=== PATIENT | female | born 1965 | race Caucasian/White ===

== ENCOUNTER 2017-04-26 11:08 | Inpatient (IN) | payer MEDICARE, OTHER ==
[~2017-04-26 11:08] MED LIST: ASPIRIN 325 MG TAB PO STA; SODIUM CHLORIDE 0.9% 1,000 ML in EMPTY BAG 1 BAG IV ONE
[2017-04-26] MEDS: ALPRAZolam 0.25 MG TAB PO PRN (11:32)
[2017-04-26 12:04] LABS: Anion Gap 8 mmol/L; Blood Urea Nitrogen 13 mg/dL (7-17); Calcium 9.5 mg/dL (8.4-10.2); Carbon Dioxide 24 mmol/L (22-30); Chloride 111 mmol/L (98-107); Glucose 173 mg/dL (74-99); Non-African American GFR(MDRD) >60 (>60 ml/min/1.73 sqM); Potassium 4.5 mmol/L (3.5-5.1); Sodium 143 mmol/L (137-145)
[2017-04-26 12:05] LABS: Basophils # (A) 0.1 k/uL (0-0.2); Basophils % (A) 1 %; CHCM 34.1; Eosinophils # (A) 0.2 k/uL (0-0.7); Eosinophils % (A) 2 %; HCT 45.4 % (34.0-46.0); HDW 2.88; Luc # (Auto) 0.09; Luc % (Auto) 1; Lymphocytes # (A) 2.7 k/uL (1.0-4.8); Lymphocytes % (A) 39 %; MCH 30.3 pg (25.0-35.0); MCHC 33.1 g/dL (31.0-37.0); MCV 91.5 fL (80.0-100.0); Mean Platelet Volume 8.1; Monocytes # (A) 0.4 k/uL (0-1.0); Monocytes % (A) 5 %; Neutrophils # (A) 3.6 k/uL (1.3-7.7); Neutrophils % (A) 51 %; RBC 4.96 m/uL (3.80-5.40); RDW 15.5 % (11.5-15.5); WBC (Perox) 6.77
[2017-04-26] MEDS: MIDAZOLAM 2 MG/2 ML VIAL IV ONE ×2 (13:35→13:39)
[2017-04-26] MEDS ORDERED: LIDOCAINE 2% INJ 20 MG/ML SQ ONE (13:38)
[2017-04-26] MEDS: VERAPAMIL SYRINGE (5 MG/10 ML) INTRAARTER ONE ×2 (13:39→13:53)
[2017-04-26] MEDS ORDERED: IODIXANOL 320 MG/ML 100 ML INTRAARTER ONE (13:52)
[2017-04-26] MEDS ORDERED: SODIUM CHLORIDE 0.9% 1,000 ML IV SCH (14:15)
--- NOTE | 2017-04-26 14:21 | IR ---
EXAMINATION TYPE: IR angio abdominal w runoff DATE OF EXAM: 04/26/2017 COMPARISON: NONE HISTORY: Peripheral vascular occlusive disease. Fluoroscopy was provided to the referring clinician. See dictated report from cardiology.
[2017-04-26] MEDS ORDERED: ALBUTEROL NEBULIZED 2.5 MG/3 ML INHALATION PRN (15:07)
--- NOTE | 2017-04-26 15:07 | HP ---
CHIEF COMPLAINT: Left foot pain. HISTORY OF CHIEF COMPLAINT: This 51 -year-old woman has had left foot pain mainly in the let great toe for about two weeks. She denies known history of claudication. She is a longstanding cigarette smoker. She denies ulcerations or other skin changes. Medical history is positive for hypertension. She is status post myocardial infarction with coronary stents. She states she has a stroke but has no residuals and has chronic depression. Surgical history is positive for coronary stents times two and eye surgery. Social history is positive for long standing cigarette smoking. Current medications: Not listed. She is alert. She has No known drug allergies. Review of systems: Cardiac history: Currently the patient is asymptomatic post coronary stenting. Pulmonary history: the patient has mild dyspnea on exertion and mild cough but no other symptoms. GI: Negative. : Negative. Musculoskeletal: The patient has chronic back discomfort. Dermatological: Negative. Neurological: The patient states she has had a previous stroke but she has no specific symptoms. Psychiatric: Positive for longstanding depression. Endocrine: Negative. Hematological: Negative. Immuno/Allergy: Negative. Constitutional: Positive for generalized fatigue. ENT: Negative. PHYSICAL EXAMINATION: Reveals a mildly obese 51 -year-old woman in no current distress. She has no cervical masses or adenopathy. Her lungs are clear. Her heart is regular rhythm. I hear no murmurs. Her abdomen is soft, but obese and benign. She has normal pulses on the right side, femorals and dorsalis pedis. She has no pulses at the left femoral or below. She has dusky discoloration of the toes on her left foot. IMPRESSION: Critical limb ischemia, suspect ileofemoral occlusion. RECOMMENDATIONS: I have discussed with the patient the options in detail. We recommend she proceed with aortogram with runoff and from there further treatment will depend on these findings. We discussed the case with Dr. Hernandez. She understands the impending amount of limb loss and limitations to treatment. We also had a detailed discussion about the need for smoking cessation. RENA
[2017-04-26] MEDS ORDERED: HEPARIN SODIUM,PORCINE 10,000 UNIT/ML 1 ML VIAL IV ONE (15:13)
[2017-04-26] MEDS ORDERED: HEPARIN SODIUM,PORCINE 5,000 UNIT/ML 1 ML VIAL IV PRN (15:13)
[2017-04-26 15:55] LABS: Basophils # (A) 0.1 k/uL (0-0.2); Basophils % (A) 1 %; CH 29.5; CHCM 32.9; Eosinophils # (A) 0.2 k/uL (0-0.7); Eosinophils % (A) 3 %; HCT 43.2 % (34.0-46.0); HDW 2.92; HGB 14.7 gm/dL (11.4-16.0); Luc # (Auto) 0.12; Luc % (Auto) 2; Lymphocytes # (A) 3.2 k/uL (1.0-4.8); Lymphocytes % (A) 43 %; MCH 30.7 pg (25.0-35.0); MCV 90.2 fL (80.0-100.0); Mean Platelet Volume 7.4; Monocytes # (A) 0.3 k/uL (0-1.0); Monocytes % (A) 3 %; Neutrophils # (A) 3.6 k/uL (1.3-7.7); Neutrophils % (A) 49 %; RBC 4.79 m/uL (3.80-5.40); RDW 14.7 % (11.5-15.5); WBC 7.5 k/uL (3.8-10.6); WBC (Perox) 7.82
[2017-04-26] MEDS ORDERED: CHOLECALCIFEROL 1,000 UNIT TAB PO SCH (16:00)
[2017-04-26] MEDS: SYMBICORT 80-4.5 MCG INHALER INHALATION SCH (19:57)
[2017-04-26] MEDS: ASPIRIN 81 MG CHEW PO SCH (20:52)
[2017-04-26] MEDS: MIRTAZAPINE 45 MG TABLET PO SCH (20:52)
[2017-04-26] MEDS: NICOTINE 21MG/24HR PATCH TRANSDERM SCH (20:52)
[2017-04-26] MEDS: clonazePAM 1 MG TAB PO SCH (20:52)
[2017-04-26] MEDS: ATORVASTATIN 80 MG TAB PO SCH (20:52)
[2017-04-26] MEDS: ARIPiprazole 2 MG TAB PO SCH (20:53)
[2017-04-26] MEDS: IMIPRAMINE 25 MG TAB PO SCH (20:53)
[2017-04-26] MEDS: DIVALPROEX ER 500 MG TAB.ER.24H PO SCH (20:53)
[2017-04-26] MEDS: IBUPROFEN 800 MG TAB PO PRN (20:58)
[2017-04-26] MEDS: HEPARIN SODIUM,PORCINE/D5W PMX 25,000 UNIT in DEXTROSE/WATER 1 500ML.BAG IV SCH (22:24)
[2017-04-27 04:55] LABS: Basophils # (A) 0.1 k/uL (0-0.2); Basophils % (A) 1 %; CH 30.4; CHCM 32.8; Eosinophils # (A) 0.2 k/uL (0-0.7); Eosinophils % (A) 2 %; HCT 43.4 % (34.0-46.0); HDW 2.86; HGB 13.8 gm/dL (11.4-16.0); Luc % (Auto) 1; Lymphocytes # (A) 3.6 k/uL (1.0-4.8); Lymphocytes % (A) 50 %; MCH 29.6 pg (25.0-35.0); MCHC 31.7 g/dL (31.0-37.0); MCV 93.3 fL (80.0-100.0); Monocytes # (A) 0.4 k/uL (0-1.0); Monocytes % (A) 5 %; Neutrophils # (A) 2.9 k/uL (1.3-7.7); Neutrophils % (A) 40 %; RBC 4.66 m/uL (3.80-5.40); RDW 15.4 % (11.5-15.5); WBC 7.2 k/uL (3.8-10.6); WBC (Perox) 7.07
[2017-04-27 05:36] LABS: ALT 52 U/L (9-52); AST 64 U/L (14-36); Alkaline Phosphatase 108 U/L (38-126); Anion Gap 7 mmol/L; Blood Urea Nitrogen 13 mg/dL (7-17); Calcium 9.3 mg/dL (8.4-10.2); Carbon Dioxide 25 mmol/L (22-30); Chloride 109 mmol/L (98-107); Glucose 208 mg/dL (74-99); Non-African American GFR(MDRD) >60 (>60 ml/min/1.73 sqM); Potassium 4.4 mmol/L (3.5-5.1); Sodium 141 mmol/L (137-145); Total Bilirubin 0.3 mg/dL (0.2-1.3); Total Protein 5.5 g/dL (6.3-8.2)
[2017-04-27] MEDS: ALPRAZolam 0.25 MG TAB PO PRN ×2 (06:22→21:31)
[2017-04-27] MEDS: SYMBICORT 80-4.5 MCG INHALER INHALATION SCH ×3 (08:51→21:07)
--- NOTE | 2017-04-27 09:02 | P.GSCN ---
History of Present Illness History of present illness: 51 old white female, history of pain and discomfort left foot for the last 2 weeks. Patient has history of discoloration of the toes mostly the big toe she has been admitted and a aortogram with runoff showed left external occlusive disease with some thrombus noted in the left common femoral artery SFA and popliteal and three-vessel runoff. 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 On examination neck supple no bruit appreciated Chest clear first and second sound normal Abdomen soft nontender Vascular examination femorals are palpable on the right side left side is not palpable posterior tibial dorsal pedis not palpable on the left foot there is some discoloration of the toesischemic ulcer noted motor functions are normal Plan is thrombectomy of the left femoral artery and possible stent of the left external iliac artery risk and complication discuss bleeding infection thrombosis patient understands and we will proceed Past Medical History Past Medical History: Coronary Artery Disease (CAD), COPD, Hypertension, Myocardial Infarction ([place]), Sleep Apnea/CPAP/BIPAP, Vascular Disorder Additional Past Medical History / Comment(s): stent 2009 2010 Last Myocardial Infarction Date:: 2010 History of Any Multi-Drug Resistant Organisms: None Reported Past Surgical History: Heart Catheterization With Stent Past Anesthesia/Blood Transfusion Reactions: No Reported Reaction Date of Last Stent Placement:: 2010 Past Psychological History: Depression Smoking Status: Current every day smoker Past Alcohol Use History: None Reported Past Drug Use History: None Reported - Past Family History Mother Family Medical History: COPD, Coronary Artery Disease (CAD) Father History Unknown: Yes Medications and Allergies Home Medications Medication Instructions Recorded Confirmed Type ARIPiprazole [Abilify] 2 mg PO HS 04/26/17 04/26/17 History Albuterol Inhaler [Ventolin Hfa 1 - 2 puff INHALATION Q6HR PRN 04/26/17 History Inhaler] Aspirin 81 mg PO HS 04/26/17 04/26/17 History Atorvastatin [Lipitor] 80 mg PO HS 04/26/17 04/26/17 History Budesonide/Formoterol Fumarate 1 puff INHALATION Q8HR 04/26/17 04/26/17 History [Symbicort 80-4.5 Mcg Inhaler] Cholecalciferol [Vitamin D3] 1,000 unit PO QMONTH 04/26/17 04/26/17 History Divalproex ER [Depakote ER] 1,000 mg PO HS 04/26/17 04/26/17 History Divalproex ER [Depakote ER] 500 mg PO DAILY 04/26/17 04/26/17 History Ibuprofen [Motrin] 800 mg PO Q6HR PRN 04/26/17 04/26/17 History Imipramine HCl [Tofranil] 50 mg PO HS 04/26/17 04/26/17 History Mirtazapine [Remeron] 45 mg PO HS 04/26/17 04/26/17 History clonazePAM [KlonoPIN] 1 mg PO BID 04/26/17 04/26/17 History Allergies Allergy/AdvReac Type Severity Reaction Status Date / Time No Known Allergies Allergy Verified 04/26/17 10:50 Surgical - Exam Vital Signs Temp Pulse Resp BP Pulse Ox 98.6 F 82 16 179/92 96 04/26/17 12:16 04/26/17 12:16 04/26/17 12:16 04/26/17 12:16 04/26/17 12:16 Results - Labs 04/27/17 03:50 04/27/17 03:50 Abnormal Lab Results - Last 24 Hours (Table) 04/26/17 04/26/17 04/27/17 Range/Units 11:30 15:39 03:50 APTT 68.1 H (22.0-30.0) sec Chloride 111 H 109 H (98-107) mmol/L Glucose 173 H 208 H (74-99) mg/dL AST 64 H (14-36) U/L Total Protein 5.5 L (6.3-8.2) g/dL Albumin 3.2 L (3.5-5.0) g/dL 04/27/17 Range/Units 03:50 APTT 48.9 H (22.0-30.0) sec Chloride (98-107) mmol/L Glucose (74-99) mg/dL AST (14-36) U/L Total Protein (6.3-8.2) g/dL Albumin (3.5-5.0) g/dL Diabetes panel 04/26/17 04/27/17 Range/Units 11:30 03:50 Sodium 143 141 (137-145) mmol/L Potassium 4.5 4.4 (3.5-5.1) mmol/L Chloride 111 H 109 H (98-107) mmol/L Carbon Dioxide 24 25 (22-30) mmol/L BUN 13 13 (7-17) mg/dL Creatinine 0.71 0.80 (0.52-1.04) mg/dL Glucose 173 H 208 H (74-99) mg/dL Calcium 9.5 9.3 (8.4-10.2) mg/dL AST 64 H (14-36) U/L ALT 52 (9-52) U/L Alkaline Phosphatase 108 (38-126) U/L Total Protein 5.5 L (6.3-8.2) g/dL Albumin 3.2 L (3.5-5.0) g/dL Calcium panel 04/26/17 04/27/17 Range/Units 11:30 03:50 Calcium 9.5 9.3 (8.4-10.2) mg/dL Albumin 3.2 L (3.5-5.0) g/dL Pituitary panel 04/26/17 04/27/17 Range/Units 11:30 03:50 Sodium 143 141 (137-145) mmol/L Potassium 4.5 4.4 (3.5-5.1) mmol/L Chloride 111 H 109 H (98-107) mmol/L Carbon Dioxide 24 25 (22-30) mmol/L BUN 13 13 (7-17) mg/dL Creatinine 0.71 0.80 (0.52-1.04) mg/dL Glucose 173 H 208 H (74-99) mg/dL Calcium 9.5 9.3 (8.4-10.2) mg/dL Adrenal panel 04/26/17 04/27/17 Range/Units 11:30 03:50 Sodium 143 141 (137-145) mmol/L Potassium 4.5 4.4 (3.5-5.1) mmol/L Chloride 111 H 109 H (98-107) mmol/L Carbon Dioxide 24 25 (22-30) mmol/L BUN 13 13 (7-17) mg/dL Creatinine 0.71 0.80 (0.52-1.04) mg/dL Glucose 173 H 208 H (74-99) mg/dL Calcium 9.5 9.3 (8.4-10.2) mg/dL Total Bilirubin 0.3 (0.2-1.3) mg/dL AST 64 H (14-36) U/L ALT 52 (9-52) U/L Alkaline Phosphatase 108 (38-126) U/L Total Protein 5.5 L (6.3-8.2) g/dL Albumin 3.2 L (3.5-5.0) g/dL
[2017-04-27] MEDS: clonazePAM 1 MG TAB PO SCH ×2 (09:29→21:37)
[2017-04-27] MEDS: NICOTINE 21MG/24HR PATCH TRANSDERM SCH (09:29)
[2017-04-27] MEDS: DIVALPROEX ER 500 MG TAB.ER.24H PO SCH ×2 (09:29→21:31)
[2017-04-27] MEDS: IBUPROFEN 800 MG TAB PO PRN ×3 (10:00→21:37)
--- NOTE | 2017-04-27 11:17 | AN ---
PERIPHERAL ANGIOGRAM DATE OF SERVICE: 04/26/2017 PERFORMING PHYSICIAN: PALLAVI MINAYA MD, MOWER SHARPENER PROCEDURE PERFORMED: 1. Abdominal aortogram. 2. Bilateral lower extremity runoff. INDICATION: This is a pleasant 51-year-old female patient who is a smoker, who sees Dr. Saucedo as an outpatient, was experiencing critical limb ischemia of the left leg. I was called by Dr. Saucedo to perform an angiogram for the patient. APPROACH: Right radial artery. COMPLICATION: None. LEVEL OF SEDATION: Moderate with sedation length of 20 minutes. PROCEDURE DESCRIPTION: After obtaining an informed consent, the patient was brought to the Cardiac Tobacco Sweeper. The right radial artery was cannulated using micropuncture technique. The micropuncture wire passed easily, then I placed a 5 Malaysian sheath in the right radial artery. Subsequently, I did an abdominal aortogram and bilateral lower extremity runoff using 5 Malaysian Pigtail catheter which was initially placed at the level of the renal artery, then it was advanced into above the bifurcation of the aorta at the right and left common iliac arteries. The procedure was completed without any complication. SELECTIVE PERIPHERAL ANGIOGRAM: 1. The aorta appeared to have mild disease only. 2. The common iliac arteries: The right common iliac artery appeared to have a lesion in the range of 60% to 70% and the left common iliac artery appeared to be angiographically normal. 3. The external iliac arteries: The right external iliac artery is angiographically normal and the left external iliac artery appeared to have a thrombus. 4. The common femoral arteries: The right common femoral artery appeared to be angiographically normal and the left common femoral artery appeared to have a thrombus. 5. The profunda: The right and left profunda are normal. 6. The SFA: The right and left SFA are angiographically normal. 7. Popliteal: The right and left popliteal are angiographically normal. 8. There are three-vessel runoff below the knee bilaterally. CONCLUSION: 1. Possible thrombus involving the left external iliac artery and left common femoral artery. 2. Moderate to severe disease involving the right common iliac artery. 3. Normal bilateral SFA. 4. Normal bilateral popliteal. 5. Normal runoff below the knee bilaterally. POSTPROCEDURE MANAGEMENT: The patient will benefit from thrombectomy of the left external iliac and left common femoral artery. RENA
--- NOTE | 2017-04-27 12:23 | CONS ---
CHIEF COMPLAINT: 51-year-old white female who developed left foot pain, left great toe with darkening of the skin of the left great toe. She was admitted with claudication, peripheral artery disease with multiple blockages status post aortic run off with dye test in the legs today. She had multiple blockages. She has history of myocardial infarction, coronary artery stents. She has hypertension. Three packs a day of smoke. Obstructive sleep apnea untreated. Late night eating untreated. Surgical history: Coronary stents times two. Eye surgeries. Three pack a day cigarette smoking as mentioned above. Under severe stress. Medications: See list. ALLERGIES: Negative. Cardiovascular: S1, S2. Lungs scattered wheeze. Psych: Fair mood and affect. Ophthalmological: Wears glasses. GI: Soft. Extremities shows left foot has purple red discoloration. ASSESSMENT: 1. Peripheral artery disease. 2. Nicotine addiction. 3. Hypertension. 4. Chronic obstructive pulmonary disease. 5. Obstructive sleep apnea. Check her nocturnal oxygen levels. Please see further orders in chart. Continue home medications. Prognosis very guarded unless the patient can quit smking. Give her a nicotine patch 21 mg a day. Obstructive sleep apnea will be treated with CPAP as tolerated. MTDD
[2017-04-27 12:59] LABS: Hemoglobin A1C 7.7 % (4.2-6.1)
--- NOTE | 2017-04-27 14:01 | P.CRDCN ---
History of Present Illness History of present illness: 51-year-old female admitted with severe peripheral vascular disease and awaiting surgery. In the past she has seen Dr. Alvarez. She follows regularly with Dr. Brock Hernandez performed an abdominal aortogram and bilateral lower extremity runoff yesterday. Mild disease in the aorta. Thrombus in the left external iliac artery and left common femoral artery has a thrombus. Awaiting thrombectomy of the left external I'll ache and left common femoral artery Currently consulted on account of hypertension Patient states that she has had elevated blood pressures for a long time. Past history of peripheral artery disease, smoking, hypertension, COPD and obstructive sleep apnea. 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 Alvarez after 2009 Current every day smoker, smokes 2 packs of cigars a day, no alcohol use Home medications include Abilify ventricle and aspirin atorvastatin inhalers Depakote imipramine Remeron and Klonopin ALLERGIES NO KNOWN DRUG ALLERGIES On examination he is afebrile 97.8F, pulse rate in the 80s, respirations 16, blood pressure 165/82 mmHg and 158/86. His mercury by manual readings Breath sounds are reduced bilaterally No rhonchi no crackles Heart sounds S1 and S2 are normal no murmurs no gallops Abdomen is soft Impression Peripheral vascular disease Current smoker Coronary artery disease in the past Hypertension History of sleep apnea Suggest Continue antiplatelet therapy as well as statins Lipid panel 2-D echo and Doppler study Twelve-lead ECG Start hydralazine 50 mg 3 times a day and metoprolol 25 mg twice daily Past Medical History Past Medical History: Coronary Artery Disease (CAD), COPD, Hypertension, Myocardial Infarction ([place]), Sleep Apnea/CPAP/BIPAP, Vascular Disorder Additional Past Medical History / Comment(s): stent 2009 2010 Last Myocardial Infarction Date:: 2010 History of Any Multi-Drug Resistant Organisms: None Reported Past Surgical History: Heart Catheterization With Stent Past Anesthesia/Blood Transfusion Reactions: No Reported Reaction Date of Last Stent Placement:: 2010 Past Psychological History: Depression Smoking Status: Current every day smoker Past Alcohol Use History: None Reported Past Drug Use History: None Reported - Past Family History Mother Family Medical History: COPD, Coronary Artery Disease (CAD) Father History Unknown: Yes Medications and Allergies Home Medications Medication Instructions Recorded Confirmed Type ARIPiprazole [Abilify] 2 mg PO HS 04/26/17 04/26/17 History Albuterol Inhaler [Ventolin Hfa 1 - 2 puff INHALATION Q6HR PRN 04/26/17 History Inhaler] Aspirin 81 mg PO HS 04/26/17 04/26/17 History Atorvastatin [Lipitor] 80 mg PO HS 04/26/17 04/26/17 History Budesonide/Formoterol Fumarate 1 puff INHALATION Q8HR 04/26/17 04/26/17 History [Symbicort 80-4.5 Mcg Inhaler] Cholecalciferol [Vitamin D3] 1,000 unit PO QMONTH 04/26/17 04/26/17 History Divalproex ER [Depakote ER] 1,000 mg PO HS 04/26/17 04/26/17 History Divalproex ER [Depakote ER] 500 mg PO DAILY 04/26/17 04/26/17 History Ibuprofen [Motrin] 800 mg PO Q6HR PRN 04/26/17 04/26/17 History Imipramine HCl [Tofranil] 50 mg PO HS 04/26/17 04/26/17 History Mirtazapine [Remeron] 45 mg PO HS 04/26/17 04/26/17 History clonazePAM [KlonoPIN] 1 mg PO BID 04/26/17 04/26/17 History Allergies Allergy/AdvReac Type Severity Reaction Status Date / Time No Known Allergies Allergy Verified 04/26/17 10:50 Physical Exam Vitals: Vital Signs Temp Pulse Resp BP BP BP Pulse Ox 04/27/17 10:51 97.8 F 88 16 158/86 165/82 96 04/27/17 08:00 97.5 F L 85 16 168/70 95 04/27/17 04:00 97.1 F L 80 18 135/86 97 04/27/17 00:00 82 16 163/71 98 04/26/17 20:00 97.3 F L 78 18 155/87 96 04/26/17 18:20 86 16 165/87 97 04/26/17 17:20 78 16 157/88 97 04/26/17 17:13 79 18 167/71 98 04/26/17 16:20 80 16 142/86 97 04/26/17 16:05 80 16 164/80 97 04/26/17 15:50 67 16 93/63 98 04/26/17 15:35 77 16 154/71 98 04/26/17 15:20 79 18 121/76 99 04/26/17 15:07 66 16 156/78 96 04/26/17 14:55 97.6 F 78 16 121/76 99 04/26/17 14:52 129/63 04/26/17 14:51 75 16 95 04/26/17 14:32 72 16 171/68 97 04/26/17 14:17 76 16 161/79 96 Intake and Output 04/26/17 04/27/17 04/27/17 22:59 06:59 14:59 Intake Total 240 520 Output Total 400 300 Balance -160 -300 520 Intake: Oral 240 520 Output: Urine 400 300 Other: # Voids 1 1 Weight 99 kg Results 04/27/17 03:50 04/27/17 03:50 Cardiac Enzymes 04/27/17 Range/Units 03:50 AST 64 H (14-36) U/L Coagulation 04/26/17 04/26/17 04/27/17 Range/Units 15:39 20:43 03:50 APTT 68.1 H 22.7 48.9 H (22.0-30.0) sec Lipids 04/27/17 Range/Units 03:50 Triglycerides 367 H (<150) mg/dL Cholesterol 175 (<200) mg/dL HDL Cholesterol 45 (40-60) mg/dL CBC 04/26/17 04/27/17 Range/Units 15:39 03:50 WBC 7.5 7.2 (3.8-10.6) k/uL RBC 4.79 4.66 (3.80-5.40) m/uL Hgb 14.7 13.8 (11.4-16.0) gm/dL Hct 43.2 43.4 (34.0-46.0) % Plt Count 190 174 (150-450) k/uL Comprehensive Metabolic Panel 04/27/17 Range/Units 03:50 Sodium 141 (137-145) mmol/L Potassium 4.4 (3.5-5.1) mmol/L Chloride 109 H (98-107) mmol/L Carbon Dioxide 25 (22-30) mmol/L BUN 13 (7-17) mg/dL Creatinine 0.80 (0.52-1.04) mg/dL Glucose 208 H (74-99) mg/dL Calcium 9.3 (8.4-10.2) mg/dL AST 64 H (14-36) U/L ALT 52 (9-52) U/L Alkaline Phosphatase 108 (38-126) U/L Total Protein 5.5 L (6.3-8.2) g/dL Albumin 3.2 L (3.5-5.0) g/dL Current Medications Generic Name Dose Route Start Last Admin Trade Name Freq PRN Reason Stop Dose Admin Albuterol Sulfate 2.5 mg 04/26/17 15:07 Ventolin Nebulized INHALATION Q6HR PRN Shortness Of Breath Or Wheezing Alprazolam 0.25 mg 04/26/17 10:54 04/27/17 06:22 Xanax PO 0.25 mg Q4HR PRN Administration Mild Anxiety Aripiprazole 2 mg 04/26/17 21:00 04/26/17 20:53 Abilify PO 2 mg HS EZIO Administration Aspirin 81 mg 04/26/17 21:00 04/26/17 20:52 Aspirin PO 81 mg HS EZIO Administration Atorvastatin Calcium 80 mg 04/26/17 21:00 04/26/17 20:52 Lipitor PO 80 mg HS EZIO Administration Budesonide/Formoterol Fumarate 1 puff 04/26/17 20:00 04/27/17 08:51 Symbicort 80-4.5 Mcg Inhaler INHALATION 1 puff RT-BID EZIO Administration Cholecalciferol 1,000 unit 04/26/17 16:00 Vitamin D3 PO QMONTH EZIO Clonazepam 1 mg 04/26/17 21:00 04/27/17 09:29 Klonopin PO 1 mg BID EZIO Administration Divalproex Sodium 500 mg 04/27/17 09:00 04/27/17 09:29 Depakote Er PO 500 mg DAILY EZIO Administration Divalproex Sodium 1,000 mg 04/26/17 21:00 04/26/17 20:53 Depakote Er PO 1,000 mg HS EZIO Administration Heparin Sodium (Porcine) 0 unit 04/26/17 15:13 Heparin IV PER PROTOCOL PRN Low PTT Protocol Hydralazine HCl 50 mg 04/27/17 13:00 Apresoline PO TID [facility] Heparin Sodium/Dextrose 25,000 500 mls @ 34.61 mls/hr 04/26/17 16:00 22:24 unit/ IV Solution IV 18 units/kg/hr .[id number] EZIO 34.61 mls/hr Protocol Administration 18 UNITS/KG/HR Ibuprofen 800 mg 04/26/17 18:21 04/27/17 10:00 Motrin PO 800 mg QID PRN Administration Pain Imipramine HCl 50 mg 04/26/17 21:00 04/26/17 20:53 Tofranil PO 50 mg HS EZIO Administration Metoprolol Tartrate 25 mg 04/27/17 13:00 Lopressor PO BID EZIO Mirtazapine 45 mg 04/26/17 21:00 04/26/17 20:52 Remeron PO 45 mg HS EZIO Administration Nicotine 1 patch 04/26/17 19:45 04/27/17 09:29 Habitrol 21mg/24hr Patch TRANSDERM 1 patch DAILY EZIO Administration Intake and Output 04/26/17 04/27/17 04/27/17 22:59 06:59 14:59 Intake Total 240 520 Output Total 400 300 Balance -160 -300 520 Intake: Oral 240 520 Output: Urine 400 300 Other: # Voids 1 1 Weight 99 kg 04/27/17 03:50 04/27/17 03:50
[2017-04-27] MEDS: hydrALAZINE HCL 50 MG TAB PO SCH ×3 (14:20→21:32)
[2017-04-27] MEDS: METOPROLOL TARTRATE 25 MG TAB PO SCH ×2 (14:21→21:32)
--- NOTE | 2017-04-27 18:08 | ECHOF ---
Referral Reason:htn, pvd MEASUREMENTS -------- HEIGHT: 165.1 cm WEIGHT: 98.9 kg BP: RVIDd: 2.0 cm (< 3.3) IVSd: 1.6 cm (0.6 - 1.1) LVIDd: 3.3 cm (3.9 - 5.3) LVPWd: 2.0 cm (0.6 - 1.1) EDV(Teich): 46 ml IVSs: 2.0 cm LVIDs: 2.5 cm LVPWs: 1.9 cm %IVS Thck: 25 % ESV(Teich): 23 ml EF(Teich): 50 % %FS: 24 % SV(Teich): 23 ml Ao Diam: 2.7 cm (2.0 - 3.7) AV Cusp: 1.8 cm (1.5 - 2.6) LA Diam: 3.2 cm (2.7 - 3.8) MV EXCURSION: 11.106 mm (> 18.000) MV EF SLOPE: 96 mm/s (70 - 150) EPSS: 0.6 cm MV E Ranulfo: 0.68 m/s MV DecT: 198 ms MV Dec Gilmer: 3.4 m/s MV A Ranulfo: 0.91 m/s MV E/A Ratio: 0.75 MV PHT: 57 ms E/E': 11.93 E': 0.06 m/s MR Vmax: 1.55 m/s MR maxP.63 mmHg AV Vmax: 1.03 m/s AV maxP.20 mmHg TR Vmax: 1.49 m/s TR maxP.89 mmHg RAP: 5.00 mmHg RVSP: 13.89 mmHg FINDINGS -------- Sinus rhythm. This was a technically good study. There is severe concentric left ventricular hypertrophy. Overall left ventricular systolic function is normal with, an EF between 55 - 60 %. The right ventricle is normal in size and function. The left atrium is normal in size. The right atrium is normal in size. The aortic valve is trileaflet, and appears structurally normal. No aortic stenosis or regurgitation. There is trace mitral regurgitation. Trace tricuspid regurgitation present. The right ventricular systolic pressure, as measured by Doppler, is 13.89mmHg. Pulmonic valve appears structurally normal. The aortic root size is normal. The pericardium is normal. CONCLUSIONS -------- 1. Sinus rhythm. 2. Trace tricuspid regurgitation present. 3. The right ventricular systolic pressure, as measured by Doppler, is 13.89mmHg. 4. Pulmonic valve appears structurally normal. 5. The aortic root size is normal. 6. The pericardium is normal. 7. This was a technically good study. 8. There is severe concentric left ventricular hypertrophy. 9. Overall left ventricular systolic function is normal with, an EF between 55 - 60 %. 10. The right ventricle is normal in size and function. 11. The left atrium is normal in size. 12. The right atrium is normal in size. 13. The aortic valve is trileaflet, and appears structurally normal. No aortic stenosis or regurgitation. 14. There is trace mitral regurgitation. DRIVING TEACHER: Belem De La Rosa RDCS
[2017-04-27] MEDS: ATORVASTATIN 80 MG TAB PO SCH (21:31)
[2017-04-27] MEDS: MIRTAZAPINE 45 MG TABLET PO SCH (21:31)
[2017-04-27] MEDS: IMIPRAMINE 25 MG TAB PO SCH (21:31)
[2017-04-27] MEDS: ASPIRIN 81 MG CHEW PO SCH (21:31)
[2017-04-27] MEDS: ARIPiprazole 2 MG TAB PO SCH (21:31)
[2017-04-28] MEDS: HEPARIN SODIUM,PORCINE/D5W PMX 25,000 UNIT in DEXTROSE/WATER 1 500ML.BAG IV SCH ×2 (01:35→12:15)
[2017-04-28] MEDS: hydrALAZINE HCL 50 MG TAB PO SCH ×3 (05:45→22:07)
[2017-04-28] MEDS: clonazePAM 1 MG TAB PO SCH ×2 (05:45→22:11)
[2017-04-28] MEDS: DIVALPROEX ER 500 MG TAB.ER.24H PO SCH ×3 (05:45→22:12)
[2017-04-28] MEDS: METOPROLOL TARTRATE 25 MG TAB PO SCH ×2 (05:45→22:13)
[2017-04-28] MEDS: NICOTINE 21MG/24HR PATCH TRANSDERM SCH (05:46)
[2017-04-28 06:17] LABS: Basophils % (A) 1 %; CH 30.8; Eosinophils # (A) 0.1 k/uL (0-0.7); Eosinophils % (A) 2 %; HCT 41.3 % (34.0-46.0); HDW 2.96; HGB 13.8 gm/dL (11.4-16.0); Luc # (Auto) 0.08; Luc % (Auto) 1; Lymphocytes # (A) 2.8 k/uL (1.0-4.8); Lymphocytes % (A) 48 %; MCH 29.7 pg (25.0-35.0); MCHC 33.5 g/dL (31.0-37.0); MCV 88.6 fL (80.0-100.0); Mean Platelet Volume 7.9; Monocytes # (A) 0.3 k/uL (0-1.0); Monocytes % (A) 6 %; Neutrophils # (A) 2.5 k/uL (1.3-7.7); Neutrophils % (A) 43 %; RBC 4.66 m/uL (3.80-5.40); RDW 15.2 % (11.5-15.5); WBC 5.8 k/uL (3.8-10.6); WBC (Perox) 5.81
[2017-04-28 06:27] LABS: ALT 72 U/L (9-52); AST 40 U/L (14-36); Alkaline Phosphatase 89 U/L (38-126); Anion Gap 7 mmol/L; Blood Urea Nitrogen 12 mg/dL (7-17); Calcium 9.7 mg/dL (8.4-10.2); Carbon Dioxide 25 mmol/L (22-30); Chloride 109 mmol/L (98-107); Glucose 141 mg/dL (74-99); Non-African American GFR(MDRD) >60 (>60 ml/min/1.73 sqM); Potassium 4.6 mmol/L (3.5-5.1); Sodium 141 mmol/L (137-145); Total Bilirubin 0.3 mg/dL (0.2-1.3); Total Protein 5.8 g/dL (6.3-8.2)
[2017-04-28] MEDS ORDERED: IV FLUID CONTINUATION 1,000 ML IV ONE (07:03)
[2017-04-28] MEDS ORDERED: MIDAZOLAM 2 MG/2 ML VIAL IVP ONE (07:10)
[2017-04-28] MEDS ORDERED: THROMBIN (BOVINE) 5,000 UNIT VIAL TOPICAL ONE (07:18)
[2017-04-28] MEDS ORDERED: IOHEXOL 300 MG/ML 50 ML BOTTLE INJ ONE ×3 (07:21)
[2017-04-28] MEDS ORDERED: SUCCINYLCHOLINE CHLORIDE 100 MG/5 ML SYR IV ONE (07:30)
[2017-04-28] MEDS ORDERED: fentaNYL (PF) 50 MCG/ML 2 ML AMP ONE (07:30)
[2017-04-28] MEDS ORDERED: ePHEDrine SULFATE/0.9% NACL/PF 50 MG/5 ML SYRINGE IV ONE (07:30)
[2017-04-28] MEDS ORDERED: GLYCOPYRROLATE 0.2 MG/ML 2 ML VIAL ONE (07:30)
[2017-04-28] MEDS ORDERED: LIDOCAINE 1% INJ 10MG/ML (20 ML MDV) ONE (07:30)
[2017-04-28] MEDS ORDERED: NEOSTIGMINE 1 MG/ML 10 ML VIAL ONE (07:30)
[2017-04-28] MEDS ORDERED: ONDANSETRON 4 MG/2 ML VIAL ONE (07:30)
[2017-04-28] MEDS ORDERED: HEPARIN SODIUM,PORCINE 10,000 UNIT/ML 1 ML VIAL ONE (07:30)
[2017-04-28] MEDS ORDERED: MIDAZOLAM 2 MG/2 ML VIAL ONE (07:30)
[2017-04-28] MEDS ORDERED: PHENYLEPHRINE-0.9% NACL SYG 1 MG/10 ML SYRINGE ONE (07:30)
[2017-04-28] MEDS ORDERED: ROCURONIUM BROMIDE 10 MG/ML 10 ML VIAL IV ONE (07:30)
[2017-04-28] MEDS ORDERED: PROPOFOL 10 MG/ML 20 ML VIAL IV ONE (07:30)
[2017-04-28] MEDS ORDERED: SODIUM CHLORIDE 0.9% 50 ML with ceFAZolin 2,000 MG IV ONE ×2 (07:48)
[2017-04-28] MEDS ORDERED: SODIUM CHLORIDE 0.9% 500 ML with HEPARIN SODIUM,PORCINE 5,000 UNIT IV ONE ×2 (08:56)
[2017-04-28] MEDS ORDERED: GELATIN SPONGE,ABSORB (LARGE) 1 EACH SPONGE TOPICAL ONE (09:13)
[2017-04-28] MEDS: SYMBICORT 80-4.5 MCG INHALER INHALATION SCH ×2 (09:28→20:27)
[2017-04-28] MEDS ORDERED: HYDROmorphone 1 MG/ML 1 ML SYRINGE IVP PRN (09:34)
[2017-04-28] MEDS ORDERED: HEPARIN SODIUM,PORCINE 5,000 UNIT/ML 1 ML VIAL IV PRN (09:38)
[2017-04-28] MEDS ORDERED: KETOROLAC 30 MG/ML 1 ML VIAL IVP ONE (10:00)
[2017-04-28] MEDS: HYDROmorphone 1 MG/ML 1 ML SYRINGE IVP ONE ×2 (10:00→10:15)
[2017-04-28 10:03] LABS: Prothrombin Time 9.9 sec (9.0-12.0)
[2017-04-28] MEDS ORDERED: LACTATED RINGERS 1,000 ML IV ONE (10:36)
[2017-04-28] MEDS ORDERED: ceFAZolin 1 GM in SODIUM CHLORIDE 0.9% 100 ML IVPB SCH (12:00)
[2017-04-28] MEDS: ceFAZolin 1,000 MG in DEXTROSE/WATER 1 50ML.BAG IVPB SCH ×2 (12:13→18:23)
[2017-04-28] MEDS ORDERED: diphenhydrAMINE 25 MG CAP PO STA (12:13)
[2017-04-28] MEDS ORDERED: Acetaminophen-Codeine 300-30mg TAB PO PRN (12:23)
[2017-04-28] MEDS: IBUPROFEN 800 MG TAB PO PRN (14:54)
[2017-04-28] MEDS: Acetaminophen-Codeine 300-30mg TAB PO PRN (16:04)
[2017-04-28] MEDS: ALPRAZolam 0.25 MG TAB PO PRN (16:08)
--- NOTE | 2017-04-28 17:39 | PN ---
PROGRESS NOTE Date of Service: Trauma I did send Tierney 8 NOLASCO: #[id number]. SUBJECTIVE: 51-year-old, white female, admitted with critical limb ischemia. Awaiting surgery on for a fem-fem bypass. CARDIOVASCULAR: S1, S2. LUNGS: Transmitted upper airway sounds. HEMATOLOGY: Negative Homans. PSYCH: Fair mood and affect. Nicotine cessation counseling given. Hypertension cessation counseling. High cholesterol cessation counseling given. Patient is cleared for surgery tomorrow. Thank you, Dr. Saucedo, for the consult. MMODL / IJN: [id number] /
[2017-04-28] MEDS: ARIPiprazole 2 MG TAB PO SCH (22:06)
[2017-04-28] MEDS: ASPIRIN 81 MG CHEW PO SCH (22:06)
[2017-04-28] MEDS: ATORVASTATIN 80 MG TAB PO SCH (22:07)
[2017-04-28] MEDS: diphenhydrAMINE 25 MG CAP PO SCH (22:08)
[2017-04-28] MEDS: IMIPRAMINE 25 MG TAB PO SCH (22:12)
[2017-04-28] MEDS: MIRTAZAPINE 45 MG TABLET PO SCH (22:13)
[2017-04-29] MEDS: ceFAZolin 1,000 MG in DEXTROSE/WATER 1 50ML.BAG IVPB SCH ×4 (00:10→17:57)
[2017-04-29 03:25] LABS: Basophils % (A) 1 %; CH 30.9; CHCM 34.6; Eosinophils # (A) 0.1 k/uL (0-0.7); Eosinophils % (A) 2 %; HDW 2.91; HGB 13.3 gm/dL (11.4-16.0); Luc # (Auto) 0.06; Luc % (Auto) 1; Lymphocytes # (A) 1.9 k/uL (1.0-4.8); Lymphocytes % (A) 31 %; MCHC 33.4 g/dL (31.0-37.0); MCV 89.9 fL (80.0-100.0); Mean Platelet Volume 7.8; Monocytes # (A) 0.3 k/uL (0-1.0); Monocytes % (A) 5 %; Neutrophils # (A) 3.6 k/uL (1.3-7.7); Neutrophils % (A) 60 %; RBC 4.45 m/uL (3.80-5.40); RDW 15.6 % (11.5-15.5)
[2017-04-29 03:39] LABS: ALT 58 U/L (9-52); AST 29 U/L (14-36); Alkaline Phosphatase 83 U/L (38-126); Anion Gap 5 mmol/L; Blood Urea Nitrogen 11 mg/dL (7-17); Calcium 10.1 mg/dL (8.4-10.2); Carbon Dioxide 31 mmol/L (22-30); Chloride 104 mmol/L (98-107); Glucose 196 mg/dL (74-99); Non-African American GFR(MDRD) >60 (>60 ml/min/1.73 sqM); Potassium 4.6 mmol/L (3.5-5.1); Sodium 140 mmol/L (137-145); Total Bilirubin 0.4 mg/dL (0.2-1.3); Total Protein 5.4 g/dL (6.3-8.2)
[2017-04-29] MEDS: FAMOTIDINE 20 MG TAB PO SCH ×3 (05:54→20:25)
--- NOTE | 2017-04-29 07:52 | P.PN ---
Progress Note - Text 51-year-old white female, patient came with ischemic left foot, patient had a left external iliac artery stent and balloon angioplasty incision groin is healing good patient has a decent pulse in the left foot is warm and pulses are palpable DC the heparin and patient will be on Plavix patient can be ambulated
[2017-04-29] MEDS: LISINOPRIL 20 MG TAB PO SCH (09:01)
[2017-04-29] MEDS: clonazePAM 1 MG TAB PO SCH ×3 (09:01→20:36)
[2017-04-29] MEDS: CLOPIDOGREL 75 MG TAB PO SCH (09:01)
[2017-04-29] MEDS: NICOTINE 21MG/24HR PATCH TRANSDERM SCH (09:01)
[2017-04-29] MEDS: diphenhydrAMINE 25 MG CAP PO SCH ×3 (09:01→20:36)
[2017-04-29] MEDS: Acetaminophen-Codeine 300-30mg TAB PO PRN ×2 (09:02→15:27)
[2017-04-29] MEDS: hydrALAZINE HCL 50 MG TAB PO SCH ×3 (09:02→20:27)
[2017-04-29] MEDS: METOPROLOL TARTRATE 25 MG TAB PO SCH ×2 (09:02→20:25)
[2017-04-29] MEDS: SYMBICORT 80-4.5 MCG INHALER INHALATION SCH ×2 (09:12→19:39)
--- NOTE | 2017-04-29 09:56 | P.PN ---
Subjective Principal diagnosis: Critical limb ischemia. Current tobacco dependence. History of hypertension, myocardial infarction with coronary stents, stroke, chronic depression. POD #1 left ileofemoral thrombectomy with iliac stent Patient's currently sitting up in bed in no acute distress. De La Cruz was discontinued this morning, patient is asking tibial to get up to the bathroom. States pain is well-controlled. Objective - Vital Signs Vital signs: Vital Signs Temp 97.6 F 04/29/17 04:00 Pulse 84 04/29/17 04:00 Resp 18 04/29/17 04:00 BP 139/59 04/29/17 04:00 Pulse Ox 95 04/29/17 04:00 Intake & Output 04/28/17 04/29/17 04/29/17 18:59 06:59 18:59 Intake Total 1461 731.223 180 Output Total 1100 3375 Balance 361 -2643.777 180 Weight 105 kg Intake: IV 1101 Intake, IV Titration 731.223 Amount Heparin Sodium,Porcine/ 371.223 D5w Pmx 25,000 unit In Dextrose/Water 1 500ml. bag @ 10.1 UNITS/KG/HR 20 .03 mls/hr IV .Q24H [facility] Rx#:[id number] Sodium Chloride 0.9% 50 260 ml As IV .STK-MED ONE with ceFAZolin 2,000 mg Rx#:[id number] ceFAZolin 1,000 mg In 100 Dextrose/Water 1 50ml.bag @ 100 mls/hr IVPB Q6HR [facility] Rx#:[id number] Oral 360 180 Output: Urine 1000 3375 Uretheral (De La Cruz) 675 Estimated Blood Loss 100 Other: Voiding Method Indwelling Catheter # Voids 2 - Constitutional General appearance: Present: cooperative, no acute distress - Respiratory Details: Lungs sounds diminished bilaterally. Respirations even, nonlabored. Currently on room air with oxygen saturations 95%. - Cardiovascular Details: S1, S2 present. Regular rate and rhythm, normal sinus rhythm on telemetry. Bilateral DP, PT pulses palpable. Left foot is warm with good cap refill. - Gastrointestinal Gastrointestinal Comment(s): Abdomen soft, nontender, nondistended. Active bowel sounds 4 quadrants. Tolerating diet. - Genitourinary Genitourinary Comment(s): De La Cruz discontinued this morning. Due to void. - Integumentary Integumentary Comment(s): Left groin well approximated with intact jacob. Re-covered with 4 x 4, Tegaderm. - Neurologic Neurologic: Present: CNII-XII intact - Musculoskeletal Musculoskeletal: Present: strength equal bilaterally - Psychiatric Psychiatric: Present: A&O x's 3, appropriate affect, intact judgment & insight - Allied health notes Allied health notes reviewed: nursing - Labs CBC & Chem 7: 04/29/17 03:04 04/29/17 03:04 Labs: Abnormal Lab Results - Last 24 Hours (Table) 04/29/17 04/29/17 Range/Units 03:04 03:04 RDW 15.6 H (11.5-15.5) % Carbon Dioxide 31 H (22-30) mmol/L Glucose 196 H (74-99) mg/dL ALT 58 H (9-52) U/L Total Protein 5.4 L (6.3-8.2) g/dL Albumin 3.2 L (3.5-5.0) g/dL Assessment and Plan (1) Tobacco dependence Status: Acute (2) Hypertension Status: Acute (3) Previous myocardial infarction older than 8 weeks Status: Acute (4) Depression Status: Acute (5) Critical lower limb ischemia Status: Acute Plan: 1. Continue aspirin, Lipitor. Start Plavix. Discontinue heparin drip after Plavix started. 2. Patient may ambulate. 3. Keep incision covered with 4 x 4 and Tegaderm. Dressing to be changed every 48 hours. 4. Encourage smoking cessation. Encourage incentive spirometery use. 5. Medical comorbidities to be managed by primary care services. 6. More recommendations as patient progresses. Likely will be discharged to home tomorrow. Time with Patient: Greater than 30
[2017-04-29] MEDS: HEPARIN SODIUM,PORCINE/D5W PMX 25,000 UNIT in DEXTROSE/WATER 1 500ML.BAG IV SCH (10:43)
--- NOTE | 2017-04-29 11:27 | P.PN ---
Progress Note - Text Please see full dictation by Dr. he. Patient's blood pressure is still elevated but a lot better and she is doing well after her peripheral vascular surgery. I have added lisinopril 20 mg by mouth daily. This lady needs to stop smoking and be compliant with her medications. She is on antiplatelet therapy, atorvastatin and antihypertensive therapy. She will follow-up with her primary care physician
--- NOTE | 2017-04-29 14:13 | P.PN ---
Subjective Principal diagnosis: Critical limb ischemia This is a 51-year-old female with history of severe peripheral vascular disease, hypertension, nicotine dependence, COPD, sleep apnea, patient underwent left iliofemoral femur thrombectomy with stent placement. She was seen and examined this morning, denies any pain in either of her legs. No chest discomfort or difficulty in breathing. Blood pressure 138/60 heart rate in the 80s. Objective - Vital Signs Vital signs: Vital Signs Temp 97.5 F L 04/29/17 08:00 Pulse 89 04/29/17 08:00 Resp 18 04/29/17 08:00 BP 160/89 04/29/17 08:00 Pulse Ox 95 04/29/17 08:00 Intake & Output 04/28/17 04/29/17 04/29/17 18:59 06:59 18:59 Intake Total 1461 731.223 416 Output Total 1100 3375 Balance 361 -2643.777 416 Weight 105 kg Intake: IV 1101 Intake, IV Titration 731.223 Amount Heparin Sodium,Porcine/ 371.223 D5w Pmx 25,000 unit In Dextrose/Water 1 500ml. bag @ 10.1 UNITS/KG/HR 20 .03 mls/hr IV .Q24H [facility] Rx#:[id number] Sodium Chloride 0.9% 50 260 ml As IV .STK-MED ONE with ceFAZolin 2,000 mg Rx#:[id number] ceFAZolin 1,000 mg In 100 Dextrose/Water 1 50ml.bag @ 100 mls/hr IVPB Q6HR [facility] Rx#:[id number] Oral 360 416 Output: Urine 1000 3375 Uretheral (De La Cruz) 675 Estimated Blood Loss 100 Other: Voiding Method Indwelling Catheter Toilet # Voids 2 - Exam PHYSICAL EXAMINATION: HEENT: Head is atraumatic, normocephalic. Pupils equal, round. Neck is supple. There is no elevated jugular venous pressure. HEART EXAMINATION: Heart S1, S2 normal. No murmur or gallop heard. CHEST EXAMINATION: Lungs reveal diminished air entry to bilateral bases. ABDOMEN: Soft, nontender. Bowel sounds are heard. No organomegaly noted. EXTREMITIES: Doppler posterior tibial peripheral pulses with no evidence of peripheral edema and no calf tenderness noted. Left foot is warm good capillary refill NEUROLOGIC [patient is awake, alert and oriented -3.] . - Labs CBC & Chem 7: 04/29/17 03:04 04/29/17 03:04 Labs: Abnormal Lab Results - Last 24 Hours (Table) 04/29/17 04/29/17 Range/Units 03:04 03:04 RDW 15.6 H (11.5-15.5) % Carbon Dioxide 31 H (22-30) mmol/L Glucose 196 H (74-99) mg/dL ALT 58 H (9-52) U/L Total Protein 5.4 L (6.3-8.2) g/dL Albumin 3.2 L (3.5-5.0) g/dL Assessment and Plan (1) Ileofemoral deep vein thrombosis Status: Acute (2) Status post insertion of iliac artery stent Status: Acute (3) Critical lower limb ischemia Status: Acute (4) Depression Status: Acute (5) Hypertension Status: Acute (6) Previous myocardial infarction older than 8 weeks Status: Acute (7) Tobacco dependence Status: Acute Plan: From cardiology's perspective, we'll increase the patient's lisinopril to 20 mg daily. Patient has been instructed regarding the importance of taking her medications on a regular basis. Follow-up appointment will be made in the office post discharge. DNP note has been reviewed, I agree with a documented findings and plan of care. Patient was seen and examined.
--- NOTE | 2017-04-29 16:10 | PN ---
PROGRESS NOTE SUBJECTIVE: 51-year-old white female, status post femoral-popliteal bypass. Smoking cessation counseling has been given. Cardiovascular S1, S2. Lungs are clear. GI is soft, nontender. Negative Homans. Psych: Fair mood and affect. ASSESSMENT: 1. Status post fem-fem bypass. 2. Jaundice. 3. Discharge in the next 24 to 48 hours. 4. Smoking cessation counseling. 5. Alcohol counselling. 6. Obesity and sleep apnea treatments will be discussed with the patient as outpatient and will need to be worked up. MMODL / IJN: [id number] /
[2017-04-29 18:07] VITALS: RESP 18
[2017-04-29] MEDS: ARIPiprazole 2 MG TAB PO SCH (20:25)
[2017-04-29] MEDS: ASPIRIN 81 MG CHEW PO SCH (20:25)
[2017-04-29] MEDS: ATORVASTATIN 80 MG TAB PO SCH (20:25)
[2017-04-29] MEDS: MIRTAZAPINE 45 MG TABLET PO SCH (20:25)
[2017-04-29] MEDS: DIVALPROEX ER 500 MG TAB.ER.24H PO SCH (20:26)
[2017-04-29] MEDS: IMIPRAMINE 25 MG TAB PO SCH (20:26)
--- NOTE | 2017-04-29 21:37 | OP ---
OPERATIVE REPORT DATE OF PROCEDURE: 04/27/2017. PREOP DIAGNOSIS: 1. Ischemic left foot. 2. Left external iliac occlusion with possible thrombus impression. OPERATION: 1. Left leg angiogram evaluating the femoral iliac and artery on the left side. 2. Using 5 x 40 Evercross balloon, placement of an 8 x 60 Everflex stent, balloon angioplasty of the left external iliac artery using 7 x 40 Evercross with completion angiogram. HISTORY: This patient is a 51-year-old female, she came to the hospital with ischemic left foot. The patient had an angiogram which showed left external artery occlusion with possible thrombus at the left common femoral artery. DESCRIPTION OF THE PROCEDURE: This patient was brought to the operating room. The left leg and right groin were prepped and draped applied in the usual sterile manner. Incision was made transversely across left groin and deepened through skin, fat and fascia. Dissection was carried out. The common femoral artery which was dissected. Vessel loop was placed around it. Then the dissection was carried out the profunda and superficial femoral artery. The vessel loop was placed around it. The femoral artery was small in caliber but has a posterior plaque. After that, 6000 units of systemic heparin was given. The common femoral profunda was clamped. A transverse arteriotomy incision was made. Since there was a concern about a clot in the common femoral artery, we used a Mayuri catheter #3 and which was passed to the profunda and superficial femoral artery but no clot was retrieved and there was a free flow noted and then flushed with heparin saline. Then using a balloon we went to the iliac artery and which was passed and no clot was retrieved. At this point, I placed a 6-Japanese sheath and an angiogram was performed on the table. Found to have a there was high-grade stenosis of the left external iliac artery. Common iliac artery was found to be patent. I used glide wire was passed under fluoroscopy control and 5 x 40 mm balloon was advanced and pre-dilated the external iliac artery and then the Ever Flex 8 x 60 stent was used which was deployed and the angiogram showed decent deployment and we used 7 x 40 Evercross balloon which was inflated for one minute and deflated and completion angiogram showed 0 resolute stenosis. Sheath was removed and the common femoral was clamped and arteriotomy incision was closed with interrupted sutures using 6-0 Prolene with it and artery was flushed in the usual manner and there was a clamp released and there was excellent flow in the femoral artery. Hemostasis was well controlled and we checked the pulses. Patient has triphasic signal of the posterior tibial and dorsalis pedis. The foot was warm. Hemostasis is well controlled. Incision closed with Vicryl and skin closed with skin stapler. SURGEON: Dr. Collins Galo. PORCELAIN MIXER: Dr. Jose Eduardo Saucedo The patient transferred to recovery room in satisfactory condition. MMODL / DANIELN: [id number] /
[2017-04-30] MEDS: ceFAZolin 1,000 MG in DEXTROSE/WATER 1 50ML.BAG IVPB SCH ×2 (00:11→06:31)
[2017-04-30 06:06] LABS: Basophils % (A) 0 %; CH 29.4; CHCM 33.6; Eosinophils # (A) 0.1 k/uL (0-0.7); Eosinophils % (A) 1 %; HCT 38.6 % (34.0-46.0); HDW 2.85; HGB 13.4 gm/dL (11.4-16.0); Luc # (Auto) 0.13; Luc % (Auto) 2; Lymphocytes # (A) 2.2 k/uL (1.0-4.8); Lymphocytes % (A) 30 %; MCH 30.5 pg (25.0-35.0); MCHC 34.7 g/dL (31.0-37.0); MCV 87.8 fL (80.0-100.0); Mean Platelet Volume 7.4; Monocytes # (A) 0.4 k/uL (0-1.0); Monocytes % (A) 6 %; Neutrophils # (A) 4.5 k/uL (1.3-7.7); Neutrophils % (A) 62 %; RDW 14.6 % (11.5-15.5); WBC 7.3 k/uL (3.8-10.6); WBC (Perox) 7.76
[2017-04-30 06:19] LABS: ALT 46 U/L (9-52); AST 26 U/L (14-36); Alkaline Phosphatase 87 U/L (38-126); Anion Gap 8 mmol/L; Blood Urea Nitrogen 13 mg/dL (7-17); Calcium 10.1 mg/dL (8.4-10.2); Carbon Dioxide 30 mmol/L (22-30); Chloride 101 mmol/L (98-107); Glucose 170 mg/dL (74-99); Non-African American GFR(MDRD) >60 (>60 ml/min/1.73 sqM); Potassium 4.3 mmol/L (3.5-5.1); Sodium 139 mmol/L (137-145); Total Bilirubin 0.6 mg/dL (0.2-1.3); Total Protein 5.5 g/dL (6.3-8.2)
[2017-04-30] MEDS: Acetaminophen-Codeine 300-30mg TAB PO PRN (06:31)
--- NOTE | 2017-04-30 08:15 | P.PN ---
Subjective Principal diagnosis: Critical limb ischemia. Current tobacco dependence. History of hypertension, myocardial infarction with coronary stents, stroke, chronic depression. POD #2 left ileofemoral thrombectomy with iliac stent Patient's currently sitting up in bed in no acute distress. States pain is controlled. She has been ambulating in the hallway without any difficulty. Objective - Vital Signs Vital signs: Vital Signs Temp 98.2 F 04/30/17 04:00 Pulse 82 04/30/17 04:00 Resp 18 04/30/17 04:00 BP 99/65 04/30/17 04:00 Pulse Ox 93 L 04/30/17 04:00 Intake & Output 04/29/17 04/30/17 04/30/17 18:59 06:59 18:59 Intake Total 596 100 Output Total 200 Balance 396 100 Weight 98.7 kg Intake: IV 100 ceFAZolin 1,000 mg In 100 Dextrose/Water 1 50ml.bag @ 100 mls/hr IVPB Q6HR [facility] Rx#:[id number] Oral 596 Output: Urine 200 Other: Voiding Method Toilet Toilet # Voids 1 - Constitutional General appearance: Present: cooperative, no acute distress - Respiratory Details: Lungs sounds very diminished bilaterally. Respirations even, nonlabored. Currently on room air saturation 93%. - Cardiovascular Details: S1, S2 present. Regular rate and rhythm, normal sinus rhythm on telemetry. No edema present. Palpable pulses bilaterally. Left foot warm with good cap refill. - Gastrointestinal Gastrointestinal Comment(s): Abdomen soft, nontender, nondistended. Active bowel sounds 4 quadrants. Tolerating diet. - Genitourinary Genitourinary Comment(s): Voiding clear, yellow urine. - Musculoskeletal Musculoskeletal: Present: gait normal, strength equal bilaterally - Psychiatric Psychiatric: Present: A&O x's 3, appropriate affect, intact judgment & insight - Allied health notes Allied health notes reviewed: nursing - Labs CBC & Chem 7: 04/30/17 05:26 04/30/17 05:26 Labs: Abnormal Lab Results - Last 24 Hours (Table) 04/30/17 Range/Units 05:26 Glucose 170 H (74-99) mg/dL Total Protein 5.5 L (6.3-8.2) g/dL Albumin 3.3 L (3.5-5.0) g/dL Assessment and Plan (1) Tobacco dependence Status: Acute (2) Hypertension Status: Acute (3) Previous myocardial infarction older than 8 weeks Status: Acute (4) Depression Status: Acute (5) Critical lower limb ischemia Status: Acute Plan: 1. Continue aspirin, Lipitor, Plavix. 2. Patient may ambulate. 3. Keep incision covered with 4 x 4 and Tegaderm. Dressing to be changed every 48 hours. 4. Encourage smoking cessation. Encourage incentive spirometery use. 5. Medical comorbidities to be managed by primary care services. 6. Likely will be discharged to home later today Time with Patient: Greater than 30
[2017-04-30] MEDS: SYMBICORT 80-4.5 MCG INHALER INHALATION SCH (08:26)
[2017-04-30] MEDS: CLOPIDOGREL 75 MG TAB PO SCH (09:12)
[2017-04-30] MEDS: LISINOPRIL 20 MG TAB PO SCH (09:12)
[2017-04-30] MEDS: NICOTINE 21MG/24HR PATCH TRANSDERM SCH (09:12)
[2017-04-30] MEDS: METOPROLOL TARTRATE 25 MG TAB PO SCH (09:12)
[2017-04-30] MEDS: diphenhydrAMINE 25 MG CAP PO SCH (09:12)
[2017-04-30] MEDS: clonazePAM 1 MG TAB PO SCH (09:12)
[2017-04-30] MEDS: hydrALAZINE HCL 50 MG TAB PO SCH (09:13)
[2017-04-30] MEDS: DIVALPROEX ER 500 MG TAB.ER.24H PO SCH (09:13)
[2017-04-30] MEDS: FAMOTIDINE 20 MG TAB PO SCH (09:15)
--- NOTE | 2017-04-30 09:29 | PN ---
PROGRESS NOTE SUBJECTIVE: This is a 51-year-old, white female, status post ileo femoral femur thrombectomy with stent placement. No chest pain or shortness of breath. PHYSICAL EXAMINATION: Blood pressure 138/68, heart rate 80s, temp 97, pulse 89, respiratory rate 18, blood pressure 160/89, 95% on room air. CARDIOVASCULAR: S1, S2. Lungs shows transmitted upper airway sounds. Hematological: Negative Homans. Psych: Fair mood and affect. Ophthalmological: Pupils equal, round, reactive to light and accommodation. ASSESSMENT: 1. Previous myocardial infarction. 2. Nicotine addiction. 3. Diabetes mellitus. 4. Status post ileofemoral deep vein thrombosis. 5. Ileo artery stent. 6. Critical limb ischemia. 7. Depression. 8. Hypertension. 9. Nicotine addiction. 10.Nicotine patches. Smoking cessation discussed with the patient. Medication compliance. Please see further orders. MMODL / IJN: [id number] /
--- NOTE | 2017-04-30 10:03 | P.PN ---
Subjective Patient is doing well. Blood pressures 119/51 mmHg respirations normal pulse rate in the 80s afebrile 98.2F. Breath sounds are clear normal no rhonchi no crackles Heart sounds are normal normal S1 normal S2 no murmurs no gallops Lower extremities a healing well after the surgery She is ambulate in the hallways comfortably Blood pressure is very well controlled. She states she will stop smoking and given to see this try Impression CAD status post stenting many years back noncompliant with follow-up Hypertension, I'm not sure why she was not on antihypertensive therapy and not sure if it was not prescribed or she was noncompliant Peripheral vascular disease with iliofemoral thrombosis Status post thrombectomy and iliac stenting for critical lower extremity ischemia Plan Antiplatelet therapy Statins Antihypertensive therapy Stop smoking She needs major lifestyle modification otherwise prognosis is very poor. She understands this Objective - Vital Signs Vital signs: Vital Signs Temp 98.2 F 04/30/17 04:00 Pulse 82 04/30/17 04:00 Resp 18 04/30/17 04:00 BP 99/65 04/30/17 04:00 Pulse Ox 93 L 04/30/17 04:00 Intake & Output 04/29/17 04/30/17 04/30/17 18:59 06:59 18:59 Intake Total 596 100 Output Total 200 Balance 396 100 Weight 98.7 kg Intake: IV 100 ceFAZolin 1,000 mg In 100 Dextrose/Water 1 50ml.bag @ 100 mls/hr IVPB Q6HR [facility] Rx#:[id number] Oral 596 Output: Urine 200 Other: Voiding Method Toilet Toilet # Voids 1 - Labs CBC & Chem 7: 04/30/17 05:26 04/30/17 05:26 Labs: Abnormal Lab Results - Last 24 Hours (Table) 04/30/17 Range/Units 05:26 Glucose 170 H (74-99) mg/dL Total Protein 5.5 L (6.3-8.2) g/dL Albumin 3.3 L (3.5-5.0) g/dL
[2017-04-30 10:12] VITALS: PULSE 100
[2017-04-30 10:14] VITALS: BP 143/74; TEMP 98.1
--- NOTE | 2017-04-30 11:18 | P.DS ---
Providers Date of admission: 04/28/17 14:29 Attending physician: Dilshad Saucedo Consults: 04/26/17 15:26 Consult Physician Routine Consulting Provider: Francis Wilkes Consult Reason/Comments: med management ([facility] patient) Do you want consulting provider notified?: Yes 04/27/17 07:58 Consult Physician ONCE Consulting Provider: Collins Galo Consult Reason/Comments: Thrombectomy Do you want consulting provider notified?: Yes Primary care physician: Stated None - Discharge Diagnosis(es) (1) Tobacco dependence Current Visit: Yes Status: Acute (2) Hypertension Current Visit: Yes Status: Acute (3) Previous myocardial infarction older than 8 weeks Current Visit: Yes Status: Acute (4) Depression Current Visit: Yes Status: Acute (5) Critical lower limb ischemia Current Visit: Yes Status: Acute Hospital Course: FINAL DIAGNOSIS: 1. Critical limb ischemia OTHER COMORBID CONDITIONS: 1. Current tobacco dependence 2. History of hypertension 3. History of myocardial infarction with coronary stents 4. History of stroke 5. Chronic depression PRINCIPAL PROCEDURE: 1. Left leg angiogram evaluating the femoral iliac and artery and the left side 2. Placement of an 8 x 60 Everflex stent, balloon angioplasty of the left external iliac artery using a 7 x 40 Evercross with completion angiogram HISTORY OF PRESENT ILLNESS: This 51-year-old female presented with a history of pain and discomfort in her left foot for the previous 2 weeks. She had a history of discoloration of the toes, mostly the big toe. She denied any symptoms or history of claudication. She has been a long standing heavy cigarette smoker. In the electrical laboratory technician, an aortogram with runoff was completed demonstrating left external occlusive disease with some thrombus noted in the left common femoral artery, SFA and popliteal with three-vessel runoff. She was admitted, started on heparin, and was recommended to have a left femoral artery thrombectomy with stenting and balloon angioplasty of the left external iliac artery. An extensive discussion was had with the patient, all risks and benefits were explained in detail, and the patient agreed to proceed with surgery. HOSPITAL COURSE: The patient was admitted and placed on a heparin drip. On she was taken to the operating room where Dr. Galo and Dr. Saucedo placed an 8 x 60 Everflex stent, with balloon angioplasty of the left external iliac artery using a 7 x 40 Evercross with completion angiogram. There was no clot to retrieve. Upon completion of surgery, hemostasis was achieved, the patient's left foot was warm, and she had Doppler posterior tibial and dorsalis pedis pulses. She was taken to the recovery room in stable condition. She was then taken to [facility] for further monitoring and rehabilitation. On postoperative day #1, her heparin drip was stopped, she was started on Plavix , her left foot remained warm with palpable posterior tibial and dorsalis pedis pulses, her incision was well approximated without drainage, and she was able to ambulate in the hallway. Her pain was well-controlled and she was counseled regarding the need to quit smoking. Cardiology was consulted regarding hypertension as this patient has a previous history and has been noncompliant. She was initiated on lisinopril, and counseled regarding the need to stay compliant with medication and physician follow-up. She was ready to be discharged home with [facility] care on postoperative day #2. She was given verbal as well as written instructions regarding activity restrictions, signs and symptoms requiring physician notification, medications, and follow-up appointments. COMPLICATIONS: There were no post operative complications. DISCHARGE INSTRUCTIONS: 1. No driving until Dr. Saucedo gives their ok. 2. Stairs are not an issue, but go slowly, using handrail and take 1 step at a time. 3. No lifting, pushing, or pulling more than [address] Saucedo give the OK. 4. Continue pain control per as needed orders. 5. Continue with incentive spirometry until otherwise directed by the physician. 6. Shower daily using liquid antibacterial soap. No tub baths, hot tubs. 7. Routine incision care. No powders, lotions, ointments on incisions. May remove dressing on Tuesday. 8. Please call surgeon/OPTO MECHANICAL TECHNICIAN for temp greater than 101 F or purulent drainage from incisions. 9. STOP SMOKING! Plan - Discharge Summary New Discharge Prescriptions: No Action Divalproex ER [Depakote ER] 1,000 mg PO HS ARIPiprazole [Abilify] 2 mg PO HS clonazePAM [KlonoPIN] 1 mg PO BID Atorvastatin [Lipitor] 80 mg PO HS Mirtazapine [Remeron] 45 mg PO HS Aspirin 81 mg PO HS Budesonide/Formoterol Fumarate [Symbicort 80-4.5 Mcg Inhaler] 1 puff INHALATION RT-BID Cholecalciferol [Vitamin D3] 1,000 unit PO QMONTH Albuterol Inhaler [Ventolin Hfa Inhaler] 1 - 2 puff INHALATION RT-Q6H PRN PRN Reason: Shortness Of Breath Or Wheezing Divalproex ER [Depakote ER] 500 mg PO DAILY Ibuprofen [Motrin] 800 mg PO Q6HR PRN PRN Reason: Mild To Moderate Pain Imipramine HCl [Tofranil] 50 mg PO HS Discharge Medication List ARIPiprazole [Abilify] 2 mg PO HS 04/26/17 [History] Albuterol Inhaler [Ventolin Hfa Inhaler] 1 - 2 puff INHALATION RT-Q6H PRN [History] Aspirin 81 mg PO HS 04/26/17 [History] Atorvastatin [Lipitor] 80 mg PO HS 04/26/17 [History] Budesonide/Formoterol Fumarate [Symbicort 80-4.5 Mcg Inhaler] 1 puff INHALATION RT-BID 04/26/17 [History] Cholecalciferol [Vitamin D3] 1,000 unit PO QMONTH 04/26/17 [History] Divalproex ER [Depakote ER] 1,000 mg PO HS 04/26/17 [History] Divalproex ER [Depakote ER] 500 mg PO DAILY 04/26/17 [History] Ibuprofen [Motrin] 800 mg PO Q6HR PRN 04/26/17 [History] Imipramine HCl [Tofranil] 50 mg PO HS 04/26/17 [History] Mirtazapine [Remeron] 45 mg PO HS 04/26/17 [History] clonazePAM [KlonoPIN] 1 mg PO BID 04/26/17 [History] Follow up Appointment(s)/Referral(s): Jh Barger MD [STAFF PHYSICIAN] - 1 Week Dusty Gutiérrez MD [STAFF PHYSICIAN] - 1 Week [facility], [NON-STAFF] - Dilshad Saucedo DO [Doctor of Osteopathic Medicine] - 05/05/17 9:15 am
--- NOTE | 2017-04-30 15:32 | PN ---
PROGRESS NOTE The patient was seen in her room today. The patient came with ischemic left foot and wound up with left iliac artery stent placement. Postop period was uneventful. Today incision is healing good. Patient has a posterior tibial and dorsalis pedis present. PLAN: The patient is going home today on Plavix. Patient will follow up with Dr. Saucedo in his office next week. MMODL / IJN: [id number] /
== END 2017-04-30 12:38 | disposition home health service (06) | DRG 253 ==
LOC: CATHCVL 11:08 → 6SEL 14:00 → CATHCVL 04-28 14:26 → 6SEL 04-28 14:29
PROVIDERS: ADMIT Family Medicine; ATTEND Thoracic Surgery (Cardiothoracic Vascular Surgery)
PROC: 047J3ZZ Dilation of Left External Iliac Artery, Percutaneous Approach (ICD-10-PCS; principal; 2017-04-29)
PROC: B41G1ZZ Fluoroscopy of Left Lower Extremity Arteries using Low Osmolar Contrast (ICD-10-PCS; 2017-04-29)
DX: I82.422 Acute embolism and thrombosis of left iliac vein (principal); R17 Unspecified jaundice; I10 Essential (primary) hypertension; F32.9 Major depressive disorder, single episode, unspecified; E11.9 Type 2 diabetes mellitus without complications; E66.9 Obesity, unspecified; F17.210 Nicotine dependence, cigarettes, uncomplicated; G47.33 Obstructive sleep apnea (adult) (pediatric); I25.10 Atherosclerotic heart disease of native coronary artery without angina pectoris; I25.2 Old myocardial infarction; I73.9 Peripheral vascular disease, unspecified; J44.9 Chronic obstructive pulmonary disease, unspecified; Z79.82 Long term (current) use of aspirin; Z79.899 Other long term (current) drug therapy; Z95.5 Presence of coronary angioplasty implant and graft; Z82.49 Family history of ischemic heart disease and other diseases of the circulatory system
CPT/HCPCS: 36200; 75625; 75716; 80048; 80053; 80061; 81025; 83036; 84443; 85025; 85610; 85730; 93005; 93306; 94640

== ENCOUNTER → 2017-06-21 | Outpatient (CLI) | payer MEDICARE, OTHER ==
--- NOTE | 2017-06-21 10:41 | CT ---
EXAMINATION TYPE: CT sinus wo con DATE OF EXAM: 06/21/2017 COMPARISON: NONE HISTORY: Rt eye swelling CT DLP: 551.[address] of the paranasal sinuses was performed in the axial and coronal planes. Bone and soft tissue settings are submitted. The paranasal sinuses demonstrate normal aeration and development. There is mild mucosal thickening involving several less superior ethmoid air cells. The osteal meatal units are patent bilaterally. The nasal septum is midline. No bony destructive changes are seen within the field of view. Incidental changes of hyperostosis fro ntalis interna. IMPRESSION: Mild chronic ethmoidal sinusitis.
== END | disposition home or self-care (01) ==
LOC: RADCTMAIN 10:05
PROVIDERS: ATTEND Family Medicine
DX: J32.2 Chronic ethmoidal sinusitis (principal)
CPT/HCPCS: 70486

== ENCOUNTER 2018-02-19 20:26 | Inpatient (IN) | payer MEDICARE, OTHER ==
[2018-02-19] MEDS ORDERED: methylPREDNISolone SOD SUCCI 125 MG/2 ML VIAL IV STA (20:41)
[2018-02-19] MEDS ORDERED: SODIUM CHLORIDE 0.9% 1,000 ML IV STA (20:41)
[2018-02-19] MEDS ORDERED: IPRATROPIUM-ALBUTEROL 3 ML NEB INHALATION STA (20:41)
[2018-02-19 21:14] LABS: Anisocytosis Slight; Basophils # (A) 0.1 k/uL (0-0.2); Basophils % (A) 1 %; Eosinophils # (A) 0.2 k/uL (0-0.7); Eosinophils % (A) 1 %; HCT 43.5 % (34.0-46.0); HGB 14.5 gm/dL (11.4-16.0); Lymphocytes # (A) 3.5 k/uL (1.0-4.8); Lymphocytes % (A) 31 %; MCH 29.2 pg (25.0-35.0); MCHC 33.4 g/dL (31.0-37.0); MCV 87.4 fL (80.0-100.0); Mean Platelet Volume 6.7; Monocytes # (A) 0.5 k/uL (0-1.0); Monocytes % (A) 4 %; Neutrophils # (A) 7.1 k/uL (1.3-7.7); Neutrophils % (A) 62 %; Platelet Count 303 k/uL (150-450); RBC 4.98 m/uL (3.80-5.40); RDW 17.4 % (11.5-15.5); WBC 11.4 k/uL (3.8-10.6)
[2018-02-19 21:23] LABS: Albumin 3.8 g/dL (3.5-5.0); Calcium 10.4 mg/dL (8.4-10.2); Total Bilirubin 0.5 mg/dL (0.2-1.3); Total Protein 6.4 g/dL (6.3-8.2)
[2018-02-19 21:26] LABS: Creatine Kinase 33 U/L (30-135)
[2018-02-19 21:38] LABS: Creatine Kinase MB 0.5 ng/mL (0.0-2.4); Troponin I <0.012 ng/mL (0.000-0.034)
[2018-02-19 21:40] LABS: D-Dimer 0.51 mg/L FEU (<0.60); Prothrombin Time 10.3 sec (9.0-12.0)
--- NOTE | 2018-02-19 21:41 | ED ---
General Adult HPI - General Chief complaint: Shortness of Breath Stated complaint: SOB Time Seen by Provider: 02/19/18 20:39 Source: patient, RN notes reviewed, old records reviewed Mode of arrival: ambulatory Limitations: no limitations - History of Present Illness Initial comments: This is a 52-year-old female the ER for evaluation of recent hospital admission. Patient has persistent shortness of breath weakness fatigue and chest pain despite recent hospital admission for pneumonia. Patient did finish antibiotics, but states she is isn't getting any better she's been home for a week and is progressively declined. Patient states she is very fatigued and tired and weak. Patient states her shortness of breath has been persistent. Also with chest pain weakness - Related Data Home Medications Medication Instructions Recorded Confirmed ARIPiprazole [Abilify] 2 mg PO HS 04/26/17 04/28/17 Albuterol Inhaler [Ventolin Hfa 1 - 2 puff INHALATION RT-Q6H PRN 04/26/17 Inhaler] Aspirin 81 mg PO HS 04/26/17 04/28/17 Atorvastatin [Lipitor] 80 mg PO HS 04/26/17 04/28/17 Budesonide/Formoterol Fumarate 1 puff INHALATION RT-BID 04/26/17 04/28/17 [Symbicort 80-4.5 Mcg Inhaler] Cholecalciferol [Vitamin D3] 1,000 unit PO QMONTH 04/26/17 04/28/17 Divalproex ER [Depakote ER] 1,000 mg PO HS 04/26/17 04/28/17 Divalproex ER [Depakote ER] 500 mg PO DAILY 04/26/17 04/28/17 Ibuprofen [Motrin] 800 mg PO Q6HR PRN 04/26/17 04/28/17 Imipramine HCl [Tofranil] 50 mg PO HS 04/26/17 04/28/17 Mirtazapine [Remeron] 45 mg PO HS 04/26/17 04/28/17 clonazePAM [KlonoPIN] 1 mg PO BID 04/26/17 04/28/17 Previous Rx's Medication Instructions Recorded Acetaminophen-Codeine 300-30mg 1 each PO Q6HR PRN #20 tab 04/30/17 [Tylenol w/codeine #3] Clopidogrel [Plavix] 75 mg PO DAILY #30 tab 04/30/17 Lisinopril [Zestril] 20 mg PO DAILY #30 tab 04/30/17 Metoprolol Tartrate [Lopressor] 25 mg PO BID #60 tab 04/30/17 Nicotine 21Mg/24Hr Patch [Habitrol] 1 patch TRANSDERM DAILY patch 04/30/17 hydrALAZINE HCL [Apresoline] 50 mg PO TID #90 tab 04/30/17 Allergies Allergy/AdvReac Type Severity Reaction Status Date / Time No Known Allergies Allergy Verified 02/19/18 20:33 Review of Systems ROS Statement: Those systems with pertinent positive or pertinent negative responses have been documented in the HPI. ROS Other: All systems not noted in ROS Statement are negative. Past Medical History Past Medical History: Coronary Artery Disease (CAD), COPD, Hypertension, Myocardial Infarction ([place]), Sleep Apnea/CPAP/BIPAP, Vascular Disorder Additional Past Medical History / Comment(s): stent 2009 2010 Last Myocardial Infarction Date:: 2010 History of Any Multi-Drug Resistant Organisms: None Reported Past Surgical History: Heart Catheterization With Stent Past Anesthesia/Blood Transfusion Reactions: No Reported Reaction Date of Last Stent Placement:: 2010 Past Psychological History: Depression Smoking Status: Current every day smoker Past Alcohol Use History: None Reported Past Drug Use History: None Reported - Past Family History Mother Family Medical History: COPD, Coronary Artery Disease (CAD) Father History Unknown: Yes General Exam Limitations: no limitations General appearance: alert, in no apparent distress Head exam: Present: atraumatic, normocephalic, normal inspection Eye exam: Present: normal appearance, PERRL, EOMI. Absent: scleral icterus, conjunctival injection, periorbital swelling ENT exam: Present: normal exam, mucous membranes moist Neck exam: Present: normal inspection. Absent: tenderness, meningismus, lymphadenopathy Respiratory exam: Present: normal lung sounds bilaterally. Absent: respiratory distress, wheezes, rales, rhonchi, stridor Cardiovascular Exam: Present: regular rate, normal rhythm, normal heart sounds. Absent: systolic murmur, diastolic murmur, rubs, gallop, clicks GI/Abdominal exam: Present: soft, normal bowel sounds. Absent: distended, tenderness, guarding, rebound, rigid Extremities exam: Present: normal inspection, full ROM, normal capillary refill. Absent: tenderness, pedal edema, joint swelling, calf tenderness Back exam: Present: normal inspection Neurological exam: Present: alert, oriented X3, CN II-XII intact Psychiatric exam: Present: normal affect, normal mood Skin exam: Present: warm, dry, intact, normal color. Absent: rash Course Vital Signs 02/19/18 02/19/18 02/19/18 20:28 21:01 21:18 Temperature 98.1 F Pulse Rate 91 75 72 Respiratory 20 Rate Blood Pressure 111/61 O2 Sat by Pulse 95 Oximetry - Reevaluation(s) Reevaluation #1: 02/19/18 23:33 Transfer paperwork paperwork from [facility] is obtained regarding patient's recent inpatient hospitalization EKG Findings - EKG Comments: EKG Findings:: EKG shows sinus rhythm rate of 74, LA 148, QRS 86, QTc 428 Medical Decision Making - Medical Decision Making 52 female the ER for evaluation. Patient resents today for evaluation regarding shortness of breath continue weakness and fatigue. Patient will be admitted for evaluation by cardiology, continue breathing treatments and steroids. - Lab Data Result diagrams: 02/19/18 20:58 02/19/18 20:58 Lab Results 02/19/18 02/19/18 02/19/18 Range/Units 20:58 20:58 20:58 WBC 11.4 H (3.8-10.6) k/uL RBC 4.98 (3.80-5.40) m/uL Hgb 14.5 (11.4-16.0) gm/dL Hct 43.5 (34.0-46.0) % MCV 87.4 (80.0-100.0) fL MCH 29.2 (25.0-35.0) pg MCHC 33.4 (31.0-37.0) g/dL RDW 17.4 H (11.5-15.5) % Plt Count 303 (150-450) k/uL Neutrophils % 62 % Lymphocytes % 31 % Monocytes % 4 % Eosinophils % 1 % Basophils % 1 % Neutrophils # 7.1 (1.3-7.7) k/uL Lymphocytes # 3.5 (1.0-4.8) k/uL Monocytes # 0.5 (0-1.0) k/uL Eosinophils # 0.2 (0-0.7) k/uL Basophils # 0.1 (0-0.2) k/uL Anisocytosis Slight PT (9.0-12.0) sec INR (<1.2) APTT (22.0-30.0) sec D-Dimer (<0.60) mg/L FEU Sodium 139 (137-145) mmol/L Potassium 4.0 (3.5-5.1) mmol/L Chloride 96 L (98-107) mmol/L Carbon Dioxide 29 (22-30) mmol/L Anion Gap 14 mmol/L BUN 18 H (7-17) mg/dL Creatinine 1.00 (0.52-1.04) mg/dL Est GFR (CKD-EPI)AfAm 76 (>60 ml/min/1.73 sqM) Est GFR (CKD-EPI)NonAf 66 (>60 ml/min/1.73 sqM) Glucose 88 (74-99) mg/dL Calcium 10.4 H (8.4-10.2) mg/dL Magnesium 2.0 (1.6-2.3) mg/dL Total Bilirubin 0.5 (0.2-1.3) mg/dL AST 36 (14-36) U/L ALT 47 (9-52) U/L Alkaline Phosphatase 76 (38-126) U/L Total Creatine Kinase 33 (30-135) U/L CK-MB (CK-2) 0.5 (0.0-2.4) ng/mL CK-MB (CK-2) Rel Index 1.5 Troponin I <0.012 (0.000-0.034) ng/mL NT-Pro-B Natriuret Pep pg/mL Total Protein 6.4 (6.3-8.2) g/dL Albumin 3.8 (3.5-5.0) g/dL 02/19/18 02/19/18 Range/Units 20:58 20:58 WBC (3.8-10.6) k/uL RBC (3.80-5.40) m/uL Hgb (11.4-16.0) gm/dL Hct (34.0-46.0) % MCV (80.0-100.0) fL MCH (25.0-35.0) pg MCHC (31.0-37.0) g/dL RDW (11.5-15.5) % Plt Count (150-450) k/uL Neutrophils % % Lymphocytes % % Monocytes % % Eosinophils % % Basophils % % Neutrophils # (1.3-7.7) k/uL Lymphocytes # (1.0-4.8) k/uL Monocytes # (0-1.0) k/uL Eosinophils # (0-0.7) k/uL Basophils # (0-0.2) k/uL Anisocytosis PT 10.3 (9.0-12.0) sec INR 1.0 (<1.2) APTT 22.0 (22.0-30.0) sec D-Dimer 0.51 (<0.60) mg/L FEU Sodium (137-145) mmol/L Potassium (3.5-5.1) mmol/L Chloride (98-107) mmol/L Carbon Dioxide (22-30) mmol/L Anion Gap mmol/L BUN (7-17) mg/dL Creatinine (0.52-1.04) mg/dL Est GFR (CKD-EPI)AfAm (>60 ml/min/1.73 sqM) Est GFR (CKD-EPI)NonAf (>60 ml/min/1.73 sqM) Glucose (74-99) mg/dL Calcium (8.4-10.2) mg/dL Magnesium (1.6-2.3) mg/dL Total Bilirubin (0.2-1.3) mg/dL AST (14-36) U/L ALT (9-52) U/L Alkaline Phosphatase (38-126) U/L Total Creatine Kinase (30-135) U/L CK-MB (CK-2) (0.0-2.4) ng/mL CK-MB (CK-2) Rel Index Troponin I (0.000-0.034) ng/mL NT-Pro-B Natriuret Pep 31 pg/mL Total Protein (6.3-8.2) g/dL Albumin (3.5-5.0) g/dL - Radiology Data Radiology results: report reviewed (Chest x-rays negative), image reviewed Disposition Clinical Impression: Acute exacerbation of chronic obstructive airways disease, Chest pain Disposition: ADMITTED IP TO THIS HOSP Condition: Fair Is patient prescribed a controlled substance at d/c from ED?: No Referrals: [facility] [Primary Care Provider] - 1-2 days
--- NOTE | 2018-02-19 22:23 | XR ---
EXAMINATION TYPE: XR chest 2V DATE OF EXAM: 02/19/2018 COMPARISON: 09/13/2011 HISTORY: Difficulty breathing TECHNIQUE: Frontal and lateral views of the chest are obtained. FINDINGS: Heart and mediastinum are normal. Lungs are clear. Diaphragm is normal. Bony thorax is int act and there are chest leads. IMPRESSION: Normal chest. No change.
[2018-02-19] MEDS ORDERED: NITROGLYCERIN SL TABS 0.4 MG TAB SUBLINGUAL PRN (23:29)
[2018-02-20 00:57] VITALS: BMI 36.6
[2018-02-20] MEDS: methylPREDNISolone SOD SUCCI 125 MG/2 ML VIAL IV SCH ×4 (01:21→18:19)
[2018-02-20 04:06] LABS: Creatine Kinase 26 U/L (30-135)
[2018-02-20 04:20] LABS: Creatine Kinase MB 0.4 ng/mL (0.0-2.4); Troponin I <0.012 ng/mL (0.000-0.034)
[2018-02-20] MEDS: IPRATROPIUM-ALBUTEROL 3 ML NEB INHALATION SCH ×4 (07:24→20:55)
[2018-02-20 07:30] LABS: Glucose,Whole Blood 293 mg/dL (75-99)
[2018-02-20] MEDS: SODIUM CHLORIDE 0.9% 1,000 ML IV SCH ×2 (08:00→10:19)
[2018-02-20] MEDS: ATORVASTATIN 80 MG TAB PO SCH (08:51)
[2018-02-20] MEDS: ASPIRIN 325 MG TAB PO SCH (08:51)
--- NOTE | 2018-02-20 09:02 | CONS ---
CONSULTATION Tierney Jovel is a 52-year-old lady who used to see Dr. Angelina Weller, has a remote history of CAD and stenting, details unavailable. She also had a left lower extremity vascular issue for which she underwent stenting performed by Dr. Galo. She comes in with complaints off having persistent cough following a recent bout of pneumonia for which she took antibiotics. However, while she was here, she also complained of sharp pains in the chest and I was asked to see her in this regard. Patient insists that she does not have chest pain other than when she coughs. Her pain is also getting better. She admits to smoking, unable to quit. She has a lot of stress at home. As recently as June 2017, she had a Lexiscan stress test in the office which was normal with preserved systolic function. She is asymptomatic at the time of my evaluation. PAST MEDICAL HISTORY: 1. CAD with remote history of stenting, details unclear. 2. Peripheral artery disease with stenting of her lower extremity, details unavailable. 3. History of smoking, COPD, has obstructive sleep apnea syndrome, hypertension. MEDICATIONS: At home include Abilify, Ventolin, Lipitor, vitamin supplements, the Depakote, Motrin, and Klonopin. ALLERGIES: No known drug allergies. PHYSICAL EXAMINATION: Blood pressure is 130/70 pulse, 31 18/70, pulse rate 70 per minute regular HEENT: Unremarkable. Fundus was not examined by me. NECK: Supple. There is no JVD. I do not hear a carotid bruit. Heart exam reveals S1, S2 heard normally. LUNGS: Bilateral scattered rhonchi. Abdomen is soft, nontender. Lower extremities reveal normal pulses. No edema. Central nervous system is normal. EKG revealed sinus mechanism, no acute changes. LAB DATA: Revealed unremarkable troponins. IMPRESSION: 1. Exacerbation of chronic obstructive pulmonary disease. 2. History of smoking. 3. No evidence to suggest acute ongoing myocardial ischemia in a recent negative stress test in June. 4. Patient has a remote history of peripheral arterial intervention and coronary intervention, details unclear. RECOMMENDATIONS: I am recommending that this lady can be discharged home when okay with her admitting doctor. I am recommending breathing treatments. No other intervention is necessary at this time. I discussed my thoughts in detail with the patient. We will see her as needed. She is advised to follow up with Dr. Barger upon discharge in the next 1 month or so. On reviewing the chart, I noted that there was a left external iliac occlusion with thrombus and patient had a left angiogram and went on to have a stent placement in the left external iliac by Dr. Galo performed on 04/27/2017. She underwent an angiogram performed by Dr. Hernandez at that time. Her coronary history is somewhat unclear and patient is also unable to give me as to when she had any intervention. However, her stress test in June was negative. Thank you very much for the consult. MMODL / IJN: [id number] /
[2018-02-20] MEDS ORDERED: ALBUTEROL INHALER 60 PUFF/8 GM INHALER INHALATION PRN (09:10)
[2018-02-20] MEDS ORDERED: IPRATROPIUM-ALBUTEROL 3 ML NEB INHALATION PRN (09:12)
[2018-02-20] MEDS ORDERED: ERGOCALCIFEROL 50,000 UNIT CAP PO SCH (09:30)
[2018-02-20] MEDS: INSULIN ASPART 100 UNIT/ML 1 ML 10 ML VIAL SQ SCH ×4 (09:41→21:21)
[2018-02-20 09:51] LABS: Cholesterol 138 mg/dL (<200); HDL Cholesterol 20 mg/dL (40-60); LDL Cholesterol,Calculated 83 mg/dL (0-99); Triglycerides 176 mg/dL (<150)
[2018-02-20 09:52] LABS: Creatine Kinase 23 U/L (30-135)
[2018-02-20 10:06] LABS: Creatine Kinase MB 0.4 ng/mL (0.0-2.4); Troponin I <0.012 ng/mL (0.000-0.034)
[2018-02-20] MEDS: METOPROLOL TARTRATE 25 MG TAB PO SCH ×2 (10:19→21:24)
[2018-02-20] MEDS: metFORMIN 500 MG TAB PO SCH ×2 (10:19→21:26)
[2018-02-20] MEDS: DIVALPROEX ER 500 MG TAB.ER.24H PO SCH ×2 (10:19→22:53)
[2018-02-20] MEDS: LISINOPRIL 20 MG TAB PO SCH (10:19)
[2018-02-20] MEDS: hydrALAZINE HCL 50 MG TAB PO SCH ×3 (10:19→21:24)
[2018-02-20 12:14] LABS: Glucose,Whole Blood 269 mg/dL (75-99)
[2018-02-20] MEDS ORDERED: INSULIN ASPART 100 UNIT/ML 1 ML 10 ML VIAL SQ SCH (12:30)
--- NOTE | 2018-02-20 12:56 | ECHOF ---
Referral Reason:sob MEASUREMENTS -------- HEIGHT: 165.1 cm WEIGHT: 99.8 kg BP: 108/55 RVIDd: 2.3 cm (< 3.3) IVSd: 1.1 cm (0.6 - 1.1) LVIDd: 4.6 cm (3.9 - 5.3) LVPWd: 1.2 cm (0.6 - 1.1) IVSs: 1.6 cm LVIDs: 2.9 cm LVPWs: 1.6 cm LAESV Index (A-L): 12.63 ml/m Ao Diam: 2.7 cm (2.0 - 3.7) AV Cusp: 1.5 cm (1.5 - 2.6) LA Diam: 2.8 cm (2.7 - 3.8) EPSS: 0.5 cm MV E Ranulfo: 1.04 m/s MV DecT: 206 ms MV A Ranulfo: 0.90 m/s MV E/A Ratio: 1.16 AV maxP.50 mmHg AV meanP.41 mmHg RAP: 5.00 mmHg RVSP: 25.89 mmHg MV EF SLOPE: 85.98 mm/s (70 - 150) MV EXCURSION: 1.07 cm (> 18.000) FINDINGS -------- Sinus rhythm. This was a technically adequate study. The left ventricular size is normal. There is mild concentric left ventricular hypertrophy. Overa ll left ventricular systolic function is normal with, an EF between 55 - 60 %. The right ventricle is normal in size and function. Normal LA size by volume 22+/-6 ml/m2. The right atrium is normal in size. There is mild aortic valve sclerosis. There is no evidence of aortic regurgitation. There is no e vidence of aortic stenosis. The mitral valve leaflets are mildly thickened. Mild mitral regurgitation is present. Trace tricuspid regurgitation present. Right ventricular systolic pressure is normal at < 35 mmHg. There is no evidence of pulmonary hypertension. The pulmonic valve was not well visualized. The aortic root size is normal. IVC Not well visulized. There is no pericardial effusion. CONCLUSIONS -------- 1. Sinus rhythm. 2. This was a technically adequate study. 3. The left ventricular size is normal. 4. There is mild concentric left ventricular hypertrophy. 5. Normal LA size by volume 22+/-6 ml/m2. 6. There is mild aortic valve sclerosis. 7. The mitral valve leaflets are mildly thickened. 8. Mild mitral regurgitation is present. 9. Trace tricuspid regurgitation present. 10. Right ventricular systolic pressure is normal at < 35 mmHg. 11. There is no evidence of pulmonary hypertension. 12. The pulmonic valve was not well visualized. 13. The aortic root size is normal. 14. IVC Not well visulized. 15. There is no pericardial effusion. REED REPAIRER: Kirill Pereira RDCS
[2018-02-20 17:22] LABS: Glucose,Whole Blood 233 mg/dL (75-99)
[2018-02-20 18:40] LABS: Hemoglobin A1C 7.3 % (4.0-6.0)
[2018-02-20] MEDS: SYMBICORT 80-4.5 MCG INHALER INHALATION SCH (20:54)
[2018-02-20] MEDS ORDERED: ATORVASTATIN 80 MG TAB PO SCH (21:00)
[2018-02-20] MEDS ORDERED: ASPIRIN 81 MG PO SCH (21:00)
[2018-02-20 21:08] LABS: Glucose,Whole Blood 323 mg/dL (75-99)
[2018-02-20] MEDS: MIRTAZAPINE 45 MG TABLET PO SCH (21:25)
--- NOTE | 2018-02-21 00:22 | P.HPIM ---
History of Present Illness this is a 52 yo F with pmh of COPD , Hypertension , sleep anpea, peripheral artery disease , ANANT , status post stenting . who presents with dyspena and worsening of cough and phlegm ,associated with some chest tightness. in the ED pt had normal Chest x-ray , associated with some chest pain . pt was found to have mild leukocytosis on admission , unremarkale BMP and LFT Review of Systems CONSTITUTIONAL: No fever, no malaise, no fatigue. HEENT: No recent visual problems or hearing problems. Denied any sore throat. CARDIOVASCULAR: No orthopnea, PND, no palpitations, no syncope. PULMONARY: No shortness of breath, no cough, no hemoptysis. GASTROINTESTINAL: No diarrhea, no nausea, no vomiting, no abdominal pain. Normoactive bowel sounds. NEUROLOGICAL: No headaches, no weakness, no numbness. HEMATOLOGICAL: Denies any bleeding or petechiae. GENITOURINARY: Denies any burning micturition, frequency, or urgency. MUSCULOSKELETAL/RHEUMATOLOGICAL: Denies any joint pain, swelling, or any muscle pain. ENDOCRINE: Denies any polyuria or polydipsia. Past Medical History Past Medical History: Coronary Artery Disease (CAD), COPD, Hypertension, Myocardial Infarction ([place]), Sleep Apnea/CPAP/BIPAP, Vascular Disorder Additional Past Medical History / Comment(s): stent 2009 2010 Last Myocardial Infarction Date:: 2010 History of Any Multi-Drug Resistant Organisms: None Reported Past Surgical History: Heart Catheterization With Stent Past Anesthesia/Blood Transfusion Reactions: No Reported Reaction Date of Last Stent Placement:: 2010 Past Psychological History: Depression Smoking Status: Current every day smoker Past Alcohol Use History: None Reported Past Drug Use History: None Reported - Past Family History Mother Family Medical History: COPD, Coronary Artery Disease (CAD) Father History Unknown: Yes Medications and Allergies Home Medications Medication Instructions Recorded Confirmed Type RX: Albuterol Inhaler [Ventolin 1 - 2 puff INHALATION RT-Q6H PRN 04/26/17 History Hfa Inhaler] RX: Aspirin 81 mg PO HS 04/26/17 02/20/18 History RX: Divalproex ER [Depakote ER] 500 mg PO DAILY 04/26/17 02/20/18 History RX: Mirtazapine [Remeron] 45 mg PO HS 04/26/17 02/20/18 History RX: Clopidogrel [Plavix] 75 mg PO DAILY #30 tab 04/30/17 02/20/18 Rx RX: Metoprolol Tartrate [Lopressor] 25 mg PO BID #60 tab 04/30/17 02/20/18 Rx RX: hydrALAZINE HCL [Apresoline] 50 mg PO TID #90 tab 04/30/17 02/20/18 Rx Cefuroxime Axetil [Ceftin] 500 mg PO BID 02/20/18 02/20/18 History Divalproex ER [Depakote ER] 1,000 mg PO HS 02/20/18 02/20/18 History Ergocalciferol [Vitamin D2] 50,000 unit PO Q7D 02/20/18 02/20/18 History Ezetimibe [Zetia] 10 mg PO DAILY 02/20/18 02/20/18 History Glimepiride [Amaryl] 2 mg PO AC-BID 02/20/18 02/20/18 History Nitroglycerin Sl Tabs [Nitrostat] 0.4 mg SUBLINGUAL Q5M PRN 02/20/18 02/20/18 History OLANZapine [ZyPREXA] 5 mg PO HS 02/20/18 02/20/18 History Pantoprazole [Protonix] 40 mg PO AC-BRKFST 02/20/18 02/20/18 History RX: Lisinopril [Zestril] 40 mg PO DAILY 02/20/18 02/20/18 History RX: metFORMIN HCL 1,000 mg PO BID 02/20/18 02/20/18 History RX: predniSONE See Taper PO DAILY 02/20/18 02/20/18 History amLODIPine [Norvasc] 5 mg PO DAILY 02/20/18 02/20/18 History clonazePAM [KlonoPIN] 1 mg PO BID 02/20/18 02/20/18 History guaiFENesin [guaiFENesin Oral 200 mg PO Q4H PRN 02/20/18 02/20/18 History Solution] Allergies Allergy/AdvReac Type Severity Reaction Status Date / Time No Known Allergies Allergy Verified 02/19/18 20:33 Physical Exam Vitals: Vital Signs Temp Pulse Pulse Resp BP BP Pulse Ox 02/20/18 23:31 97.5 F L 69 16 119/58 94 L 02/20/18 19:38 98.2 F 73 16 117/49 92 L 02/20/18 16:00 71 18 105/50 92 L 02/20/18 12:00 76 18 106/56 91 L 02/20/18 11:35 70 02/20/18 11:23 72 02/20/18 08:00 97.7 F 70 16 118/58 91 L 02/20/18 04:00 97.7 F 78 18 95 02/20/18 02:57 18 Intake and Output 02/20/18 02/20/18 02/21/18 14:59 22:59 06:59 Intake Total 222 400 Balance 222 400 Intake: Oral 222 400 HEENT: Head is atraumatic, normocephalic. Pupils equal, round. Neck is supple. There is no elevated jugular venous pressure. HEART EXAMINATION: Heart S1-S2, no murmur is heard -CHEST EXAMINATION: Lungs reveal Bilateral expiratory wheezes throughout otherwise essentially clear. ABDOMEN: Soft, nontender. Bowel sounds are heard. No organomegaly noted. EXTREMITIES: 2+ peripheral pulses with no evidence of peripheral edema and no calf tenderness noted. NEUROLOGIC patient is awake, alert and oriented -3 Results CBC & Chem 7: 02/19/18 20:58 02/19/18 20:58 Labs: Abnormal Lab Results - Last 24 Hours (Table) 02/20/18 02/20/18 02/20/18 Range/Units 03:21 07:19 08:35 POC Glucose (mg/dL) 293 H (75-99) mg/dL Total Creatine Kinase 26 L 23 L (30-135) U/L Triglycerides (<150) mg/dL HDL Cholesterol (40-60) mg/dL 02/20/18 02/20/18 02/20/18 Range/Units 08:35 12:06 17:12 POC Glucose (mg/dL) 269 H 233 H (75-99) mg/dL Total Creatine Kinase (30-135) U/L Triglycerides 176 H (<150) mg/dL HDL Cholesterol 20 L (40-60) mg/dL 02/20/18 Range/Units 21:02 POC Glucose (mg/dL) 323 H (75-99) mg/dL Total Creatine Kinase (30-135) U/L Triglycerides (<150) mg/dL HDL Cholesterol (40-60) mg/dL Thrombosis Risk Factor Assmnt - Choose All That Apply Each Factor Represents 1 point: Abnormal pulmonary function (COPD), Age 41-60 years Thrombosis Risk Factor Assessment Total Risk Factor Score: 2 Thrombosis Risk Factor Assessment Level: Low Risk Assessment and Plan Assessment: -copd in acute exacerbation -acute chest pain syndrome -h/o CAD, s/p stentin , reomte histroy -h/o sleep apnea -h/o peripheral artery disease Plan: continue with same treatment of steroids, breathing treatment, and oxygen. continue with symptomatic treatment. call pulmonary and cardilogy consult , GI and DVT prophylaxis, further recommendation depends on the clinical course of the patient.
[2018-02-21] MEDS: methylPREDNISolone SOD SUCCI 125 MG/2 ML VIAL IV SCH ×5 (00:51→23:26)
[2018-02-21] MEDS: HEPARIN SODIUM,PORCINE 5,000 UNIT/ML 1 ML VIAL SQ SCH ×3 (00:53→21:17)
[2018-02-21 07:04] LABS: Glucose,Whole Blood 215 mg/dL (75-99)
[2018-02-21 07:17] LABS: Anisocytosis Slight; Basophils % (A) 0 %; Eosinophils % (A) 0 %; HCT 42.4 % (34.0-46.0); HGB 13.5 gm/dL (11.4-16.0); Hypochromasia Slight; Lymphocytes # (A) 1.9 k/uL (1.0-4.8); Lymphocytes % (A) 14 %; MCHC 31.9 g/dL (31.0-37.0); MCV 90.9 fL (80.0-100.0); Monocytes # (A) 0.3 k/uL (0-1.0); Monocytes % (A) 2 %; Neutrophils # (A) 11.5 k/uL (1.3-7.7); Neutrophils % (A) 83 %; Platelet Count 287 k/uL (150-450); RBC 4.66 m/uL (3.80-5.40); RDW 17.1 % (11.5-15.5); WBC 13.8 k/uL (3.8-10.6)
[2018-02-21 07:51] LABS: Calcium 10.2 mg/dL (8.4-10.2); Potassium 5.6 mmol/L (3.5-5.1)
[2018-02-21] MEDS: IPRATROPIUM-ALBUTEROL 3 ML NEB INHALATION SCH ×4 (07:51→21:00)
[2018-02-21] MEDS: SYMBICORT 80-4.5 MCG INHALER INHALATION SCH ×2 (07:51→21:00)
[2018-02-21] MEDS: SODIUM CHLORIDE 0.9% 1,000 ML IV SCH ×2 (08:00→14:57)
[2018-02-21] MEDS: METOPROLOL TARTRATE 25 MG TAB PO SCH ×2 (08:43→21:24)
[2018-02-21] MEDS: LISINOPRIL 20 MG TAB PO SCH (08:44)
[2018-02-21] MEDS: hydrALAZINE HCL 50 MG TAB PO SCH ×3 (08:44→21:23)
[2018-02-21] MEDS: ASPIRIN 325 MG TAB PO SCH (08:44)
[2018-02-21] MEDS: metFORMIN 500 MG TAB PO SCH ×2 (08:44→21:20)
[2018-02-21] MEDS: CLOPIDOGREL 75 MG TAB PO SCH (08:44)
[2018-02-21] MEDS: DIVALPROEX ER 500 MG TAB.ER.24H PO SCH ×2 (08:44→21:23)
[2018-02-21] MEDS: ATORVASTATIN 80 MG TAB PO SCH (08:44)
[2018-02-21] MEDS: EZETIMIBE 10 MG TAB PO SCH (08:44)
[2018-02-21] MEDS: INSULIN ASPART 100 UNIT/ML 1 ML 10 ML VIAL SQ SCH ×4 (08:46→21:16)
[2018-02-21 08:56] LABS: Valproic Acid (Depakene) 42.6 ug/mL
[2018-02-21] MEDS ORDERED: FAMOTIDINE 20 MG/2 ML VIAL IV SCH (09:00)
[2018-02-21 12:09] LABS: Glucose,Whole Blood 264 mg/dL (75-99)
--- NOTE | 2018-02-21 14:11 | P.CNPUL ---
History of Present Illness Consult date: 02/21/18 Requesting physician: Ramya Fontaine Reason for consult: COPD, other Chief complaint: Weakness, fatigue, shortness of breath, chest pain, recent pneumonia History of present illness: Tierney is a 52-year-old white female patient who [facility] in [place] for her primary care services, was recently hospitalized with community-acquired pneumonia at the [facility] from 02/04/2018 through 02/09/2018. She was treated with antibiotics, nebulized bronchodilators. Patient was suspected to have an underlying obstructive sleep apnea and she is awaiting her sleep study. She presented to the emergency department on 02/19/2018 at 2026 with complaints of persistent fatigue, weakness , chest pain, and shortness of breath. She reports finishing her outpatient course of oral antibiotics, she did not remember if she was given any prednisone. She thinks she may have been released too early. She denied any fever or chills, or cough is dry, and she is not bringing up any sputum. But she feels her chest is tight, wheezy. Patient is a current smoker, currently down to half a pack a day, but in the past she had smoked up to 3 packs a day for over 33 years. She is to see Dr. Keller in our office in the past for her COPD, however she hadn't seen him in some time. She is on albuterol nebulized treatments 3-4 times a day, she has a rescue inhaler, and Symbicort inhaler. She is not prednisone or oxygen dependent, she is not sure of her pulmonary function capacity. Other past medical history includes coronary artery disease with previous stenting, hypertension, hyperlipidemia, myocardial infarction 2009 , diabetes type 2 on oral agents, peripheral vascular disorder, with left iliac artery stent, bipolar disorder and the patient follows with [facility]. Chest x-ray was completed on 02/19/2018 and showed no acute pulmonary process. EKG showed normal sinus rhythm with no ischemic changes. Lab work showed WBC of 11.4, hemoglobin of 14.5, coagulation profile and d-dimer were all within normal limits, sodium was 139, potassium is 4.0, chloride was 96, CO2 is 29, BUN was 18 , creatinine is 1.0, liver profile was normal, cardiac enzymes and troponins negative 3, proBNP was within normal limits at 31. The echocardiogram showed mild concentric left ventricular hypertrophy, overall left ventricle systolic function was within normal limits with an EF between 55-60%, no evidence of pulmonary hypertension, right ventricular systolic pressure was normal at less than 35 mmHg. There was mitral and trace tricuspid regurgitation. We were asked to see the patient in consultation in regards to her COPD exacerbation. Review of Systems All systems: negative Constitutional: Denies chills, Denies fever Eyes: denies blurred vision, denies pain Ears, nose, mouth and throat: Denies headache, Denies sore throat Cardiovascular: Denies chest pain, Denies shortness of breath Respiratory: Reports congestion, Reports dyspnea, Reports respiratory infections , Reports wheezing, Denies cough Gastrointestinal: Denies abdominal pain, Denies diarrhea, Denies nausea, Denies vomiting Genitourinary: Denies dysuria, Denies hematuria Musculoskeletal: Denies myalgias Integumentary: Denies pruritus, Denies rash Neurological: Denies numbness, Denies weakness Psychiatric: Denies anxiety, Denies depression Endocrine: Denies fatigue, Denies weight change Past Medical History Past Medical History: Coronary Artery Disease (CAD), COPD, Hypertension, Myocardial Infarction ([place]), Sleep Apnea/CPAP/BIPAP, Vascular Disorder Additional Past Medical History / Comment(s): stent 2009 2010 Last Myocardial Infarction Date:: 2010 History of Any Multi-Drug Resistant Organisms: None Reported Past Surgical History: Heart Catheterization With Stent Past Anesthesia/Blood Transfusion Reactions: No Reported Reaction Date of Last Stent Placement:: 2010 Past Psychological History: Depression Smoking Status: Current every day smoker Past Alcohol Use History: None Reported Past Drug Use History: None Reported - Past Family History Mother Family Medical History: COPD, Coronary Artery Disease (CAD) Father History Unknown: Yes Medications and Allergies Home Medications Medication Instructions Recorded Confirmed Type Albuterol Inhaler [Ventolin Hfa 1 - 2 puff INHALATION RT-Q6H PRN 04/26/17 History Inhaler] Aspirin 81 mg PO HS 04/26/17 02/20/18 History Divalproex ER [Depakote ER] 500 mg PO DAILY 04/26/17 02/20/18 History Mirtazapine [Remeron] 45 mg PO HS 04/26/17 02/20/18 History Clopidogrel [Plavix] 75 mg PO DAILY #30 tab 04/30/17 02/20/18 Rx Metoprolol Tartrate [Lopressor] 25 mg PO BID #60 tab 04/30/17 02/20/18 Rx hydrALAZINE HCL [Apresoline] 50 mg PO TID #90 tab 04/30/17 02/20/18 Rx Cefuroxime Axetil [Ceftin] 500 mg PO BID 02/20/18 02/20/18 History Divalproex ER [Depakote ER] 1,000 mg PO HS 02/20/18 02/20/18 History Ergocalciferol [Vitamin D2] 50,000 unit PO Q7D 02/20/18 02/20/18 History Ezetimibe [Zetia] 10 mg PO DAILY 02/20/18 02/20/18 History Glimepiride [Amaryl] 2 mg PO AC-BID 02/20/18 02/20/18 History Lisinopril [Zestril] 40 mg PO DAILY 02/20/18 02/20/18 History Nitroglycerin Sl Tabs [Nitrostat] 0.4 mg SUBLINGUAL Q5M PRN 02/20/18 02/20/18 History OLANZapine [ZyPREXA] 5 mg PO HS 02/20/18 02/20/18 History Pantoprazole [Protonix] 40 mg PO AC-BRKFST 02/20/18 02/20/18 History amLODIPine [Norvasc] 5 mg PO DAILY 02/20/18 02/20/18 History clonazePAM [KlonoPIN] 1 mg PO BID 02/20/18 02/20/18 History guaiFENesin [guaiFENesin Oral 200 mg PO Q4H PRN 02/20/18 02/20/18 History Solution] metFORMIN HCL 1,000 mg PO BID 02/20/18 02/20/18 History predniSONE See Taper PO DAILY 02/20/18 02/20/18 History Allergies Allergy/AdvReac Type Severity Reaction Status Date / Time No Known Allergies Allergy Verified 02/19/18 20:33 Physical Exam Vitals: Vital Signs Temp Pulse Pulse Resp BP BP Pulse Ox 02/21/18 11:38 97.1 F L 66 16 142/79 94 L 02/21/18 08:03 68 02/21/18 08:00 97.7 F 69 16 111/64 95 02/21/18 07:52 68 02/20/18 23:31 97.5 F L 69 16 119/58 94 L 02/20/18 19:38 98.2 F 73 16 117/49 92 L 02/20/18 16:00 71 18 105/50 92 L Intake and Output 02/20/18 02/21/18 02/21/18 22:59 06:59 14:59 Intake Total 400 Balance 400 Intake: Oral 400 Other: Voiding Method Toilet GENERAL EXAM: Alert, pleasant obese 52-year-old white female, comfortable in no apparent distress. HEAD: Normocephalic/atraumatic. EYES: Normal reaction of pupils, equal size. Conjunctiva pink, sclera white. NOSE: Clear with pink turbinates. THROAT: No erythema or exudates. NECK: No masses, no JVD, no thyroid enlargement, no adenopathy. CHEST: No chest wall deformity. Symmetrical expansion. LUNGS: Diminished breath sounds bilaterally, with expiratory wheezes, and prolongation of the expiratory phase CVS: Regular rate and rhythm, normal S1 and S2, no gallops, no murmurs, no rubs ABDOMEN: Soft, nontender. No hepatosplenomegaly, normal bowel sounds, no guarding or rigidity. EXTREMITIES: No clubbing, no edema, no cyanosis, 2+ pulses and upper and lower extremities. MUSCULOSKELETAL: Muscle strength and tone normal. SPINE: No scoliosis or deformity SKIN: No rashes CENTRAL NERVOUS SYSTEM: Alert and oriented -3. No focal deficits, tone is normal in all 4 extremities. PSYCHIATRIC: Alert and oriented -3. Appropriate affect. Intact judgment and insight. Results - Laboratory Findings CBC and BMP: 02/21/18 06:50 02/21/18 06:50 PT/INR, D-dimer PT 10.3 sec (9.0-12.0) 02/19/18 20:58 INR 1.0 (<1.2) 02/19/18 20:58 D-Dimer 0.51 mg/L FEU (<0.60) 02/19/18 20:58 Abnormal lab findings: Abnormal Labs 02/19/18 02/19/18 02/20/18 20:58 20:58 03:21 WBC 11.4 H RDW 17.4 H Neutrophils # Potassium Chloride 96 L BUN 18 H Glucose POC Glucose (mg/dL) Hemoglobin A1c Calcium 10.4 H Total Creatine Kinase 26 L Triglycerides HDL Cholesterol 02/20/18 02/20/18 02/20/18 07:19 08:35 08:35 WBC RDW Neutrophils # Potassium Chloride BUN Glucose POC Glucose (mg/dL) 293 H Hemoglobin A1c Calcium Total Creatine Kinase 23 L Triglycerides 176 H HDL Cholesterol 20 L 02/20/18 02/20/18 02/20/18 08:35 12:06 17:12 WBC RDW Neutrophils # Potassium Chloride BUN Glucose POC Glucose (mg/dL) 269 H 233 H Hemoglobin A1c 7.3 H Calcium Total Creatine Kinase Triglycerides HDL Cholesterol 02/20/18 02/21/18 02/21/18 21:02 06:39 06:50 WBC RDW Neutrophils # Potassium 5.6 H Chloride BUN 28 H Glucose 234 H POC Glucose (mg/dL) 323 H 215 H Hemoglobin A1c Calcium Total Creatine Kinase Triglycerides HDL Cholesterol 02/21/18 02/21/18 06:50 12:07 WBC 13.8 H RDW 17.1 H Neutrophils # 11.5 H Potassium Chloride BUN Glucose POC Glucose (mg/dL) 264 H Hemoglobin A1c Calcium Total Creatine Kinase Triglycerides HDL Cholesterol - Diagnostic Findings Chest x-ray: report reviewed, image reviewed Additional studies: EKG reviewed Assessment and Plan Plan: Assessment: #1. Acute exacerbation of chronic obstructive pulmonary disease #2. Recent hospitalization for community-acquired pneumonia, and the chest x- ray on 02/19/2018 did not show any evidence of infiltrates #3. Fatigue, weakness, shortness of breath, and chest discomfort probably related to the above. #4. History of coronary artery disease with history of stenting #5. Nicotine dependence, laid down to half a pack a day, carries 33 year smoking history, up to 3 packs a day or graft #6. Peripheral vascular disease, with history of recent left iliac artery stenting #7. Suspected obstructive sleep apnea, and the patient reports snoring, daytime somnolence, she is awaiting her outpatient sleep study #8. Bipolar disorder, follows with [facility], currently on Depakote #9. Hypertension, hyperlipidemia #10. Diabetes mellitus type 2 #11. History of [place] in 2009 Plan: Continue nebulized bronchodilators, and continuie Symbicort, will add Doxycycline 100 mg twice daily. Smoking cessation was strongly advised. Patient will need another 24 hours of inpatient treatment. She will need outpatient follow-up for baseline PFT. GI and DVT prophylaxis. We'll continue to follow I performed a history & physical examination of the patient and discussed their management with my nurse practitioner, Deepa Ferrara. I reviewed the nurse practitioner's note and agree with the documented findings and plan of care. Lung sounds diminished breath sounds with expiratory wheezing, and prolongation of the expiratory phase. The findings and the impression was discussed with the patient. I attest to the documentation by the nurse practitioner. Time with Patient: Greater than 30
[2018-02-21] MEDS: DOXYCYCLINE MONOHYDRATE 100 MG CAPSULE PO SCH ×2 (14:20→21:24)
--- NOTE | 2018-02-21 14:29 | P.PN ---
Subjective this is a 52 yo F with pmh of COPD , Hypertension , sleep anpea, peripheral artery disease , ANANT , status post stenting . who presents with dyspena and worsening of cough and phlegm ,associated with some chest tightness. in the ED pt had normal Chest x-ray , associated with some chest pain . pt was found to have mild leukocytosis on admission , unremarkale BMP and LFT 01/21/2018 pt is s till dysgenic , however she is improving , we think with pulmonary team that pt may benefits from one more day of inhouse treatment , patient to continue on steroids and breathing treatment. The potassium was 5.6 could be due to hemolysis therefore we'll check BMP again this has been going to give her Kayexalate Objective - Vital Signs Vital signs: Vital Signs Temp 97.1 F L 02/21/18 11:38 Pulse 66 02/21/18 11:38 Resp 16 02/21/18 11:38 BP 142/79 02/21/18 11:38 Pulse Ox 94 L 02/21/18 11:38 Intake & Output 02/20/18 02/21/18 02/21/18 18:59 06:59 18:59 Intake Total 222 400 350 Balance 222 400 350 Intake: Oral 222 400 350 Other: Voiding Method Toilet - Exam HEENT: Head is atraumatic, normocephalic. Pupils equal, round. Neck is supple. There is no elevated jugular venous pressure. HEART EXAMINATION: Heart S1-S2, no murmur is heard -CHEST EXAMINATION: Lungs reveal Bilateral expiratory wheezes throughout otherwise essentially clear. ABDOMEN: Soft, nontender. Bowel sounds are heard. No organomegaly noted. EXTREMITIES: 2+ peripheral pulses with no evidence of peripheral edema and no calf tenderness noted. NEUROLOGIC patient is awake, alert and oriented -3 - Labs CBC & Chem 7: 02/21/18 06:50 02/21/18 06:50 Labs: Abnormal Lab Results - Last 24 Hours (Table) 02/20/18 02/20/18 02/20/18 Range/Units 08:35 17:12 21:02 WBC (3.8-10.6) k/uL RDW (11.5-15.5) % Neutrophils # (1.3-7.7) k/uL Potassium (3.5-5.1) mmol/L BUN (7-17) mg/dL Glucose (74-99) mg/dL POC Glucose (mg/dL) 233 H 323 H (75-99) mg/dL Hemoglobin A1c 7.3 H (4.0-6.0) % 02/21/18 02/21/18 02/21/18 Range/Units 06:39 06:50 06:50 WBC 13.8 H (3.8-10.6) k/uL RDW 17.1 H (11.5-15.5) % Neutrophils # 11.5 H (1.3-7.7) k/uL Potassium 5.6 H (3.5-5.1) mmol/L BUN 28 H (7-17) mg/dL Glucose 234 H (74-99) mg/dL POC Glucose (mg/dL) 215 H (75-99) mg/dL Hemoglobin A1c (4.0-6.0) % 02/21/18 Range/Units 12:07 WBC (3.8-10.6) k/uL RDW (11.5-15.5) % Neutrophils # (1.3-7.7) k/uL Potassium (3.5-5.1) mmol/L BUN (7-17) mg/dL Glucose (74-99) mg/dL POC Glucose (mg/dL) 264 H (75-99) mg/dL Hemoglobin A1c (4.0-6.0) % Assessment and Plan Assessment: -copd in acute exacerbation -acute chest pain syndrome -h/o CAD, s/p stentin , reomte histroy -h/o sleep apnea -h/o peripheral artery disease Plan: continue with same treatment of steroids, breathing treatment, and oxygen. continue with symptomatic treatment. call pulmonary and cardilogy consult , GI and DVT prophylaxis, further recommendation depends on the clinical course of the patient.
[2018-02-21 15:27] LABS: Calcium 10.3 mg/dL (8.4-10.2); Potassium 5.8 mmol/L (3.5-5.1)
[2018-02-21] MEDS ORDERED: SODIUM POLYSTYRENE SULFONATE 15 GM/60 ML BOTTLE PO STA (15:29)
[2018-02-21 17:23] LABS: Glucose,Whole Blood 218 mg/dL (75-99)
[2018-02-21 21:01] LABS: Glucose,Whole Blood 303 mg/dL (75-99)
[2018-02-21] MEDS: MIRTAZAPINE 45 MG TABLET PO SCH (21:20)
[2018-02-21] MEDS: FAMOTIDINE 20 MG TAB PO SCH (21:20)
[2018-02-21] MEDS ORDERED: SODIUM POLYSTYRENE SULFONATE 15 GM/60 ML BOTTLE PO ONE (22:48)
[2018-02-21 23:48] VITALS: RESP 18
[2018-02-22] MEDS: SODIUM CHLORIDE 0.9% 1,000 ML IV SCH ×2 (02:17→12:09)
[2018-02-22 07:04] LABS: Glucose,Whole Blood 257 mg/dL (75-99)
[2018-02-22 09:07] LABS: Calcium 10.3 mg/dL (8.4-10.2); Potassium 4.9 mmol/L (3.5-5.1)
[2018-02-22] MEDS: IPRATROPIUM-ALBUTEROL 3 ML NEB INHALATION SCH ×2 (10:55→12:00)
[2018-02-22] MEDS: SYMBICORT 80-4.5 MCG INHALER INHALATION SCH (10:55)
[2018-02-22 11:14] LABS: Anisocytosis Slight; Basophils # (A) 0.1 k/uL (0-0.2); Basophils % (A) 0 %; Eosinophils # (A) 0.1 k/uL (0-0.7); Eosinophils % (A) 1 %; HCT 41.4 % (34.0-46.0); HGB 13.2 gm/dL (11.4-16.0); Hypochromasia Moderate; Lymphocytes # (A) 2.1 k/uL (1.0-4.8); Lymphocytes % (A) 16 %; MCH 29.3 pg (25.0-35.0); MCHC 31.9 g/dL (31.0-37.0); MCV 91.7 fL (80.0-100.0); Mean Platelet Volume 9.3; Monocytes # (A) 0.6 k/uL (0-1.0); Monocytes % (A) 5 %; Neutrophils # (A) 10.8 k/uL (1.3-7.7); Neutrophils % (A) 78 %; Platelet Count 297 k/uL (150-450); RBC 4.51 m/uL (3.80-5.40); RDW 16.9 % (11.5-15.5); WBC 13.7 k/uL (3.8-10.6)
[2018-02-22 11:39] VITALS: BP 143/67; PULSE 71; TEMP 97.8
[2018-02-22] MEDS: methylPREDNISolone SOD SUCCI 125 MG/2 ML VIAL IV SCH (12:07)
[2018-02-22] MEDS: INSULIN ASPART 100 UNIT/ML 1 ML 10 ML VIAL SQ SCH (12:07)
[2018-02-22] MEDS: FAMOTIDINE 20 MG TAB PO SCH (12:08)
[2018-02-22] MEDS: CLOPIDOGREL 75 MG TAB PO SCH (12:08)
[2018-02-22] MEDS: HEPARIN SODIUM,PORCINE 5,000 UNIT/ML 1 ML VIAL SQ SCH (12:08)
[2018-02-22] MEDS: EZETIMIBE 10 MG TAB PO SCH (12:08)
[2018-02-22] MEDS: DOXYCYCLINE MONOHYDRATE 100 MG CAPSULE PO SCH (12:08)
[2018-02-22] MEDS: DIVALPROEX ER 500 MG TAB.ER.24H PO SCH (12:08)
[2018-02-22] MEDS: hydrALAZINE HCL 50 MG TAB PO SCH (12:08)
[2018-02-22] MEDS: ATORVASTATIN 80 MG TAB PO SCH (12:08)
[2018-02-22] MEDS: ASPIRIN 325 MG TAB PO SCH (12:08)
[2018-02-22] MEDS: metFORMIN 500 MG TAB PO SCH (12:09)
[2018-02-22] MEDS: LISINOPRIL 20 MG TAB PO SCH (12:09)
[2018-02-22] MEDS: METOPROLOL TARTRATE 25 MG TAB PO SCH (12:09)
[2018-02-22 12:13] LABS: Poikilocytosis (M) Present
--- NOTE | 2018-02-22 12:24 | P.PN ---
Subjective Progress Note Date: 02/22/18 Principal diagnosis: Acute exacerbation of chronic obstructive pulmonary disease Tierney is a 52-year-old white female patient who goes to the [facility] in [place] for her primary care services, was recently hospitalized with community-acquired pneumonia at the [facility] from 02/04/2018 through 02/09/2018. She was treated with antibiotics, nebulized bronchodilators. Patient was suspected to have an underlying obstructive sleep apnea and she is awaiting her sleep study. She presented to the emergency department on 02/19/2018 at 2025 with complaints of persistent fatigue, weakness , chest pain, and shortness of breath. She reports finishing her outpatient course of oral antibiotics, she did not remember if she was given any prednisone. She thinks she may have been released too early. She denied any fever or chills, or cough is dry, and she is not bringing up any sputum. But she feels her chest is tight, wheezy. Patient is a current smoker, currently down to half a pack a day, but in the past she had smoked up to 3 packs a day for over 33 years. She is to see Dr. Keller in our office in the past for her COPD, however she hadn't seen him in some time. She is on albuterol nebulized treatments 3-4 times a day, she has a rescue inhaler, and Symbicort inhaler. She is not prednisone or oxygen dependent, she is not sure of her pulmonary function capacity. Other past medical history includes coronary artery disease with previous stenting, hypertension, hyperlipidemia, myocardial infarction 2009 , diabetes type 2 on oral agents, peripheral vascular disorder, with left iliac artery stent, bipolar disorder and the patient follows with [facility]. Chest x-ray was completed on 02/19/2018 and showed no acute pulmonary process. EKG showed normal sinus rhythm with no ischemic changes. Lab work showed WBC of 11.4, hemoglobin of 14.5, coagulation profile and d-dimer were all within normal limits, sodium was 139, potassium is 4.0, chloride was 96, CO2 is 29, BUN was 18 , creatinine is 1.0, liver profile was normal, cardiac enzymes and troponins negative 3, proBNP was within normal limits at 31. The echocardiogram showed mild concentric left ventricular hypertrophy, overall left ventricle systolic function was within normal limits with an EF between 55-60%, no evidence of pulmonary hypertension, right ventricular systolic pressure was normal at less than 35 mmHg. There was mitral and trace tricuspid regurgitation. We were asked to see the patient in consultation in regards to her COPD exacerbation. On 02/22/2018 patient seen in follow-up on observation unit. Doing better, denies any dyspnea, denies any worsening chest congestion, no hemoptysis, no sputum production. Afebrile, pulse ox on room air is 93%, it is lab work was reviewed, WBCs 13.7, hemoglobin is 13.2, no BMP. Lung sounds are diminished, but no rhonchi, no wheezes. Encourage the patient to get up and ambulate, patient has improved, and is requesting to go home today, from pulmonary standpoint patient is stable for discharge home today Objective - Vital Signs Vital signs: Vital Signs Temp 97.8 F 02/22/18 11:38 Pulse 71 02/22/18 11:38 Resp 18 02/22/18 11:38 BP 143/67 02/22/18 11:38 Pulse Ox 96 02/22/18 11:38 Intake & Output 02/21/18 02/22/18 02/22/18 18:59 06:59 18:59 Intake Total 350 240 Balance 350 240 Intake: Oral 350 240 Other: Voiding Method Toilet - Exam GENERAL EXAM: Alert, pleasant obese 52-year-old white female, comfortable in no apparent distress. HEAD: Normocephalic/atraumatic. EYES: Normal reaction of pupils, equal size. Conjunctiva pink, sclera white. NOSE: Clear with pink turbinates. THROAT: No erythema or exudates. NECK: No masses, no JVD, no thyroid enlargement, no adenopathy. CHEST: No chest wall deformity. Symmetrical expansion. LUNGS: Diminished breath sounds bilaterally,and prolongation of the expiratory phase CVS: Regular rate and rhythm, normal S1 and S2, no gallops, no murmurs, no rubs ABDOMEN: Soft, nontender. No hepatosplenomegaly, normal bowel sounds, no guarding or rigidity. EXTREMITIES: No clubbing, no edema, no cyanosis, 2+ pulses and upper and lower extremities. MUSCULOSKELETAL: Muscle strength and tone normal. SPINE: No scoliosis or deformity SKIN: No rashes CENTRAL NERVOUS SYSTEM: Alert and oriented -3. No focal deficits, tone is normal in all 4 extremities. PSYCHIATRIC: Alert and oriented -3. Appropriate affect. Intact judgment and insight. - Labs CBC & Chem 7: 02/22/18 07:00 02/21/18 14:58 Labs: Abnormal Lab Results - Last 24 Hours (Table) 02/21/18 02/21/18 02/21/18 Range/Units 14:58 17:21 20:44 WBC (3.8-10.6) k/uL RDW (11.5-15.5) % Neutrophils # (1.3-7.7) k/uL Potassium 5.8 H (3.5-5.1) mmol/L BUN 30 H (7-17) mg/dL Glucose 262 H (74-99) mg/dL POC Glucose (mg/dL) 218 H 303 H (75-99) mg/dL Calcium 10.3 H (8.4-10.2) mg/dL 02/22/18 02/22/18 Range/Units 07:00 07:01 WBC 13.7 H (3.8-10.6) k/uL RDW 16.9 H (11.5-15.5) % Neutrophils # 10.8 H (1.3-7.7) k/uL Potassium (3.5-5.1) mmol/L BUN (7-17) mg/dL Glucose (74-99) mg/dL POC Glucose (mg/dL) 257 H (75-99) mg/dL Calcium (8.4-10.2) mg/dL Assessment and Plan Plan: Assessment: #1. Acute exacerbation of chronic obstructive pulmonary disease #2. Recent hospitalization for community-acquired pneumonia, and the chest x- ray on 02/19/2018 did not show any evidence of infiltrates #3. Fatigue, weakness, shortness of breath, and chest discomfort probably related to the above. #4. History of coronary artery disease with history of stenting #5. Nicotine dependence, down to half a pack a day, carries 33 year smoking history, up to 3 packs a day #6. Peripheral vascular disease, with history of recent left iliac artery stenting #7. Suspected obstructive sleep apnea, and the patient reports snoring, daytime somnolence, she is awaiting her outpatient sleep study #8. Bipolar disorder, follows with [facility], currently on Depakote #9. Hypertension, hyperlipidemia #10. Diabetes mellitus type 2 #11. History of [place] in 2009 Plan: Patient is stable, has improved, no dyspnea, no chest congestion, vital signs are stable, she is on room air. Patient is stable for discharge home today on outpatient course of doxycycline, prednisone taper, and her maintenance inhalers and nebulized treatments. Up with Dr. Keller in the office in one week I performed a history & physical examination of the patient and discussed their management with my nurse practitioner, Deepa Ferrara. I reviewed the nurse practitioner's note and agree with the documented findings and plan of care. Lung sounds diminished breath. The findings and the impression was discussed with the patient. I attest to the documentation by the nurse practitioner. Time with Patient: Less than 30
--- NOTE | 2018-02-22 21:41 | P.EN ---
I was called by the nurse on the floor that patient signed leaving AMA before have chance to come and see her
--- NOTE | 2018-02-22 21:43 | P.DS ---
Providers Date of admission: 02/21/18 15:52 Attending physician: Ramya Fontaine Consults: 02/19/18 23:29 Consult Physician Routine Consulting Provider: Floridalma Watkins Consult Reason/Comments: cp Do you want consulting provider notified?: Yes 02/20/18 19:34 Consult Physician Routine Consulting Provider: Stephen Lang Consult Reason/Comments: COPD Do you want consulting provider notified?: Yes Primary care physician: [facility] Hospital Course: Please note that this is not discharge summary as patient actually signed leaving AMA this is a 52 yo F with pmh of COPD , Hypertension , sleep anpea, peripheral artery disease , ANANT , status post stenting . who presents with dyspena and worsening of cough and phlegm ,associated with some chest tightness. in the ED pt had normal Chest x-ray , associated with some chest pain . pt was found to have mild leukocytosis on admission , unremarkale BMP and LFT . Patient was admitted for acute exacerbation of COPD and she was treated with steroids breathing treatment and oxygen. However patient signed leaving AMA on 2017 before have a chance to meet her and examined her Patient Condition at Discharge: Fair Plan - Discharge Summary New Discharge Prescriptions: No Action Mirtazapine [Remeron] 45 mg PO HS Aspirin 81 mg PO HS Albuterol Inhaler [Ventolin Hfa Inhaler] 1 - 2 puff INHALATION RT-Q6H PRN PRN Reason: Shortness Of Breath Or Wheezing Divalproex ER [Depakote ER] 500 mg PO DAILY Clopidogrel [Plavix] 75 mg PO DAILY #30 tab hydrALAZINE HCL [Apresoline] 50 mg PO TID #90 tab Metoprolol Tartrate [Lopressor] 25 mg PO BID #60 tab Lisinopril [Zestril] 40 mg PO DAILY metFORMIN HCL 1,000 mg PO BID Glimepiride [Amaryl] 2 mg PO AC-BID Ezetimibe [Zetia] 10 mg PO DAILY Ergocalciferol [Vitamin D2] 50,000 unit PO Q7D predniSONE See Taper PO DAILY Pantoprazole [Protonix] 40 mg PO AC-BRKFST amLODIPine [Norvasc] 5 mg PO DAILY Cefuroxime Axetil [Ceftin] 500 mg PO BID OLANZapine [ZyPREXA] 5 mg PO HS clonazePAM [KlonoPIN] 1 mg PO BID Divalproex ER [Depakote ER] 1,000 mg PO HS Nitroglycerin Sl Tabs [Nitrostat] 0.4 mg SUBLINGUAL Q5M PRN PRN Reason: Angina guaiFENesin [guaiFENesin Oral Solution] 200 mg PO Q4H PRN PRN Reason: Congestion Discharge Medication List Albuterol Inhaler [Ventolin Hfa Inhaler] 1 - 2 puff INHALATION RT-Q6H PRN [History] Aspirin 81 mg PO HS 04/26/17 [History] Divalproex ER [Depakote ER] 500 mg PO DAILY 04/26/17 [History] Mirtazapine [Remeron] 45 mg PO HS 04/26/17 [History] Clopidogrel [Plavix] 75 mg PO DAILY #30 tab 04/30/17 [Rx] Metoprolol Tartrate [Lopressor] 25 mg PO BID #60 tab 04/30/17 [Rx] hydrALAZINE HCL [Apresoline] 50 mg PO TID #90 tab 04/30/17 [Rx] Cefuroxime Axetil [Ceftin] 500 mg PO BID 02/20/18 [History] Divalproex ER [Depakote ER] 1,000 mg PO HS 02/20/18 [History] Ergocalciferol [Vitamin D2] 50,000 unit PO Q7D 02/20/18 [History] Ezetimibe [Zetia] 10 mg PO DAILY 02/20/18 [History] Glimepiride [Amaryl] 2 mg PO AC-BID 02/20/18 [History] Lisinopril [Zestril] 40 mg PO DAILY 02/20/18 [History] Nitroglycerin Sl Tabs [Nitrostat] 0.4 mg SUBLINGUAL Q5M PRN 02/20/18 [History] OLANZapine [ZyPREXA] 5 mg PO HS 02/20/18 [History] Pantoprazole [Protonix] 40 mg PO AC-BRKFST 02/20/18 [History] amLODIPine [Norvasc] 5 mg PO DAILY 02/20/18 [History] clonazePAM [KlonoPIN] 1 mg PO BID 02/20/18 [History] guaiFENesin [guaiFENesin Oral Solution] 200 mg PO Q4H PRN 02/20/18 [History] metFORMIN HCL 1,000 mg PO BID 02/20/18 [History] predniSONE See Taper PO DAILY 02/20/18 [History] Follow up Appointment(s)/Referral(s): Stephen Lang MD [STAFF PHYSICIAN] - 1 Week [facility] Chris pandya [Primary Care Provider] - 1-2 days Patient Instructions/Handouts: COPD (Chronic Obstructive Pulmonary Disease) (DC ) Discharge Disposition: Left Against Medical Advice
== END 2018-02-22 12:18 | disposition left against medical advice (07) | DRG 192 ==
LOC: EC 20:26 → 3OBS 23:33 → OBSVTOIN 02-21 15:52
PROVIDERS: ADMIT Hospitalist; ATTEND Hospitalist
DX: J44.1 Chronic obstructive pulmonary disease with (acute) exacerbation (principal); E11.51 Type 2 diabetes mellitus with diabetic peripheral angiopathy without gangrene; E78.5 Hyperlipidemia, unspecified; I25.10 Atherosclerotic heart disease of native coronary artery without angina pectoris; I10 Essential (primary) hypertension; I25.2 Old myocardial infarction; G47.33 Obstructive sleep apnea (adult) (pediatric); F31.9 Bipolar disorder, unspecified; F17.210 Nicotine dependence, cigarettes, uncomplicated; Z71.6 Tobacco abuse counseling; Z79.82 Long term (current) use of aspirin; Z79.02 Long term (current) use of antithrombotics/antiplatelets; Z79.84 Long term (current) use of oral hypoglycemic drugs; Z79.899 Other long term (current) drug therapy; Z95.5 Presence of coronary angioplasty implant and graft; Z87.01 Personal history of pneumonia (recurrent); Z95.828 Presence of other vascular implants and grafts; Z82.49 Family history of ischemic heart disease and other diseases of the circulatory system; Z82.5 Family history of asthma and other chronic lower respiratory diseases
CPT/HCPCS: 36415; 71046; 80048; 80053; 80061; 80164; 82550; 82553; 83036; 83735; 83880; 84484; 85025; 85379; 85610; 85730; 93005; 93306; 94640; 96361; 96374; 99285

== ENCOUNTER → 2018-02-23 | Outpatient (CLI) | payer MEDICARE, OTHER ==
[2018-02-23 10:41] LABS: Albumin 3.3 g/dL (3.5-5.0); Calcium 10.7 mg/dL (8.4-10.2); Potassium 4.1 mmol/L (3.5-5.1); Total Bilirubin 0.3 mg/dL (0.2-1.3); Total Protein 5.5 g/dL (6.3-8.2)
[2018-02-23 17:39] LABS: Hemoglobin A1C 7.5 % (4.0-6.0)
== END | disposition home or self-care (01) ==
LOC: LABWHC1 10:00
PROVIDERS: ATTEND Internal Medicine Clinical Cardiac Electrophysiology
DX: E11.9 Type 2 diabetes mellitus without complications (principal); I25.10 Atherosclerotic heart disease of native coronary artery without angina pectoris; E78.5 Hyperlipidemia, unspecified
CPT/HCPCS: 36415; 80053; 80061; 83036; 84443

== ENCOUNTER → 2018-07-07 | Outpatient (CLI) | payer MEDICARE, OTHER ==
[2018-07-07 12:37] LABS: Blood Urea Nitrogen 12 mg/dL (7-17)
--- NOTE | 2018-07-07 14:24 | CT ---
EXAMINATION TYPE: CT abdomen pelvis w con DATE OF EXAM: 07/07/2018 COMPARISON: None HISTORY: Patient complains of abnormal weight loss, [address] DLP: 1448 mGycm CONTRAST: CT scan of the abdomen and pelvis is performed with Oral Contrast and with IV Contrast, patient injec michelle with 100 mL of Isovue 300. FINDINGS: LUNG BASES-: No visible nodule. No infiltrate. Mild left basilar pleural thickening. LIVER/GB: No calcified gallstones. No space occupying hepatic lesion. Biliary tree is of normal ca liber. PANCREAS: No inflammation. No distinct mass. SPLEEN: No splenic enlargement. No lesion seen. ADRENALS: No nodule. No thickening. KIDNEYS/BLADDER: No hydronephrosis. No nephrolithiasis. No distinct renal mass. Urinary bladder g rossly unremarkable. BOWEL: Normal appendix. Normal bowel caliber. No inflammation. GENITAL ORGANS: The endometrium appears thickened at 1.7 cm. Ultrasound correlation advised. Left ov zane cystic lesion measuring 1.8 cm. Right ovary is unremarkable. No free fluid identified. LYMPH NODES: No greater than 1cm abdominal or pelvic lymph nodes are appreciated. AORTA: Mild scattered atheromatous change of the abdominal aorta. High-grade stenosis left and right common iliac artery and to a lesser extent left external iliac artery. OSSEOUS STRUCTURES: No significant abnormality is seen. OTHER: No significant additional abnormality is seen. IMPRESSION: 1. No distinct abnormality to account for the patient's symptoms. 2. High-grade stenosis left and right common iliac artery and to a lesser extent left external iliac artery.
== END ==
LOC: RADCTMAIN 11:46
PROVIDERS: ATTEND Internal Medicine Gastroenterology
DX: I70.8 Atherosclerosis of other arteries (principal)
CPT/HCPCS: 82565; 84520; 74177; 36415; Q9967

== ENCOUNTER 2018-08-10 08:33 | Day surgery (SDC) | payer MEDICARE, OTHER ==
[2018-08-08 14:10] VITALS: BMI 30.1
[~2018-08-10 08:33] MED LIST changes: -ASPIRIN 325 MG TAB PO STA; +LACTATED RINGERS 1,000 ML IV SCH; +LIDOCAINE 1% 20 ML VIAL (10MG/ML) FOR IV START INTRADERMA PRN; -SODIUM CHLORIDE 0.9% 1,000 ML in EMPTY BAG 1 BAG IV ONE
[2018-08-10 08:54] VITALS: TEMP 98.1
[2018-08-10 09:04] LABS: Glucose,Whole Blood 109 mg/dL (75-99)
[2018-08-10] MEDS ORDERED: LIDOCAINE 1% INJ 10MG/ML (20 ML MDV) ONE (09:41)
[2018-08-10] MEDS ORDERED: MIDAZOLAM 2 MG/2 ML VIAL ONE (09:41)
[2018-08-10] MEDS ORDERED: fentaNYL (PF) 50 MCG/ML 2 ML AMP ONE (09:41)
[2018-08-10] MEDS ORDERED: PROPOFOL 10 MG/ML 20 ML VIAL IV ONE (09:41)
[2018-08-10 10:41] VITALS: RESP 18
--- NOTE | 2018-08-10 10:42 | P.PCN ---
Date of Procedure: 08/10/18 Procedure(s) Performed: ` Procedure: 1. Esophagogastroduodenoscopy and biopsy. 2. Colonoscopy and biopsy and polypectomy. Preoperative diagnosis: History of nausea, vomiting and diarrhea since March 2018. Postoperative diagnosis: 1. Small sliding hiatal hernia but no obvious esophagitis or complicated reflux disease. 2. Antral gastritis and antral ulcer with deformity but no evidence of gastric outlet obstruction. 3. Multiple biopsies obtained from the duodenum, antrum and esophagus. 4. Colon exam reveals 2 distal sigmoid polyps which were snared but no large polyps or cancer, otherwise, exam to the terminal ileum within normal limits. 5. Biopsies obtained from the terminal ileum and right colon because of her diarrhea. Preparation: HalfLytely prep. Sedation: Was provided by anesthesia. Brief clinical history: The patient is a 52-year-old female who was initially evaluated in March of this year because of diarrhea, nausea and vomiting since March 2018. She was subsequently followed and scheduled for this evaluation to rule out peptic ulcer disease, inflammatory bowel disease or other pathology. Procedure: With the patient on her left lateral decubitus position and after informed consent and adequate sedation, I passed the Olympus-GIF 190L video upper endoscope through the cricopharyngeus down the esophagus. There was a small sliding hiatal hernia but no obvious esophagitis or complicated reflux disease. The endoscope was then passed into the stomach which was insufflated with air and inspected in detail including the retroflex view in the cardia. Finally, the endoscope was passed through the pylorus into the duodenum. The antrum showed prepyloric deformity and there was a partially healed prepyloric ulcer covered with white exudate but there was no obstruction to the gastric outlet. Duodenal bulb, post bulbar area and descending duodenum appeared within normal limits. I obtained biopsies from the esophagus, antrum and esophagus then the endoscope was withdrawn and I proceeded with the colonoscopy. Perianal area did not show any fissures or fistulas. There were no masses felt on digital rectal examination. The Olympus CFH 190L video colonoscope was then inserted in the rectum in the usual fashion and advanced to the cecum. I intubated the ileocecal valve and examined the terminal ileum. Terminal ileum and colon did not show any edema, erythema, friability, ulceration, exudation or spontaneous bleeding. I obtained biopsies from the terminal ileum and right colon because of her diarrhea. There were 2 polyps in the distal sigmoid which I snared but there were no large polyps or cancer. The polyps were retrieved by suction. I retroflexed the endoscope in the rectum before the endoscope was withdrawn. The patient tolerated the procedure well. Plan: The patient was reassured. She will follow-up in the office August 24 as planned and we would keep you updated on her progress. I am recommending repeat colonoscopy in 3-5 years. Consideration should be made for repeat upper endoscopy after medical therapy to assess the healing of the antral ulcer.
[2018-08-10 10:43] VITALS: BP 124/76; PULSE 68
== END 2018-08-10 10:57 | disposition home or self-care (01) ==
LOC: ORWHC2ENDO 08:33
DX: K44.9 Diaphragmatic hernia without obstruction or gangrene (principal); K20.9 Esophagitis, unspecified; D12.2 Benign neoplasm of ascending colon; D12.5 Benign neoplasm of sigmoid colon; K25.9 Gastric ulcer, unspecified as acute or chronic, without hemorrhage or perforation; K29.60 Other gastritis without bleeding; K31.9 Disease of stomach and duodenum, unspecified; I25.2 Old myocardial infarction; I10 Essential (primary) hypertension; J44.9 Chronic obstructive pulmonary disease, unspecified; G47.33 Obstructive sleep apnea (adult) (pediatric); I25.10 Atherosclerotic heart disease of native coronary artery without angina pectoris; Z79.84 Long term (current) use of oral hypoglycemic drugs; Z79.02 Long term (current) use of antithrombotics/antiplatelets; Z79.899 Other long term (current) drug therapy; F17.200 Nicotine dependence, unspecified, uncomplicated
CPT/HCPCS: 88305; 45385; 43239; J2250; J2001; J3010; J2704

== ENCOUNTER → 2018-08-17 | Outpatient (CLI) | payer MEDICARE, OTHER ==
--- NOTE | 2018-08-17 14:44 | BD ---
EXAMINATION TYPE: Axial Bone Density DATE OF EXAM: 08/17/2018 CLINICAL HISTORY: Height: 64 inches Weight: 188 pounds FRAX RISK QUESTIONS: Alcohol (3 or more units per day): no Family History (Parent hip fracture): no for mother, no medical history on father Glucocorticoids (More than 3mos): unsure (Ex: prednisone, prednisolone, methylprednisolone, dexamethasone, and hydrocortisone). History of Fracture in Adulthood: no Secondary Osteoporosis: 1. Type 1 Diabetes: no 2. Hyperthyroidism: no 3. Menopause before 45: yes 4. Malnutrition: no 5. Chronic liver disease: no Rheumatoid Arthritis: no Current Tobacco Use: yes RISK FACTORS HISTORY OF: Family History of Osteoporosis: unsure Active: yes Diet low in dairy products/other sources of calcium: at least one serving a day Postmenopausal woman: yes Take estrogen and/or progesterone medications: no Lost more than 2 inches in height since high school: no Frequent falls: no Poor Health: unsure Hyperparathyroidism: no Adrenal Insufficiency: no MEDICATIONS: Prednisone or other steroids: unsure How Long: inhaler for several years but unsure if contains steroids Thyroid Medications: no Osteoporosis Medications: no Additional Medications: oral diabetes meds , vitamin D Additional History: unexplained weight loss EXAM MEASUREMENTS: Bone mineral densitometry was performed using the Lore System. Bone mineral density as measured about the Lumbar spine is: ----- L1-L4(G/cm2): 1.414 T Score Values are as follows: ----- L2: 2.7 ----- L3: 2.4 ----- L4: 1.8 ----- L1-L4: 2.0 Bone mineral density BASELINE Bone mineral density about the R hip (g/cm2): 1.046 Bone mineral density about the L hip (g/cm2): 0.978 T Score values are as follows: -----R Neck: 0.1 -----L Neck: -0.4 -----R Total: 0.9 -----L Total: 1.4 Bone mineral density BASELINE IMPRESSION: No evidence for osteoporosis or osteopenia. NOTE: T-SCORE=SD OF THE YOUNG ADULT MEAN.
--- NOTE | 2018-08-18 11:10 | MM ---
Reason for exam: screening (asymptomatic). Last mammogram was performed 9 years and 8 months ago. History: Patient is postmenopausal. Took hormonal contraceptives for 2 years. Physical Findings: A clinical breast exam by your physician is recommended on an annual basis and results should be correlated with mammographic findings. MG Screening Mammo w CAD Bilateral CC and MLO view(s) were taken. Prior study comparison: December 04, 2008, bilateral digital screening mammogram. The breast tissue is heterogeneously dense. This may lower the sensitivity of mammography. Focal asymmetry upper outer left breast. ASSESSMENT: Incomplete: need additional imaging evaluation, BI-RAD 0 RECOMMENDATION: Special view mammogram of the left breast. If lesion persists on supplemental views, image directed ultrasound is recommended. [facility] will attempt to contact patient to return for supplemental views and ultrasound if indicated.
== END | disposition home or self-care (01) ==
LOC: RADMAMWWP 10:47
PROVIDERS: ATTEND Internal Medicine
DX: Z12.31 Encounter for screening mammogram for malignant neoplasm of breast (principal); M85.9 Disorder of bone density and structure, unspecified
CPT/HCPCS: 77067; 77080

== ENCOUNTER → 2018-08-17 | Outpatient (CLI) | payer MEDICARE, OTHER ==
[2018-08-17 16:02] LABS: Valproic Acid (Depakene) 84.7 ug/mL (50.0-100.0)
[2018-08-17 16:44] LABS: ALT 35 U/L (8-44); AST 32 U/L (13-35); Albumin/Globulin Ratio 2.37 (1.20-2.10); Alkaline Phosphatase 94 U/L (41-126); Bilirubin, Conjugated <0.20 mg/dL (0.20-0.40); Cholesterol 215 mg/dL (0-200); Globulin 1.9 g/dL (2.1-3.7); LDL Cholesterol,Calculated 133.6 mg/dL (0.0-131.0); Total Bilirubin 0.3 mg/dL (0.3-1.2); Total Protein 6.4 g/dL (6.2-8.2)
== END | disposition home or self-care (01) ==
LOC: LABWHC1 10:13
PROVIDERS: ATTEND Psychiatry & Neurology Psychiatry
DX: Z51.81 Encounter for therapeutic drug level monitoring (principal); Z79.899 Other long term (current) drug therapy
CPT/HCPCS: 36415; 80061; 80076; 80164; 84439; 84443

== ENCOUNTER → 2018-09-18 | Outpatient (CLI) | payer MEDICARE, OTHER ==
--- NOTE | 2018-09-19 11:59 | MM ---
Reason for exam: additional evaluation requested from abnormal screening. Last mammogram was performed 1 month ago. History: Patient is postmenopausal. Took hormonal contraceptives for 2 years. Physical Findings: Nurse did not find any significant physical abnormalities on exam. MG 3D Work Up W/Cad LT Spot compression CC, spot compression MLO, and ML view(s) were taken of the left breast. Prior study comparison: August 17, 2018, bilateral MG screening mammo w CAD. December 04, 2008, bilateral digital screening mammogram. The breast tissue is heterogeneously dense. This may lower the sensitivity of mammography. The upper outer quadrant focal asymmetry becomes less defined on spot 3D CC. No persisting abnormality seen on spot 3D MLO or LAT. Precautionary 6 month follow up is recommended. These results were verbally communicated with the patient and result sheet given to the patient on 09/18/18. ASSESSMENT: Probably benign, BI-RAD 3 RECOMMENDATION: Follow-up diagnostic mammogram of the left breast in 6 months.
== END | disposition home or self-care (01) ==
LOC: RADMAMWWP 10:03
PROVIDERS: ATTEND Internal Medicine
DX: R92.8 Other abnormal and inconclusive findings on diagnostic imaging of breast (principal)
CPT/HCPCS: 77065; G0279; 77061

== ENCOUNTER 2018-11-13 09:08 | Day surgery (SDC) | payer MEDICARE, OTHER ==
[2018-11-08 15:18] VITALS: BMI 31.7
[~2018-11-13 09:08] MED LIST changes: +DEXAMETHASONE SOD PHOSPHATE 10 MG/ML 1 ML VIAL IV ONE; -LIDOCAINE 1% 20 ML VIAL (10MG/ML) FOR IV START INTRADERMA PRN; +ONDANSETRON 4 MG/2 ML VIAL IVP ONE
[2018-11-13 09:57] VITALS: RESP 16; TEMP 99.5
[2018-11-13] MEDS ORDERED: LIDOCAINE 1% 20 ML VIAL (10MG/ML) FOR IV START INTRADERMA ONE (10:05)
[2018-11-13 10:08] LABS: Glucose,Whole Blood 114 mg/dL (75-99)
[2018-11-13] MEDS ORDERED: LIDOCAINE 1% INJ 10MG/ML (20 ML MDV) ONE (10:51)
[2018-11-13] MEDS ORDERED: PROPOFOL 10 MG/ML 20 ML VIAL IV ONE (10:51)
--- NOTE | 2018-11-13 11:22 | P.PCN ---
Date of Procedure: 11/13/18 Procedure(s) Performed: Procedure: Esophagogastroduodenoscopy and biopsy. Preoperative diagnosis: History of antral ulcer. Postoperative diagnosis: 1. Very small sliding hiatal hernia with no obvious esophagitis or complicated reflux disease. 2. Gastritis and duodenitis with deformity in the antrum and ulcer not completely healed. 3. Biopsies obtained from the ulcer edges and the antrum. Preparation and sedation: Was provided by anesthesia. Brief clinical history: The patient is a 53-year-old female who around the middle of July 2018 underwent upper endoscopy and colonoscopy because of nausea, vomiting and weight loss that started in March 2018. There was deformity in the antrum and antral ulcer partially healed. Biopsies showed no evidence of H. pylori infection. The patient was continued on medical therapy but has been taking her medications as needed. She continues to have inte rmittent vomiting once every 3 days or so. She is now regaining her weight loss and no evidence of bleeding or other alarm symptoms. This evaluation is to assess for the healing of her ulcer. Procedure: With the patient on her left lateral decubitus position and after informed consent and adequate sedation, I passed a Olympus-GIF H190 video upper endoscope through the cricopharyngeus down the esophagus. GE junction was around 40-41 cm from the incisors and there was a very small sliding hiatal hernia but no obvious esophagitis or complicated reflux disease. The endoscope was then passed into the stomach which was insufflated with air and inspected in detail including the retroflex view in the cardia. There was deformity in the antrum and prepyloric area with a prominent fold with an ulceration but no spontaneous bleeding. The antrum showed diffuse mottling and erythema and some friability. Pyloric channel did not show any ulcers. Duodenal bulb showed erythema and friability but no ulcers or bleeding post bulbar area and descending duodenum appeared within normal limits. I obtained a picture and biopsies from the antral ulcer as well as from the antrum then the endoscope was withdrawn. The patient tolerated the procedure well. Plan: The patient was reassured. Will await biopsy results. In the meantime, I suggested that she continue medical therapy on a regular basis and reevaluate in the office and make further plans based on her course and biopsy results.
[2018-11-13 11:32] VITALS: BP 116/70; PULSE 79
== END 2018-11-13 11:57 | disposition home or self-care (01) ==
LOC: ORWHC2ENDO 09:08
DX: K25.3 Acute gastric ulcer without hemorrhage or perforation (principal); K29.50 Unspecified chronic gastritis without bleeding; I25.10 Atherosclerotic heart disease of native coronary artery without angina pectoris; K44.9 Diaphragmatic hernia without obstruction or gangrene; K29.80 Duodenitis without bleeding; J44.9 Chronic obstructive pulmonary disease, unspecified; E11.9 Type 2 diabetes mellitus without complications; I10 Essential (primary) hypertension; G47.33 Obstructive sleep apnea (adult) (pediatric); I25.2 Old myocardial infarction; E78.5 Hyperlipidemia, unspecified; F17.210 Nicotine dependence, cigarettes, uncomplicated; R05 Cough; M19.90 Unspecified osteoarthritis, unspecified site; K21.9 Gastro-esophageal reflux disease without esophagitis; Z79.84 Long term (current) use of oral hypoglycemic drugs; Z79.899 Other long term (current) drug therapy
CPT/HCPCS: 88305; 43239; J2001; J2704

== ENCOUNTER → 2018-11-27 | Outpatient (CLI) | payer MEDICARE, OTHER ==
[2018-11-27 11:11] LABS: Basophils # (A) 0.1 k/uL (0-0.2); Basophils % (A) 1 %; Eosinophils # (A) 0.2 k/uL (0-0.7); Eosinophils % (A) 2 %; HCT 46.5 % (34.0-46.0); HGB 14.8 gm/dL (11.4-16.0); Lymphocytes % (A) 31 %; MCH 28.2 pg (25.0-35.0); MCV 88.3 fL (80.0-100.0); Mean Platelet Volume 7.6; Monocytes # (A) 0.5 k/uL (0-1.0); Monocytes % (A) 5 %; Neutrophils # (A) 5.7 k/uL (1.3-7.7); Neutrophils % (A) 60 %; Platelet Count 210 k/uL (150-450); RBC 5.26 m/uL (3.80-5.40); RDW 14.1 % (11.5-15.5); WBC 9.6 k/uL (3.8-10.6)
== END | disposition home or self-care (01) ==
LOC: LABPAT 07:56
PROVIDERS: ATTEND Obstetrics & Gynecology
DX: Z01.818 Encounter for other preprocedural examination (principal); Z01.812 Encounter for preprocedural laboratory examination
CPT/HCPCS: 36415; 82670; 83001; 83002; 84146; 84439; 84443; 85025; 93005

== ENCOUNTER → 2018-11-27 | Outpatient (CLI) | payer MEDICARE, OTHER ==
[2018-11-27 16:02] LABS: T4, Free (Free Thyroxine) 1.3 ng/dL (0.80-1.80)
== END | disposition home or self-care (01) ==
LOC: LABWHC1 07:59
PROVIDERS: ATTEND Obstetrics & Gynecology
DX: N95.1 Menopausal and female climacteric states (principal)
CPT/HCPCS: 36415; 82670; 83001; 83002; 84146; 84439; 84443

== ENCOUNTER → 2018-12-21 | Day surgery (SDC) | payer MEDICARE, OTHER ==
[2018-12-18 15:54] VITALS: BMI 32.5
--- NOTE | 2018-12-20 16:51 | P.HPOB ---
History of Present Illness H&P Date: 12/20/18 Chief Complaint: Thickened endometrium on ct Tierney is a 53-year-old female with a grossly thickened endometrium on CAT scan. She is scheduled for D&C with hysteroscopy and Pap smear for same. She had surgical clearance through her lock stitch channeler. She has multiple medical problems including significant tobacco abuse diabetes hypertension hypercholesterolemia will plan D&C with hysteroscopy for same. Risks/benefits/alternatives were discussed with patient in detail and all questions were answered for her prior to proceeding to the operating room. Past Medical History Past Medical History: Coronary Artery Disease (CAD), COPD, GERD/Reflux, Hyperlipidemia, Hypertension, Myocardial Infarction (DE), Sleep Apnea/CPAP/BIPAP, Vascular Disorder Additional Past Medical History / Comment(s): stent 2009 2010,stent left leg 2017,no cpap Last Myocardial Infarction Date:: 2009 AND 2010 History of Any Multi-Drug Resistant Organisms: None Reported Past Surgical History: Heart Catheterization With Stent Additional Past Surgical History / Comment(s): EGD, COLONOSCOPY. STENT TO LT GROIN Past Anesthesia/Blood Transfusion Reactions: No Reported Reaction Date of Last Stent Placement:: 2010 Smoking Status: Former smoker - Past Family History Mother Family Medical History: COPD, Coronary Artery Disease (CAD) Father History Unknown: Yes Medications and Allergies Home Medications Medication Instructions Recorded Confirmed Type Divalproex ER [Depakote ER] 500 mg PO DAILY 04/26/17 12/18/18 History Mirtazapine [Remeron] 45 mg PO HS 04/26/17 12/18/18 History Clopidogrel [Plavix] 75 mg PO DAILY #30 tab 04/30/17 12/18/18 Rx Divalproex ER [Depakote ER] 1,000 mg PO HS 02/20/18 12/18/18 History clonazePAM [KlonoPIN] 1 mg PO BID 02/20/18 12/18/18 History metFORMIN HCL 1,000 mg PO BID 02/20/18 12/18/18 History Atorvastatin [Lipitor] 80 mg PO DAILY 08/08/18 12/18/18 History Cholecalciferol [Vitamin D3] 5,000 unit PO DAILY 08/08/18 12/18/18 History Glimepiride [Amaryl] 2 mg PO DAILY 08/08/18 12/18/18 History Irbesartan [Avapro] 300 mg PO HS 08/08/18 12/18/18 History OLANZapine [ZyPREXA] 5 mg PO HS 08/08/18 12/18/18 History Fenofibrate Nanocrystallized 48 mg PO DAILY 11/08/18 12/18/18 History [Fenofibrate] Albuterol Inhaler [Ventolin Hfa 1 - 2 puff INHALATION RT-Q6H PRN 12/18/18 12/18/18 History Inhaler] Escitalopram [Lexapro] 5 mg PO DAILY 12/18/18 12/18/18 History Fluticasone/Salmeterol [Advair 1 inhalation PO BID 12/18/18 12/18/18 History 500-50 Diskus] Metoprolol Tartrate [Lopressor] 25 mg PO BID 12/18/18 12/18/18 History Montelukast [Singulair] 10 mg PO HS 12/18/18 12/18/18 History Umeclidinium [place] [Incruse 1 puff INHALATION DAILY 12/18/18 12/18/18 History Ellipta] Varenicline [Chantix Continuing 1 mg PO BID 12/18/18 12/18/18 History Pack] Allergies Allergy/AdvReac Type Severity Reaction Status Date / Time No Known Allergies Allergy Verified 12/18/18 15:34 Exam Osteopathic Statement: *. No significant issues noted on an osteopathic st ructural exam other than those noted in the History and Physical/Consult. - OBG Physical Exam Breast: both: normal (no masses) Abdomen: bowel sounds normal, no diffuse tenderness, no bruit present, no guarding noted, no hepatomegaly, no splenomegaly, no mass Vulva: both: normal Vagina: normal moisture, no discharge Cervix: no lesion, no discharge Uterus: normal size, normal contour Adnexa: both: normal Anus/Rectum: normal perianal skin, no rectal mass, no hemorrhoids, heme negative
[~2018-12-21] MED LIST changes: +LIDOCAINE 1% 20 ML VIAL (10MG/ML) FOR IV START INTRADERMA PRN; +LIDOCAINE 1% INJ 10MG/ML (20 ML MDV) ONE; +MIDAZOLAM (PF) 2 MG/2 ML VIAL IV PRN; +MIDAZOLAM 2 MG/2 ML VIAL ONE; +PROPOFOL 10 MG/ML 20 ML VIAL IV ONE; +Pre Op ABX Message 1 EACH MISC MISCELLANE ONE; +SCOPOLAMINE 1.5MG/72HR PATCH TRANSDERM ONE; +fentaNYL (PF) 50 MCG/ML 2 ML AMP ONE
[2018-12-21 06:53] VITALS: RESP 16
[2018-12-21 07:05] LABS: Glucose,Whole Blood 99 mg/dL (75-99)
[2018-12-21 08:10] VITALS: TEMP 97.3
[2018-12-21] MEDS: HYDROmorphone 0.5 MG/0.5 ML SYRINGE IVP PRN ×2 (08:18→08:23)
[2018-12-21] MEDS: diphenhydrAMINE 50 MG/ML 1 ML VIAL IVP ONE ×2 (08:30→08:40)
--- NOTE | 2018-12-21 09:16 | P.OP ---
Date of Procedure: 12/21/18 Preoperative Diagnosis: Postmenopausal bleeding Postoperative Diagnosis: Same Procedure(s) Performed: D&C with hysteroscopy and Pap smear Anesthesia: MACRINA Surgeon: Jose Alejandro Cerda Estimated Blood Loss (ml): 3 Pathology: other (Pap smear, and uterine curettings) Condition: stable Disposition: same day Operative Findings: Tissue pathology pending Description of Procedure: Patient was taken to the operating suite where a general anesthetic was found be adequate. She was prepped and draped in the normal sterile fashion and placed in dorsal lithotomy position. Initially a weighted speculum was inserted into the vagina and anterior lip of cervix identified and grasped with clamp. Pap smear was then obtained and sent to pathology. Once this was accomplished cervix was dilated and camera was inserted. Minimal tissue was noted it did appear postmenopausal. Camera was then removed and sharp curettings of the endometrium were obtained. Scant sampling was obtained but all tissue sent to pathology for evaluation. Once this was completed, all instruments were removed. Sponge, lap, needle counts were all correct 2. Patient was then taken to the recovery room in stable and satisfactory condition. Plan - Discharge Summary Discharge Rx Participant: No New Discharge Prescriptions: New Ibuprofen [Motrin] 600 mg PO Q6HR PRN #30 tab PRN Reason: Pain No Action Mirtazapine [Remeron] 45 mg PO HS Divalproex ER [Depakote ER] 500 mg PO DAILY Clopidogrel [Plavix] 75 mg PO DAILY #30 tab metFORMIN HCL 1,000 mg PO BID clonazePAM [KlonoPIN] 1 mg PO BID Divalproex ER [Depakote ER] 1,000 mg PO HS Atorvastatin [Lipitor] 80 mg PO DAILY Glimepiride [Amaryl] 2 mg PO DAILY Cholecalciferol [Vitamin D3] 5,000 unit PO DAILY OLANZapine [ZyPREXA] 5 mg PO HS Irbesartan [Avapro] 300 mg PO HS Fenofibrate Nanocrystallized [Fenofibrate] 48 mg PO DAILY Varenicline [Chantix Continuing Pack] 1 mg PO BID Fluticasone/Salmeterol [Advair 500-50 Diskus] 1 inhalation PO BID Montelukast [Singulair] 10 mg PO HS Albuterol Inhaler [Ventolin Hfa Inhaler] 1 - 2 puff INHALATION RT-Q6H PRN PRN Reason: SHORT OF BREATH Metoprolol Tartrate [Lopressor] 25 mg PO BID Escitalopram [Lexapro] 5 mg PO DAILY Umeclidinium [place] [Incruse Ellipta] 1 puff INHALATION DAILY Discharge Medication List Divalproex ER [Depakote ER] 500 mg PO DAILY 04/26/17 [History] Mirtazapine [Remeron] 45 mg PO HS 04/26/17 [History] Clopidogrel [Plavix] 75 mg PO DAILY #30 tab 04/30/17 [Rx] Divalproex ER [Depakote ER] 1,000 mg PO HS 02/20/18 [History] clonazePAM [KlonoPIN] 1 mg PO BID 02/20/18 [History] metFORMIN HCL 1,000 mg PO BID 02/20/18 [History] Atorvastatin [Lipitor] 80 mg PO DAILY 08/08/18 [History] Cholecalciferol [Vitamin D3] 5,000 unit PO DAILY 08/08/18 [History] Glimepiride [Amaryl] 2 mg PO DAILY 08/08/18 [History] Irbesartan [Avapro] 300 mg PO HS 08/08/18 [History] OLANZapine [ZyPREXA] 5 mg PO HS 08/08/18 [History] Fenofibrate Nanocrystallized [Fenofibrate] 48 mg PO DAILY 11/08/18 [History] Albuterol Inhaler [Ventolin Hfa Inhaler] 1 - 2 puff INHALATION RT-Q6H PRN 12/18/18 [History] Escitalopram [Lexapro] 5 mg PO DAILY 12/18/18 [History] Fluticasone/Salmeterol [Advair 500-50 Diskus] 1 inhalation PO BID 12/18/18 [History] Metoprolol Tartrate [Lopressor] 25 mg PO BID 12/18/18 [History] Montelukast [Singulair] 10 mg PO HS 12/18/18 [History] Umeclidinium [place] [Incruse Ellipta] 1 puff INHALATION DAILY 12/18/18 [History] Varenicline [Chantix Continuing Pack] 1 mg PO BID 12/18/18 [History] Ibuprofen [Motrin] 600 mg PO Q6HR PRN #30 tab 12/21/18 [Rx] Follow up Appointment(s)/Referral(s): Jose Alejandro Cerda DO [Doctor of Osteopathic Medicine] - 1 Week Patient Instructions/Handouts: *[facility] - Dilation & Curettage Home Instructions, *[facility] - (Anesthesia) Discharge Instructions Outpatient Surgery Activity/Diet/Wound Care/Special Instructions: Pelvic rest, limit stairs and driving today. If any high temperatures, heavy bleeding or severe pain, call my office Discharge Disposition: HOME SELF-CARE
[2018-12-21 09:37] VITALS: BP 121/88; PULSE 69
== END | disposition home or self-care (01) ==
LOC: OR 06:28
PROVIDERS: ATTEND Obstetrics & Gynecology
DX: N95.0 Postmenopausal bleeding (principal); E11.9 Type 2 diabetes mellitus without complications; I10 Essential (primary) hypertension; E78.00 Pure hypercholesterolemia, unspecified; I25.10 Atherosclerotic heart disease of native coronary artery without angina pectoris; J44.9 Chronic obstructive pulmonary disease, unspecified; K21.9 Gastro-esophageal reflux disease without esophagitis; I25.2 Old myocardial infarction; Z99.89 Dependence on other enabling machines and devices; Z87.891 Personal history of nicotine dependence; Z79.899 Other long term (current) drug therapy; Z95.5 Presence of coronary angioplasty implant and graft; G47.33 Obstructive sleep apnea (adult) (pediatric); Z79.84 Long term (current) use of oral hypoglycemic drugs; R93.89 Abnormal findings on diagnostic imaging of other specified body structures
CPT/HCPCS: 88305; 58558; J2250; J1200; J2001; J3010; J2704; J1170

== ENCOUNTER 2019-01-12 16:24 | Emergency (ER) | payer MEDICARE, OTHER ==
[2019-01-12 16:29] VITALS: RESP 18; TEMP 97.7
[2019-01-12] MEDS ORDERED: ASPIRIN 81 MG PO STA (16:43)
[2019-01-12] MEDS ORDERED: methylPREDNISolone SOD SUCCI 125 MG/2 ML VIAL IV STA (17:05)
[2019-01-12] MEDS ORDERED: IPRATROPIUM-ALBUTEROL 3 ML NEB INHALATION STA (17:05)
--- NOTE | 2019-01-12 17:08 | ED ---
Chest Pain HPI - General Chief Complaint: Chest Pain Stated Complaint: SOB, Chest pain Time Seen by Provider: 01/12/19 16:42 Source: patient Mode of arrival: wheelchair Limitations: no limitations - History of Present Illness Initial Comments: Patient is a 53-year-old female presents with a chief complaint of chest pain, shortness of breath, weakness. She was recently discharged from the hospital where she was treated for pneumonia. She states that she was discharged on Tuesday, and was admitted on Mother's Day. She states that she has not been able to get her medications after her admission. They will be ready until Tuesday. She states that all of her symptoms they are worsening of what was happening to her in the hospital. She is unaware of what medications she was discharged on. - Related Data Home Medications Medication Instructions Recorded Confirmed Divalproex ER [Depakote ER] 500 mg PO DAILY 04/26/17 01/12/19 Mirtazapine [Remeron] 45 mg PO HS 04/26/17 01/12/19 Divalproex ER [Depakote ER] 1,000 mg PO HS 02/20/18 01/12/19 clonazePAM [KlonoPIN] 1 mg PO BID 02/20/18 01/12/19 metFORMIN HCL 1,000 mg PO BID 02/20/18 01/12/19 Atorvastatin [Lipitor] 80 mg PO DAILY 08/08/18 01/12/19 Cholecalciferol [Vitamin D3] 5,000 unit PO DAILY 08/08/18 01/12/19 Glimepiride [Amaryl] 2 mg PO DAILY 08/08/18 01/12/19 OLANZapine [ZyPREXA] 5 mg PO HS 08/08/18 01/12/19 Fenofibrate Nanocrystallized 48 mg PO DAILY 11/08/18 01/12/19 [Fenofibrate] Albuterol Inhaler [Ventolin Hfa 1 - 2 puff INHALATION RT-Q6H PRN 12/18/18 01/12/19 Inhaler] Fluticasone/Salmeterol [Advair 1 inhalation PO BID 12/18/18 01/12/19 500-50 Diskus] Metoprolol Tartrate [Lopressor] 25 mg PO BID 12/18/18 01/12/19 Montelukast [Singulair] 10 mg PO HS 12/18/18 01/12/19 Lisinopril [Zestril] 5 mg PO DAILY 01/12/19 01/12/19 Loratadine [Claritin] 10 mg PO DAILY 01/12/19 01/12/19 Omeprazole 20 mg PO DAILY 01/12/19 01/12/19 Previous Rx's Medication Instructions Recorded Clopidogrel [Plavix] 75 mg PO DAILY #30 tab 04/30/17 Albuterol Inhaler [Ventolin Hfa 1 - 2 puff INHALATION RT-Q4H #1 01/12/19 Inhaler] inhaler Doxycycline Hyclate 100 mg PO Q12H 10 Days #20 tab 01/12/19 predniSONE 60 mg PO DAILY #12 tab 01/12/19 Allergies Allergy/AdvReac Type Severity Reaction Status Date / Time No Known Allergies Allergy Verified 01/12/19 18:24 Review of Systems ROS Statement: Those systems with pertinent positive or pertinent negative responses have been documented in the HPI. ROS Other: All systems not noted in ROS Statement are negative. Respiratory: Reports: cough, dyspnea Cardiovascular: Reports: chest pain Endocrine: Reports: fatigue Neurological: Reports: weakness Past Medical History Past Medical History: Coronary Artery Disease (CAD), COPD, GERD/Reflux, Hypertension, Myocardial Infarction ([place]), Sleep Apnea/CPAP/BIPAP, Vascular Disorder Additional Past Medical History / Comment(s): weight loss of 20 plus pounds w/in 2 mos,stent 2009 2010,stent left leg 2017,no cpap Last Myocardial Infarction Date:: 2010 History of Any Multi-Drug Resistant Organisms: None Reported Past Surgical History: Heart Catheterization With Stent Past Anesthesia/Blood Transfusion Reactions: No Reported Reaction Date of Last Stent Placement:: 2010 Past Psychological History: Depression Smoking Status: Current every day smoker Past Alcohol Use History: None Reported Past Drug Use History: None Reported - Past Family History Mother Family Medical History: COPD, Coronary Artery Disease (CAD) Father History Unknown: Yes General Exam Limitations: no limitations General appearance: alert, in no apparent distress Head exam: Present: atraumatic, normocephalic Eye exam: Present: normal appearance ENT exam: Present: normal exam Neck exam: Present: normal inspection Respiratory exam: Present: wheezes, rales. Absent: respiratory distress Cardiovascular Exam: Present: regular rate, normal rhythm GI/Abdominal exam: Present: soft. Absent: distended, tenderness Rectal exam: Present: deferred Extremities exam: Present: normal inspection Back exam: Present: normal inspection Neurological exam: Present: alert, oriented X3 Psychiatric exam: Present: normal affect, normal mood Skin exam: Present: warm, dry, intact Course Vital Signs 01/12/19 01/12/19 01/12/19 16:26 17:33 17:46 Temperature 97.7 F Pulse Rate 85 74 73 Respiratory 18 Rate Blood Pressure 135/73 O2 Sat by Pulse 96 Oximetry 01/12/19 01/12/19 01/12/19 18:12 18:30 18:53 Temperature Pulse Rate 77 78 Respiratory 18 18 Rate Blood Pressure 126/66 128/65 O2 Sat by Pulse 96 94 L 91 L Oximetry 01/12/19 19:28 Temperature Pulse Rate 89 Respiratory 18 Rate Blood Pressure 114/69 O2 Sat by Pulse 95 Oximetry Chest Pain MDM - [facility] Patient presents with a chief complaint of chest pain, shortness of breath, cough, weakness. She was recently discharged from the hospital where she was treated for pneumonia, she has not been able to get her medications that she was discharged on. Vital signs are stable, patient is in no acute distress. EKG performed at 1639 shows normal sinus rhythm with a rate of 79 bpm, sinus with a normal limits, no acute signs of ischemia. 7:51 PM Laboratory evaluation of the patient shows elevated white blood cell count, likely secondary to steroids while in the hospital. X-ray shows no acute process, labs are otherwise unremarkable. Laboratory pulse ox stable at 91% on room air, patient does not have any difficulty. She's been ambulatory to the bathroom as well. At this time, patient stable for discharge. I discussed that she needs to be on antibiotics, and prescribed doxycycline for 10 days, albuterol which was instructed every 4 hours, and prednisone daily for the next 4 days. patient instructed to follow up with PCP in 1-2 days, return to the ED if sx worsen or change. Disposition Clinical Impression: SOB (shortness of breath), Bronchitis Disposition: HOME SELF-CARE Condition: Fair Instructions (If sedation given, give patient instructions): Chest Pain (ED), Acute Bronchitis (ED) Prescriptions: Doxycycline Hyclate 100 mg PO Q12H 10 Days #20 tab predniSONE 60 mg PO DAILY #12 tab Albuterol Inhaler [Ventolin Hfa Inhaler] 1 - 2 puff INHALATION RT-Q4H #1 inhaler Is patient prescribed a controlled substance at d/c from ED?: No Referrals: [facility] [Primary Care Provider] - 1-2 days
[2019-01-12 17:32] LABS: VBG PH 7.42 (7.31-7.41)
[2019-01-12 17:32] LABS: Basophils # (A) 0.1 k/uL (0-0.2); Basophils % (A) 1 %; Eosinophils # (A) 0.2 k/uL (0-0.7); Eosinophils % (A) 1 %; HCT 42.6 % (34.0-46.0); HGB 13.6 gm/dL (11.4-16.0); Lymphocytes # (A) 4.6 k/uL (1.0-4.8); Lymphocytes % (A) 25 %; MCH 27.5 pg (25.0-35.0); MCV 85.8 fL (80.0-100.0); Monocytes # (A) 0.9 k/uL (0-1.0); Monocytes % (A) 5 %; Neutrophils # (A) 12.5 k/uL (1.3-7.7); Neutrophils % (A) 68 %; Platelet Count 357 k/uL (150-450); RBC 4.97 m/uL (3.80-5.40); RDW 14.7 % (11.5-15.5); WBC 18.4 k/uL (3.8-10.6)
[2019-01-12 17:36] LABS: Calcium 11.1 mg/dL (8.4-10.2); Potassium 4.6 mmol/L (3.5-5.1)
[2019-01-12 17:41] LABS: D-Dimer 0.45 mg/L FEU (<0.60); INR 0.9 (<1.2); Prothrombin Time 10.1 sec (9.0-12.0)
--- NOTE | 2019-01-12 18:17 | XR ---
EXAMINATION TYPE: XR chest 2V DATE OF EXAM: 01/12/2019 COMPARISON: 02/19/2018 HISTORY: Difficulty breathing TECHNIQUE: Frontal and lateral views of the chest are obtained. FINDINGS: Heart and mediastinum are normal. Lungs are clear of infiltrate. There is no pleural effus ion. There are chest leads. Bony thorax is intact. IMPRESSION: Normal chest. No change.
[2019-01-12] MEDS ORDERED: DOXYCYCLINE 100 MG CAP PO STA (19:00)
[2019-01-12 19:29] VITALS: BP 114/69; PULSE 89
== END 2019-01-12 20:01 | disposition home or self-care (01) ==
LOC: EC 16:24
DX: J44.9 Chronic obstructive pulmonary disease, unspecified (principal); I25.10 Atherosclerotic heart disease of native coronary artery without angina pectoris; K21.9 Gastro-esophageal reflux disease without esophagitis; I10 Essential (primary) hypertension; I25.2 Old myocardial infarction; F17.200 Nicotine dependence, unspecified, uncomplicated; G47.30 Sleep apnea, unspecified; F32.9 Major depressive disorder, single episode, unspecified; Z79.84 Long term (current) use of oral hypoglycemic drugs; Z79.51 Long term (current) use of inhaled steroids; Z79.899 Other long term (current) drug therapy; Z95.5 Presence of coronary angioplasty implant and graft
CPT/HCPCS: 36415; 94640; 93005; 85379; 83880; 80048; 82803; 84484; 85025; 85610; 71046; 99285; 96374; J2930

== ENCOUNTER 2019-05-27 19:50 | Emergency (ER) | payer MEDICARE, OTHER ==
[2019-05-27] MEDS ORDERED: IPRATROPIUM 0.5 MG/2.5 ML NEBU INHALATION STA (20:43)
[2019-05-27] MEDS ORDERED: SODIUM CHLORIDE 0.9% 500 ML 500 ML IV STA (20:43)
[2019-05-27] MEDS ORDERED: methylPREDNISolone SOD SUCCI 125 MG/2 ML VIAL IV STA (20:43)
[2019-05-27] MEDS ORDERED: ALBUTEROL NEBULIZED 2.5 MG/3 ML INHALATION STA (20:43)
[2019-05-27] MEDS ORDERED: guaiFENesin-DM 600/30MG 1 EACH TAB.ER.12H PO STA (20:44)
[2019-05-27 21:08] VITALS: RESP 18
[2019-05-27 21:24] LABS: Basophils # (A) 0.1 k/uL (0-0.2); Basophils % (A) 2 %; Eosinophils # (A) 0.3 k/uL (0-0.7); Eosinophils % (A) 3 %; HCT 46.3 % (34.0-46.0); HGB 15.5 gm/dL (11.4-16.0); Lymphocytes # (A) 2.5 k/uL (1.0-4.8); Lymphocytes % (A) 30 %; MCH 29.4 pg (25.0-35.0); MCHC 33.4 g/dL (31.0-37.0); MCV 88.1 fL (80.0-100.0); Mean Platelet Volume 6.9; Monocytes # (A) 0.7 k/uL (0-1.0); Monocytes % (A) 8 %; Neutrophils # (A) 4.5 k/uL (1.3-7.7); Neutrophils % (A) 56 %; Platelet Count 186 k/uL (150-450); RBC 5.26 m/uL (3.80-5.40); RDW 14.4 % (11.5-15.5); WBC 8.1 k/uL (3.8-10.6)
[2019-05-27 21:37] LABS: Albumin 3.9 g/dL (3.5-5.0); Calcium 10.4 mg/dL (8.4-10.2); Potassium 4.8 mmol/L (3.5-5.1); Total Bilirubin 0.4 mg/dL (0.2-1.3); Total Protein 6.4 g/dL (6.3-8.2)
[2019-05-27 21:45] LABS: D-Dimer 0.37 mg/L FEU (<0.60); INR 0.9 (<1.2); Partial Thromboplastin Time 22.4 sec (22.0-30.0); Prothrombin Time 10.1 sec (9.0-12.0)
--- NOTE | 2019-05-27 21:55 | XR ---
EXAMINATION TYPE: XR chest 2V DATE OF EXAM: 05/27/2019 COMPARISON: 01/12/2019 HISTORY: Cough TECHNIQUE: Frontal and lateral views of the chest are obtained. FINDINGS: Heart and mediastinum are normal. Lungs are clear. Diaphragm is normal. Bony thorax is int act. Pulmonary vascularity is normal. IMPRESSION: Normal chest. No change.
[2019-05-27 22:38] LABS: Appearance,Urine Cloudy (Clear); Bilirubin,Urine Negative (Negative); Blood,Urine Negative (Negative); Color,Urine Yellow; Glucose,Urine (UA) Negative (Negative); Ketones,Urine Trace (Negative); Leukocyte Esterase,Urine Small (Negative); Mucus,Urine Rare /hpf; Nitrite,Urine Negative (Negative); Protein,Urine Negative (Negative); RBC,Urine <1 /hpf (0-5); Squamous Epithelial Cell,Urine 3 /hpf (0-4); WBC,Urine 3 /hpf (0-5)
[2019-05-27] MEDS ORDERED: KETOROLAC 30 MG/ML 1 ML VIAL IVP STA (22:55)
[2019-05-27] MEDS ORDERED: AZITHROMYCIN 500 MG TAB PO STA (23:14)
--- NOTE | 2019-05-27 23:14 | ED ---
SOB HPI - General Chief Complaint: Shortness of Breath Stated Complaint: ISIS Time Seen by Provider: 05/27/19 20:00 Source: patient, family Mode of arrival: ambulatory Limitations: no limitations - History of Present Illness Initial Comments: 53-year-old female patient presents to the emergency department today for evaluation of increasing shortness of breath. Patient states she's been sick with upper respiratory symptoms for the last week. States this includes nasal congestion, sore throat, and cough. States that she is also having a sharp pain over the right ribs. States this worsens significantly with coughing and taking deep breaths. Patient states that she has history of COPD, emphysema, and chronic bronchitis. States that these are getting worse with the illness. States she has been doing home breathing treatments without relief. Denies any use of [id number] medications for symptom relief. Denies any hemoptysis or sputum production. Denies any chest pain. She denies fever or chills with this. Patient denies any recent rash, abdominal pain, nausea, vomiting, diarrhea, constipation, back pain, numbness, tingling, dizziness, weakness, hematuria, dysuria, urinary urgency, urinary frequency, headache, visual changes, or any other complaints. - Related Data Home Medications Medication Instructions Recorded Confirmed Divalproex ER [Depakote ER] 500 mg PO DAILY 04/26/17 01/12/19 Mirtazapine [Remeron] 45 mg PO HS 04/26/17 01/12/19 Divalproex ER [Depakote ER] 1,000 mg PO HS 02/20/18 01/12/19 clonazePAM [KlonoPIN] 1 mg PO BID 02/20/18 01/12/19 metFORMIN HCL 1,000 mg PO BID 02/20/18 01/12/19 Atorvastatin [Lipitor] 80 mg PO DAILY 08/08/18 01/12/19 Cholecalciferol [Vitamin D3] 5,000 unit PO DAILY 08/08/18 01/12/19 Glimepiride [Amaryl] 2 mg PO DAILY 08/08/18 01/12/19 OLANZapine [ZyPREXA] 5 mg PO HS 08/08/18 01/12/19 Fenofibrate Nanocrystallized 48 mg PO DAILY 11/08/18 01/12/19 [Fenofibrate] Albuterol Inhaler [Ventolin Hfa 1 - 2 puff INHALATION RT-Q6H PRN 12/18/18 01/12/19 Inhaler] Fluticasone/Salmeterol [Advair 1 inhalation PO BID 12/18/18 01/12/19 500-50 Diskus] Metoprolol Tartrate [Lopressor] 25 mg PO BID 12/18/18 01/12/19 Montelukast [Singulair] 10 mg PO HS 12/18/18 01/12/19 Lisinopril [Zestril] 5 mg PO DAILY 01/12/19 01/12/19 Loratadine [Claritin] 10 mg PO DAILY 01/12/19 01/12/19 Omeprazole 20 mg PO DAILY 01/12/19 01/12/19 Previous Rx's Medication Instructions Recorded Clopidogrel [Plavix] 75 mg PO DAILY #30 tab 04/30/17 Albuterol Inhaler [Ventolin Hfa 1 - 2 puff INHALATION RT-Q4H #1 01/12/19 Inhaler] inhaler Doxycycline Hyclate 100 mg PO Q12H 10 Days #20 tab 01/12/19 predniSONE 60 mg PO DAILY #12 tab 01/12/19 Azithromycin [Zithromax Z-pack] 0 mg PO DIRECTED #6 tab 05/27/19 guaiFENesin-DM 600/30MG [Mucinex 1 each PO Q12HR #10 tab.er.12h 05/27/19 Dm] predniSONE 50 mg PO DAILY #5 tablet 05/27/19 Allergies Allergy/AdvReac Type Severity Reaction Status Date / Time No Known Allergies Allergy Verified 05/27/19 19:57 Review of Systems ROS Statement: Those systems with pertinent positive or pertinent negative responses have been documented in the HPI. ROS Other: All systems not noted in ROS Statement are negative. Past Medical History Past Medical History: Coronary Artery Disease (CAD), COPD, GERD/Reflux, Hyper tension, Myocardial Infarction ([place]), Sleep Apnea/CPAP/BIPAP, Vascular Disorder Additional Past Medical History / Comment(s): weight loss of 20 plus pounds w/in 2 mos,stent 2009 2010,stent left leg 2017,no cpap Last Myocardial Infarction Date:: 2010 History of Any Multi-Drug Resistant Organisms: None Reported Past Surgical History: Heart Catheterization With Stent Past Anesthesia/Blood Transfusion Reactions: No Reported Reaction Date of Last Stent Placement:: 2010 Past Psychological History: Depression Smoking Status: Current every day smoker Past Alcohol Use History: None Reported Past Drug Use History: None Reported - Past Family History Mother Family Medical History: COPD, Coronary Artery Disease (CAD) Father History Unknown: Yes General Exam Limitations: no limitations General appearance: alert, in no apparent distress, other (This is a well- developed, well-nourished adult female patient in no acute distress. Vital signs upon presentation are temperature 98.7F, pulse 96, respirations 26, blood pressure 153/66, pulse ox 95% on room air.) Eye exam: Present: normal appearance, PERRL, EOMI. Absent: scleral icterus, conjunctival injection, periorbital swelling ENT exam: Present: normal exam, normal oropharynx, mucous membranes moist, TM's normal bilaterally Respiratory exam: Present: wheezes (Expiratory wheezing noted in the posterior lung sahu.). Absent: normal lung sounds bilaterally, respiratory distress, rales, rhonchi, stridor Cardiovascular Exam: Present: regular rate, normal rhythm, normal heart sounds. Absent: systolic murmur, diastolic murmur, rubs, gallop, clicks GI/Abdominal exam: Present: soft, normal bowel sounds. Absent: distended, tenderness, guarding, rebound, rigid Neurological exam: Present: alert, oriented X3, CN II-XII intact Psychiatric exam: Present: normal affect, normal mood Skin exam: Present: warm, dry, intact, normal color. Absent: rash Course Vital Signs 05/27/19 05/27/19 05/27/19 19:54 21:04 21:29 Temperature 98.7 F Pulse Rate 96 84 92 Respiratory 26 H 18 18 Rate Blood Pressure 153/66 O2 Sat by Pulse 95 Oximetry 05/27/19 05/27/19 21:44 23:28 Temperature 97.9 F Pulse Rate 90 82 Respiratory 18 Rate Blood Pressure 160/84 O2 Sat by Pulse 94 L Oximetry Medical Decision Making - Medical Decision Making 53-year-old female patient presents to the emergency department today for evaluation of increasing shortness of breath over the last week. Patient is was sick with upper respiratory symptoms including cough, nasal congestion, sore throat. Physical examination did reveal expiratory wheezing. Chest x-ray showed no acute cardiopulmonary process. Labs reviewed and were unremarkable. Patient was given breathing treatment and IV steroids here in the emergency department. Upon reevaluation she does report improvement of symptoms. States that the pain in her right side is improved. She will be discharged at this time with prescription for steroids, antibiotics, and Mucinex DM. She is instructed to follow-up with her primary care physician for recheck as soon as possible for reevaluation. Return parameters discussed in detail. She verbalizes understanding and agrees this plan. - Lab Data Result diagrams: 05/27/19 21:05 05/27/19 21:05 Lab Results 05/27/19 05/27/19 05/27/19 Range/Units 21:05 21:05 21:05 WBC 8.1 (3.8-10.6) k/uL RBC 5.26 (3.80-5.40) m/uL Hgb 15.5 (11.4-16.0) gm/dL Hct 46.3 H (34.0-46.0) % MCV 88.1 (80.0-100.0) fL MCH 29.4 (25.0-35.0) pg MCHC 33.4 (31.0-37.0) g/dL RDW 14.4 (11.5-15.5) % Plt Count 186 (150-450) k/uL Neutrophils % 56 % Lymphocytes % 30 % Monocytes % 8 % Eosinophils % 3 % Basophils % 2 % Neutrophils # 4.5 (1.3-7.7) k/uL Lymphocytes # 2.5 (1.0-4.8) k/uL Monocytes # 0.7 (0-1.0) k/uL Eosinophils # 0.3 (0-0.7) k/uL Basophils # 0.1 (0-0.2) k/uL PT 10.1 (9.0-12.0) sec INR 0.9 (<1.2) APTT 22.4 (22.0-30.0) sec D-Dimer 0.37 (<0.60) mg/L FEU Sodium 142 (137-145) mmol/L Potassium 4.8 (3.5-5.1) mmol/L Chloride 106 (98-107) mmol/L Carbon Dioxide 28 (22-30) mmol/L Anion Gap 8 mmol/L BUN 15 (7-17) mg/dL Creatinine 0.98 (0.52-1.04) mg/dL Est GFR (CKD-EPI)AfAm 77 (>60 ml/min/1.73 sqM) Est GFR (CKD-EPI)NonAf 67 (>60 ml/min/1.73 sqM) Glucose 103 H (74-99) mg/dL Calcium 10.4 H (8.4-10.2) mg/dL Total Bilirubin 0.4 (0.2-1.3) mg/dL AST 35 (14-36) U/L ALT 46 (9-52) U/L Alkaline Phosphatase 75 (38-126) U/L Troponin I (0.000-0.034) ng/mL Total Protein 6.4 (6.3-8.2) g/dL Albumin 3.9 (3.5-5.0) g/dL Urine Color Urine Appearance (Clear) Urine pH (5.0-8.0) Ur Specific [place] (1.001-1.035) Urine Protein (Negative) Urine Glucose (UA) (Negative) Urine Ketones (Negative) Urine Blood (Negative) Urine Nitrite (Negative) Urine Bilirubin (Negative) Urine Urobilinogen (<2.0) mg/dL Ur Leukocyte Esterase (Negative) Urine RBC (0-5) /hpf Urine WBC (0-5) /hpf Ur Squamous Epith Cells (0-4) /hpf Urine Mucus (None) /hpf 05/27/19 05/27/19 Range/Units 21:05 22:20 WBC (3.8-10.6) k/uL RBC (3.80-5.40) m/uL Hgb (11.4-16.0) gm/dL Hct (34.0-46.0) % MCV (80.0-100.0) fL MCH (25.0-35.0) pg MCHC (31.0-37.0) g/dL RDW (11.5-15.5) % Plt Count (150-450) k/uL Neutrophils % % Lymphocytes % % Monocytes % % Eosinophils % % Basophils % % Neutrophils # (1.3-7.7) k/uL Lymphocytes # (1.0-4.8) k/uL Monocytes # (0-1.0) k/uL Eosinophils # (0-0.7) k/uL Basophils # (0-0.2) k/uL PT (9.0-12.0) sec INR (<1.2) APTT (22.0-30.0) sec D-Dimer (<0.60) mg/L FEU Sodium (137-145) mmol/L Potassium (3.5-5.1) mmol/L Chloride (98-107) mmol/L Carbon Dioxide (22-30) mmol/L Anion Gap mmol/L BUN (7-17) mg/dL Creatinine (0.52-1.04) mg/dL Est GFR (CKD-EPI)AfAm (>60 ml/min/1.73 sqM) Est GFR (CKD-EPI)NonAf (>60 ml/min/1.73 sqM) Glucose (74-99) mg/dL Calcium (8.4-10.2) mg/dL Total Bilirubin (0.2-1.3) mg/dL AST (14-36) U/L ALT (9-52) U/L Alkaline Phosphatase (38-126) U/L Troponin I <0.012 (0.000-0.034) ng/mL Total Protein (6.3-8.2) g/dL Albumin (3.5-5.0) g/dL Urine Color Yellow Urine Appearance Cloudy H (Clear) Urine pH 6.0 (5.0-8.0) Ur Specific [place] 1.020 (1.001-1.035) Urine Protein Negative (Negative) Urine Glucose (UA) Negative (Negative) Urine Ketones Trace H (Negative) Urine Blood Negative (Negative) Urine Nitrite Negative (Negative) Urine Bilirubin Negative (Negative) Urine Urobilinogen 3.0 (<2.0) mg/dL Ur Leukocyte Esterase Small H (Negative) Urine RBC <1 (0-5) /hpf Urine WBC 3 (0-5) /hpf Ur Squamous Epith Cells 3 (0-4) /hpf Urine Mucus Rare H (None) /hpf - Radiology Data Radiology results: report reviewed, image reviewed Two-view x-ray of the chest is obtained. Report was reviewed in its entirety. Impression by Dr. Blackmon shows normal chest with no change. Disposition Clinical Impression: COPD exacerbation Disposition: HOME SELF-CARE Condition: Good Instructions (If sedation given, give patient instructions): COPD (Chronic Obstructive Pulmonary Disease) (ED) Additional Instructions: Take medications as directed. Follow-up with your primary care physician for recheck in 1-2 days. Return to the emergency department immediately for any new, worsening, or concerning symptoms. Prescriptions: guaiFENesin-DM 600/30MG [Mucinex Dm] 1 each PO Q12HR #10 tab.er.12h predniSONE 50 mg PO DAILY #5 tablet Azithromycin [Zithromax Z-pack] 0 mg PO DIRECTED #6 tab Is patient prescribed a controlled substance at d/c from ED?: No Referrals: [facility] [Primary Care Provider] - 1-2 days Time of Disposition: 23:12
[2019-05-28 01:12] VITALS: BP 160/84; PULSE 82; TEMP 97.9
== END 2019-05-27 23:29 | disposition home or self-care (01) ==
LOC: EC 19:50
DX: J44.1 Chronic obstructive pulmonary disease with (acute) exacerbation (principal); I25.10 Atherosclerotic heart disease of native coronary artery without angina pectoris; K21.9 Gastro-esophageal reflux disease without esophagitis; I10 Essential (primary) hypertension; I25.2 Old myocardial infarction; F32.9 Major depressive disorder, single episode, unspecified; F17.200 Nicotine dependence, unspecified, uncomplicated; Z79.51 Long term (current) use of inhaled steroids; Z79.84 Long term (current) use of oral hypoglycemic drugs; Z79.899 Other long term (current) drug therapy; Z95.5 Presence of coronary angioplasty implant and graft; Z82.5 Family history of asthma and other chronic lower respiratory diseases; Z53.8 Procedure and treatment not carried out for other reasons
CPT/HCPCS: 36415; 94644; 93005; 85379; 80053; 84484; 85025; 85610; 85730; 81001; 71046; 99285; 96374; 96361; J2930

== ENCOUNTER 2019-06-14 14:43 | Inpatient (IN) | payer MEDICARE, OTHER ==
[2019-06-14] MEDS ORDERED: HEPARIN SODIUM,PORCINE 5,000 UNIT/ML 1 ML VIAL IV PRN (15:05)
[2019-06-14] MEDS ORDERED: HEPARIN SODIUM,PORCINE 10,000 UNIT/ML 1 ML VIAL IV ONE (15:05)
--- NOTE | 2019-06-14 15:30 | ED ---
General Adult HPI - General Chief complaint: Extremity Problem,Nontraumatic Stated complaint: Blood clot behind L knee Time Seen by Provider: 06/14/19 15:03 Source: patient Mode of arrival: ambulatory Limitations: no limitations - History of Present Illness Initial comments: Dictation was produced using [employer] dictation software. please excuse any grammatical, word or spelling errors. Chief Complaint: 53-year-old female instructed by vascular surgeon come to the emergency department for DVT. History of Present Illness: 53-year-old female she was recently discharged from [facility]. Patient is a history of DVT. She was diagnosed at later on with deep venous thrombosis she was admitted observation overnight. She was evaluated by mask surgeon at discharge with prescription for eliquis. Patient has not been taking anticoagulation medications. Patient is a history of medication noncompliance. She went to her follow-up appointment to a vascular surgeon's office. She was evaluated by vascular surgeon told to come to the emergency department. Patient states she did not take her and evaluation medications in case she needed surgery she did not want to be anticoagulated. Patient states she has a history of dyspnea. She reports that she lives with daily dyspnea secondary to COPD and emphysema. Since her dyspnea is as usual. The ROS documented in this emergency department record has been reviewed and confirmed by me. Those systems with pertinent positive or negative responses have been documented in the HPI. All other systems are other negative and/or noncontributory. PHYSICAL EXAM: General Impression: Alert and oriented x3, not in acute distress HEENT: Normocephalic atraumatic, extra-ocular movements intact, pupils equal and reactive to light bilaterally, mucous membranes moist. Cardiovascular: Heart regular rate and rhythm, S1&S2 audible, no murmurs, rubs or gallops Chest: Lungs clear to auscultation bilaterally, no rhonchi, no wheeze, no rales Abdomen: Bowel sounds present, abdomen soft, non-tender, non-distended, no organomegaly Musculoskeletal: Pulses present and equal in all extremities, no peripheral edema EDER hose in place, swelling is nonpitting to the left lower extremity compared to the right. Motor: no focal deficits noted Neurological: CN II-XII grossly intact, no focal motor or sensory deficits noted Skin: Intact with no visualized rashes Psych: Normal affect and mood ED course: 53 Female presents with instruction for Dr. Sparks, vascular surge on to be admitted for DVT treatment. Vital signs upon arrival are within acceptable limits. There is concern that patient has a concomitant pulmonary embolus. She was admitted at later on hospital by Dr. Barragan. Discussed patient case Dr. Oliver. She reports that patient is a history of medication noncompliance and recurrent deep venous thrombosis. She requests that patient be admitted to Dr. Fontaine's group spite being patient's hospitalist at [facility]. Laboratory evaluation obtained. Leukocytosis of 12.0 unclear etiology likely secondary to stress. Coag panel unremarkable. Metabolic panel is negative. Negative troponins. CT angios the chest was obtained showing no acute processes. Chest x-ray is nonacute. This point patient's clinical presentation is consistent with deep venous thrombosis. Patient started on heparin. Suspicion case with Dr. mauro hasn't was went except patient care. We'll put vascular surgery on consultation given that they're the ones who sent the patient to the ER for patient to be admitted. EKG interpretation: Ventricular rate 94, normal sinus rhythm, UT 134, care is 86, QTC 4:15.. Compared to EKG from 05/27/2019 showing no acute processes. . Overall, this EKG is unremarkable - Related Data Home Medications Medication Instructions Recorded Confirmed Mirtazapine [Remeron] 45 mg PO HS 04/26/17 06/14/19 Divalproex ER [Depakote ER] 1,500 mg PO HS 02/20/18 06/14/19 clonazePAM [KlonoPIN] 1 mg PO BID 02/20/18 06/14/19 Atorvastatin [Lipitor] 80 mg PO DAILY 08/08/18 06/14/19 Cholecalciferol [Vitamin D3] 5,000 unit PO DAILY 08/08/18 06/14/19 Glimepiride [Amaryl] 2 mg PO BID 08/08/18 06/14/19 OLANZapine [ZyPREXA] 5 mg PO HS 08/08/18 06/14/19 Fenofibrate Nanocrystallized 48 mg PO DAILY 11/08/18 06/14/19 [Fenofibrate] Metoprolol Tartrate [Lopressor] 25 mg PO BID 12/18/18 06/14/19 Montelukast [Singulair] 10 mg PO HS 12/18/18 06/14/19 Lisinopril [Zestril] 5 mg PO DAILY 01/12/19 06/14/19 Loratadine [Claritin] 10 mg PO DAILY 01/12/19 06/14/19 Omeprazole 20 mg PO DAILY 01/12/19 06/14/19 Albuterol Sulfate [Proair Hfa] 1 puff INHALATION RT-Q6H PRN 06/14/19 06/14/19 Apixaban [Eliquis Starter Pack See Taper PO DIRECTED 06/14/19 06/14/19 (for VTE)] Azithromycin [Zithromax] 500 mg PO DAILY 06/14/19 06/14/19 Promethazine 6.25MG/5Ml [Phenergan 6.25 mg PO Q6H PRN 06/14/19 06/14/19 Syrup] Umeclidinium [place] [Incruse 1 puff INHALATION RT-DAILY 06/14/19 06/14/19 Ellipta] diphenhydrAMINE [Benadryl] 25 mg PO Q6H PRN 06/14/19 06/14/19 metFORMIN HCL [Glucophage] 500 mg PO BID 06/14/19 06/14/19 Previous Rx's Medication Instructions Recorded Clopidogrel [Plavix] 75 mg PO DAILY #30 tab 04/30/17 Allergies Allergy/AdvReac Type Severity Reaction Status Date / Time No Known Allergies Allergy Verified 06/14/19 16:07 Review of Systems ROS Statement: Those systems with pertinent positive or pertinent negative responses have been documented in the HPI. ROS Other: All systems not noted in ROS Statement are negative. Past Medical History Past Medical History: Coronary Artery Disease (CAD), COPD, GERD/Reflux, Hypertension, Myocardial Infarction (SC), Sleep Apnea/CPAP/BIPAP, Vascular Disorder Additional Past Medical History / Comment(s): weight loss of 20 plus pounds w/in 2 mos,stent 2009 2010,stent left leg 2017,no cpap Last Myocardial Infarction Date:: 2010 History of Any Multi-Drug Resistant Organisms: None Reported Past Surgical History: Heart Catheterization With Stent Additional Past Surgical History / Comment(s): stent in leg also from dvt Past Anesthesia/Blood Transfusion Reactions: No Reported Reaction Date of Last Stent Placement:: 2010 Past Psychological History: Depression Smoking Status: Current every day smoker Past Alcohol Use History: None Reported Past Drug Use History: None Reported - Past Family History Mother Family Medical History: COPD, Coronary Artery Disease (CAD) Father History Unknown: Yes General Exam Limitations: no limitations Course Vital Signs 06/14/19 06/14/19 14:57 16:00 Temperature 98.0 F Pulse Rate 99 90 Respiratory 18 20 Rate Blood Pressure 137/74 121/67 O2 Sat by Pulse 96 98 Oximetry Medical Decision Making - Lab Data Result diagrams: 06/14/19 15:23 06/14/19 15:23 Lab Results 06/14/19 06/14/19 06/14/19 Range/Units 15:23 15:23 15:23 WBC 12.0 H (3.8-10.6) k/uL RBC 5.21 (3.80-5.40) m/uL Hgb 14.9 (11.4-16.0) gm/dL Hct 47.1 H (34.0-46.0) % MCV 90.4 (80.0-100.0) fL MCH 28.6 (25.0-35.0) pg MCHC 31.6 (31.0-37.0) g/dL RDW 14.5 (11.5-15.5) % Plt Count 232 (150-450) k/uL Neutrophils % 61 % Lymphocytes % 29 % Monocytes % 5 % Eosinophils % 2 % Basophils % 2 % Neutrophils # 7.3 (1.3-7.7) k/uL Lymphocytes # 3.5 (1.0-4.8) k/uL Monocytes # 0.6 (0-1.0) k/uL Eosinophils # 0.2 (0-0.7) k/uL Basophils # 0.3 H (0-0.2) k/uL PT 9.6 (9.0-12.0) sec INR 0.9 (<1.2) APTT 22.5 (22.0-30.0) sec Sodium 139 (137-145) mmol/L Potassium 4.5 (3.5-5.1) mmol/L Chloride 106 (98-107) mmol/L Carbon Dioxide 26 (22-30) mmol/L Anion Gap 7 mmol/L BUN 23 H (7-17) mg/dL Creatinine 0.93 (0.52-1.04) mg/dL Est GFR (CKD-EPI)AfAm 83 (>60 ml/min/1.73 sqM) Est GFR (CKD-EPI)NonAf 72 (>60 ml/min/1.73 sqM) Glucose 168 H (74-99) mg/dL Calcium 10.5 H (8.4-10.2) mg/dL Troponin I (0.000-0.034) ng/mL 06/14/19 Range/Units 15:23 WBC (3.8-10.6) k/uL RBC (3.80-5.40) m/uL Hgb (11.4-16.0) gm/dL Hct (34.0-46.0) % MCV (80.0-100.0) fL MCH (25.0-35.0) pg MCHC (31.0-37.0) g/dL RDW (11.5-15.5) % Plt Count (150-450) k/uL Neutrophils % % Lymphocytes % % Monocytes % % Eosinophils % % Basophils % % Neutrophils # (1.3-7.7) k/uL Lymphocytes # (1.0-4.8) k/uL Monocytes # (0-1.0) k/uL Eosinophils # (0-0.7) k/uL Basophils # (0-0.2) k/uL PT (9.0-12.0) sec INR (<1.2) APTT (22.0-30.0) sec Sodium (137-145) mmol/L Potassium (3.5-5.1) mmol/L Chloride (98-107) mmol/L Carbon Dioxide (22-30) mmol/L Anion Gap mmol/L BUN (7-17) mg/dL Creatinine (0.52-1.04) mg/dL Est GFR (CKD-EPI)AfAm (>60 ml/min/1.73 sqM) Est GFR (CKD-EPI)NonAf (>60 ml/min/1.73 sqM) Glucose (74-99) mg/dL Calcium (8.4-10.2) mg/dL Troponin I <0.012 (0.000-0.034) ng/mL Disposition Clinical Impression: DVT (deep venous thrombosis) Disposition: ADMITTED IP TO THIS HOSP Condition: Fair Referrals: [facility] [Primary Care Provider] - 1-2 days Decision Time: 17:01
[2019-06-14 15:34] LABS: Basophils # (A) 0.3 k/uL (0-0.2); Basophils % (A) 2 %; Eosinophils # (A) 0.2 k/uL (0-0.7); Eosinophils % (A) 2 %; HCT 47.1 % (34.0-46.0); HGB 14.9 gm/dL (11.4-16.0); Lymphocytes # (A) 3.5 k/uL (1.0-4.8); Lymphocytes % (A) 29 %; MCH 28.6 pg (25.0-35.0); MCHC 31.6 g/dL (31.0-37.0); MCV 90.4 fL (80.0-100.0); Mean Platelet Volume 7.2; Monocytes # (A) 0.6 k/uL (0-1.0); Monocytes % (A) 5 %; Neutrophils # (A) 7.3 k/uL (1.3-7.7); Neutrophils % (A) 61 %; Platelet Count 232 k/uL (150-450); RBC 5.21 m/uL (3.80-5.40); RDW 14.5 % (11.5-15.5)
[2019-06-14 15:44] LABS: INR 0.9 (<1.2); Partial Thromboplastin Time 22.5 sec (22.0-30.0); Prothrombin Time 9.6 sec (9.0-12.0)
[2019-06-14 15:46] LABS: Calcium 10.5 mg/dL (8.4-10.2); Potassium 4.5 mmol/L (3.5-5.1)
--- NOTE | 2019-06-14 16:08 | XR ---
EXAMINATION TYPE: XR chest 1V portable DATE OF EXAM: 06/14/2019 COMPARISON: 05/27/2019 INDICATION: DVT TECHNIQUE: Single frontal view of the chest is obtained. FINDINGS: The heart size is normal. The pulmonary vasculature is normal. The lungs are clear. IMPRESSION: 1. No acute pulmonary process.
[2019-06-14] MEDS: HEPARIN SOD,PORK IN 0.45% NACL 25,000 UNIT in 0.45% NACL 1 250ML.BAG IV SCH (16:14)
[2019-06-14] MEDS: SODIUM CHLORIDE 0.9% 500 ML 500 ML IV SCH (16:16)
--- NOTE | 2019-06-14 16:52 | CT ---
EXAMINATION TYPE: CT angio chest DATE OF EXAM: 06/14/2019 4:42 PM COMPARISON: None HISTORY: R/O PE. Blood clot behind left knee CT DLP: 498.3 mGycm Automated exposure control for dose reduction was used. CONTRAST: CTA scan of the thorax is performed with IV Contrast, patient injected with 100 mL of Isovue 370, pul monary embolism protocol. . There are 3-D post processed images. FINDINGS: Heart size is normal. There is no pericardial effusion. There is no mediastinal adenopathy. There are no hilar masses. Thoracic aorta shows no aneurysm or dissection. The lungs are clear of consolidation. There is no evidence of a pulmonary mass. There is no pleural e ffusion. There is small reticular linear density left posterior lung base consistent with subsegmenta l atelectasis. There is normal contrast opacification of the pulmonary arteries. There are no filling defects. There is minor spurring in the thoracic spine. I see no bony destructive process. Ribs appear intact. IMPRESSION: NO EVIDENCE OF PULMONARY EMBOLISM. MILD SUBSEGMENTAL ATELECTASIS LEFT LOWER LOBE. NORMAL HEART.
[2019-06-14] MEDS ORDERED: NALOXONE 0.4 MG/ML 1 ML VIAL IV PRN (17:01)
[2019-06-14] MEDS ORDERED: ALBUTEROL NEBULIZED 2.5 MG/3 ML INHALATION PRN (17:02)
[2019-06-14 19:46] VITALS: BMI 34.9
[2019-06-14] MEDS ORDERED: DIVALPROEX ER 500 MG TAB.ER.24H PO SCH (21:00)
[2019-06-14 21:09] LABS: Glucose,Whole Blood 133 mg/dL (75-99)
[2019-06-14] MEDS: clonazePAM 1 MG TAB PO SCH (21:58)
[2019-06-14] MEDS: GLIMEPIRIDE 2 MG TAB PO SCH (21:59)
[2019-06-14] MEDS: MIRTAZAPINE 45 MG TABLET PO SCH (21:59)
[2019-06-14] MEDS: METOPROLOL TARTRATE 25 MG TAB PO SCH (21:59)
[2019-06-14] MEDS: MONTELUKAST 10 MG TAB PO SCH (21:59)
[2019-06-14] MEDS: metFORMIN 500 MG TAB PO SCH (21:59)
[2019-06-14] MEDS: OLANZapine 5 MG TAB PO SCH (21:59)
[2019-06-14] MEDS: INSULIN ASPART (NovoLOG) 100 UNIT/ML VIAL SQ SCH (21:59)
[2019-06-15] MEDS: HEPARIN SOD,PORK IN 0.45% NACL 25,000 UNIT in 0.45% NACL 1 250ML.BAG IV SCH ×2 (05:47→22:24)
[2019-06-15 07:09] LABS: Glucose,Whole Blood 133 mg/dL (75-99)
[2019-06-15] MEDS: metFORMIN 500 MG TAB PO SCH ×2 (07:24→17:21)
[2019-06-15] MEDS: INSULIN ASPART (NovoLOG) 100 UNIT/ML VIAL SQ SCH ×4 (07:24→20:42)
[2019-06-15] MEDS: PANTOPRAZOLE 40 MG TABLET PO SCH (07:24)
[2019-06-15] MEDS: GLIMEPIRIDE 2 MG TAB PO SCH ×2 (07:25→20:45)
[2019-06-15] MEDS: clonazePAM 1 MG TAB PO SCH ×2 (08:26→20:46)
[2019-06-15] MEDS: CHOLECALCIFEROL 1,000 UNIT TAB PO SCH (08:27)
[2019-06-15] MEDS: LORATADINE 10 MG TAB PO SCH (08:27)
[2019-06-15] MEDS: ATORVASTATIN 80 MG TAB PO SCH (08:27)
[2019-06-15] MEDS: CLOPIDOGREL 75 MG TAB PO SCH (08:27)
[2019-06-15] MEDS: METOPROLOL TARTRATE 25 MG TAB PO SCH ×2 (08:27→20:45)
[2019-06-15] MEDS: LISINOPRIL 5 MG TAB PO SCH (08:27)
[2019-06-15] MEDS: DIVALPROEX ER 500 MG TAB.ER.24H PO SCH (08:28)
[2019-06-15 12:07] LABS: Glucose,Whole Blood 129 mg/dL (75-99)
--- NOTE | 2019-06-15 12:15 | P.CON ---
Consult Note - . Consult date: 06/15/19 Assessment/Plan:: Patient is a 53-year-old female who I had seen in the office approximately 24 hours prior. She presented for evaluation reference to deep venous thrombosis of the left lower extremity. She had been diagnosed with deep venous thrombosis after she presented [facility] emergency department with a complaint of leg pain and edema. Venous duplex imaging demonstrated left popliteal and tibial venous thrombus. She was given a prescription for L Aquinas. The patient did actually fill the prescription however had not started taking any the medication as she was under the erroneous impression that this might be a surgical therapy and she did not want to be on anticoagulation with the anticipated need for surgery. She denied any shortness of breath. After evaluating the patient in the office I did recommend that she presented to the emergency room for admission and for initiation of appropriate medical care. Past social history significant for tobacco use although she stopped smoking approximately 1 year prior. Medications at this time are that of albuterol, Lipitor, Klonopin, Plavix, Depakote, NovoLog, Zestril, Claritin, Glucophage, Singulair, Zyprexa yet and Protonix. Physical examination revealed a pleasant appearing female who is alert cooperative no apparent stress. Vessel signs are stable and patient is afebrile. Heart was regular and lungs were clear. Abdomen was soft and benign. Examination lower extremities demonstrates the left leg edema to be markedly improved and her calf tenderness to be markedly diminished. Impression: #1. Deep venous thrombosis left lower extremity, acute. #2. History of tobacco abuse. #3. Diabetes mellitus. #4. Hhypertension. #5 Chronic obstructive pulmonary disease. Recommendation: #1 I agree with presently initiated therapy of leg edema and intravenous anticoagulation. I believe this is helped significantly reduce her leg edema. #2 From a surgical standpoint the patient may be transitioned to novel anticoagulant and dismissed. I would recommend a minimum of 3 months course of therapy with oral anticoagulation. #3 I would be happy to follow the patient in the office post discharge. #4 Patient would benefit from knee high 20-30 mm gradient support hose as an outpatient. I would recommend these be worn while out of bed. Thank you very much for allowing me to participate in the care of your patient. If I can be of future assistance please feel free to contact me.
[2019-06-15] MEDS ORDERED: PROMETHAZINE HCL 6.25 MG/5 ML CUP PO PRN (14:42)
[2019-06-15] MEDS ORDERED: diphenhydrAMINE 25 MG CAP PO PRN (14:42)
[2019-06-15] MEDS ORDERED: ALPRAZolam 0.25 MG TAB PO PRN (14:49)
[2019-06-15] MEDS: HYDROcodone/APAP 5-325MG 1 EACH TAB PO PRN ×2 (15:08→20:44)
[2019-06-15] MEDS: NICOTINE 14MG/24HR PATCH TRANSDERM SCH (15:09)
[2019-06-15] MEDS: SODIUM CHLORIDE 0.9% 500 ML 500 ML IV SCH (15:09)
--- NOTE | 2019-06-15 16:08 | HP ---
HISTORY AND PHYSICAL CHIEF COMPLAINT: DVT of the left leg. HISTORY OF PRESENT ILLNESS: This 53-year-old woman with a past medical history of CAD, COPD, diabetes mellitus, GERD, hypertension, history of sleep apnea, being followed by [facility] in the outpatient setting, was noted to have DVT of the left leg. The patient apparently was admitted to [facility]. The patient was given apixaban and was discharged. The patient went to Dr. Sparks and was admitted for further evaluation and treatment with concerns for compliance with treatment, also. IV heparin has been initiated. There is no history of any fever, rigor or chills. No history of headache, loss of consciousness, seizures. PAST MEDICAL HISTORY: 1. History of CAD. 2. COPD. 3. DVT. 4. History of GERD. 5. History of myocardial infarction. 6. History of sleep apnea. HOME MEDICATIONS: 1. Benadryl 25 mg q.6 p.r.n. 2. Zyprexa 5 mg at bedtime. 3. Singulair 10 mg at bedtime. 4. Remeron 45 mg at bedtime. 5. Depakote ER 1500 mg at bedtime. 6. ProAir 1 puff q.6 p.r.n. 7. Phenergan 6.25 mg q.6 p.r.n. 8. Incruse Ellipta 1 puff daily. 9. Zithromax 500 mg p.o. daily. 10.Omeprazole 20 mg p.o. daily. 11.Lopressor 25 mg p.o. b.i.d. 13.Apixaban (Eliquis) starter pack. 14.Glucophage 500 mg p.o. b.i.d. 15.Claritin 10 mg p.o. daily. 16.Zestril 5 mg p.o. daily. 17.Amaryl 2 mg p.o. b.i.d. 18.Lipitor 80 mg p.o. daily. 19.Klonopin 1 mg p.o. b.i.d. 20.Fenofibrate 48 mg p.o. daily. 21.Plavix 75 mg p.o. daily. 22.Vitamin D3 5000 daily. ALLERGIES: NONE. FAMILY HISTORY: History of COPD, CAD in the family. SOCIAL HISTORY: History of smoking, continued and ongoing. REVIEW OF SYSTEMS: ENT: No diminished hearing. No diminished vision. CARDIOVASCULAR SYSTEM: No angina, palpitations. RESPIRATORY SYSTEM: As mentioned earlier. GI: As mentioned earlier. : No dysuria or retention. NERVOUS SYSTEM: No numbness, weakness. ALLERGY/IMMUNOLOGY: No asthma, hayfever. MUSCULOSKELETAL: As mentioned earlier. HEMATOLOGY/ONCOLOGY: No history of anemia. Otherwise as mentioned earlier. ENDOCRINE: Diabetes mellitus, hypothyroidism. CONSTITUTIONAL: As mentioned earlier. DERMATOLOGY: Negative. RHEUMATOLOGY: Negative. PSYCHIATRY: As mentioned earlier. PHYSICAL EXAMINATION: Patient alert and oriented x3. Pulse is 75, blood pressure 111/70, respiration 20, temperature 98.4, pulse ox 92% on room air. HEENT: Conjunctivae normal. Oral mucosa moist. NECK: No jugular venous distention. No carotid bruit. No lymph node enlargement. CARDIOVASCULAR SYSTEM: S1, S2 muffled. RESPIRATORY SYSTEM: Breath sounds diminished at the bases. A few rhonchi. No crackles. ABDOMEN: Soft, non-tender. No mass palpable. LEGS: Minimal edema of the left leg. NERVOUS SYSTEM: Higher functions as mentioned earlier. Moves all 4 limbs. No focal motor or sensory deficit. LYMPHATICS: No lymph node palpable in neck, axillae or groin. SKIN: No ulcer, rash, bleeding. JOINTS: No active deforming arthropathy. LABS: WBC 12, hemoglobin 14.9. Sodium 139, potassium 4.5. Other labs are noted. ASSESSMENT: 1. Acute left leg deep venous thrombosis with failure of outpatient treatment. 2. On IV heparin. 3. History of previous deep venous thrombosis. 4. Increased white count. 5. History of coronary artery disease. 6. Chronic obstructive pulmonary disease. 7. Diabetes mellitus, type 2. 8. Gastroesophageal reflux disease. 9. Hypertension. 10.History of myocardial infarction. 11.Sleep apnea. 12.History of weight loss. 13.History of left leg stent and peripheral vascular disease. 14.History of coronary artery disease, stent. 15.Depression. 16.History of nicotine dependence. 17.Obesity with body mass index of 34.9. RECOMMENDATIONS AND DISCUSSION: In this 53-year-old woman who presented with multiple complex medical issues, we will monitor the patient closely, continue the current medications, continue with symptomatic treatment. Continue with the IV heparin. Vascular surgery evaluation. Prognosis guarded because of multiple complex medical issues. Further recommendations to follow. MMODL / IJN: [id number] / MTDD
[2019-06-15 17:20] LABS: Glucose,Whole Blood 157 mg/dL (75-99)
[2019-06-15 19:58] LABS: Appearance,Urine Clear (Clear); Bilirubin,Urine Negative (Negative); Blood,Urine Negative (Negative); Color,Urine Light Yellow; Glucose,Urine (UA) Negative (Negative); Ketones,Urine Negative (Negative); Leukocyte Esterase,Urine Negative (Negative); Nitrite,Urine Negative (Negative); Protein,Urine Negative (Negative); Specific Gravity,Urine 1.009 (1.001-1.035); Urobilinogen,Urine <2.0 mg/dL (<2.0)
[2019-06-15 20:36] LABS: Glucose,Whole Blood 273 mg/dL (75-99)
[2019-06-15] MEDS: MIRTAZAPINE 45 MG TABLET PO SCH (20:45)
[2019-06-15] MEDS: OLANZapine 5 MG TAB PO SCH (20:45)
[2019-06-15] MEDS: MONTELUKAST 10 MG TAB PO SCH (20:45)
[2019-06-15] MEDS ORDERED: DIVALPROEX ER 500 MG TAB.ER.24H PO SCH (21:00)
[2019-06-16] MEDS: HYDROcodone/APAP 5-325MG 1 EACH TAB PO PRN ×2 (02:34→09:11)
[2019-06-16 06:53] LABS: Basophils # (A) 0.1 k/uL (0-0.2); Basophils % (A) 1 %; Eosinophils # (A) 0.2 k/uL (0-0.7); Eosinophils % (A) 1 %; HCT 41.6 % (34.0-46.0); HGB 13.6 gm/dL (11.4-16.0); Lymphocytes # (A) 4.6 k/uL (1.0-4.8); Lymphocytes % (A) 34 %; MCH 29.8 pg (25.0-35.0); MCHC 32.6 g/dL (31.0-37.0); MCV 91.2 fL (80.0-100.0); Mean Platelet Volume 6.3; Monocytes # (A) 0.8 k/uL (0-1.0); Monocytes % (A) 6 %; Neutrophils # (A) 7.7 k/uL (1.3-7.7); Neutrophils % (A) 57 %; Platelet Count 231 k/uL (150-450); RBC 4.57 m/uL (3.80-5.40); WBC 13.5 k/uL (3.8-10.6)
[2019-06-16 07:30] LABS: Glucose,Whole Blood 98 mg/dL (75-99)
[2019-06-16 07:59] VITALS: RESP 16
[2019-06-16 08:00] LABS: Calcium 10.1 mg/dL (8.4-10.2); Potassium 4.5 mmol/L (3.5-5.1)
[2019-06-16] MEDS: INSULIN ASPART (NovoLOG) 100 UNIT/ML VIAL SQ SCH ×2 (08:08→12:41)
[2019-06-16] MEDS: IPRATROPIUM 0.5 MG/2.5 ML NEBU INHALATION SCH ×3 (08:37→16:18)
[2019-06-16] MEDS ORDERED: FENOFIBRATE 54 MG TAB PO SCH (09:00)
[2019-06-16] MEDS: ATORVASTATIN 80 MG TAB PO SCH (09:14)
[2019-06-16] MEDS: PANTOPRAZOLE 40 MG TABLET PO SCH (09:15)
[2019-06-16] MEDS: CHOLECALCIFEROL 1,000 UNIT TAB PO SCH (09:15)
[2019-06-16] MEDS: CLOPIDOGREL 75 MG TAB PO SCH (09:15)
[2019-06-16] MEDS: LISINOPRIL 5 MG TAB PO SCH (09:15)
[2019-06-16] MEDS: clonazePAM 1 MG TAB PO SCH (09:15)
[2019-06-16] MEDS: METOPROLOL TARTRATE 25 MG TAB PO SCH (09:15)
[2019-06-16] MEDS: LORATADINE 10 MG TAB PO SCH (09:15)
[2019-06-16] MEDS: metFORMIN 500 MG TAB PO SCH (09:15)
[2019-06-16] MEDS: GLIMEPIRIDE 2 MG TAB PO SCH (09:15)
[2019-06-16] MEDS: DIVALPROEX ER 500 MG TAB.ER.24H PO SCH (09:18)
[2019-06-16] MEDS: NICOTINE 14MG/24HR PATCH TRANSDERM SCH (09:18)
[2019-06-16] MEDS: HEPARIN SOD,PORK IN 0.45% NACL 25,000 UNIT in 0.45% NACL 1 250ML.BAG IV SCH (10:10)
[2019-06-16] MEDS ORDERED: HYDROmorphone 0.5 MG/0.5 ML SYRINGE IVP PRN (11:42)
[2019-06-16 11:48] LABS: Glucose,Whole Blood 129 mg/dL (75-99)
--- NOTE | 2019-06-16 13:06 | P.PN ---
Subjective Progress Note Date: 06/16/19 Principal diagnosis: Left lower extremity deep venous thrombosis. Patient is evaluated today in routine follow-up. The patient is complaining of a significant change in the way her left leg feels. She is complaining of calf discomfort she denies any foot pain. My evaluation demonstrated a significant increase in the calf edema concerning for the possibility of compartment syndrome. I discussed this with Dr. Fontaine. Orthopedic consultation is pending. Objective - Vital Signs Vital signs: Vital Signs Temp 99.6 F 06/16/19 07:00 Pulse 82 06/16/19 07:00 Resp 16 06/16/19 07:00 BP 148/79 06/16/19 07:00 Pulse Ox 95 06/16/19 07:00 Intake & Output 06/15/19 06/16/19 06/16/19 18:59 06:59 18:59 Intake Total 55.153 204.847 201.751 Balance 55.153 204.847 201.751 Intake: Intake, IV Titration 55.153 194.847 201.751 Amount Heparin Sod,Pork in 0.45% 55.153 194.847 201.751 NaCl 25,000 unit In 0.45 % NaCl 1 250ml.bag @ 18 UNITS/KG/HR 17.146 mls/hr IV .[id number] [facility] Rx#: [id number] Oral 10 Other: Voiding Method Toilet # Voids 4 1 - Labs CBC & Chem 7: 06/16/19 06:13 06/16/19 06:13 Labs: Abnormal Lab Results - Last 24 Hours (Table) 06/15/19 06/15/19 06/16/19 Range/Units 17:09 20:24 06:13 WBC (3.8-10.6) k/uL APTT 55.0 H (22.0-30.0) sec BUN (7-17) mg/dL Glucose (74-99) mg/dL POC Glucose (mg/dL) 157 H 273 H (75-99) mg/dL 06/16/19 06/16/19 06/16/19 Range/Units 06:13 06:13 11:37 WBC 13.5 H (3.8-10.6) k/uL APTT (22.0-30.0) sec BUN 21 H (7-17) mg/dL Glucose 101 H (74-99) mg/dL POC Glucose (mg/dL) 129 H (75-99) mg/dL
[2019-06-16 13:52] LABS: HCT 36.4 % (34.0-46.0); HGB 12.4 gm/dL (11.4-16.0); MCHC 34.1 g/dL (31.0-37.0); Mean Platelet Volume 6.3; Platelet Count 194 k/uL (150-450); RBC 4.01 m/uL (3.80-5.40); RDW 13.8 % (11.5-15.5); WBC 11.3 k/uL (3.8-10.6)
[2019-06-16 14:46] VITALS: BP 149/77; PULSE 93; TEMP 98.7
--- NOTE | 2019-06-16 20:05 | DS ---
DISCHARGE SUMMARY FINAL DIAGNOSES: 1. Acute right leg deep vein thrombosis with failure of outpatient treatment. 2. Right leg pain and swelling, rule out compartment syndrome. 3. On IV heparin. 4. History of previous deep vein thromboses. 5. Increased WBC. 6. History of coronary artery disease. 7. Chronic obstructive pulmonary disease. 8. Diabetes mellitus type 2. 9. Gastroesophageal reflux disease. 10.History of myocardial infarction. 11.Sleep apnea. 12.History of weight loss. 13.History of left leg stent and as well as peripheral vascular disease. 14.History of coronary artery disease stent. 15.History of depression. 16.History of nicotine dependence. 17.Obesity with body mass index of 34.9. DISCHARGE DISPOSITION: The patient will be discharged in stable condition with guarded prognosis. The patient transferred to [facility] under Dr. Sparks per his recommendation. Total time taken 35 minutes. HISTORY OF PRESENT ILLNESS: This 53-year-old woman with a past medical history of multiple medical problems was admitted with pain and swelling of the left leg. The patient had recent diagnosis of DVT, was placed on IV heparin, but however, a little bit later, the patient was doing fine on 06/15/2019, but 06/16 the patient is complaining of pain and swelling of the left leg. Dr. Sparks evaluated the patient and consulted Dr. Jimenez. Dr. Sparks would like to have the compartment pressure monitored to rule out the possible compartment syndrome, so the patient will be transferred under Dr. Sparks's care at [facility] for further evaluation and treatment. Once again, the patient is stable on transport. Overall prognosis guarded. See medication reconciliation sheet for list of medications. MMODL / IJN: [id number] /
== END 2019-06-16 16:33 | disposition short-term general hospital (02) | DRG 300 ==
LOC: EC 14:43 → 4SSUR 17:01
PROVIDERS: ADMIT Internal Medicine; ATTEND Internal Medicine
DX: I82.403 Acute embolism and thrombosis of unspecified deep veins of lower extremity, bilateral (principal); M79.A21 Nontraumatic compartment syndrome of right lower extremity; D72.829 Elevated white blood cell count, unspecified; E11.51 Type 2 diabetes mellitus with diabetic peripheral angiopathy without gangrene; E66.9 Obesity, unspecified; F17.200 Nicotine dependence, unspecified, uncomplicated; F32.9 Major depressive disorder, single episode, unspecified; G47.30 Sleep apnea, unspecified; I10 Essential (primary) hypertension; I25.10 Atherosclerotic heart disease of native coronary artery without angina pectoris; I25.2 Old myocardial infarction; J43.9 Emphysema, unspecified; K21.9 Gastro-esophageal reflux disease without esophagitis; Z68.34 Body mass index [BMI] 34.0-34.9, adult; Z79.02 Long term (current) use of antithrombotics/antiplatelets; Z79.84 Long term (current) use of oral hypoglycemic drugs; Z79.899 Other long term (current) drug therapy; Z82.49 Family history of ischemic heart disease and other diseases of the circulatory system; Z82.5 Family history of asthma and other chronic lower respiratory diseases; Z86.718 Personal history of other venous thrombosis and embolism; Z91.14 Patient's other noncompliance with medication regimen; Z95.5 Presence of coronary angioplasty implant and graft
CPT/HCPCS: 36415; 71045; 71275; 80048; 81003; 84484; 85025; 85027; 85610; 85730; 93005; 96365; 96366; 96376; 99285

== ENCOUNTER 2019-07-02 16:58 | Inpatient (IN) | payer MEDICARE, OTHER ==
--- NOTE | 2019-07-02 18:01 | ED ---
Extremity Problem HPI - General Source: patient Mode of arrival: wheelchair Limitations: physical limitation <Fransisca Whipple - Last Filed: 07/02/19 20:00> <Xavier Moreno - Last Filed: 07/02/19 21:12> - General Chief complaint: Extremity Problem,Nontraumatic Stated complaint: poss leg infection Time Seen by Provider: 07/02/19 17:13 - History of Present Illness Initial comments: Patient is a 53-year-old female presenting to emergency Department with complaints of increasing left lower leg pain and swelling for the last few days. Patient had a fasciotomy performed on June 16 at [facility] by Dr. Parada secondary to bleeding in her left calf. Patient states she's been having home health care come to her house 3 days a week to help her with her wound VAC. The last few days she's been having increase in swelling and pain as well as redness along her wounds. The home health nurse today stating that she noticed a smell coming from her wound and did not want to put the wound VAC back on so she pack the wounds and told her to come to the ER. Patient denies fever, chills, shortness of breath. Patient states she has been on L [place] secondary to a left lower extremity blood clot. Patient has no other complaints at this time. Patient states she has been taking Ultram at home which helped slightly. Patient states her pain presently is 11/10. Upon arrival to the ER, vital signs are stable. (Fransisca Whipple) - Related Data Home Medications Medication Instructions Recorded Confirmed Mirtazapine [Remeron] 45 mg PO HS 04/26/17 07/02/19 Divalproex ER [Depakote ER] 1,500 mg PO HS 02/20/18 07/02/19 clonazePAM [KlonoPIN] 1 mg PO BID 02/20/18 07/02/19 Atorvastatin [Lipitor] 80 mg PO HS 08/08/18 07/02/19 Cholecalciferol [Vitamin D3] 5,000 unit PO DAILY 08/08/18 07/02/19 Glimepiride [Amaryl] 2 mg PO BID 08/08/18 07/02/19 OLANZapine [ZyPREXA] 5 mg PO HS 08/08/18 07/02/19 Fenofibrate Nanocrystallized 48 mg PO DAILY 11/08/18 07/02/19 [Fenofibrate] Metoprolol Tartrate [Lopressor] 25 mg PO BID 12/18/18 07/02/19 Montelukast [Singulair] 10 mg PO HS 12/18/18 07/02/19 Lisinopril [Zestril] 5 mg PO DAILY@1200 01/12/19 07/02/19 Loratadine [Claritin] 10 mg PO DAILY 01/12/19 07/02/19 Omeprazole 20 mg PO DAILY 01/12/19 07/02/19 Albuterol Sulfate [Proair Hfa] 1 puff INHALATION RT-Q6H PRN 06/14/19 07/02/19 Apixaban [Eliquis Starter Pack See Taper PO DIRECTED 06/14/19 07/02/19 (for VTE)] Promethazine 6.25MG/5Ml [Phenergan 6.25 mg PO Q6H PRN 06/14/19 07/02/19 Syrup] Umeclidinium [place] [Incruse 1 puff INHALATION RT-DAILY 06/14/19 07/02/19 Ellipta] diphenhydrAMINE [Benadryl] 25 mg PO Q6H PRN 06/14/19 07/02/19 metFORMIN HCL [Glucophage] 500 mg PO BID 06/14/19 07/02/19 Previous Rx's Medication Instructions Recorded Sulfamethox-Tmp 800-160Mg [Bactrim 1 each PO Q12HR 7 Days #14 tab 07/02/19 Ds] Allergies Allergy/AdvReac Type Severity Reaction Status Date / Time No Known Allergies Allergy Verified 07/02/19 18:08 Review of Systems ROS Other: All systems not noted in ROS Statement are negative. <Fransisca Whipple - Last Filed: 07/02/19 20:00> ROS Other: All systems not noted in ROS Statement are negative. <Xavier Moreno - Last Filed: 07/02/19 21:12> ROS Statement: Those systems with pertinent positive or pertinent negative responses have been documented in the HPI. Past Medical History Past Medical History: Coronary Artery Disease (CAD), COPD, Diabetes Mellitus, GERD/Reflux, Hypertension, Myocardial Infarction ([place]), Sleep Apnea/CPAP/BIPAP, Vascular Disorder Additional Past Medical History / Comment(s): weight loss of 20 plus pounds w/in 2 mos,stent 2009 2010,stent left leg 2017,no cpap Last Myocardial Infarction Date:: 2010 History of Any Multi-Drug Resistant Organisms: None Reported Past Surgical History: Heart Catheterization With Stent Additional Past Surgical History / Comment(s): stent in leg also from dvt Past Anesthesia/Blood Transfusion Reactions: No Reported Reaction Date of Last Stent Placement:: 2010 Past Psychological History: Depression Smoking Status: Current every day smoker Past Alcohol Use History: None Reported Past Drug Use History: None Reported - Past Family History Mother Family Medical History: COPD, Coronary Artery Disease (CAD) Father History Unknown: Yes <Fransisca Whipple - Last Filed: 07/02/19 20:00> General Exam Limitations: physical limitation <Fransisca Whipple - Last Filed: 07/02/19 20:00> General appearance: alert, in no apparent distress Head exam: Present: atraumatic, normocephalic, normal inspection Eye exam: Present: normal appearance, PERRL, EOMI. Absent: scleral icterus, conjunctival injection, periorbital swelling ENT exam: Present: normal exam, mucous membranes moist Neck exam: Present: normal inspection. Absent: tenderness, meningismus, lymphadenopathy Respiratory exam: Present: normal lung sounds bilaterally. Absent: respiratory distress, wheezes, rales, rhonchi, stridor Cardiovascular Exam: Present: regular rate, normal rhythm, normal heart sounds. Absent: systolic murmur, diastolic murmur, rubs, gallop, clicks GI/Abdominal exam: Present: soft, normal bowel sounds. Absent: distended, tend erness, guarding, rebound, rigid Extremities exam: Present: normal inspection, full ROM, normal capillary refill. Absent: tenderness, pedal edema, joint swelling, calf tenderness Back exam: Present: normal inspection Neurological exam: Present: alert, oriented X3, CN II-XII intact Psychiatric exam: Present: normal affect, normal mood Skin exam: Present: warm, dry, intact, normal color. Absent: rash <Xavier Moreno - Last Filed: 07/02/19 21:12> - General Exam Comments Initial Comments: GENERAL: Well-appearing, well-nourished and in no acute distress, but appears uncomfortable. HEAD: Atraumatic, normocephalic. EYES: Pupils equal round and reactive to light, extraocular movements intact, sclera anicteric, conjunctiva are normal. ENT: Nares patent, oropharynx clear without exudates. Moist mucous membranes. NECK: Normal range of motion, supple without lymphadenopathy or JVD. LUNGS: Breath sounds clear to auscultation bilaterally and equal. No wheezes rales or rhonchi. HEART: Regular rate and rhythm without murmurs, rubs or gallops. ABDOMEN: Soft, nontender, normoactive bowel sounds. No guarding, no rebound. No masses appreciated. : Deferred EXTREMITIES: Patient has 2 surgical open wounds on the left lower leg on the medial and lateral aspect from a recent fasciotomy. The wound is currently packed and there is some surrounding erythema and small amount of drainage coming from both wounds. The left lower leg is swollen and patient has pain all around as well as behind the left knee. Normal range of motion of the left ankle although painful. Normal range of motion of left knee. PSYCH: Normal mood, normal affect. SKIN: Warm, Dry, normal turgor, no rashes or lesions noted. (Fransisca Whipple) Course <Xavier Moreno - Last Filed: 07/02/19 21:12> Vital Signs 07/02/19 07/02/19 17:08 20:10 Temperature 98.0 F 98.9 F Pulse Rate 94 85 Respiratory 18 18 Rate Blood Pressure 147/63 146/78 O2 Sat by Pulse 98 99 Oximetry - Reevaluation(s) Reevaluation #1: 07/02/19 21:11 Wound is undressed, edges of both wounds with lateral and medial are significantly erythematous and tender mildly warm. No streaking, patient does have some swelling of the lower foot. Good pulses. Per patient's report or was notice drainage in the wound vac (Xavier Moreon) - Consultations Consultation #1: Dr. Iraj bravo for sounds of admission (Xavier Moreno) Consultation #2: Spoke with Dr. Mellisa bravo for admission (Xavier Moreno) Medical Decision Making - Lab Data Result diagrams: 07/02/19 18:48 07/02/19 18:48 <Fransisca Whipple - Last Filed: 07/02/19 20:00> - Lab Data Result diagrams: 07/02/19 18:48 07/02/19 18:48 <Xavier Moreno - Last Filed: 07/02/19 21:12> - Medical Decision Making Patient is a 53-year-old female presenting with increased pain and redness around her to surgical wounds. Patient had a fasciotomy performed [address] Parada. Patient has been having home health care visit 3 times a week. Patient denies fever, chills. Vital signs are stable today. Lab work is okay today. There is no white count, lactic acid is 1.5. Ultrasound reveals no evidence of DVT. There is a benign-appearing left groin enlarged lymph node as well as a popliteal cyst. Patient will be started on Bactrim and will follow up with her surgeon in 3 days. Patient is stable for discharge at this time and she is in agreement with this plan of care. Return parameters were discussed with the patient and she verbalized understanding. Case discussed with Dr. Moreno who agrees with this plan of care. (Fransisca Whipple) 53 female the ER for evaluation will admit for postoperative wound care, possible developing cellulitis, no significant surgical complication currently. Patient will be admitted for (Xavier Moreno) - Lab Data Lab Results 07/02/19 07/02/19 07/02/19 Range/Units 18:48 18:48 18:48 WBC 9.3 (3.8-10.6) k/uL RBC 3.52 L (3.80-5.40) m/uL Hgb 10.1 L (11.4-16.0) gm/dL Hct 31.6 L (34.0-46.0) % MCV 89.7 (80.0-100.0) fL MCH 28.6 (25.0-35.0) pg MCHC 31.9 (31.0-37.0) g/dL RDW 14.9 (11.5-15.5) % Plt Count 535 H D (150-450) k/uL Neutrophils % 58 % Lymphocytes % 33 % Monocytes % 4 % Eosinophils % 2 % Basophils % 1 % Neutrophils # 5.4 (1.3-7.7) k/uL Lymphocytes # 3.1 (1.0-4.8) k/uL Monocytes # 0.4 (0-1.0) k/uL Eosinophils # 0.2 (0-0.7) k/uL Basophils # 0.1 (0-0.2) k/uL Hypochromasia Moderate Poikilocytosis Slight ESR 31 H (0-20) mm/hr Sodium 142 (137-145) mmol/L Potassium 4.3 (3.5-5.1) mmol/L Chloride 109 H (98-107) mmol/L Carbon Dioxide 28 (22-30) mmol/L Anion Gap 5 mmol/L BUN 21 H (7-17) mg/dL Creatinine 1.03 (0.52-1.04) mg/dL Est GFR (CKD-EPI)AfAm 73 (>60 ml/min/1.73 sqM) Est GFR (CKD-EPI)NonAf 63 (>60 ml/min/1.73 sqM) Glucose 122 H (74-99) mg/dL Plasma Lactic Acid Kumra 1.5 (0.7-2.0) mmol/L Calcium 10.5 H (8.4-10.2) mg/dL Total Bilirubin 0.2 (0.2-1.3) mg/dL AST 19 (14-36) U/L ALT 22 (9-52) U/L Alkaline Phosphatase 65 (38-126) U/L C-Reactive Protein 32.1 H (<10.0) mg/L Total Protein 5.7 L (6.3-8.2) g/dL Albumin 3.2 L (3.5-5.0) g/dL Disposition Is patient prescribed a controlled substance at d/c from ED?: No <Fransisca Whipple - Last Filed: 07/02/19 20:00> Is patient prescribed a controlled substance at d/c from ED?: No <Xavier Moreno - Last Filed: 07/02/19 21:12> Clinical Impression: History of fasciotomy, Pain in left lower leg, Postoperative cellulitis of surgical wound Disposition: ADMITTED IP TO THIS [facility] Condition: Stable Instructions (If sedation given, give patient instructions): Acute Wound Care (ED) Additional Instructions: Please return to the Emergency Department if symptoms worsen or any other concerns. Take antibiotic as prescribed. Follow-up with surgeon in 3 days as discussed. Prescriptions: Sulfamethox-Tmp 800-160Mg [Bactrim Ds] 1 each PO Q12HR 7 Days #14 tab Referrals: [facility] [Primary Care Provider] - 1-2 days
[2019-07-02] MEDS ORDERED: MORPHINE SULFATE 4 MG/ML SYRINGE IVP STA (18:02)
[2019-07-02] MEDS ORDERED: SODIUM CHLORIDE 0.9% 1,000 ML IV STA (18:02)
[2019-07-02] MEDS ORDERED: KETOROLAC 30 MG/ML 1 ML VIAL IVP STA (18:02)
[2019-07-02 19:09] LABS: Basophils # (A) 0.1 k/uL (0-0.2); Basophils % (A) 1 %; Eosinophils # (A) 0.2 k/uL (0-0.7); Eosinophils % (A) 2 %; HCT 31.6 % (34.0-46.0); HGB 10.1 gm/dL (11.4-16.0); Hypochromasia Moderate; Lymphocytes # (A) 3.1 k/uL (1.0-4.8); Lymphocytes % (A) 33 %; MCH 28.6 pg (25.0-35.0); MCHC 31.9 g/dL (31.0-37.0); MCV 89.7 fL (80.0-100.0); Monocytes # (A) 0.4 k/uL (0-1.0); Monocytes % (A) 4 %; Neutrophils # (A) 5.4 k/uL (1.3-7.7); Neutrophils % (A) 58 %; Poikilocytosis Slight; RBC 3.52 m/uL (3.80-5.40); RDW 14.9 % (11.5-15.5); WBC 9.3 k/uL (3.8-10.6)
[2019-07-02 19:11] LABS: Platelet Count 535 k/uL (150-450)
[2019-07-02 19:18] LABS: Albumin 3.2 g/dL (3.5-5.0); C Reactive Protein 32.1 mg/L (<10.0); Calcium 10.5 mg/dL (8.4-10.2); Potassium 4.3 mmol/L (3.5-5.1); Total Bilirubin 0.2 mg/dL (0.2-1.3); Total Protein 5.7 g/dL (6.3-8.2)
--- NOTE | 2019-07-02 19:35 | US ---
EXAMINATION TYPE: US venous doppler duplex LE LT DATE OF EXAM: 07/02/2019 7:18 PM COMPARISON: NONE CLINICAL HISTORY: pain, swelling. Pain and swelling in left leg since 06/19/2019. Worse pain today. H x DVT. Patient on eliquis. Fasciotomy 06/16/2019. SIDE PERFORMED: Left TECHNIQUE: The lower extremity deep venous system is examined utilizing real time linear array sonog jacqueline with graded compression, doppler sonography and color-flow sonography. VESSELS IMAGED: External Iliac Vein (EIV) Common Femoral Vein Deep Femoral Vein Greater Saphenous Vein * Femoral Vein Popliteal Vein Small Saphenous Vein * Proximal Calf Veins (* superficial vessels) Left Leg: No evidence of DVT in veins imaged from prox calf veins to EIV. Limited visibility and von luation of prox calf veins. Hypoechoic complex area seen medial left popliteal fossa measurin.8 x 3.7 x 1.6 cm. Hypoechoic area with hyperechoic center seen in the left groin measurin.2 x 1.0 x 0.8 cm. IMPRESSION: 1. No diagnostic evidence of DVT as visualized. 2. benign-appearing left groin lymphadenopathy 3. There is a popliteal fossa complex area measuring 5.8 cm which could represent a complicated popli teal fossa cyst. Other etiologies not excluded. Recommend MRI.
[2019-07-02 19:48] LABS: Erythrocyte Sedimentation Rate 31 mm/hr (0-20)
[2019-07-02] MEDS ORDERED: SULFAMETHOX-TMP 800-160MG 1 EACH TAB PO STA (20:08)
[2019-07-02] MEDS ORDERED: VANCOMYCIN IV PER PHARMACY 1 EACH MISC MISCELLANE PRN (21:02)
[2019-07-02] MEDS ORDERED: SODIUM CHLORIDE 0.9% 1,000 ML IV ONE (21:02)
[2019-07-02] MEDS ORDERED: VANCOMYCIN 1,500 MG in SODIUM CHLORIDE 0.9% 250 ML IVPB STA (21:14)
[2019-07-02 23:00] VITALS: BMI 35.2
[2019-07-03] MEDS: HYDROcodone/APAP 5-325MG 1 EACH TAB PO PRN ×3 (05:26→20:09)
[2019-07-03 07:24] LABS: Glucose,Whole Blood 130 mg/dL (75-99)
[2019-07-03] MEDS ORDERED: PROMETHAZINE HCL 6.25 MG/5 ML CUP PO PRN (09:23)
[2019-07-03] MEDS ORDERED: diphenhydrAMINE 25 MG CAP PO PRN (09:23)
[2019-07-03 11:36] LABS: Glucose,Whole Blood 166 mg/dL (75-99)
[2019-07-03] MEDS: LISINOPRIL 5 MG TAB PO SCH (12:23)
[2019-07-03] MEDS: VANCOMYCIN 1,500 MG in SODIUM CHLORIDE 0.9% 250 ML IVPB SCH (12:56)
[2019-07-03 16:40] LABS: Glucose,Whole Blood 148 mg/dL (75-99)
[2019-07-03] MEDS: INSULIN ASPART (NovoLOG) 100 UNIT/ML VIAL SQ SCH ×2 (17:08→21:27)
--- NOTE | 2019-07-03 17:41 | HP ---
HISTORY AND PHYSICAL DATE OF SERVICE: 07/03/2019 CHIEF COMPLAINT: Left leg infection. HISTORY OF PRESENT ILLNESS: This 53-year-old woman with a past medical history of multiple medical problems, including CAD, COPD, diabetes mellitus, GERD, hypertension, myocardial infarction, being followed by [facility] in the outpatient setting, has also had a left leg wound. The patient was recently admitted to [facility] with complaints of acute right leg DVT with failure of outpatient treatment. Her leg pain swelling and compartment syndrome was also considered. The patient was transferred to [facility] under Dr. Sparks and the patient had fasciotomy. Currently the patient complains of pain and swelling and the patient was admitted for further evaluation and treatment. There is no history of any fever, rigor or chills. No history of headache, loss of consciousness, seizures. PAST MEDICAL HISTORY: 1. History of CAD. 2. COPD. 3. Diabetes mellitus, type 2. 4. GERD. 5. Hypertension. 6. History of myocardial infarction. 7. CAD, stent. HOME MEDICATIONS: 1. ProAir 1 puff q.6 p.r.n. 2. Benadryl 25 mg q.6 p.r.n. 3. Phenergan 6.25 mg q.6 p.r.n. 4. Fenofibrate 48 mg p.o. daily. 5. Omeprazole 20 mg p.o. daily. 6. Zyprexa 5 mg p.o. at bedtime. 7. Singulair 10 mg p.o. at bedtime. 8. Remeron 45 mg at bedtime. 9. Zestril 5 mg p.o. daily. 10.Glucophage 500 mg p.o. b.i.d. 11.Klonopin 1 mg p.o. b.i.d. 12.Incruse Ellipta 1 puff daily. 13.Lopressor 25 mg p.o. b.i.d. 14.Lipitor 80 mg at bedtime. 15.Amaryl 2 mg p.o. b.i.d. 16.Apixaban p.r.n. 17.Depakote ER 1500 mg p.o. at bedtime. 18.Claritin 10 mg p.o. daily. 19.Vitamin D3 5000 daily. 20.Bactrim DS one p.o. b.i.d. ALLERGIES: NONE. FAMILY HISTORY: History of COPD, CAD. SOCIAL HISTORY: History of smoking, continued, ongoing. REVIEW OF SYSTEMS: ENT: No diminished hearing. No diminished vision. CARDIOVASCULAR SYSTEM: No angina, palpitations. RESPIRATORY SYSTEM: No cough, hemoptysis. GI: As mentioned earlier. : No dysuria or retention. NERVOUS SYSTEM: No numbness, weakness. ALLERGY/IMMUNOLOGY: No asthma, hayfever. MUSCULOSKELETAL: As mentioned earlier. HEMATOLOGY/ONCOLOGY: No history of anemia. ENDOCRINE: As mentioned earlier. Diabetes mellitus. CONSTITUTIONAL: As mentioned earlier. DERMATOLOGY: As mentioned earlier. RHEUMATOLOGY: Negative. PSYCHIATRY: As mentioned earlier. PHYSICAL EXAMINATION: Patient alert and oriented x3. Pulse is 80, blood pressure 117/70, respiration 20, temperature 98.8, pulse ox 97% on room air. HEENT: Conjunctivae normal. Oral mucosa moist. NECK: No jugular venous distention. No carotid bruit. No lymph node enlargement. CARDIOVASCULAR SYSTEM: S1, S2 muffled. No S3. No S4. RESPIRATORY SYSTEM: Breath sounds diminished at the bases. Scattered rhonchi. No crackles. ABDOMEN: Soft, non-tender. No mass palpable. LEGS: Significant ulcerations in the legs present bilaterally. Pulses felt normally. NERVOUS SYSTEM: Higher functions as mentioned earlier. Moves all 4 limbs. No focal motor or sensory deficit. LYMPHATICS: No lymph node palpable in neck, axillae or groin. SKIN: No ulcer, rash, bleeding. JOINTS: No active deforming arthropathy. LAB STUDIES: WBC 9.3, hemoglobin 10.1, sodium 142, potassium 4.3. ASSESSMENT: 1. Left leg fasciotomy wounds for possible compartment syndrome recently. 2. History of recent right leg deep vein thrombosis. 3. History of previous deep vein thromboses. 4. History of coronary artery disease. 5. History of chronic obstructive pulmonary disease. 6. Diabetes mellitus, type 2. 7. Gastroesophageal reflux disease. 8. History of myocardial infarction. 9. History of left leg stent as well as peripheral vascular disease. 10.History of coronary artery disease and stent. 11.History of depression. 12.History of nicotine dependence. 13.Obesity with body mass index of 35. RECOMMENDATIONS AND DISCUSSION: In this 53-year-old woman who presented with multiple complex medical issues, we will monitor the patient closely, continue the current medications, continue with symptomatic treatment. Will initiate broad-spectrum IV antibiotics, obtain the cultures. Infectious disease as well as vascular consultations. Other than that, resume the home medication. Monitor blood sugars closely. DVT prophylaxis. Prognosis guarded because of multiple complex medical issues. Further recommendations to follow. The patient is on apixaban. A copy of this dictation is being forwarded to [facility], who is the primary physician. MMODL / IJN: [id number] / RENA
[2019-07-03 19:48] LABS: Appearance,Urine Clear (Clear); Bilirubin,Urine Negative (Negative); Blood,Urine Negative (Negative); Color,Urine Light Yellow; Glucose,Urine (UA) Negative (Negative); Ketones,Urine Negative (Negative); Leukocyte Esterase,Urine Negative (Negative); Nitrite,Urine Negative (Negative); Protein,Urine Negative (Negative); Urobilinogen,Urine <2.0 mg/dL (<2.0)
[2019-07-03 20:42] LABS: Glucose,Whole Blood 114 mg/dL (75-99)
[2019-07-03] MEDS: MONTELUKAST 10 MG TAB PO SCH (21:25)
[2019-07-03] MEDS: OLANZapine 5 MG TAB PO SCH (21:25)
[2019-07-03] MEDS: METOPROLOL TARTRATE 25 MG TAB PO SCH (21:25)
[2019-07-03] MEDS: APIXABAN 5 MG TAB PO SCH (21:26)
[2019-07-03] MEDS: ATORVASTATIN 80 MG TAB PO SCH (21:26)
[2019-07-03] MEDS: GLIMEPIRIDE 2 MG TAB PO SCH (21:26)
[2019-07-03] MEDS: MIRTAZAPINE 45 MG TABLET PO SCH (21:26)
[2019-07-03] MEDS: metFORMIN 500 MG TAB PO SCH (21:26)
[2019-07-03] MEDS: clonazePAM 1 MG TAB PO SCH (21:26)
[2019-07-03] MEDS: DIVALPROEX ER 500 MG TAB.ER.24H PO SCH (21:26)
--- NOTE | 2019-07-03 22:41 | P.CONS ---
History of Present Illness - Reason for Consult Consult date: 07/03/19 Right leg infection Requesting physician: Ramya Fontaine - Chief Complaint Right leg wound surrounding swelling and redness and pain x 1 day - History of Present Illness Patient is a 53 year female recently diagnosed with compartment syndrome right leg for the patient did have a fasciotomy done at [facility] by vascular surgery patient did have wounds on both the medial and lateral side of the right leg which are currently being treated with wound VAC therapy, went home care nurse came to change the wound VAC yesterday patient was noticed to have more erythema around her right lateral leg wound area and the patient was complaining of more pain in the leg to be more of a sharp almost 78 of 10 and no radiation the patient also mentioned some calls smelly drainage from her right leg wound area with concern for cellulitis and the patient has been sent to [facility] for further management on arrival to the hospital the patient has been afebrile her white count is significantly elevated no local wound culture was done and the patient was started on vancomycin and Rocephin and infectious disease was consulted for further recommendation regarding antibiotic therapy Review of Systems Positive point has been mentioned in the HPI rest of the systems are negative Past Medical History Past Medical History: Coronary Artery Disease (CAD), COPD, Diabetes Mellitus, GERD/Reflux, Hypertension, Myocardial Infarction ([place]), Sleep Apnea/CPAP/BIPAP, Vascular Disorder Additional Past Medical History / Comment(s): weight loss of 20 plus pounds w/in 2 mos,stent 2009 2010,stent left leg 2017,no cpap Last Myocardial Infarction Date:: 2010 History of Any Multi-Drug Resistant Organisms: None Reported Past Surgical History: Heart Catheterization With Stent Additional Past Surgical History / Comment(s): stent in leg also from dvt Past Anesthesia/Blood Transfusion Reactions: No Reported Reaction Date of Last Stent Placement:: 2010 Past Psychological History: Depression Smoking Status: Current every day smoker Past Alcohol Use History: None Reported Additional Past Alcohol Use History / Comment(s): started smoking since age 18,1ppd was smoking 3 ppd Past Drug Use History: None Reported - Past Family History Mother Family Medical History: COPD, Coronary Artery Disease (CAD) Father History Unknown: Yes Medications and Allergies Home Medications Medication Instructions Recorded Confirmed Type Mirtazapine [Remeron] 45 mg PO HS 04/26/17 07/02/19 History Divalproex ER [Depakote ER] 1,500 mg PO HS 02/20/18 07/02/19 History clonazePAM [KlonoPIN] 1 mg PO BID 02/20/18 07/02/19 History Atorvastatin [Lipitor] 80 mg PO HS 08/08/18 07/02/19 History Cholecalciferol [Vitamin D3] 5,000 unit PO DAILY 08/08/18 07/02/19 History Glimepiride [Amaryl] 2 mg PO BID 08/08/18 07/02/19 History OLANZapine [ZyPREXA] 5 mg PO HS 08/08/18 07/02/19 History Fenofibrate Nanocrystallized 48 mg PO DAILY 11/08/18 07/02/19 History [Fenofibrate] Metoprolol Tartrate [Lopressor] 25 mg PO BID 12/18/18 07/02/19 History Montelukast [Singulair] 10 mg PO HS 12/18/18 07/02/19 History Lisinopril [Zestril] 5 mg PO DAILY@1200 01/12/19 07/02/19 History Loratadine [Claritin] 10 mg PO DAILY 01/12/19 07/02/19 History Omeprazole 20 mg PO DAILY 01/12/19 07/02/19 History Albuterol Sulfate [Proair Hfa] 1 puff INHALATION RT-Q6H PRN 06/14/19 07/02/19 History Apixaban [Eliquis Starter Pack See Taper PO DIRECTED 06/14/19 07/02/19 History (for VTE)] Promethazine 6.25MG/5Ml [Phenergan 6.25 mg PO Q6H PRN 06/14/19 07/02/19 History Syrup] Umeclidinium [place] [Incruse 1 puff INHALATION RT-DAILY 06/14/19 07/02/19 History Ellipta] diphenhydrAMINE [Benadryl] 25 mg PO Q6H PRN 06/14/19 07/02/19 History metFORMIN HCL [Glucophage] 500 mg PO BID 06/14/19 07/02/19 History Sulfamethox-Tmp 800-160Mg [Bactrim 1 each PO Q12HR 7 Days #14 tab 07/02/19 Rx Ds] Allergies Allergy/AdvReac Type Severity Reaction Status Date / Time No Known Allergies Allergy Verified 07/02/19 18:08 Physical Exam Vitals: Vital Signs Temp Pulse Pulse Resp BP BP Pulse Ox 07/03/19 13:18 97.7 F 79 16 159/87 94 L 07/03/19 05:00 98.8 F 80 20 117/70 97 07/02/19 22:30 99.3 F 94 20 136/72 94 L 07/02/19 22:16 98.1 F 77 20 136/72 99 07/02/19 21:05 77 18 131/71 99 07/02/19 20:10 98.9 F 85 18 146/78 99 07/02/19 17:08 98.0 F 94 18 147/63 98 Intake and Output 07/02/19 07/03/19 07/03/19 22:59 06:59 14:59 Intake Total 100 540 Balance 100 540 Intake: Oral 100 540 Other: Voiding Method Toilet # Voids 1 4 Weight 96.071 kg GENERAL DESCRIPTION: Middle-aged female lying in bed, no distress. No tachypnea or accessory muscle of respiration use. HEENT: Shows Pallor , no scleral icterus. Oral mucous membrane is dry. No pharyngeal erythema or thrush NECK: Trachea central, no thyromegaly. LUNGS: Unlabored breathing. Clear to auscultation anteriorly. No wheeze or crackle. HEART: S1, S2, regular rate and rhythm. No loud murmur ABDOMEN: Soft, no tenderness , guarding or rigidity, no organomegaly EXTREMITIES: Right leg the wound both on the medial and the lateral side the lateral wound is more deeper and extensive there is no significant slough tissue at the base of the wound some swelling but no sniffing and redness or any foul- smelling drainage SKIN: No rash, no masses palpable. NEUROLOGICAL: The patient is awake, alert, oriented x3, mood and affect normal. Results CBC & Chem 7: 07/02/19 18:48 07/02/19 18:48 Labs: Abnormal Lab Results - Last 24 Hours (Table) 07/02/19 07/02/19 07/03/19 Range/Units 18:48 18:48 07:22 RBC 3.52 L (3.80-5.40) m/uL Hgb 10.1 L (11.4-16.0) gm/dL Hct 31.6 L (34.0-46.0) % Plt Count 535 H D (150-450) k/uL ESR 31 H (0-20) mm/hr Chloride 109 H (98-107) mmol/L BUN 21 H (7-17) mg/dL Glucose 122 H (74-99) mg/dL POC Glucose (mg/dL) 130 H (75-99) mg/dL Calcium 10.5 H (8.4-10.2) mg/dL C-Reactive Protein 32.1 H (<10.0) mg/L Total Protein 5.7 L (6.3-8.2) g/dL Albumin 3.2 L (3.5-5.0) g/dL 07/03/19 Range/Units 11:34 RBC (3.80-5.40) m/uL Hgb (11.4-16.0) gm/dL Hct (34.0-46.0) % Plt Count (150-450) k/uL ESR (0-20) mm/hr Chloride (98-107) mmol/L BUN (7-17) mg/dL Glucose (74-99) mg/dL POC Glucose (mg/dL) 166 H (75-99) mg/dL Calcium (8.4-10.2) mg/dL C-Reactive Protein (<10.0) mg/L Total Protein (6.3-8.2) g/dL Albumin (3.5-5.0) g/dL Assessment and Plan Assessment: 1-patient with right leg wound both on the medial and lateral side as result of fasciotomy for underlying compartment syndrome now presenting with possible cellulitis especially to the right lateral leg wound area more likely secondary to gram-positive skin sara underlying gram-negative infection less likely but not entirely excluded Plan: 1-Vancomycin pharmacy to dose target trough of 15 while watching his kidney function and Vanco trough closely 2-Rocephin 1 g daily 3-local wound care with wet to dry dressing changes per vascular as the patient was refusing Coumadin because of the pain associated with it We will follow on clinical condition and cultures to further adjust medication if needed Thank you for this consultation will follow this patient with you Time with Patient: Greater than 30
--- NOTE | 2019-07-04 04:47 | P.GSCN ---
History of Present Illness Consult date: 07/03/19 Reason for Consult: left lower extremity wounds History of present illness: 53 year old female with history of left lower extremity fasciotomy secondary to hematoma presents to the hospital with complaints of blisters and redness around surgical sites. Patient states she has been treating areas with a wound vac and was instructed to go to the hospital by her nurse for increase redness around the incision sites. She states the wound vac has been causing her pain and would like the suction turned down. She denies any fevers, chills, nausea, vomiting, chest pain or shortness of breath. She states her leg feels better than it did during her last hospitalization and is even better now after wound vac was removed. Review of Systems All systems: negative (what is mentioned in the PMH or HPI) Past Medical History Past Medical History: Coronary Artery Disease (CAD), COPD, Diabetes Mellitus, GERD/Reflux, Hypertension, Myocardial Infarction (CT), Sleep Apnea/CPAP/BIPAP, Vascular Disorder Additional Past Medical History / Comment(s): weight loss of 20 plus pounds w/in 2 mos,stent 2009 2010,stent left leg 2017,no cpap Last Myocardial Infarction Date:: 2010 History of Any Multi-Drug Resistant Organisms: None Reported Past Surgical History: Heart Catheterization With Stent Additional Past Surgical History / Comment(s): stent in leg also from dvt Past Anesthesia/Blood Transfusion Reactions: No Reported Reaction Date of Last Stent Placement:: 2010 Past Psychological History: Depression Smoking Status: Current every day smoker Past Alcohol Use History: None Reported Additional Past Alcohol Use History / Comment(s): started smoking since age 18,1ppd was smoking 3 ppd Past Drug Use History: None Reported - Past Family History Mother Family Medical History: COPD, Coronary Artery Disease (CAD) Father History Unknown: Yes Medications and Allergies Home Medications Medication Instructions Recorded Confirmed Type Mirtazapine [Remeron] 45 mg PO HS 04/26/17 07/02/19 History Divalproex ER [Depakote ER] 1,500 mg PO HS 02/20/18 07/02/19 History clonazePAM [KlonoPIN] 1 mg PO BID 02/20/18 07/02/19 History Atorvastatin [Lipitor] 80 mg PO HS 08/08/18 07/02/19 History Cholecalciferol [Vitamin D3] 5,000 unit PO DAILY 08/08/18 07/02/19 History Glimepiride [Amaryl] 2 mg PO BID 08/08/18 07/02/19 History OLANZapine [ZyPREXA] 5 mg PO HS 08/08/18 07/02/19 History Fenofibrate Nanocrystallized 48 mg PO DAILY 11/08/18 07/02/19 History [Fenofibrate] Metoprolol Tartrate [Lopressor] 25 mg PO BID 12/18/18 07/02/19 History Montelukast [Singulair] 10 mg PO HS 12/18/18 07/02/19 History Lisinopril [Zestril] 5 mg PO DAILY@1200 01/12/19 07/02/19 History Loratadine [Claritin] 10 mg PO DAILY 01/12/19 07/02/19 History Omeprazole 20 mg PO DAILY 01/12/19 07/02/19 History Albuterol Sulfate [Proair Hfa] 1 puff INHALATION RT-Q6H PRN 06/14/19 07/02/19 History Apixaban [Eliquis Starter Pack See Taper PO DIRECTED 06/14/19 07/02/19 History (for VTE)] Promethazine 6.25MG/5Ml [Phenergan 6.25 mg PO Q6H PRN 06/14/19 07/02/19 History Syrup] Umeclidinium [place] [Incruse 1 puff INHALATION RT-DAILY 06/14/19 07/02/19 History Ellipta] diphenhydrAMINE [Benadryl] 25 mg PO Q6H PRN 06/14/19 07/02/19 History metFORMIN HCL [Glucophage] 500 mg PO BID 06/14/19 07/02/19 History Sulfamethox-Tmp 800-160Mg [Bactrim 1 each PO Q12HR 7 Days #14 tab 07/02/19 Rx Ds] Allergies Allergy/AdvReac Type Severity Reaction Status Date / Time No Known Allergies Allergy Verified 07/02/19 18:08 Surgical - Exam Vital Signs Temp Pulse Resp BP Pulse Ox 98.0 F 94 18 147/63 98 07/02/19 17:08 07/02/19 17:08 07/02/19 17:08 07/02/19 17:08 07/02/19 17:08 left lower extremity lateral and medial surgical sites with good pink granulation tissue noted without purulence or significant drainage. No sign of infection. Minimal erythema noted around incision sites. +edema with tenderness to palpable of the left calf. Good capillary refill noted. Palpable dp pulse right lower extremity with good palpable dp pulse, no erythema or edema. - General well developed, well nourished, no distress - Eyes PERRL, normal ocular movement - Respiratory normal expansion - Cardiovascular Rhythm: regular - Abdomen Abdomen: soft - Integumentary no rash, no growths - Psychiatric oriented to time, oriented to person, oriented to place Results - Labs 07/02/19 18:48 07/02/19 18:48 Abnormal Lab Results - Last 24 Hours (Table) 07/03/19 07/03/19 07/03/19 Range/Units 07:22 11:34 16:33 POC Glucose (mg/dL) 130 H 166 H 148 H (75-99) mg/dL 07/03/19 Range/Units 20:39 POC Glucose (mg/dL) 114 H (75-99) mg/dL Microbiology - Last 24 Hours (Table) 07/02/19 21:45 Blood Culture - Preliminary Blood No Growth after 24 hours Assessment and Plan Assessment: 1. Left lower extremity fasciotomy wounds 2. History of left lower extremity fasciotomy secondary to hematoma 3. Morbid obesity 4. DM 5. GERD 6. CAD Plan: Continue local wound care with wet to dry dressing changes. Discussed the importance of follow up with a wound care center which she will need for continued wound treatment. Ok to forego wound vac secondary to discomfort. Will transition to aquacel or some other product to assist with healing process. Thank you for allowing me to participate in this patients care.
[2019-07-04] MEDS: VANCOMYCIN 1,500 MG in SODIUM CHLORIDE 0.9% 250 ML IVPB SCH (06:07)
[2019-07-04 07:10] LABS: Glucose,Whole Blood 155 mg/dL (75-99)
[2019-07-04] MEDS: INSULIN ASPART (NovoLOG) 100 UNIT/ML VIAL SQ SCH ×4 (07:20→23:51)
[2019-07-04] MEDS: CHOLECALCIFEROL 1,000 UNIT TAB PO SCH (07:21)
[2019-07-04] MEDS: PANTOPRAZOLE 40 MG TABLET PO SCH (07:23)
[2019-07-04] MEDS: METOPROLOL TARTRATE 25 MG TAB PO SCH ×2 (07:24→23:50)
[2019-07-04] MEDS: metFORMIN 500 MG TAB PO SCH ×2 (07:24→23:50)
[2019-07-04] MEDS: LORATADINE 10 MG TAB PO SCH (07:24)
[2019-07-04] MEDS: APIXABAN 5 MG TAB PO SCH ×2 (07:24→23:47)
[2019-07-04] MEDS: GLIMEPIRIDE 2 MG TAB PO SCH ×2 (07:25→23:51)
[2019-07-04] MEDS: FENOFIBRATE 54 MG TAB PO SCH (07:25)
[2019-07-04] MEDS: clonazePAM 1 MG TAB PO SCH ×2 (07:25→23:47)
[2019-07-04] MEDS: HYDROcodone/APAP 5-325MG 1 EACH TAB PO PRN ×3 (07:26→23:47)
[2019-07-04] MEDS: IPRATROPIUM 0.5 MG/2.5 ML NEBU INHALATION SCH ×4 (07:46→19:39)
[2019-07-04 09:17] LABS: Basophils % (A) 1 %; Eosinophils # (A) 0.2 k/uL (0-0.7); Eosinophils % (A) 2 %; HCT 28.5 % (34.0-46.0); HGB 8.9 gm/dL (11.4-16.0); Hypochromasia Moderate; Lymphocytes # (A) 2.3 k/uL (1.0-4.8); Lymphocytes % (A) 32 %; MCH 28.5 pg (25.0-35.0); MCHC 31.4 g/dL (31.0-37.0); MCV 90.9 fL (80.0-100.0); Mean Platelet Volume 5.8; Monocytes # (A) 0.3 k/uL (0-1.0); Monocytes % (A) 4 %; Neutrophils # (A) 4.3 k/uL (1.3-7.7); Neutrophils % (A) 59 %; Platelet Count 398 k/uL (150-450); Poikilocytosis Slight; RBC 3.13 m/uL (3.80-5.40); RDW 15.2 % (11.5-15.5); WBC 7.3 k/uL (3.8-10.6)
[2019-07-04 09:49] LABS: Calcium 9.7 mg/dL (8.4-10.2); Potassium 4.5 mmol/L (3.5-5.1)
[2019-07-04 11:48] LABS: Glucose,Whole Blood 121 mg/dL (75-99)
[2019-07-04 12:04] VITALS: RESP 18
[2019-07-04] MEDS: LISINOPRIL 5 MG TAB PO SCH (12:18)
[2019-07-04 16:54] LABS: Glucose,Whole Blood 98 mg/dL (75-99)
--- NOTE | 2019-07-04 17:16 | PN ---
PROGRESS NOTE DATE OF SERVICE: 07/04/2019 REASON FOR FOLLOWUP: Left leg wound and cellulitis. INTERVAL HISTORY: The patient is currently afebrile. The patient is breathing comfortably. The patient denies having any chest pain or any cough. No nausea or vomiting. No abdominal pain or pain to the left leg area. PHYSICAL EXAMINATION: Blood pressure 142/65 with a pulse of 79, temperature 97.1. She is 95% on room air. General description is a middle-aged female lying in bed in no distress. RESPIRATORY SYSTEM: Unlabored breathing. Clear to auscultation anteriorly. HEART: S1, S2. Regular rate and rhythm. ABDOMEN: Soft. No tenderness. Left leg wound is currently dressed up. No obvious drainage on the dressing. LABS: Hemoglobin 8.9, white count 7.3 with a BUN of 17, creatinine 1.0. Blood culture has been negative. DIAGNOSTIC IMPRESSION AND PLAN: Patient with left leg wound, status post fasciotomy in this patient admitted to hospital with cellulitis and pain and drainage from the left medial leg wound area. Unfortunately no cultures were done. Blood culture has been negative so far. Currently on Rocephin and vancomycin; to continue for another 24 hours. Hopefully finish therapy with oral antibiotics. Local wound care to continue as ordered per Surgery. MMODL / IJN: [id number] /
--- NOTE | 2019-07-04 17:22 | P.PN ---
Subjective Progress Note Date: 07/04/19 Principal diagnosis: left lower extremity fasciotomy wounds patient seen and examined at bedside. Doing well overnight. Pain controlled and improving. No fevers, chills, nausea, vomiting, chest pain or sob. Patient wants to go home. Objective - Vital Signs Vital signs: Vital Signs Temp 98.1 F 07/04/19 12:01 Pulse 74 07/04/19 15:43 Resp 18 07/04/19 12:01 BP 142/65 07/04/19 12:01 Pulse Ox 95 07/04/19 12:01 Intake & Output 07/03/19 07/04/19 07/04/19 18:59 06:59 18:59 Intake Total 1080 540 Balance 1080 540 Weight 96.071 kg Intake: Oral 1080 540 Other: Voiding Method Toilet # Voids 1 4 5 - Exam left lower extremity wounds with good granulation tissue. No purulence. +edema left lower extremity but no TTP. Palpable dp pulse - Constitutional General appearance: Present: morbidly obese - EENT Eyes: Present: PERRLA - Cardiovascular Rhythm: regular - Psychiatric Psychiatric: Present: A&O x's 3 - Labs CBC & Chem 7: 07/04/19 08:43 07/04/19 08:43 Labs: Abnormal Lab Results - Last 24 Hours (Table) 07/03/19 07/04/19 07/04/19 Range/Units 20:39 07:04 08:43 RBC (3.80-5.40) m/uL Hgb (11.4-16.0) gm/dL Hct (34.0-46.0) % Chloride 110 H (98-107) mmol/L Glucose 109 H (74-99) mg/dL POC Glucose (mg/dL) 114 H 155 H (75-99) mg/dL 07/04/19 07/04/19 Range/Units 08:43 11:43 RBC 3.13 L (3.80-5.40) m/uL Hgb 8.9 L (11.4-16.0) gm/dL Hct 28.5 L (34.0-46.0) % Chloride (98-107) mmol/L Glucose (74-99) mg/dL POC Glucose (mg/dL) 121 H (75-99) mg/dL Microbiology - Last 24 Hours (Table) 07/02/19 21:45 Blood Culture - Preliminary Blood No Growth after 24 hours Assessment and Plan Assessment: 1. Left lower extremity fasciotomy wounds 2. History of left lower extremity fasciotomy secondary to hematoma 3. Morbid obesity 4. DM 5. GERD 6. CAD Plan: Continue local wound care with wet to dry dressing changes. Discussed the importance of follow up with a wound care center which she will need for continued wound treatment. Will transition to aquacel or some other product to assist with healing process. Thank you for allowing me to participate in this patients care.
--- NOTE | 2019-07-04 19:53 | PN ---
PROGRESS NOTE DATE OF SERVICE: 07/04/2019 This 53-year-old woman was admitted with left leg infection is on IV antibiotics. Dr. Boss would like one more day of antibiotics at this time. The patient underwent left lower extremity fasciotomy secondary to hematoma by Dr. Sparks in [facility]. No chest pain. No palpitations. No fever. EXAM: Alert and oriented x3. Pulse is 79. Blood pressure 142/60, respiration 18, temperature 98.2, pulse ox 94% on room air. HEENT: Conjunctivae normal. NECK: No JVD. CARDIOVASCULAR: S1, S2. RESPIRATORY: Breath sounds diminished in the bases. No rhonchi. ABDOMEN soft. Left leg postoperative ulcer present, status post fasciotomy. Nervous System: No focal deficits. LABS: WBC 7, hemoglobin 8.9. ASSESSMENT: 1. Left leg fasciotomy wounds for hematoma and compartment syndrome recently with cellulitis. 2. History of recent right leg deep vein thrombosis. 3. History of previous deep vein thrombosis. 4. History of coronary artery disease. 5. Chronic obstructive pulmonary disease. 6. Diabetes type 2. 7. Gastroesophageal reflux disease. 8. History of myocardial infarction. 9. History of left leg stent as well as peripheral vascular disease. 10.History of coronary artery disease/ stent. 11.History of depression. 12.History of nicotine dependence. 13.Obesity with body mass index 35. DISCUSSION AND RECOMMENDATIONS: Recommend to continue current medications, management and symptomatic treatment. The patient has extensive wounds, but they are healing at this time. Cultures are negative so far. Closely follow with Infectious Disease. Guarded prognosis because of multiple complex medical issues. Further recommendations to follow. MMODL / IJN: [id number] /
[2019-07-04 20:55] LABS: Glucose,Whole Blood 150 mg/dL (75-99)
[2019-07-04] MEDS: DIVALPROEX ER 500 MG TAB.ER.24H PO SCH (23:46)
[2019-07-04] MEDS: OLANZapine 5 MG TAB PO SCH (23:46)
[2019-07-04] MEDS: MONTELUKAST 10 MG TAB PO SCH (23:46)
[2019-07-04] MEDS: ATORVASTATIN 80 MG TAB PO SCH (23:48)
[2019-07-04] MEDS: MIRTAZAPINE 45 MG TABLET PO SCH (23:51)
[2019-07-05] MEDS: VANCOMYCIN 1,500 MG in SODIUM CHLORIDE 0.9% 250 ML IVPB SCH (01:03)
[2019-07-05 04:36] VITALS: BP 162/70; PULSE 84; TEMP 98.5
[2019-07-05] MEDS: LORATADINE 10 MG TAB PO SCH (07:34)
[2019-07-05] MEDS: APIXABAN 5 MG TAB PO SCH (07:34)
[2019-07-05] MEDS: metFORMIN 500 MG TAB PO SCH ×2 (07:34→07:40)
[2019-07-05] MEDS: CHOLECALCIFEROL 1,000 UNIT TAB PO SCH (07:34)
[2019-07-05] MEDS: PANTOPRAZOLE 40 MG TABLET PO SCH (07:35)
[2019-07-05] MEDS: GLIMEPIRIDE 2 MG TAB PO SCH ×2 (07:35→07:40)
[2019-07-05] MEDS: FENOFIBRATE 54 MG TAB PO SCH (07:35)
[2019-07-05] MEDS: LISINOPRIL 5 MG TAB PO SCH (07:35)
[2019-07-05] MEDS: clonazePAM 1 MG TAB PO SCH (07:35)
[2019-07-05] MEDS: METOPROLOL TARTRATE 25 MG TAB PO SCH (07:35)
[2019-07-05] MEDS: INSULIN ASPART (NovoLOG) 100 UNIT/ML VIAL SQ SCH ×2 (07:40→12:27)
[2019-07-05 07:48] LABS: Glucose,Whole Blood 64 mg/dL (75-99)
[2019-07-05 08:07] LABS: Basophils # (A) 0.1 k/uL (0-0.2); Basophils % (A) 1 %; Eosinophils # (A) 0.2 k/uL (0-0.7); Eosinophils % (A) 2 %; HCT 31.4 % (34.0-46.0); HGB 9.9 gm/dL (11.4-16.0); Hypochromasia Marked; Lymphocytes # (A) 2.1 k/uL (1.0-4.8); Lymphocytes % (A) 27 %; MCH 28.9 pg (25.0-35.0); MCHC 31.4 g/dL (31.0-37.0); MCV 92.1 fL (80.0-100.0); Mean Platelet Volume 5.8; Monocytes # (A) 0.3 k/uL (0-1.0); Monocytes % (A) 4 %; Neutrophils # (A) 4.9 k/uL (1.3-7.7); Neutrophils % (A) 64 %; Platelet Count 381 k/uL (150-450); Poikilocytosis Slight; RBC 3.41 m/uL (3.80-5.40); RDW 15.2 % (11.5-15.5); WBC 7.7 k/uL (3.8-10.6)
[2019-07-05] MEDS: IPRATROPIUM 0.5 MG/2.5 ML NEBU INHALATION SCH ×2 (08:08→11:54)
[2019-07-05 08:14] LABS: Calcium 9.8 mg/dL (8.4-10.2); Potassium 4.3 mmol/L (3.5-5.1)
[2019-07-05 08:20] LABS: Glucose,Whole Blood 115 mg/dL (75-99)
--- NOTE | 2019-07-05 09:26 | P.PN ---
Subjective Progress Note Date: 07/05/19 Patient seen and examined. Overall no complaints. No acute distress Heart regular Lungs no respiratory distress Abdomen soft Left lower extremity dressing intact and in place, dry #1 status post left lower extremity fasciotomy for compartment syndrome #2 morbid obesity #3 GERD #4 coronary artery disease No further interventions planned from a vascular surgery standpoint. Continue local wound care with daily dressing changes wet-to-dry dressings. She currently has home healthcare. We do recommend she be seen in wound care for further follow-up. Routine follow-up with Dr. Sparks as previously planned Objective - Vital Signs Vital signs: Vital Signs Temp 98.5 F 07/05/19 04:35 Pulse 84 07/05/19 04:35 Resp 18 07/05/19 04:35 BP 162/70 07/05/19 04:35 Pulse Ox 93 L 07/05/19 04:35 Intake & Output 07/04/19 07/05/19 07/05/19 18:59 06:59 18:59 Intake Total 540 500 Balance 540 500 Weight 96.071 kg Intake: Oral 540 500 Other: Voiding Method Toilet Toilet # Voids 4 5 1 - Labs CBC & Chem 7: 07/05/19 07:42 07/05/19 07:42 Labs: Abnormal Lab Results - Last 24 Hours (Table) 07/04/19 07/04/19 07/04/19 Range/Units 08:43 11:43 20:46 RBC (3.80-5.40) m/uL Hgb (11.4-16.0) gm/dL Hct (34.0-46.0) % Chloride 110 H (98-107) mmol/L Carbon Dioxide (22-30) mmol/L Glucose 109 H (74-99) mg/dL POC Glucose (mg/dL) 121 H 150 H (75-99) mg/dL 07/05/19 07/05/19 07/05/19 Range/Units 07:39 07:42 07:42 RBC 3.41 L (3.80-5.40) m/uL Hgb 9.9 L (11.4-16.0) gm/dL Hct 31.4 L (34.0-46.0) % Chloride 109 H (98-107) mmol/L Carbon Dioxide 31 H (22-30) mmol/L Glucose 46 L* (74-99) mg/dL POC Glucose (mg/dL) 64 L (75-99) mg/dL 07/05/19 Range/Units 07:58 RBC (3.80-5.40) m/uL Hgb (11.4-16.0) gm/dL Hct (34.0-46.0) % Chloride (98-107) mmol/L Carbon Dioxide (22-30) mmol/L Glucose (74-99) mg/dL POC Glucose (mg/dL) 115 H (75-99) mg/dL Microbiology - Last 24 Hours (Table) 07/02/19 21:45 Blood Culture - Preliminary Blood No Growth after 48 hours
--- NOTE | 2019-07-05 10:45 | CDI ---
Documentation Clarification Form Date: 07/05/2019 10:19:31 AM From: Cheryl Choi RN, CCDS Admit Date: 07/04/2019 2:31:00 PM Patient Name: Tierney Jovel Visit Number: [id number] ATTENTION: The Clinical Documentation Specialists (CDI) and [facility] Coding Staff appreciate your assistance in clarifying documentation. Please respond to the clarification below the line at the bottom and electronically sign. The CDI & [facility] Coding staff will review the response and follow-up if needed. Please note: Queries are made part of the Legal Health Record. If you have any questions, please contact the author of this message via ITS. Dr. Ramya Womack declining Hgb and Hct has been noted and lacks specificity to accurately reflect your patients severity of condition and clarification is needed. History/Risk Factors: 07/03 H&P: "No history of anemia." DM2, recent right leg DVT, previous DVT's, hx of cad, COPD, dm2, gerd, SC, pad, cad w stent, depression, nicotine dependence, obesity Clinical indicators: Hemoglobin: 10.1/8.9/9.9 Hematocrit: 31.6/28.5/31.4 07/04 Attending progress Note: Left leg fasciotomy wounds for hematoma and compartment syndrome recently with cellulitis. Treatment: Monitoring labs 1L IVF Bolus In order to capture the severity of condition, please clarify the type of anemia and etiology if known: Chronic blood loss anemia Iron deficiency anemia Drug induced anemia Nutritional anemia Anemia of chronic disease Unable to determine Other, please specify (Last Revision: May 2017) Anemia of chronic disease MTDD
[2019-07-05 12:25] LABS: Glucose,Whole Blood 79 mg/dL (75-99)
[2019-07-05] MEDS ORDERED: VANCOMYCIN TROUGH DUE 1 EACH MISC MISCELLANE ONE (13:00)
--- NOTE | 2019-07-05 16:27 | P.DS ---
Providers Date of admission: 07/04/19 14:31 Expected date of discharge: 07/05/19 Attending physician: Ramya Fontaine Consults: 07/02/19 21:02 Consult Physician Routine Consulting Provider: Mitchell Parada Consult Reason/Comments: known Do you want consulting provider notified?: Yes 07/03/19 10:42 Consult Physician Routine Consulting Provider: Otilia Boss Consult Reason/Comments: possible left leg infection, post fasciotomy Do you want consulting provider notified?: Yes Primary care physician: [facility] Course: Final diagnosis Left leg fasciotomy wounds for hematoma and compartment syndrome recently with cellulitis History of recent right leg deep vein thrombosis History of previous deep vein thrombosis history of coronary artery disease Chronic obstructive pulmonary disease Diabetes mellitus type 2 GERD History of myocardial infarction history of left leg stents as well as peripheral vascular disease History of coronary artery disease with stent History of depression history of nicotine dependence obesity with body mass index of 35 Discharge disposition Patient is being discharged in a stable condition with guarded prognosis to home and will have home care. Patient will follow-up with vascular surgery in the outpatient setting as well as the wound center for continued wound care. Patient will continue a short course of oral antibiotics in the form of Bactrim for the next one week per infectious disease recommendations. Total time taken is 35 minutes. History of present illness This is a 53-year-old female who was recently admitted with a left leg infection who recently underwent a left lower extremity fasciotomy secondary to hematoma and was being closely monitored. Patient was maintained on IV antibiotics and will complete a short course of oral antibiotics in the form of Bactrim for the next week in the outpatient setting. Patient will follow-up with vascular surgery as well as the wound care clinic for continued wound care. Patient will also be having Homecare visits the home. Currently patient's condition is stable and is ready for discharge. Patient denies any chest pain, shortness of breath, or palpitations at this time. Patient is afebrile. Patient denies any nausea or vomiting and is tolerating diet. Guarded prognosis. On exam vital signs are stable. Temp is 98.5F, pulse 84, respirations are 18, blood pressure is 162/70, oxygen saturation is 93% on room air. Cardio S1 and S2 are muffled. Respiratory system shows diminished breath sounds at the bases with no wheezing noted. Abdomen is soft, obese, nontender. Nervous system shows no focal deficits. Please refer to medication reconciliation sheet for a list of medications. Patient Condition at Discharge: Stable Plan - Discharge Summary New Discharge Prescriptions: New Sulfamethox-Tmp 800-160Mg [Bactrim Ds] 1 each PO Q12HR 7 Days #14 tab Continue Mirtazapine [Remeron] 45 mg PO HS clonazePAM [KlonoPIN] 1 mg PO BID Divalproex ER [Depakote ER] 1,500 mg PO HS Atorvastatin [Lipitor] 80 mg PO HS Cholecalciferol [Vitamin D3 (25 Mcg = 1000 Iu)] 5,000 unit PO DAILY OLANZapine [ZyPREXA] 5 mg PO HS Fenofibrate Nanocrystallized [Fenofibrate] 48 mg PO DAILY Montelukast [Singulair] 10 mg PO HS Metoprolol Tartrate [Lopressor] 25 mg PO BID Lisinopril [Zestril] 5 mg PO DAILY@1200 Loratadine [Claritin] 10 mg PO DAILY Omeprazole 20 mg PO DAILY Umeclidinium [place] [Incruse Ellipta] 1 puff INHALATION RT-DAILY Apixaban [Eliquis Starter Pack (for VTE)] See Taper PO DIRECTED Albuterol Sulfate [Proair Hfa] 1 puff INHALATION RT-Q6H PRN PRN Reason: Shortness Of Breath metFORMIN HCL [Glucophage] 500 mg PO BID diphenhydrAMINE [Benadryl] 25 mg PO Q6H PRN PRN Reason: Allergy Symptoms Promethazine 6.25MG/5Ml [Phenergan Syrup] 6.25 mg PO Q6H PRN PRN Reason: Cough Changed Glimepiride [Amaryl] 2 mg PO DAILY #0 Discharge Medication List Mirtazapine [Remeron] 45 mg PO HS 04/26/17 [History] Divalproex ER [Depakote ER] 1,500 mg PO HS 02/20/18 [History] clonazePAM [KlonoPIN] 1 mg PO BID 02/20/18 [History] Atorvastatin [Lipitor] 80 mg PO HS 08/08/18 [History] Cholecalciferol [Vitamin D3 (25 Mcg = 1000 Iu)] 5,000 unit PO DAILY 08/08/18 [History] OLANZapine [ZyPREXA] 5 mg PO HS 08/08/18 [History] Fenofibrate Nanocrystallized [Fenofibrate] 48 mg PO DAILY 11/08/18 [History] Metoprolol Tartrate [Lopressor] 25 mg PO BID 12/18/18 [History] Montelukast [Singulair] 10 mg PO HS 12/18/18 [History] Lisinopril [Zestril] 5 mg PO DAILY@1200 01/12/19 [History] Loratadine [Claritin] 10 mg PO DAILY 01/12/19 [History] Omeprazole 20 mg PO DAILY 01/12/19 [History] Albuterol Sulfate [Proair Hfa] 1 puff INHALATION RT-Q6H PRN 06/14/19 [History] Apixaban [Eliquis Starter Pack (for VTE)] See Taper PO DIRECTED 06/14/19 [ History] Promethazine 6.25MG/5Ml [Phenergan Syrup] 6.25 mg PO Q6H PRN 06/14/19 [History] Umeclidinium [place] [Incruse Ellipta] 1 puff INHALATION RT-DAILY 06/14/19 [History] diphenhydrAMINE [Benadryl] 25 mg PO Q6H PRN 06/14/19 [History] metFORMIN HCL [Glucophage] 500 mg PO BID 06/14/19 [History] Sulfamethox-Tmp 800-160Mg [Bactrim Ds] 1 each PO Q12HR 7 Days #14 tab 07/02/19 [Rx] Glimepiride [Amaryl] 2 mg PO DAILY #0 07/05/19 [Rx] Follow up Appointment(s)/Referral(s): Mitchell Parada DO [Doctor of Osteopathic Medicine] - 1 Week [facility], [NON-STAFF] - [facility] - [facility]2 [facility] [NON-STAFF] - 1 Week Patient Instructions/Handouts: Acute Wound Care (ED) Activity/Diet/Wound Care/Special Instructions: Please return to the Emergency Department if symptoms worsen or any other concerns. Take antibiotic as prescribed. Follow-up with surgeon in 3 days as discussed. Continue current diet Follow-up with wound care clinic as discussed Discharge Disposition: HOME WITH HOME HEALTH SERVICES
--- NOTE | 2019-07-05 17:20 | PN ---
PROGRESS NOTE DATE OF SERVICE: 07/05/2019 REASON FOR FOLLOWUP: Left leg wound and cellulitis. INTERVAL HISTORY: The patient was seen on rounds this morning. The patient has been afebrile. Overall pain to the left leg has improved. The patient denies having any chest pain, shortness of breath or cough. No nausea, vomiting, abdominal pain or diarrhea. She wants to go home. PHYSICAL EXAMINATION: Blood pressure 162/70 with a pulse of 84, temperature of 98.5. She is 93% on room air. General description is a middle-aged female lying in bed in no distress. RESPIRATORY SYSTEM: Unlabored breathing. Clear to auscultation anteriorly. HEART: S1, S2. Regular rate and rhythm. ABDOMEN: Soft. No tenderness. Left leg wound is currently dressed up. No obvious drainage on the dressing. LABS: Hemoglobin 9.9, white count 7.7, creatinine 0.99. Blood cultures have been negative. No local wound cultures were done. DIAGNOSTIC IMPRESSION AND PLAN: Patient with a left leg wound in this patient who did have a prior fasciotomy, admitted to hospital with concern for cellulitis. The patient has overall improvement on vancomycin and Rocephin. Antibiotic will be switched over to Bactrim DS one twice a day for about a week. The patient was advised to increase her fluid intake while on oral antibiotics and continue with supportive care. MMODL / IJN: [id number] /
== END 2019-07-05 13:07 | disposition home health service (06) | DRG 920 ==
LOC: EC 16:58 → 4MS4W 21:02 → OBSVTOIN 07-04 14:31
PROVIDERS: ADMIT Hospitalist; ATTEND Hospitalist
DX: T81.31XA Disruption of external operation (surgical) wound, not elsewhere classified, initial encounter (principal); T81.41XA Infection following a procedure, superficial incisional surgical site, initial encounter; L03.116 Cellulitis of left lower limb; Y83.8 Other surgical procedures as the cause of abnormal reaction of the patient, or of later complication, without mention of misadventure at the time of the procedure; E11.51 Type 2 diabetes mellitus with diabetic peripheral angiopathy without gangrene; E66.01 Morbid (severe) obesity due to excess calories; F17.200 Nicotine dependence, unspecified, uncomplicated; I10 Essential (primary) hypertension; I25.10 Atherosclerotic heart disease of native coronary artery without angina pectoris; D63.8 Anemia in other chronic diseases classified elsewhere; I25.2 Old myocardial infarction; J44.9 Chronic obstructive pulmonary disease, unspecified; K21.9 Gastro-esophageal reflux disease without esophagitis; Z68.35 Body mass index [BMI] 35.0-35.9, adult; Z79.84 Long term (current) use of oral hypoglycemic drugs; Z79.899 Other long term (current) drug therapy; Z82.49 Family history of ischemic heart disease and other diseases of the circulatory system; Z82.5 Family history of asthma and other chronic lower respiratory diseases; Z86.718 Personal history of other venous thrombosis and embolism; Z95.5 Presence of coronary angioplasty implant and graft
CPT/HCPCS: 36415; 80048; 80053; 81003; 83605; 85025; 85652; 86140; 87040; 94640; 96361; 96374; 96375; 99284

== ENCOUNTER 2020-10-18 14:36 | Emergency (ER) | payer MEDICARE, OTHER ==
[2020-10-18] MEDS ORDERED: SODIUM CHLORIDE 0.9% 1,000 ML IV STA (15:15)
[2020-10-18] MEDS ORDERED: METOCLOPRAMIDE 5 MG/ML 2 ML VIAL IVP STA (15:16)
[2020-10-18] MEDS ORDERED: diphenhydrAMINE 50 MG/ML 1 ML VIAL IVP STA (15:16)
--- NOTE | 2020-10-18 15:26 | ED ---
Headache HPI - General Chief Complaint: Headache Stated Complaint: Headache Time Seen by Provider: 10/18/20 14:48 Mode of arrival: wheelchair Limitations: no limitations - History of Present Illness Initial Comments: 55-year-old female with psychiatric history as well as migraines presents emergency Department with chief complaint of a migraine. States the headache is located under supervision and has been out well for approximately 2 weeks. States his blood gradual onset headache and not the worst headache of her life. Does report photosensitivity with occasional nausea but no vomiting. States for the past week she's also developed increased weakness and has suffered multiple falls due to that. Patient reports that she fell off a chair and didn't hit her head but denies any loss of consciousness. she does report blurred vision bilaterally but not at the moment. She also reports increased urgency or frequency but denies dysuria. Denies any blood thinners. Her sister is also present to answer additional questions. Patient denies any chest pain shortness of breath - Related Data Home Medications Medication Instructions Recorded Confirmed Mirtazapine [Remeron] 45 mg PO HS 04/26/17 07/02/19 Divalproex ER [Depakote ER] 1,500 mg PO HS 02/20/18 07/02/19 clonazePAM [KlonoPIN] 1 mg PO BID 02/20/18 07/02/19 Atorvastatin [Lipitor] 80 mg PO HS 08/08/18 07/02/19 Cholecalciferol [Vitamin D3 (25 5,000 unit PO DAILY 08/08/18 07/02/19 Mcg = 1000 Iu)] OLANZapine [ZyPREXA] 5 mg PO HS 08/08/18 07/02/19 Fenofibrate Nanocrystallized 48 mg PO DAILY 11/08/18 07/02/19 [Fenofibrate] Metoprolol Tartrate [Lopressor] 25 mg PO BID 12/18/18 07/02/19 Montelukast [Singulair] 10 mg PO HS 12/18/18 07/02/19 Loratadine [Claritin] 10 mg PO DAILY 01/12/19 07/02/19 Omeprazole 20 mg PO DAILY 01/12/19 07/02/19 lisinopriL [Zestril] 5 mg PO DAILY@1200 01/12/19 07/02/19 Albuterol Sulfate [Proair Hfa] 1 puff INHALATION RT-Q6H PRN 06/14/19 07/02/19 Apixaban [Eliquis Starter Pack See Taper PO DIRECTED 06/14/19 07/02/19 (for VTE)] Promethazine 6.25MG/5Ml [Phenergan 6.25 mg PO Q6H PRN 06/14/19 07/02/19 Syrup] Umeclidinium [place] [Incruse 1 puff INHALATION RT-DAILY 06/14/19 07/02/19 Ellipta] diphenhydrAMINE [Benadryl] 25 mg PO Q6H PRN 06/14/19 07/02/19 metFORMIN HCL [Glucophage] 500 mg PO BID 06/14/19 07/02/19 Previous Rx's Medication Instructions Recorded Sulfamethox-Tmp 800-160Mg [Bactrim 1 each PO Q12HR 7 Days #14 tab 07/02/19 Ds] Glimepiride [Amaryl] 2 mg PO DAILY #0 07/05/19 Nitrofurantoin Monohyd/M-Cryst 100 mg PO Q12HR #14 cap 10/18/20 [Macrobid] Allergies Allergy/AdvReac Type Severity Reaction Status Date / Time No Known Allergies Allergy Verified 10/18/20 14:38 Review of Systems ROS Statement: Those systems with pertinent positive or pertinent negative responses have been documented in the HPI. ROS Other: All systems not noted in ROS Statement are negative. Past Medical History Past Medical History: Coronary Artery Disease (CAD), COPD, Diabetes Mellitus, GERD/Reflux, Hypertension, Myocardial Infarction ([place]), Sleep Apnea/CPAP/BIPAP, Vascular Disorder Additional Past Medical History / Comment(s): weight loss of 20 plus pounds w/in 2 mos,stent 2009 2010,stent left leg 2017,no cpap, DVT to left leg. Last Myocardial Infarction Date:: 2010 History of Any Multi-Drug Resistant Organisms: None Reported Past Surgical History: Heart Catheterization With Stent Additional Past Surgical History / Comment(s): stent in leg also from dvt Past Anesthesia/Blood Transfusion Reactions: No Reported Reaction Date of Last Stent Placement:: 2010 Past Psychological History: Depression, PTSD Smoking Status: Current every day smoker Past Alcohol Use History: None Reported Past Drug Use History: None Reported - Past Family History Mother Family Medical History: COPD, Coronary Artery Disease (CAD) Father History Unknown: Yes General Exam Limitations: no limitations General appearance: alert, in no apparent distress, obese Head exam: Present: atraumatic, normocephalic, normal inspection Eye exam: Present: normal appearance, PERRL, EOMI Pupils: Present: normal accommodation ENT exam: Present: normal exam, normal oropharynx, mucous membranes moist Neck exam: Present: normal inspection, full ROM. Absent: tenderness Respiratory exam: Present: normal lung sounds bilaterally. Absent: respiratory distress Cardiovascular Exam: Present: regular rate, normal rhythm, normal heart sounds GI/Abdominal exam: Present: soft. Absent: distended, tenderness, guarding Extremities exam: Present: normal inspection, full ROM, normal capillary refill, other (+2 ulnar and radial pulses bilateral. Palpable DP and PT bilaterally.). Absent: tenderness, pedal edema, joint swelling, calf tenderness Back exam: Present: normal inspection, full ROM. Absent: tenderness, CVA tenderness (R), CVA tenderness (L) Neurological exam: Present: alert, oriented X3, CN II-XII intact, normal gait Expanded Patient oriented to: Present: person, place, time Speech: Present: fluid speech Cranial nerves: EOM's Intact: Normal, Tongue Deviation: Normal, Nystagmus: Normal, Facial Sensation: Normal Cerebellar function: Finger to Nose: Normal Upper motor neuron: Pronator Drift: Normal Sensory exam: Upper Extremity Light Touch: Normal, UE 2 Point Discrimination: Normal, Lower Extremity Light Touch: Normal, LE 2 Point Discrimination: Normal Motor strength exam: RUE: 5, LUE: 5, RLE: 5, LLE: 5 DTR: Bicep (R): 4+, Bicep (L): 4+, Brachioradialis (R): 4+, Brachioradialis (L): 4+, Tricep (R): 4+, Tricep (L): 4+, Patellar (R): 4+, Patellar (L): 4+, Achilles Tendon (R): 4+, Achilles Tendon (L): 4+ Psychiatric exam: Present: normal mood, flat affect Skin exam: Present: warm, dry, intact, normal color Course Vital Signs 10/18/20 10/18/20 10/18/20 14:39 15:45 15:46 Temperature 98 F Pulse Rate 113 H 66 Respiratory 20 Rate Blood Pressure 172/79 180/97 O2 Sat by Pulse 96 98 Oximetry 10/18/20 10/18/20 16:30 18:15 Temperature 98.0 F Pulse Rate 65 64 Respiratory 18 18 Rate Blood Pressure 163/75 158/72 O2 Sat by Pulse 98 98 Oximetry Medical Decision Making - Medical Decision Making 55-year-old female with history of migraine headaches presents to emergency department with a chief complaint of a migraine headache. on physical examination, patient appears to be resting comfortably in bed. she did have photosensitivity. Neurological examination is unremarkable. Patient does have a slight tremor in the face at baseline according to her sister. Depakote levels are within normal limits.CBC is unremarkable. Coags within normal limits. CMP reveals slight elevation in BUN and creatinine. Patient was given Reglan, Benadryl, Toradol and IV fluids. On reevaluation, patient reports improvement in his symptoms. UA did reveal signs of urinary tract infection with elevated leukocyte esterase and white blood cells. Urine culture pending. Patient will be started on Macrobid. CT of the brain and C-spine obtained shows no acute findings aside from increasing thickening of the frontal skull. patient will follow-up with the primary care physician. Strict return parameters were thoroughly discussed with patient and the sister who are understanding and agreeable. Case discussed with - Lab Data Result diagrams: 10/18/20 15:26 10/18/20 15:26 Lab Results 10/18/20 10/18/20 10/18/20 Range/Units 15:26 15:26 15:26 WBC 7.1 (3.8-10.6) k/uL RBC 4.99 (3.80-5.40) m/uL Hgb 14.7 (11.4-16.0) gm/dL Hct 44.8 (34.0-46.0) % MCV 89.7 (80.0-100.0) fL MCH 29.5 (25.0-35.0) pg MCHC 32.9 (31.0-37.0) g/dL RDW 15.1 (11.5-15.5) % Plt Count 176 (150-450) k/uL MPV 7.7 Neutrophils % 49 % Lymphocytes % 40 % Monocytes % 6 % Eosinophils % 2 % Basophils % 1 % Neutrophils # 3.5 (1.3-7.7) k/uL Lymphocytes # 2.8 (1.0-4.8) k/uL Monocytes # 0.4 (0-1.0) k/uL Eosinophils # 0.2 (0-0.7) k/uL Basophils # 0.1 (0-0.2) k/uL PT 10.2 (9.0-12.0) sec INR 0.9 (<1.2) APTT 21.2 L (22.0-30.0) sec Sodium (137-145) mmol/L Potassium (3.5-5.1) mmol/L Chloride (98-107) mmol/L Carbon Dioxide (22-30) mmol/L Anion Gap mmol/L BUN (7-17) mg/dL Creatinine (0.52-1.04) mg/dL Est GFR (CKD-EPI)AfAm (>60 ml/min/1.73 sqM) Est GFR (CKD-EPI)NonAf (>60 ml/min/1.73 sqM) Glucose (74-99) mg/dL Calcium (8.4-10.2) mg/dL Magnesium (1.6-2.3) mg/dL Total Bilirubin (0.2-1.3) mg/dL AST (14-36) U/L ALT (4-34) U/L Alkaline Phosphatase (38-126) U/L Troponin I (0.000-0.034) ng/mL Total Protein (6.3-8.2) g/dL Albumin (3.5-5.0) g/dL Urine Color Yellow Urine Appearance Clear (Clear) Urine pH 6.5 (5.0-8.0) Ur Specific [place] 1.017 (1.001-1.035) Urine Protein Negative (Negative) Urine Glucose (UA) Negative (Negative) Urine Ketones Negative (Negative) Urine Blood Negative (Negative) Urine Nitrite Negative (Negative) Urine Bilirubin Negative (Negative) Urine Urobilinogen 2.0 (<2.0) mg/dL Ur Leukocyte Esterase Large H (Negative) Urine RBC 1 (0-5) /hpf Urine WBC 39 H (0-5) /hpf Ur Squamous Epith Cells 2 (0-4) /hpf Urine Bacteria Occasional H (None) /hpf Urine Mucus Rare H (None) /hpf Valproic Acid ug/mL 02/20/21 02/20/21 Range/Units 15:26 15:26 WBC (3.8-10.6) k/uL RBC (3.80-5.40) m/uL Hgb (11.4-16.0) gm/dL Hct (34.0-46.0) % MCV (80.0-100.0) fL MCH (25.0-35.0) pg MCHC (31.0-37.0) g/dL RDW (11.5-15.5) % Plt Count (150-450) k/uL MPV Neutrophils % % Lymphocytes % % Monocytes % % Eosinophils % % Basophils % % Neutrophils # (1.3-7.7) k/uL Lymphocytes # (1.0-4.8) k/uL Monocytes # (0-1.0) k/uL Eosinophils # (0-0.7) k/uL Basophils # (0-0.2) k/uL PT (9.0-12.0) sec INR (<1.2) APTT (22.0-30.0) sec Sodium 142 (137-145) mmol/L Potassium 5.1 (3.5-5.1) mmol/L Chloride 107 (98-107) mmol/L Carbon Dioxide 28 (22-30) mmol/L Anion Gap 7 mmol/L BUN 21 H (7-17) mg/dL Creatinine 1.09 H (0.52-1.04) mg/dL Est GFR (CKD-EPI)AfAm 67 (>60 ml/min/1.73 sqM) Est GFR (CKD-EPI)NonAf 58 (>60 ml/min/1.73 sqM) Glucose 60 L (74-99) mg/dL Calcium 10.5 H (8.4-10.2) mg/dL Magnesium 2.1 (1.6-2.3) mg/dL Total Bilirubin 0.6 (0.2-1.3) mg/dL AST 25 (14-36) U/L ALT 20 (4-34) U/L Alkaline Phosphatase 55 (38-126) U/L Troponin I <0.012 (0.000-0.034) ng/mL Total Protein 6.6 (6.3-8.2) g/dL Albumin 3.9 (3.5-5.0) g/dL Urine Color Urine Appearance (Clear) Urine pH (5.0-8.0) Ur Specific [place] (1.001-1.035) Urine Protein (Negative) Urine Glucose (UA) (Negative) Urine Ketones (Negative) Urine Blood (Negative) Urine Nitrite (Negative) Urine Bilirubin (Negative) Urine Urobilinogen (<2.0) mg/dL Ur Leukocyte Esterase (Negative) Urine RBC (0-5) /hpf Urine WBC (0-5) /hpf Ur Squamous Epith Cells (0-4) /hpf Urine Bacteria (None) /hpf Urine Mucus (None) /hpf Valproic Acid 15.7 ug/mL - EKG Data EKG Comments: sinus rhythm no ST-T wave changes next, ventricular rate 68, ND 152, QRS 80, QTC 404. Disposition Clinical Impression: Headache, Urinary tract infection Disposition: HOME SELF-CARE Condition: Stable Instructions (If sedation given, give patient instructions): Acute Headache (ED) Additional Instructions: take medication as directed. Follow-up with your primary care physician. Return to emergency department if symptoms worsen. Prescriptions: Nitrofurantoin Monohyd/M-Cryst [Macrobid] 100 mg PO Q12HR #14 cap Is patient prescribed a controlled substance at d/c from ED?: No Referrals: None,Stated [Primary Care Provider] - 1-2 days Time of Disposition: 17:34
[2020-10-18 15:45] LABS: Basophils # (A) 0.1 k/uL (0-0.2); Basophils % (A) 1 %; Eosinophils # (A) 0.2 k/uL (0-0.7); Eosinophils % (A) 2 %; HCT 44.8 % (34.0-46.0); HGB 14.7 gm/dL (11.4-16.0); Lymphocytes # (A) 2.8 k/uL (1.0-4.8); Lymphocytes % (A) 40 %; MCH 29.5 pg (25.0-35.0); MCHC 32.9 g/dL (31.0-37.0); MCV 89.7 fL (80.0-100.0); Mean Platelet Volume 7.7; Monocytes # (A) 0.4 k/uL (0-1.0); Monocytes % (A) 6 %; Neutrophils # (A) 3.5 k/uL (1.3-7.7); Neutrophils % (A) 49 %; Platelet Count 176 k/uL (150-450); RBC 4.99 m/uL (3.80-5.40); RDW 15.1 % (11.5-15.5); WBC 7.1 k/uL (3.8-10.6)
[2020-10-18 15:54] LABS: Albumin 3.9 g/dL (3.5-5.0); Calcium 10.5 mg/dL (8.4-10.2); Magnesium 2.1 mg/dL (1.6-2.3); Potassium 5.1 mmol/L (3.5-5.1); Total Bilirubin 0.6 mg/dL (0.2-1.3); Total Protein 6.6 g/dL (6.3-8.2)
[2020-10-18 16:00] LABS: Valproic Acid (Depakene) 15.7 ug/mL
[2020-10-18 16:01] LABS: INR 0.9 (<1.2); Prothrombin Time 10.2 sec (9.0-12.0)
[2020-10-18 16:09] LABS: Appearance,Urine Clear (Clear); Bacteria,Urine Occasional /hpf; Bilirubin,Urine Negative (Negative); Blood,Urine Negative (Negative); Color,Urine Yellow; Glucose,Urine (UA) Negative (Negative); Ketones,Urine Negative (Negative); Leukocyte Esterase,Urine Large (Negative); Mucus,Urine Rare /hpf; Nitrite,Urine Negative (Negative); PH, Urine 6.5 (5.0-8.0); Protein,Urine Negative (Negative); RBC,Urine 1 /hpf (0-5); Specific Gravity,Urine 1.017 (1.001-1.035); Squamous Epithelial Cell,Urine 2 /hpf (0-4); WBC,Urine 39 /hpf (0-5)
[2020-10-18 16:10] LABS: Partial Thromboplastin Time 21.2 sec (22.0-30.0)
--- NOTE | 2020-10-18 16:23 | CT ---
EXAMINATION TYPE: CT brain cspine wo con DATE OF EXAM: 10/18/2020 COMPARISON: 09/13/2011 HISTORY: Fall injury CT DLP: 1529.9 mGycm Automated exposure control for dose reduction was used. Ventricles have normal size. There is no mass effect nor midline shift. There is no sign of intracran ial hemorrhage. There is hyperostosis frontalis. The calvarium is intact. Occipital bone is intact. There is normal aeration of the mastoid sinuses. There is mild straightening of the cervical spine. There is posterior endplate spur formation at C7-T 1 with minimal encroachment on the spinal canal. The facet joints are intact. There is no compression fracture. I see no focal bone destruction. IMPRESSION: Negative CT scan of the brain. Hyperostosis frontalis which has progressed compared to old exam. Spondylotic changes in the lower cervical spine. No fracture.
[2020-10-18] MEDS ORDERED: KETOROLAC 15 MG/ML 1 ML VIAL IVP STA (16:25)
[2020-10-18] MEDS ORDERED: NITROFURANTOIN MONOHYD/M-CRYST 100 MG CAP PO STA (16:26)
[2020-10-18 16:35] VITALS: RESP 18
[2020-10-18 18:18] VITALS: BP 158/72; PULSE 64; TEMP 98
== END 2020-10-18 18:19 | disposition home or self-care (01) ==
LOC: EC 14:36
DX: N39.0 Urinary tract infection, site not specified (principal); R51.9 Headache, unspecified; R79.89 Other specified abnormal findings of blood chemistry; M89.8X8 Other specified disorders of bone, other site; I10 Essential (primary) hypertension; J44.9 Chronic obstructive pulmonary disease, unspecified; E11.9 Type 2 diabetes mellitus without complications; K21.9 Gastro-esophageal reflux disease without esophagitis; I25.10 Atherosclerotic heart disease of native coronary artery without angina pectoris; G47.30 Sleep apnea, unspecified; F32.9 Major depressive disorder, single episode, unspecified; I25.2 Old myocardial infarction; F17.200 Nicotine dependence, unspecified, uncomplicated; Z79.01 Long term (current) use of anticoagulants; Z79.84 Long term (current) use of oral hypoglycemic drugs; Z79.899 Other long term (current) drug therapy; Z99.89 Dependence on other enabling machines and devices; Z86.718 Personal history of other venous thrombosis and embolism
CPT/HCPCS: 36415; 70450; 72125; 80053; 80164; 81001; 83735; 84484; 85025; 85610; 85730; 87086; 93005; 96361; 96374; 96375; 99284

== ENCOUNTER 2020-12-13 12:37 | Emergency (ER) | payer MEDICARE, OTHER ==
[2020-12-13] MEDS ORDERED: SODIUM CHLORIDE 0.9% 500 ML 500 ML IV ONE (12:57)
[2020-12-13] MEDS ORDERED: KETOROLAC 15 MG/ML 1 ML VIAL IVP STA (12:59)
[2020-12-13] MEDS ORDERED: ACETAMINOPHEN TAB 325 MG TAB PO STA (13:00)
--- NOTE | 2020-12-13 13:08 | ED ---
General Adult HPI - General Chief complaint: Fall Stated complaint: Fall Time Seen by Provider: 12/13/20 12:42 Source: patient, EMS, RN notes reviewed Mode of arrival: EMS Limitations: no limitations - History of Present Illness Initial comments: 55-year-old white female patient alert and oriented 4, presents to the emergency room after falling in the parking lot while walking into the [employer] today. Patient states that she felt the shooting pain down her right buttock into her leg and a muscle spasm which caused her to fall. Patient states does not use a walker ambulates with a steady gait normally. Patient denies hitting her head, denies loss of consciousness. States has had sciatica in the past but has not received treatment. Patient states that was at her primary care doctor's office 2 days ago but cannot recall her doctor's name. Patient was told the doctor about the muscle spasms at that time and was given a prescription to have a test done but she does not know the name of the test. Patient endorses a history of coronary artery disease, [id number] diabetes, hypertension, GERD, DVT of left leg with surgical intervention. Patient admits to being a half a pack a day smoker for the past 35 years. Patient also has bilateral upper extremity tremors at rest that she says has been chronic. Patient has no pain at this time. -: hour(s) (less than 2 hours BAR STAFF) Location: back Radiation: extremity Quality: other (shooting) Improves with: rest Worsens with: movement Associated Symptoms: denies other symptoms Treatments Prior to Arrival: none - Related Data Home Medications Medication Instructions Recorded Confirmed Mirtazapine [Remeron] 45 mg PO HS 04/26/17 07/02/19 Divalproex ER [Depakote ER] 1,500 mg PO HS 02/20/18 07/02/19 clonazePAM [KlonoPIN] 1 mg PO BID 02/20/18 07/02/19 Atorvastatin [Lipitor] 80 mg PO HS 08/08/18 07/02/19 Cholecalciferol [Vitamin D3 (25 5,000 unit PO DAILY 08/08/18 07/02/19 Mcg = 1000 Iu)] OLANZapine [ZyPREXA] 5 mg PO HS 08/08/18 07/02/19 Fenofibrate Nanocrystallized 48 mg PO DAILY 11/08/18 07/02/19 [Fenofibrate] Metoprolol Tartrate [Lopressor] 25 mg PO BID 12/18/18 07/02/19 Montelukast [Singulair] 10 mg PO HS 12/18/18 07/02/19 Loratadine [Claritin] 10 mg PO DAILY 01/12/19 07/02/19 Omeprazole 20 mg PO DAILY 01/12/19 07/02/19 lisinopriL [Zestril] 5 mg PO DAILY@1200 01/12/19 07/02/19 Albuterol Sulfate [Proair Hfa] 1 puff INHALATION RT-Q6H PRN 06/14/19 07/02/19 Apixaban [Eliquis Starter Pack See Taper PO DIRECTED 06/14/19 07/02/19 (for VTE)] Promethazine 6.25MG/5Ml [Phenergan 6.25 mg PO Q6H PRN 06/14/19 07/02/19 Syrup] Umeclidinium Jacob [Incruse 1 puff INHALATION RT-DAILY 06/14/19 07/02/19 Ellipta] diphenhydrAMINE [Benadryl] 25 mg PO Q6H PRN 06/14/19 07/02/19 metFORMIN HCL [Glucophage] 500 mg PO BID 06/14/19 07/02/19 Previous Rx's Medication Instructions Recorded Sulfamethox-Tmp 800-160Mg [Bactrim 1 each PO Q12HR 7 Days #14 tab 07/02/19 Ds] Glimepiride [Amaryl] 2 mg PO DAILY #0 07/05/19 Nitrofurantoin Monohyd/M-Cryst 100 mg PO Q12HR #14 cap 10/18/20 [Macrobid] Allergies Allergy/AdvReac Type Severity Reaction Status Date / Time No Known Allergies Allergy Verified 10/18/20 14:38 Review of Systems ROS Statement: Those systems with pertinent positive or pertinent negative responses have been documented in the HPI. ROS Other: All systems not noted in ROS Statement are negative. Past Medical History Past Medical History: Coronary Artery Disease (CAD), COPD, Diabetes Mellitus, GERD/Reflux, Hypertension, Myocardial Infarction ([place]), Sleep Apnea/CPAP/BIPAP, Vascular Disorder Additional Past Medical History / Comment(s): weight loss of 20 plus pounds w/in 2 mos,stent 2009 2010,stent left leg 2017,no cpap, DVT to left leg. Last Myocardial Infarction Date:: 2010 History of Any Multi-Drug Resistant Organisms: None Reported Past Surgical History: Heart Catheterization With Stent Additional Past Surgical History / Comment(s): stent in leg also from dvt Past Anesthesia/Blood Transfusion Reactions: No Reported Reaction Date of Last Stent Placement:: 2010 Past Psychological History: Depression, PTSD Smoking Status: Current every day smoker Past Alcohol Use History: None Reported Past Drug Use History: None Reported - Past Family History Mother Family Medical History: COPD, Coronary Artery Disease (CAD) Father History Unknown: Yes General Exam Limitations: no limitations General appearance: alert, in no apparent distress Head exam: Present: atraumatic, normocephalic, normal inspection Eye exam: Present: normal appearance, PERRL, EOMI. Absent: scleral icterus, conjunctival injection, periorbital swelling, periorbital tenderness Neck exam: Present: normal inspection, tenderness (c-spine). Absent: meningismus, lymphadenopathy Respiratory exam: Present: rales (b/l bases) Cardiovascular Exam: Present: regular rate. Absent: clicks GI/Abdominal exam: Present: soft, normal bowel sounds. Absent: distended, tenderness, guarding, rebound, rigid Rectal exam: Present: deferred Extremities exam: Present: full ROM, normal capillary refill. Absent: tenderness, pedal edema, joint swelling (abrasion to right knee, surgical scars x2 to left lower leg, healing abrasions to left mid lower leg) Back exam: Present: normal inspection, full ROM. Absent: tenderness, CVA tenderness (R), CVA tenderness (L) Neurological exam: Present: alert, oriented X3, CN II-XII intact Psychiatric exam: Present: normal affect, normal mood Skin exam: Present: warm, dry, intact, normal color. Absent: rash Course Vital Signs 12/13/20 12/13/20 12/13/20 12:42 14:13 15:52 Temperature 100.2 F H 99.3 F 98.5 F Pulse Rate 83 84 78 Respiratory 22 16 16 Rate Blood Pressure 154/78 121/67 101/65 O2 Sat by Pulse 90 L 96 95 Oximetry - Reevaluation(s) Reevaluation #1: 12/13/20 14:29 Serum glucose found to be 66, patient given orange juice. Time: 14:29 Medical Decision Making - Medical Decision Making Patient's episode of weakness and fall likely related to her blood glucose level of 66. Other labs are unchanged from previous. Creatinine slightly elevated at 1.26, last year was 1.09. Chest x-ray shows no acute infiltrates, no effusions, no pneumothorax, heart within normal limits. C-spine shows no fracture. Patient is a half pack a day smoker for the past 35 years oxygen saturation at discharge is 94% on room air. Patient was offered monoclonal antibodies infusion for positive Covid test and denied after speaking with her sister. Patient is also scheduled for an EMG for weakness in her bilateral legs and is being managed for this by her primary care doctor. Patient agreeable to going home and following up with her primary care doctor. Case discussed with Dr. Corado was also agreeable with this plan. - Lab Data Result diagrams: 12/13/20 13:30 12/13/20 13:30 Lab Results 12/13/20 12/13/20 12/13/20 Range/Units 13:30 13:30 14:36 WBC 6.5 (3.8-10.6) k/uL RBC 3.92 (3.80-5.40) m/uL Hgb 12.2 (11.4-16.0) gm/dL Hct 34.8 (34.0-46.0) % MCV 88.8 (80.0-100.0) fL MCH 31.1 (25.0-35.0) pg MCHC 35.0 (31.0-37.0) g/dL RDW 15.9 H (11.5-15.5) % Plt Count 161 (150-450) k/uL MPV 8.4 Neutrophils % 59 % Lymphocytes % 34 % Monocytes % 5 % Eosinophils % 1 % Basophils % 1 % Neutrophils # 3.8 (1.3-7.7) k/uL Lymphocytes # 2.2 (1.0-4.8) k/uL Monocytes # 0.3 (0-1.0) k/uL Eosinophils # 0.0 (0-0.7) k/uL Basophils # 0.0 (0-0.2) k/uL Sodium 134 L (137-145) mmol/L Potassium 4.3 (3.5-5.1) mmol/L Chloride 104 (98-107) mmol/L Carbon Dioxide 25 (22-30) mmol/L Anion Gap 5 mmol/L BUN 27 H (7-17) mg/dL Creatinine 1.26 H (0.52-1.04) mg/dL Est GFR (CKD-EPI)AfAm 56 (>60 ml/min/1.73 sqM) Est GFR (CKD-EPI)NonAf 49 (>60 ml/min/1.73 sqM) Glucose 66 L (74-99) mg/dL Calcium 9.0 (8.4-10.2) mg/dL Total Bilirubin 0.9 (0.2-1.3) mg/dL AST 79 H (14-36) U/L ALT 64 H (4-34) U/L Alkaline Phosphatase 49 (38-126) U/L Total Protein 5.5 L (6.3-8.2) g/dL Albumin 3.1 L (3.5-5.0) g/dL Coronavirus (PCR) Detected A (Not Detectd) Disposition Clinical Impression: COVID-19, Hypoglycemia, Sciatica Disposition: HOME SELF-CARE Condition: Fair Instructions (If sedation given, give patient instructions): Fall Prevention (ED), Coronavirus Disease 2019 (COVID-19), Hypoglycemia in a Person with Diabetes (ED), Sciatica (ED), Lower Back Exercises (ED) Is patient prescribed a controlled substance at d/c from ED?: No Referrals: None,Stated [Primary Care Provider] - 1-2 days Time of Disposition: 16:42
[2020-12-13 13:47] LABS: Basophils % (A) 1 %; Eosinophils % (A) 1 %; HCT 34.8 % (34.0-46.0); HGB 12.2 gm/dL (11.4-16.0); Lymphocytes # (A) 2.2 k/uL (1.0-4.8); Lymphocytes % (A) 34 %; MCH 31.1 pg (25.0-35.0); MCV 88.8 fL (80.0-100.0); Mean Platelet Volume 8.4; Monocytes # (A) 0.3 k/uL (0-1.0); Monocytes % (A) 5 %; Neutrophils # (A) 3.8 k/uL (1.3-7.7); Neutrophils % (A) 59 %; Platelet Count 161 k/uL (150-450); RBC 3.92 m/uL (3.80-5.40); RDW 15.9 % (11.5-15.5); WBC 6.5 k/uL (3.8-10.6)
--- NOTE | 2020-12-13 13:55 | XR ---
EXAMINATION TYPE: XR chest 2V DATE OF EXAM: 12/13/2020 COMPARISON: Chest x-ray and CT chest June 14, 2019 HISTORY: Fever. TECHNIQUE: Frontal and lateral views of the chest are obtained. FINDINGS: There is mild chronic parenchymal changes bilaterally without suspicious focal air space o pacity, pleural effusion, or pneumothorax seen. The cardiac silhouette size remains within normal li mits. The osseous structures are intact. IMPRESSION: No acute cardiopulmonary process. No significant change from prior studies.
[2020-12-13 13:56] LABS: Albumin 3.1 g/dL (3.5-5.0); Potassium 4.3 mmol/L (3.5-5.1); Total Bilirubin 0.9 mg/dL (0.2-1.3); Total Protein 5.5 g/dL (6.3-8.2)
--- NOTE | 2020-12-13 13:57 | XR ---
EXAMINATION TYPE: XR cervical spine comp DATE OF EXAM: 12/13/2020 TECHNIQUE: Frontal, lateral, oblique, and open mouth view of the cervical spine are obtained. HISTORY: fall pain after fall injury. COMPARISON: CT cervical spine October 18, 2020 FINDINGS: The cervical spine is visualized from C1 thru the mid C7 level, visualized portion shows s table and satisfactory in alignment without evidence of acute fracture or dislocation. The pre-verte bral soft tissue appears within normal limits. The C1-C2 articulation is within normal limits on the open mouth view. Vertebral body heights are maintained. Persistent mild to moderate disc space narr owing and mild anterior spurring C6-C7 level. Suboptimal evaluation of C7 vertebra and C7-T1 disc spa ce without dedicated swimmer's view The oblique images are within normal limits. Overlying soft tissu e is unremarkable. IMPRESSION: As above.
[2020-12-13 14:13] VITALS: RESP 16
[2020-12-13] MEDS ORDERED: SODIUM CHLORIDE 0.9% 50 ML IVPB ONE (15:45)
[2020-12-13 15:53] VITALS: BP 101/65; PULSE 78; TEMP 98.5
[2020-12-13] MEDS ORDERED: BAMLANIVIMAB (EUA) 700 MG, ETESEVIMAB (EUA) 1,400 MG in SODIUM CHLORIDE 0.9% 50 ML IVPB ONE (16:15)
== END 2020-12-13 16:50 | disposition home or self-care (01) ==
LOC: EC 12:37
DX: U07.1 COVID-19 (principal); E11.649 Type 2 diabetes mellitus with hypoglycemia without coma; M54.30 Sciatica, unspecified side; S80.211A Abrasion, right knee, initial encounter; S80.812D Abrasion, left lower leg, subsequent encounter; R25.1 Tremor, unspecified; I25.10 Atherosclerotic heart disease of native coronary artery without angina pectoris; J44.9 Chronic obstructive pulmonary disease, unspecified; I25.2 Old myocardial infarction; G47.30 Sleep apnea, unspecified; K21.9 Gastro-esophageal reflux disease without esophagitis; I10 Essential (primary) hypertension; F17.200 Nicotine dependence, unspecified, uncomplicated; F32.9 Major depressive disorder, single episode, unspecified; Z79.84 Long term (current) use of oral hypoglycemic drugs; Z86.718 Personal history of other venous thrombosis and embolism; Z79.01 Long term (current) use of anticoagulants; Z79.899 Other long term (current) drug therapy; W18.30XA Fall on same level, unspecified, initial encounter; Y93.01 Activity, walking, marching and hiking
CPT/HCPCS: 36415; 80053; 85025; 87635; 72050; 71046; 99284; 96374; 96361; J1885

== ENCOUNTER → 2020-12-22 | Outpatient (CLI) | payer MEDICARE, OTHER ==
--- NOTE | 2020-12-22 11:31 | CT ---
EXAMINATION TYPE: CT angio abd aorta w/Runoff DATE OF EXAM: 12/22/2020 HISTORY: embolism and thrombosis of iliac artery CT DLP: 1182.80mGycm Automated Exposure Control for Dose Reduction was Utilized. CONTRAST: CTA scan of the abdomen and pelvis is performed without oral but with IV Contrast, patient injected w ith 100ml mL of Isovue 370. Three-D reconstructed images are created on a independent workstation and reviewed. COMPARISON: CT abdomen and pelvis July 07, 2018 FINDINGS: VASCULAR: There is marked narrowing of the celiac artery at its origin, low lying median arcuate liga ment is present for reference image 61 series 11. Patent SMA without significant plaque or stenosis. Patent bilateral single renal arteries without significant plaque or stenosis. Beginning in the infrarenal aorta there is fairly severe predominantly noncalcified plaque causing ev entual complete occlusion shortly after origin of an accessory lower pole right renal artery and domínguez nt RAFA. Complete occlusion occurs over approximately 3 cm segment into the common iliac bifurcation. There is left-sided stent graft noted. There is severe calcified plaque in the common iliac arteries bilaterally. There is some reconstitution on the right in the mid to distal common iliac artery. Ther e is completely occluded graft on the left along with completely occluded left external iliac artery. Some reconstitution distally right before groin or femoral region. The right side shows small calibe r right common iliac artery with moderate to severe mixed plaque causing significant stenosis at minoo ral points. Surgical change left groin region. There is patent common femoral artery branching into superficial a nd deep femoral branches. There is no significant plaque or stenosis in the left superficial femoral artery into the popliteal artery. There is good bifurcation and subsequent trifurcation. Right side shows satisfactory flow at common femoral artery and branching. There is no significant pl aque or stenosis in the superficial femoral and popliteal arteries in the right lower extremity. Ther e is good bifurcation and subsequent trifurcation. There is poor three-vessel flow proximal to mid left leg versus right leg and portable vessel flow le ft leg versus right leg distal aspect. Satisfactory 3 and 2 vessel flow right leg noted to level of a nkle joint on the right. LUNG BASES: Tiny left pleural effusion. New posterior consolidation and/or atelectasis. More suspicio us new 1.2 cm nodule or nodular consolidation in the left mid to lower lung laterally axial image 5 t owards follow-up. Additional scattered anterior medial atelectasis and/or consolidation. LIVER/GB: Contracted gallbladder. Liver remains diffusely low dense consistent with diffuse fatty inf iltration PANCREAS: No significant abnormality is seen. SPLEEN: No significant abnormality is seen. ADRENALS: Stable small 1.8 x 1.3 cm left adrenal mass axial image 55. KIDNEYS: No significant abnormality is seen. BOWEL: The stomach is poorly distended. No suspicious small or large bowel dilatation UTERUS/ADNEXA: No gross abnormality seen. LYMPH NODES: No greater than 1cm abdominal or pelvic lymph nodes are appreciated. OSSEOUS STRUCTURES: Mild multilevel spurring in the spine is present. Lower extremities: Mild narrowing medial tibiofemoral compartment in both knees. Scarring or chronic ulcer anteromedial left mid leg axial image 341 incidentally noted. OTHER: No significant additional abnormality is seen. IMPRESSION: 1. 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 2. Marked plaque progression from 2018 study. Complete occlusion of the distal abdominal aorta and bi lateral common iliac artery branches. Completely occluded left iliac arterial stent graft into the na tive left external iliac artery. Bilateral reconstitution is seen. Diminished 3 and 2 vessel distal f low on the left leg versus right leg may be on basis of pelvic atherosclerotic change.
== END | disposition home or self-care (01) ==
LOC: RADCTMAIN 12-18 09:30
PROVIDERS: ATTEND Surgery
DX: I74.5 Embolism and thrombosis of iliac artery (principal); I74.09 Other arterial embolism and thrombosis of abdominal aorta; I77.4 Celiac artery compression syndrome
CPT/HCPCS: 82565 ×2; 84520 ×2; 75635; 36415; Q9967

== ENCOUNTER → 2020-12-30 | Outpatient (CLI) | payer MEDICARE, OTHER ==
--- NOTE | 2020-12-30 08:29 | CT ---
EXAMINATION TYPE: CT brain wo/w con DATE OF EXAM: 12/30/2020 COMPARISON: 10/18/2020 HISTORY: visual field defect CT DLP: 1922.0mGycm CONTRAST: CT scan of the head is performed without and with IV Contrast, patient injected with 80ml mL of Isovu e 300. Unenhanced followed by contrast enhanced CT of the brain is submitted for evaluation. The ventricles are midline. There is no evidence for intracranial hemorrhage or extra-axial collection. No mass e ffects are identified. Visualized bony calvarium is intact. Contrast is administered and no enhanci ng lesions are detected. No pathologic enhancement is identified. If symptoms persist consider MRI. IMPRESSION: No significant abnormalities appreciated.
== END | disposition home or self-care (01) ==
LOC: RADCTMAIN 07:07
PROVIDERS: ATTEND Ophthalmology
DX: H53.40 Unspecified visual field defects (principal)
CPT/HCPCS: 82565; 84520; 70470; 36415; Q9967

== ENCOUNTER → 2021-03-02 | Outpatient (CLI) | payer MEDICARE, OTHER ==
[2021-03-02 12:11] LABS: Basophils # (A) 0.1 k/uL (0-0.2); Basophils % (A) 1 %; Eosinophils # (A) 0.2 k/uL (0-0.7); Eosinophils % (A) 2 %; HCT 42.1 % (34.0-46.0); HGB 13.8 gm/dL (11.4-16.0); Lymphocytes # (A) 3.6 k/uL (1.0-4.8); Lymphocytes % (A) 43 %; MCH 30.2 pg (25.0-35.0); MCHC 32.9 g/dL (31.0-37.0); MCV 92.1 fL (80.0-100.0); Mean Platelet Volume 8.4; Monocytes # (A) 0.4 k/uL (0-1.0); Monocytes % (A) 4 %; Neutrophils # (A) 4.2 k/uL (1.3-7.7); Neutrophils % (A) 49 %; Platelet Count 212 k/uL (150-450); RBC 4.57 m/uL (3.80-5.40); RDW 15.4 % (11.5-15.5); WBC 8.5 k/uL (3.8-10.6)
[2021-03-02 12:28] LABS: Potassium 4.8 mmol/L (3.5-5.1)
== END | disposition home or self-care (01) ==
LOC: LABPAT 11:52
PROVIDERS: ATTEND Internal Medicine Clinical Cardiac Electrophysiology
DX: Z01.812 Encounter for preprocedural laboratory examination (principal); I74.5 Embolism and thrombosis of iliac artery
CPT/HCPCS: 36415; 80051; 82565; 84520; 85025; 86850; 86900; 86901

== ENCOUNTER → 2021-03-31 | Outpatient (CLI) | payer MEDICARE, OTHER ==
[2021-03-31 15:01] LABS: Basophils # (A) 0.1 k/uL (0-0.2); Basophils % (A) 1 %; Eosinophils # (A) 0.1 k/uL (0-0.7); Eosinophils % (A) 1 %; HCT 44.9 % (34.0-46.0); HGB 14.4 gm/dL (11.4-16.0); Lymphocytes % (A) 40 %; MCH 30.3 pg (25.0-35.0); MCHC 32.1 g/dL (31.0-37.0); MCV 94.6 fL (80.0-100.0); Mean Platelet Volume 8.3; Monocytes # (A) 0.4 k/uL (0-1.0); Monocytes % (A) 4 %; Neutrophils # (A) 5.2 k/uL (1.3-7.7); Neutrophils % (A) 52 %; Platelet Count 239 k/uL (150-450); RBC 4.74 m/uL (3.80-5.40); RDW 15.3 % (11.5-15.5)
[2021-03-31 15:09] LABS: Potassium 4.5 mmol/L (3.5-5.1)
== END | disposition home or self-care (01) ==
LOC: LABPAT 14:24
PROVIDERS: ATTEND Surgery
DX: Z01.812 Encounter for preprocedural laboratory examination (principal); I74.5 Embolism and thrombosis of iliac artery
CPT/HCPCS: 36415; 80051; 82565; 84520; 85025; 86850; 86900; 86901

== ENCOUNTER 2021-04-10 08:58 | Inpatient (IN) | payer MEDICARE, OTHER ==
[2021-04-08 16:20] VITALS: BMI 33.3
[~2021-04-10 08:58] MED LIST changes: -DEXAMETHASONE SOD PHOSPHATE 10 MG/ML 1 ML VIAL IV ONE; +HYDROmorphone 0.5 MG/0.5 ML SYRINGE IVP PRN; -LACTATED RINGERS 1,000 ML IV SCH; +LIDOCAINE 1% (10MG/ML) FOR IV START INTRADERMA PRN; -LIDOCAINE 1% 20 ML VIAL (10MG/ML) FOR IV START INTRADERMA PRN; -LIDOCAINE 1% INJ 10MG/ML (20 ML MDV) ONE; -MIDAZOLAM (PF) 2 MG/2 ML VIAL IV PRN; -MIDAZOLAM 2 MG/2 ML VIAL ONE; -PROPOFOL 10 MG/ML 20 ML VIAL IV ONE; -Pre Op ABX Message 1 EACH MISC MISCELLANE ONE; -SCOPOLAMINE 1.5MG/72HR PATCH TRANSDERM ONE; +SODIUM CHLORIDE 0.9% 1,000 ML in EMPTY BAG 1 BAG IV ONE; +ceFAZolin 1,000 MG in SODIUM CHLORIDE 0.9% IRRIGATIO 250 ML IRRIGATION ONE; -fentaNYL (PF) 50 MCG/ML 2 ML AMP ONE
[2021-04-10] MEDS ORDERED: SODIUM CHLORIDE 0.9% 1,000 ML IV ONE (09:20)
[2021-04-10 09:36] LABS: Glucose,Whole Blood 114 mg/dL (75-99)
[2021-04-10] MEDS: ALBUTEROL HFA INHALER INHALATION SCH ×3 (10:30→19:32)
[2021-04-10 10:36] LABS: Glucose,Whole Blood 92 mg/dL (75-99)
[2021-04-10] MEDS ORDERED: ePHEDrine SULFATE/0.9% NACL/PF 50 MG/5 ML SYRINGE IV ONE (11:02)
[2021-04-10] MEDS ORDERED: PROPOFOL 10 MG/ML 20 ML VIAL IV ONE (11:02)
[2021-04-10] MEDS ORDERED: fentaNYL (PF) 50 MCG/ML 2 ML AMP ONE (11:02)
[2021-04-10] MEDS ORDERED: MIDAZOLAM 2 MG/2 ML VIAL ONE (11:02)
[2021-04-10] MEDS ORDERED: HYDROmorphone (PF) 1 MG/ML ONE (11:02)
[2021-04-10] MEDS ORDERED: GLYCOPYRROLATE 0.2 MG/ML 2 ML VIAL ONE (11:02)
[2021-04-10] MEDS ORDERED: PHENYLEPHRINE-0.9% NACL SYG 1,000 MCG/10 ML SYRINGE ONE (11:02)
[2021-04-10] MEDS ORDERED: HEPARIN SODIUM,PORCINE 10,000 UNIT/ML 1 ML VIAL ONE (11:02)
[2021-04-10] MEDS ORDERED: ROCURONIUM 10 MG/ML (5 ML VIAL) IV ONE (11:02)
[2021-04-10] MEDS ORDERED: LIDOCAINE 1% INJ 10MG/ML (20 ML MDV) ONE (11:02)
[2021-04-10] MEDS ORDERED: NEOSTIGMINE 1 MG/ML 10 ML VIAL ONE (11:02)
[2021-04-10] MEDS ORDERED: SUCCINYLCHOLINE CHLORIDE 100 MG/5 ML SYR IV ONE (11:02)
[2021-04-10 11:53] LABS: Glucose,Whole Blood 196 mg/dL (75-99)
[2021-04-10 12:50] LABS: Glucose,Whole Blood 128 mg/dL (75-99)
[2021-04-10 13:41] LABS: Glucose,Whole Blood 127 mg/dL (75-99)
[2021-04-10] MEDS ORDERED: IOPAMIDOL-250 100ML BTL INTRAARTER ONE (13:41)
[2021-04-10] MEDS ORDERED: IOPAMIDOL-370 100ML BTL INJ ONE ×2 (13:42)
--- NOTE | 2021-04-10 14:14 | P.HPIHPCON ---
History of Present Illness H&P Date: 04/10/21 Tierney is a 55-year-old female who has aortoiliac occlusive disease. She's had continuous leg pain in her lower extremities. She's had multiple other interventions for her peripheral arterial disease. She was worked up and was found a candidate for an aortoiliac endograft. Given her high risk with her coronary artery disease, peripheral vascular disease, hypertension, tobacco abuse and mild cardiomyopathy, it was decided to benefit from an endovascular approach. Risks and benefits previous suture discussed with family who seemingly understood and are willing to proceed as such. She presents for this today. Consent for Procedure: I have explained the operation/procedure to the patient, including the risks, benefits, side effects, alternative therapies (including not receiving the proposed treatment or service), the likelihood of the patient achieving his/her goals, and potential recuperation problems for the procedure/sedation/analgesia, as well as any blood products, if indicated. I also explained to the patient the risks, benefits and side effects of the alternatives, as well as the risks related to not receiving the proposed procedure, care, treatment, or services. Past Medical History Past Medical History: Blood Disorder, Coronary Artery Disease (CAD), COPD, Diabetes Mellitus, Deep Vein Thrombosis (DVT), Eye Disorder, GERD/Reflux, Hypertension, Myocardial Infarction ([place]), Sleep Apnea/CPAP/BIPAP, Vascular Disorder Additional Past Medical History / Comment(s): stent left leg 2017, no cpap, DVT to left leg burst 2016. Blood clotting disorder, unsure of name. Glaucoma. No cpap. Pain in legs D/T PVD Last Myocardial Infarction Date:: 2010 History of Any Multi-Drug Resistant Organisms: None Reported Past Surgical History: Heart Catheterization With Stent Additional Past Surgical History / Comment(s): stent in left groin/leg also from dvt. D&C, hysteroscopy 2018. Past Anesthesia/Blood Transfusion Reactions: No Reported Reaction Date of Last Stent Placement:: 2010 Smoking Status: Current every day smoker - Past Family History Mother Family Medical History: COPD, Coronary Artery Disease (CAD) Father History Unknown: Yes Medications and Allergies Home Medications Medication Instructions Recorded Confirmed Type Mirtazapine [Remeron] 45 mg PO HS 04/26/17 04/10/21 History clonazePAM [KlonoPIN] 1 mg PO BID 02/20/18 04/10/21 History Atorvastatin [Lipitor] 80 mg PO DAILY 08/08/18 04/10/21 History OLANZapine [ZyPREXA] 5 mg PO HS 08/08/18 04/10/21 History Metoprolol Tartrate [Lopressor] 25 mg PO BID 12/18/18 04/10/21 History Montelukast [Singulair] 10 mg PO HS 12/18/18 04/10/21 History lisinopriL [Zestril] 5 mg PO DAILY 01/12/19 04/10/21 History Albuterol Sulfate [Proair Hfa] 1 puff INHALATION RT-Q6H PRN 06/14/19 04/10/21 History Umeclidinium [place] [Incruse 1 puff INHALATION RT-DAILY 06/14/19 04/10/21 History Ellipta] metFORMIN HCL [Glucophage] 500 mg PO BID 06/14/19 04/10/21 History Aspirin [Adult Low Dose Aspirin EC] 81 mg PO DAILY 04/08/21 04/08/21 History Citalopram Hydrobromide 20 mg PO HS 04/08/21 04/10/21 History [Citalopram HBr] Divalproex Sodium [Depakote] 500 mg PO BID 04/08/21 04/10/21 History Fenofibrate Nanocrystallized 145 mg PO DAILY 04/08/21 04/10/21 History [Tricor] Glimepiride [Amaryl] 2 mg PO BID 04/08/21 04/10/21 History Albuterol Sulfate [Ventolin HFA] 1 - 2 puff INHALATION Q6H PRN 04/10/21 04/10/21 History Cephalexin [Keflex] 250 mg PO Q6HR 04/10/21 04/10/21 History Fluticasone Propion/Salmeterol 1 inhalation PO BID 04/10/21 04/10/21 History [Wixela 500-50 Inhub] Latanoprost [Xalatan 0.005%] 1 drop BOTH EYES DAILY 04/10/21 04/10/21 History Moxifloxacin HCl [Moxifloxacin] 1 drop BOTH EYES QID 04/10/21 04/10/21 History Umeclidinium [place] [Incruse 62.5 mcg INHALATION DAILY 04/10/21 04/10/21 History Ellipta] Allergies Allergy/AdvReac Type Severity Reaction Status Date / Time No Known Allergies Allergy Verified 04/08/21 15:51 Surgical - Exam Vital Signs Temp Pulse Resp BP Pulse Ox 98.7 F 85 16 137/73 93 L 04/10/21 09:25 04/10/21 09:25 04/10/21 09:25 04/10/21 09:25 04/10/21 09:25 Gen. a pleasant cooperative female in no acute distress. HEENT is no cephalic, atraumatic, extracted emotion intact. Heart appears regular in rate and rhythm. Lungs are clear bilaterally. Abdomen is soft, nontender nondistended, obese, no palpable femoral or pedal pulses. Palpable radial pulses bilaterally. Normal mood and affect. Cranial nerves II through XII grossly intact. Results - Labs Abnormal Lab Results - Last 24 Hours (Table) 04/10/21 04/10/21 04/10/21 Range/Units 09:25 11:51 12:48 POC Glucose (mg/dL) 114 H 196 H 128 H (75-99) mg/dL 04/10/21 Range/Units 13:38 POC Glucose (mg/dL) 127 H (75-99) mg/dL Assessment and Plan Assessment: Aortoiliac occlusive disease with severe lifestyle limiting claudication, near rest pain Asthma Coronary artery disease Tobacco abuse Hypertension Diabetes History of TIA PTSD Hyperlipidemia History of [place] Plan: Plans to go forward with attempted endograft placement. If unsuccessful, will plan to perform the aortobifem in the next few days. This is all discussed with the family and patient is seemingly understand and are willing to proceed as such.
[2021-04-10] MEDS ORDERED: IV FLUID CONTINUATION 1,000 ML IV ONE ×2 (14:23)
--- NOTE | 2021-04-10 14:32 | P.OP ---
Date of Procedure: 04/10/21 Description of Procedure: Preoperative Diagnosis: Severe disabling claudication Dixon Classification 3, near rest pain Aorto-iliac occlusion Postoperative Diagnosis: Same Procedure(s) Performed: 1. Endovascular Aortic repair with AFX2 device 2. Ultrasound guided bilateral femoral artery access 3. Aortic and bilateral iliac artery occlusion crossing with balloon angioplasty of bilateral iliac arteries. 4. Percutaneous right common iliac artery stent with 7 x 59 VBX 5. Percutaneous left common and external iliac artery stenting with 12 x 120 ovation limb. 6. Percutaneous closure of bilateral femoral arteries. 7. Aortogram Implants: AFX 2 main body 25 x 80 mm graft 7 x 59 VBX, right iliac 12 x 1 20 mm ovation limb left common and external iliac Anesthesia: Gen. endotracheal Surgeon: Lori De La Cruz Medical Technologist: Anthony Thompson Estimated Blood Loss (ml): 50 Pathology: none sent Condition: stable Disposition: PACU Indications for Procedure: 55-year-old female with history of bilateral lower extremity claudication and near rest pain, only able to ambulate a few steps prior to initiation of pain who underwent imaging workup and CT which demonstrated aortic occlusion at the distal aspect of the aorta involving bilateral common iliac arteries. She presents today for endovascular repair and possible aortic biiliac graft. Description of Procedure: After written informed consent was obtained the patient all risks benefits competitions were described patient is brought to the Admin Assistant and laid in a supine position. The area of the groins and and abdomen were prepped and draped in usual sterile fashion. A preprocedure timeout was performed and all parties were in agreement Utilizing ultrasound bilateral common femoral arteries were visualized and shown to be patent with minimal calcification. Micropuncture needle was then utilized to access the arteries. 5-Moroccan sheaths were then placed utilizing Seldinger technique. Attempt at crossing the aortoiliac lesion was then performed through these 5-Moroccan sheath with an 035 Glidewire and crossing catheters. This was successful and confirmation of intraluminal gain was performed with contrast injection to the aorta from each sided catheter. An aortogram was then obtained demonstrating occlusion of the distal aorta and bilateral common iliac arteries extending down to the right internal iliac artery takeoff. There was occlusion of the left external iliac artery, but reconstitution of the left internal iliac artery. Percutaneous balloon angioplasty of bilateral iliac arteries across the occlusion with a 5x150 mm balloon was performed. It was decided that the delivery for the main body would be on the left due to the occluded internal iliac artery on this side. 2 Perclose catheters were placed in normal fashion, after failure of one Perclose. A stiff Lunderquist wire was then placed up the left femoral sheath and short 8-Moroccan sheath was placed. A stiff wire was placed in the right exchanged for a long 7-Moroccan sheath. On the left, 17-Moroccan sheath was placed over the Lunderquist above the aortic bifurcation. Once across the lesion a 25x80 mm AFX to bifurcated device was placed over the wire and the contralateral wire was snared from the contralateral side. Once the wire was snared it was brought externally and the AFX to bifurcated device was transferred into the AFX introducer sheath and advanced under fluoroscopy until the distal limbs were above the bifurcated aspect of the aortic iliac segment. This was pulled down to the bifurcation. Once in appropriate position the main body was deployed by pulling the cord handle. Once deployed the contralateral limb was also deployed by removing the yellow limb cover. A pigtail catheter was then guided over the guidewire and the wire lock was released. The pigtail catheter was then placed above the aorta iliac graft. Guidewire was then placed into the pigtail catheter and the pigtail catheter was removed. The left limb was then measured, the main body was then re-advance after bringing the distal nose cone back to the level of the sheath. It was advanced back into the aorta body. The inner dilator was removed and the 12 x 120 ovation limb was placed through this pre- existing sheath. Once completed an angiogram was obtained demonstrating improvement of the aortic biiliac vessels. There was significant improvement of the left sided flow. There still some distal aspect of the common iliac on the right that was occluded or narrowed. A 7 x 59 balloon expandable VBX was placed in the right common iliac and proximal to the hypogastric. It was postdilated with an 8x60 mmballoon Once completed final angiogram was obtained demonstrating brisk flow through the aorta and bilateral iliac arteries with no evidence of stenosis. 100% improvement of the lumen. The large main body side was closed first. The wire was exchanged for a softer Glidewire. The sheath was removed and the Perclose devices were cinched down with good hemostasis. The wire was removed. There was a palpable femoral pulse. An angiogram was performed through the right femoral sheath revealing good brisk flow through the aortic bifurcation and through the left iliac vessels. The right 7-Moroccan sheath was removed and replaced with a short 7-Moroccan. Wires were removed. The basket closure device was deployed n normal fashion for good hemostasis. Patient had palpable femoral pulses at the conclusion of the procedure. She was sent to PACU for recovery
[2021-04-10 14:50] LABS: Glucose,Whole Blood 99 mg/dL (75-99)
[2021-04-10 15:21] LABS: Basophils # (A) 0.1 k/uL (0-0.2); Basophils % (A) 1 %; Eosinophils # (A) 0.1 k/uL (0-0.7); Eosinophils % (A) 2 %; HCT 40.3 % (34.0-46.0); HGB 13.1 gm/dL (11.4-16.0); Lymphocytes # (A) 2.8 k/uL (1.0-4.8); Lymphocytes % (A) 34 %; MCH 30.5 pg (25.0-35.0); MCHC 32.4 g/dL (31.0-37.0); MCV 93.9 fL (80.0-100.0); Mean Platelet Volume 8.1; Monocytes # (A) 0.3 k/uL (0-1.0); Monocytes % (A) 4 %; Neutrophils # (A) 4.9 k/uL (1.3-7.7); Neutrophils % (A) 60 %; Platelet Count 184 k/uL (150-450); RBC 4.29 m/uL (3.80-5.40); RDW 15.2 % (11.5-15.5); WBC 8.2 k/uL (3.8-10.6)
[2021-04-10 15:49] LABS: Glucose,Whole Blood 131 mg/dL (75-99)
[2021-04-10] MEDS: LACTATED RINGERS 1,000 ML IV SCH (15:59)
[2021-04-10] MEDS: DEXTROSE 5%-0.9% NACL 1,000 ML IV SCH (15:59)
[2021-04-10 16:21] LABS: Calcium 9.2 mg/dL (8.4-10.2); Potassium 5.2 mmol/L (3.5-5.1)
[2021-04-10] MEDS ORDERED: DEXTROSE 50% SYRINGE 50 ML IVP STA (16:30)
[2021-04-10] MEDS ORDERED: INSULIN REGULAR 100 UNIT/ML VIAL (IV) IV ONE (16:30)
[2021-04-10] MEDS ORDERED: ALBUTEROL NEBULIZED 2.5 MG/3 ML INHALATION PRN (17:39)
[2021-04-10] MEDS: CEPHALEXIN 250 MG CAP PO SCH (18:47)
[2021-04-10 18:52] LABS: Glucose,Whole Blood 157 mg/dL (75-99)
[2021-04-10] MEDS ORDERED: SYMBICORT 160-4.5 MCG INHALER INHALATION SCH (20:00)
[2021-04-10 20:50] LABS: Glucose,Whole Blood 106 mg/dL (75-99)
[2021-04-10] MEDS: MOXIFLOXACIN HCL 0.5% DROPS 3 ML BTL BOTH EYES SCH ×2 (20:54→21:54)
[2021-04-10] MEDS: clonazePAM 1 MG TAB PO SCH (20:55)
[2021-04-10] MEDS: METOPROLOL TARTRATE 25 MG TAB PO SCH (20:55)
[2021-04-10] MEDS: INSULIN ASPART (NovoLOG) 100 UNIT/ML VIAL SQ SCH (20:56)
[2021-04-10] MEDS: DIVALPROEX 500 MG TABLET.DR PO SCH (20:57)
[2021-04-10] MEDS ORDERED: OLANZapine 5 MG TAB PO SCH (21:00)
[2021-04-10] MEDS ORDERED: CITALOPRAM HYDROBROMIDE 20 MG TAB PO SCH (21:00)
[2021-04-10] MEDS ORDERED: MIRTAZAPINE 45 MG TABLET PO SCH (21:00)
[2021-04-10] MEDS ORDERED: MONTELUKAST 10 MG TAB PO SCH (21:00)
[2021-04-10] MEDS ORDERED: ASPIRIN 81 MG PO STA (21:55)
--- NOTE | 2021-04-10 23:10 | P.CONS ---
History of Present Illness - Reason for Consult Consult date: 04/10/21 Medical management Requesting physician: Lori De La Cruz - Chief Complaint Aorta pair - History of Present Illness Consultation: This is a 55-year-old patient who follows with Dr. Harvey. Chronic stable medical conditions include coronary artery disease with stent, COPD, diabetes, GERD, hypertension, obstructive sleep apnea does not use CPAP, peripheral arterial disease with a stent to left leg in 2018, blood clotting disorder, anxiety depression PTSD. Patient active smoker 1 pack a day. Patient been having claudication with walking a few steps both the legs. Going on for close to [address] imaging at showed aortic occlusion at the distal aspect about diet involving bilateral common iliac arteries. Patient underwent endovascular aortic repair with AF [address] Laurie De La Cruz. Patient also underwent angioplasty. underwent stent of the right common iliac artery and left common and external iliac artery along with aortogram.. Postprocedure in the ICU. Sitting up. Some short of breath and wheezing. Patient had been smoking up to surgery. Review of systems: GEN.: Tired EYES: None HEENT: None NECK: None RESPIRATORY: Wheezing, short of breath CARDIOVASCULAR: None GASTROINTESTINAL: None GENITOURINARY: None MUSCULOSKELETAL: Some joint pains LYMPHATICS: None HEMATOLOGICAL: None PSYCHIATRY: Anxiety NEUROLOGICAL: None Past medical history to include: Coronary artery with stent, COPD, diabetes, DVT, GERD, hypertension, obstructive sleep apnea does not use CPAP, peripheral arterial disease with previous stent, glaucoma, anxiety depression, PTSD Social history: Smoking a pack a day for close to 35 years was up to 3 packs a day in the past. No alcohol. Lives alone. Family history: Coronary artery disease Physical examination: VITAL SIGNS: 97.5, 93, 16, 143/63, 95% on 2 L GENERAL: BMI 33.9, sitting up, slightly short of breath. EYES: Pupils equal. Conjunctiva normal. HEENT: External appearance of nose and ears normal, oral cavity grossly normal. NECK: JVD not raised; masses not palpable. HEART: First and second heart sounds are normal; no edema. LUNGS: Respiratory rate increased; decreased breath sound, prolonged expiration wheezing. ABDOMEN: Soft, nontender, liver spleen not palpable, no masses palpable. PSYCH: Alert and oriented x3; mood and affect anxiousl. EXTREMITY: Right dorsalis pedis and posterior tibial palpable. Left posterior tibial palpable NEUROLOGICAL: Cranial nerves grossly intact; no facial asymmetry, power and sensation grossly intact. LYMPHATICS: No lymph nodes palpable in the axilla and neck INVESTIGATIONS, reviewed in the clinical context: WBC 8.2 hemoglobin 13.1 platelets 184 potassium 5.2 BUN 22 creatinine 1.18 Assessment and plan: --Endovascular aortic repair with AF 2 device along with stent to the right common iliac artery and left common and external iliac artery -Severe peripheral artery disease Aspirin, and Lipitor -Acute COPD exacerbation in a current smoker DuoNeb every 4, inhaled steroids, inhaled beta agonist -Diabetes mellitus type 2, oral hypoglycemic Resume metformin follow Accu-Cheks. Diabetic diet. -Hyperlipidemia Lipitor 80 mg daily -Chronic insomnia for medical conditions Remeron 45 mg daily at bedtime -Anxiety, depression, PTSD Celexa 20 mg daily at bedtime, Klonopin 1 mg twice a day, Depakote 5 mg twice a day, Zyprexa 5 mg daily at bedtime, Remeron 45 mg daily at bedtime -Obesity BMI 33.9 Weight loss measures and follow-up with PCP Smoke cessation counseling: This was done with the patient. Nicotine patch is being given. More than 3 minutes was spent for this Care was discussed with the patient. Resume home medications. Including antiplatelet agents. DuoNeb, and his steroids, inhaled long-acting beta agonist. Hold Amaryl for now. Follow Accu-Cheks Thank you Dr. De La Cruz Past Medical History Past Medical History: Blood Disorder, Coronary Artery Disease (CAD), COPD, Diabetes Mellitus, Deep Vein Thrombosis (DVT), Eye Disorder, GERD/Reflux, Hypertension, Myocardial Infarction ([place]), Sleep Apnea/CPAP/BIPAP, Vascular Disorder Additional Past Medical History / Comment(s): stent left leg 2018, no cpap, DVT to left leg burst 2017. Blood clotting disorder, unsure of name. Glaucoma. No cpap. Pain in legs D/T PVD Last Myocardial Infarction Date:: 2010 History of Any Multi-Drug Resistant Organisms: None Reported Past Surgical History: Heart Catheterization With Stent Additional Past Surgical History / Comment(s): stent in left groin/leg also from dvt. D&C, hysteroscopy 2018. Past Anesthesia/Blood Transfusion Reactions: No Reported Reaction Date of Last Stent Placement:: 2010 Smoking Status: Current every day smoker - Past Family History Mother Family Medical History: COPD, Coronary Artery Disease (CAD) Father History Unknown: Yes Medications and Allergies Home Medications Medication Instructions Recorded Confirmed Type Mirtazapine [Remeron] 45 mg PO HS 04/26/17 04/10/21 History clonazePAM [KlonoPIN] 1 mg PO BID 02/20/18 04/10/21 History Atorvastatin [Lipitor] 80 mg PO DAILY 08/08/18 04/10/21 History OLANZapine [ZyPREXA] 5 mg PO HS 08/08/18 04/10/21 History Metoprolol Tartrate [Lopressor] 25 mg PO BID 12/18/18 04/10/21 History Montelukast [Singulair] 10 mg PO HS 12/18/18 04/10/21 History lisinopriL [Zestril] 5 mg PO DAILY 01/12/19 04/10/21 History Albuterol Sulfate [Proair Hfa] 1 puff INHALATION RT-Q6H PRN 06/14/19 04/10/21 History Umeclidinium [place] [Incruse 1 puff INHALATION RT-DAILY 06/14/19 04/10/21 History Ellipta] metFORMIN HCL [Glucophage] 500 mg PO BID 06/14/19 04/10/21 History Aspirin [Adult Low Dose Aspirin EC] 81 mg PO DAILY 04/08/21 04/08/21 History Citalopram Hydrobromide 20 mg PO HS 04/08/21 04/10/21 History [Citalopram HBr] Divalproex Sodium [Depakote] 500 mg PO BID 04/08/21 04/10/21 History Fenofibrate Nanocrystallized 145 mg PO DAILY 04/08/21 04/10/21 History [Tricor] Glimepiride [Amaryl] 2 mg PO BID 04/08/21 04/10/21 History Albuterol Sulfate [Ventolin HFA] 1 - 2 puff INHALATION Q6H PRN 04/10/21 04/10/21 History Cephalexin [Keflex] 250 mg PO Q6HR 04/10/21 04/10/21 History Fluticasone Propion/Salmeterol 1 inhalation PO BID 04/10/21 04/10/21 History [Wixela 500-50 Inhub] Latanoprost [Xalatan 0.005%] 1 drop BOTH EYES DAILY 04/10/21 04/10/21 History Moxifloxacin HCl [Moxifloxacin] 1 drop BOTH EYES QID 04/10/21 04/10/21 History Umeclidinium [place] [Incruse 62.5 mcg INHALATION DAILY 04/10/21 04/10/21 History Ellipta] Allergies Allergy/AdvReac Type Severity Reaction Status Date / Time No Known Allergies Allergy Verified 04/08/21 15:51 Physical Exam Vitals: Vital Signs Temp Pulse Pulse Pulse Resp BP BP 04/10/21 22:00 92 14 154/78 04/10/21 21:00 87 16 139/76 04/10/21 20:00 97.5 F L 93 16 04/10/21 19:00 98 14 04/10/21 18:45 92 14 04/10/21 18:30 84 15 04/10/21 18:15 87 16 04/10/21 18:00 82 12 04/10/21 17:45 97 12 04/10/21 17:30 89 17 04/10/21 17:15 91 14 04/10/21 17:00 88 17 04/10/21 16:45 89 12 04/10/21 16:30 98 16 04/10/21 16:15 89 19 128/65 04/10/21 16:00 94.9 F L 80 16 139/71 04/10/21 15:25 91 16 135/58 04/10/21 15:05 92 18 138/52 04/10/21 14:50 92 18 130/64 04/10/21 14:35 90 20 04/10/21 14:20 97 F L 93 16 04/10/21 09:25 98.7 F 85 16 BP BP BP Pulse Ox 04/10/21 22:00 96 04/10/21 21:00 95 04/10/21 20:00 95 04/10/21 19:00 95 04/10/21 18:45 96 04/10/21 18:30 95 04/10/21 18:15 96 04/10/21 18:00 95 04/10/21 17:45 95 04/10/21 17:30 94 L 04/10/21 17:15 94 L 04/10/21 17:00 94 L 04/10/21 16:45 94 L 04/10/21 16:30 91 L 04/10/21 16:15 91 L 04/10/21 16:00 90 L 04/10/21 15:25 125/63 96 04/10/21 15:05 95 04/10/21 14:50 122/60 97 04/10/21 14:35 134/46 96 04/10/21 14:20 144/49 96 04/10/21 09:25 137/73 93 L Intake and Output 04/10/21 04/10/21 04/10/21 06:59 14:59 22:59 Intake Total 100 459 Output Total 1110 Balance 100 -651 Intake: IV 100 319 [place] flush 9 Dextrose 5%-0.9% NaCl 1, 150 000 ml @ 50 mls/hr IV . Q20H [facility] Rx#:[id number] Lactated Ringers 1,000 ml 60 @ 20 mls/hr IV .Q24H [facility] Rx#:[id number] Intake, IV Titration 140 Amount Dextrose 5%-0.9% NaCl 1, 100 000 ml @ 50 mls/hr IV . Q20H [facility] Rx#:[id number] Sodium Chloride 0.9% 1, 40 000 ml @ 0 mls/hr IV .[facility] Rx#:[id number] Output: Urine 1110 Other: Voiding Method Indwelling Catheter Weight 92.3 kg ABP, PAP, CO, CI - Last 8 Hours Arterial Blood Pressure 142/59 Arterial Blood Pressure 164/86 Arterial Blood Pressure 143/63 Arterial Blood Pressure 143/64 Arterial Blood Pressure 132/58 Arterial Blood Pressure 141/63 Arterial Blood Pressure 138/69 Arterial Blood Pressure 145/62 Arterial Blood Pressure 133/62 Arterial Blood Pressure 133/62 Arterial Blood Pressure 135/60 Arterial Blood Pressure 136/61 Arterial Blood Pressure 138/64 Arterial Blood Pressure 144/65 Arterial Blood Pressure 124/56 Arterial Blood Pressure 136/60 Results CBC & Chem 7: 04/10/21 15:06 04/10/21 21:40 Labs: Abnormal Lab Results - Last 24 Hours (Table) 04/10/21 04/10/21 04/10/21 Range/Units 09:25 11:51 12:48 Potassium (3.5-5.1) mmol/L Chloride (98-107) mmol/L BUN (7-17) mg/dL Creatinine (0.52-1.04) mg/dL Glucose (74-99) mg/dL POC Glucose (mg/dL) 114 H 196 H 128 H (75-99) mg/dL 04/10/21 04/10/21 04/10/21 Range/Units 13:38 15:06 15:48 Potassium 5.2 H (3.5-5.1) mmol/L Chloride 111 H (98-107) mmol/L BUN 22 H (7-17) mg/dL Creatinine 1.18 H (0.52-1.04) mg/dL Glucose 109 H (74-99) mg/dL POC Glucose (mg/dL) 127 H 131 H (75-99) mg/dL 04/10/21 04/10/21 Range/Units 18:51 20:48 Potassium (3.5-5.1) mmol/L Chloride (98-107) mmol/L BUN (7-17) mg/dL Creatinine (0.52-1.04) mg/dL Glucose (74-99) mg/dL POC Glucose (mg/dL) 157 H 106 H (75-99) mg/dL
[2021-04-11] MEDS: NICOTINE 21MG/24HR PATCH TRANSDERM SCH ×2 (00:11→09:24)
[2021-04-11] MEDS: FORMOTEROL FUMARATE 20 MCG/2 ML NEBU INHALATION SCH ×2 (00:14→07:19)
[2021-04-11] MEDS: BUDESONIDE 1 MG/2 ML NEBU INHALATION SCH ×2 (00:14→07:19)
[2021-04-11] MEDS: IPRATROPIUM-ALBUTEROL 3 ML NEB INHALATION SCH ×5 (00:15→15:23)
[2021-04-11] MEDS: CEPHALEXIN 250 MG CAP PO SCH ×3 (02:20→11:50)
[2021-04-11 04:05] LABS: Glucose,Whole Blood 157 mg/dL (75-99)
[2021-04-11 06:47] LABS: Glucose,Whole Blood 152 mg/dL (75-99)
[2021-04-11] MEDS: DEXTROSE 5%-0.9% NACL 1,000 ML IV SCH (06:48)
[2021-04-11] MEDS: INSULIN ASPART (NovoLOG) 100 UNIT/ML VIAL SQ SCH ×2 (06:54→11:50)
[2021-04-11] MEDS: LACTATED RINGERS 1,000 ML IV SCH (06:56)
[2021-04-11 07:35] LABS: Basophils % (A) 0 %; Eosinophils # (A) 0.1 k/uL (0-0.7); Eosinophils % (A) 1 %; HCT 39.1 % (34.0-46.0); HGB 12.6 gm/dL (11.4-16.0); Lymphocytes # (A) 1.6 k/uL (1.0-4.8); Lymphocytes % (A) 15 %; MCH 30.8 pg (25.0-35.0); MCHC 32.1 g/dL (31.0-37.0); MCV 95.9 fL (80.0-100.0); Monocytes # (A) 0.4 k/uL (0-1.0); Monocytes % (A) 4 %; Neutrophils # (A) 8.6 k/uL (1.3-7.7); Neutrophils % (A) 79 %; Platelet Count 167 k/uL (150-450); RBC 4.07 m/uL (3.80-5.40); RDW 15.2 % (11.5-15.5); WBC 10.9 k/uL (3.8-10.6)
[2021-04-11 07:51] LABS: Albumin 3.3 g/dL (3.5-5.0); Calcium 9.3 mg/dL (8.4-10.2); Potassium 4.7 mmol/L (3.5-5.1); Total Bilirubin 0.3 mg/dL (0.2-1.3); Total Protein 5.6 g/dL (6.3-8.2)
--- NOTE | 2021-04-11 08:59 | P.CRDCN ---
History of Present Illness History of present illness: HISTORY OF PRESENTING ILLNESS Patient is a pleasant 55-year-old female with history of coronary artery disease status post PCI 2, COPD, tobacco abuse, cardiomyopathy, GERD, PAD with aortic occlusion, hypertension, hyperlipidemia. She follows in the office with Dr. Grider. Patient has claudication and both thighs into her lower extremities which has been ongoing for a few years however having near rest pain and therefore has been evaluated and underwent endovascular repair 04/10/2021 successful AFX2 device placed from the bilateral femoral approach. Patient without issues since, no pain in the lateral femoral sites, no abdominal pain, no pain in her legs, no chest pain, no shortness breath. She has not been up walking however. REVIEW OF SYSTEMS At the time of my exam: CONSTITUTIONAL: Denies fever or chills. CARDIOVASCULAR: Denies chest pain, shortness of breath, orthopnea, PND or palpitations. RESPIRATORY: Denies cough. GASTROINTESTINAL: Denies abdominal pain, diarrhea, constipation, nausea or vomiting. MUSCULOSKELETAL: Denies myalgias. NEUROLOGIC: Denies numbness, tingling or weakness. ENDOCRINE: Denies fatigue, weight change, polydipsia or polyurina. GENITOURINARY: Denies burning, hematuria or urgency with micturation. HEMATOLOGIC: Denies history of anemia or bleeding. PHYSICAL EXAMINATION Vital signs reviewed. CONSTITUTIONAL: No apparent distress. HEENT: Head is normocephalic. Pupils are equal, round. Sclerae anicteric. Mucous membranes of the mouth are moist. No JVD. No carotid bruit. CHEST EXAMINATION: Lungs are clear to auscultation. No chest wall tenderness is noted on palpation or with deep breathing. HEART EXAMINATION: Regular rate and rhythm. S1, S2 heard. No murmurs, gallops or rub. ABDOMEN: Soft, nontender. Positive bowel sounds. EXTREMITIES: 2+ peripheral pulses, no lower extremity edema and no calf tenderness. NEUROLOGIC EXAMINATION: Patient is awake, alert and oriented x3. 1. PAD with distal aortic occlusion status post endovascular repair with AFX2 device placed 04/10/2021. 2. Coronary artery disease status post PCI 2 3. Chronic systolic heart failure appears euvolemic 4. Hypertension 5. Hyperlipidemia 6. History of tobacco abuse 7. COPD Plan: Patient appears euvolemic and stable from a cardiac standpoint. Continue with current medications. Continue to monitor pulses and femoral site. Continue tobacco cessation. Past Medical History Past Medical History: Blood Disorder, Coronary Artery Disease (CAD), COPD, Diabetes Mellitus, Deep Vein Thrombosis (DVT), Eye Disorder, GERD/Reflux, Hypertension, Myocardial Infarction ([place]), Sleep Apnea/CPAP/BIPAP, Vascular Disorder Additional Past Medical History / Comment(s): stent left leg 2018, no cpap, DVT to left leg burst 2017. Blood clotting disorder, unsure of name. Glaucoma. No cpap. Pain in legs D/T PVD Last Myocardial Infarction Date:: 2010 History of Any Multi-Drug Resistant Organisms: None Reported Past Surgical History: Heart Catheterization With Stent Additional Past Surgical History / Comment(s): stent in left groin/leg also from dvt. D&C, hysteroscopy 2018. Past Anesthesia/Blood Transfusion Reactions: No Reported Reaction Date of Last Stent Placement:: 2010 Smoking Status: Current every day smoker - Past Family History Mother Family Medical History: COPD, Coronary Artery Disease (CAD) Father History Unknown: Yes Medications and Allergies Home Medications Medication Instructions Recorded Confirmed Type Mirtazapine [Remeron] 45 mg PO HS 04/26/17 04/10/21 History clonazePAM [KlonoPIN] 1 mg PO BID 02/20/18 04/10/21 History Atorvastatin [Lipitor] 80 mg PO DAILY 08/08/18 04/10/21 History OLANZapine [ZyPREXA] 5 mg PO HS 08/08/18 04/10/21 History Metoprolol Tartrate [Lopressor] 25 mg PO BID 12/18/18 04/10/21 History Montelukast [Singulair] 10 mg PO HS 12/18/18 04/10/21 History lisinopriL [Zestril] 5 mg PO DAILY 01/12/19 04/10/21 History Albuterol Sulfate [Proair Hfa] 1 puff INHALATION RT-Q6H PRN 06/14/19 04/10/21 History Umeclidinium [place] [Incruse 1 puff INHALATION RT-DAILY 06/14/19 04/10/21 History Ellipta] metFORMIN HCL [Glucophage] 500 mg PO BID 06/14/19 04/10/21 History Aspirin [Adult Low Dose Aspirin EC] 81 mg PO DAILY 04/08/21 04/08/21 History Citalopram Hydrobromide 20 mg PO HS 04/08/21 04/10/21 History [Citalopram HBr] Divalproex Sodium [Depakote] 500 mg PO BID 04/08/21 04/10/21 History Fenofibrate Nanocrystallized 145 mg PO DAILY 04/08/21 04/10/21 History [Tricor] Glimepiride [Amaryl] 2 mg PO BID 04/08/21 04/10/21 History Albuterol Sulfate [Ventolin HFA] 1 - 2 puff INHALATION Q6H PRN 04/10/21 04/10/21 History Cephalexin [Keflex] 250 mg PO Q6HR 04/10/21 04/10/21 History Fluticasone Propion/Salmeterol 1 inhalation PO BID 04/10/21 04/10/21 History [[place]ixela 500-50 Inhub] Latanoprost [Xalatan 0.005%] 1 drop BOTH EYES DAILY 04/10/21 04/10/21 History Moxifloxacin HCl [Moxifloxacin] 1 drop BOTH EYES QID 04/10/21 04/10/21 History Umeclidinium [place] [Incruse 62.5 mcg INHALATION DAILY 04/10/21 04/10/21 History Ellipta] Allergies Allergy/AdvReac Type Severity Reaction Status Date / Time No Known Allergies Allergy Verified 04/08/21 15:51 Physical Exam Vitals: Vital Signs Temp Pulse Pulse Pulse Resp BP BP 04/11/21 07:38 82 04/11/21 07:30 80 04/11/21 07:21 82 04/11/21 07:00 82 16 139/71 04/11/21 06:00 83 19 133/67 04/11/21 05:16 81 18 133/67 04/11/21 04:00 85 19 138/70 04/11/21 03:00 87 19 135/69 04/11/21 02:00 90 17 148/71 04/11/21 01:00 89 18 133/69 04/11/21 00:00 94 17 126/77 04/10/21 23:00 91 15 130/71 04/10/21 22:00 92 14 154/78 04/10/21 21:00 87 16 139/76 04/10/21 20:00 97.5 F L 93 16 04/10/21 19:00 98 14 04/10/21 18:45 92 14 04/10/21 18:30 84 15 04/10/21 18:15 87 16 04/10/21 18:00 82 12 04/10/21 17:45 97 12 04/10/21 17:30 89 17 04/10/21 17:15 91 14 04/10/21 17:00 88 17 04/10/21 16:45 89 12 04/10/21 16:30 98 16 04/10/21 16:15 89 19 128/65 04/10/21 16:00 94.9 F L 80 16 139/71 04/10/21 15:25 91 16 135/58 04/10/21 15:05 92 18 138/52 04/10/21 14:50 92 18 130/64 04/10/21 14:35 90 20 04/10/21 14:20 97 F L 93 16 04/10/21 09:25 98.7 F 85 16 BP BP BP Pulse Ox 04/11/21 07:38 04/11/21 07:30 04/11/21 07:21 04/11/21 07:00 95 04/11/21 06:00 95 04/11/21 05:16 97 04/11/21 04:00 97 04/11/21 03:00 95 04/11/21 02:00 95 04/11/21 01:00 95 04/11/21 00:00 94 L 04/10/21 23:00 96 04/10/21 22:00 96 04/10/21 21:00 95 04/10/21 20:00 95 04/10/21 19:00 95 04/10/21 18:45 96 04/10/21 18:30 95 04/10/21 18:15 96 04/10/21 18:00 95 04/10/21 17:45 95 04/10/21 17:30 94 L 04/10/21 17:15 94 L 04/10/21 17:00 94 L 04/10/21 16:45 94 L 04/10/21 16:30 91 L 04/10/21 16:15 91 L 04/10/21 16:00 90 L 04/10/21 15:25 125/63 96 04/10/21 15:05 95 04/10/21 14:50 122/60 97 04/10/21 14:35 134/46 96 04/10/21 14:20 144/49 96 04/10/21 09:25 137/73 93 L Intake and Output 04/10/21 04/11/21 04/11/21 22:59 06:59 14:59 Intake Total 459 551 Output Total 1110 580 0 Balance -651 -29 0 Intake: IV 319 551 Anamaria flush 9 21 Dextrose 5%-0.9% NaCl 1, 150 000 ml @ 50 mls/hr IV . Q20H [facility] Rx#:[id number] Lactated Ringers 1,000 ml 60 530 @ 20 mls/hr IV .Q24H [facility] Rx#:[id number] Intake, IV Titration 140 Amount Dextrose 5%-0.9% NaCl 1, 100 000 ml @ 50 mls/hr IV . Q20H [facility] Rx#:[id number] Sodium Chloride 0.9% 1, 40 000 ml @ 0 mls/hr IV .[facility] Rx#:[id number] Output: Urine 1110 580 0 Other: Voiding Method Indwelling Catheter Indwelling Catheter Weight 99.5 kg ABP, PAP, CO, CI - Last 8 Hours Arterial Blood Pressure 147/63 Arterial Blood Pressure 139/62 Arterial Blood Pressure 145/57 Arterial Blood Pressure 139/55 Arterial Blood Pressure 87/63 Arterial Blood Pressure 133/66 Results 04/11/21 04:25 04/11/21 04:25 Cardiac Enzymes 04/11/21 Range/Units 04:25 AST 33 (14-36) U/L CBC 04/10/21 04/11/21 Range/Units 15:06 04:25 WBC 8.2 10.9 H (3.8-10.6) k/uL RBC 4.29 4.07 (3.80-5.40) m/uL Hgb 13.1 12.6 (11.4-16.0) gm/dL Hct 40.3 39.1 (34.0-46.0) % Plt Count 184 167 (150-450) k/uL Comprehensive Metabolic Panel 04/10/21 04/10/21 04/11/21 Range/Units 15:06 21:40 04:25 Sodium 139 138 (137-145) mmol/L Potassium 5.2 H 4.4 4.7 (3.5-5.1) mmol/L Chloride 111 H 107 (98-107) mmol/L Carbon Dioxide 22 22 (22-30) mmol/L BUN 22 H 19 H (7-17) mg/dL Creatinine 1.18 H 1.02 (0.52-1.04) mg/dL Glucose 109 H 162 H (74-99) mg/dL Calcium 9.2 9.3 (8.4-10.2) mg/dL AST 33 (14-36) U/L ALT 30 (4-34) U/L Alkaline Phosphatase 52 (38-126) U/L Total Protein 5.6 L (6.3-8.2) g/dL Albumin 3.3 L (3.5-5.0) g/dL Current Medications Generic Name Dose Route Start Last Admin Trade Name Freq PRN Reason Stop Dose Admin Albuterol Sulfate 2.5 mg 04/10/21 17:39 Albuterol Nebulized 2.5 Mg/3 Ml INHALATION RT-Q6H PRN Shortness Of Breath Albuterol/Ipratropium 3 ml 04/10/21 23:15 04/11/21 07:19 Ipratropium-Albuterol 3 Ml Neb INHALATION 3 ml RT-Q4H [facility] Administration Aspirin 81 mg 04/11/21 09:00 Aspirin 81 Mg PO DAILY [facility] Atorvastatin Calcium 80 mg 04/11/21 09:00 Atorvastatin 80 Mg Tab PO DAILY [facility] Budesonide 1 mg 04/10/21 23:03 04/11/21 07:19 Budesonide 1 Mg/2 Ml Nebu INHALATION 1 mg RT-BID [facility] Administration Cephalexin 250 mg 04/10/21 18:00 04/11/21 06:57 Cephalexin 250 Mg Cap PO 04/18/21 12:01 250 mg Q6HR [facility] Administration Citalopram Hydrobromide 20 mg 04/10/21 21:00 04/10/21 20:55 Citalopram Hydrobromide 20 Mg Tab PO 20 mg HS [facility] Administration Clonazepam 1 mg 04/10/21 21:00 04/10/21 20:55 Clonazepam 1 Mg Tab PO 1 mg BID [facility] Administration Clopidogrel Bisulfate 75 mg 04/11/21 09:00 Clopidogrel 75 Mg Tab PO DAILY [facility] Divalproex Sodium 500 mg 04/10/21 21:00 04/10/21 20:57 Divalproex 500 Mg Tablet.Dr PO 500 mg BID [facility] Administration Fenofibrate 160 mg 04/11/21 09:00 Fenofibrate 160 Mg Tab PO DAILY [facility] Formoterol Fumarate 20 mcg 04/10/21 23:04 04/11/21 07:19 Formoterol Fumarate 20 Mcg/2 Ml Nebu INHALATION 20 mcg RT-BID [facility] Administration Lactated Ringer's 1,000 mls @ 20 mls/hr 04/10/21 05:51 04/11/21 06:56 Lactated Ringers IV 05/09/21 12:01 Not Given .Q24H [facility] Dextrose/Sodium Chloride 1,000 mls @ 50 mls/hr 04/10/21 10:45 04/11/21 06:48 Dextrose 5%-Ns Iv Soln IV Not Given .Q20H [facility] Insulin Aspart 0 unit 04/10/21 21:00 04/11/21 06:54 Insulin Aspart (Novolog) 100 Unit/Ml Vial SQ 1 unit ACHS [facility] Administration Protocol Latanoprost 1 drops 04/11/21 09:00 Latanoprost 0.005% Ophth Drops 2.5 Ml Btl BOTH EYES DAILY [facility] Lidocaine HCl 0.1 ml 04/10/21 05:51 Lidocaine 1% (10mg/Ml) For Iv Start INTRADERMA 05/09/21 11:53 PER PROTOCOL PRN IV Start Lisinopril 5 mg 04/11/21 09:00 Lisinopril 5 Mg Tab PO DAILY [facility] Metformin HCl 500 mg 04/12/21 17:30 Metformin 500 Mg Tab PO BID-W/MEALS [facility] Metoprolol Tartrate 25 mg 04/10/21 21:00 04/10/21 20:55 Metoprolol Tartrate 25 Mg Tab PO 25 mg BID [facility] Administration Mirtazapine 45 mg 04/10/21 21:00 04/10/21 20:55 Mirtazapine 45 Mg Tablet PO 45 mg HS [facility] Administration Montelukast Sodium 10 mg 04/10/21 21:00 04/10/21 20:55 Montelukast 10 Mg Tab PO 10 mg HS [facility] Administration Moxifloxacin HCl 1 drops 04/10/21 18:00 04/10/21 21:54 Moxifloxacin Hcl 0.5% Drops 3 Ml Btl BOTH EYES Not Given QID [facility] Nicotine 1 patch 04/10/21 23:15 04/11/21 00:11 Nicotine 21mg/24hr Patch TRANSDERM Not Given DAILY [facility] Umeclidinium [place] 1 puff 04/11/21 08:00 [Incruse Ellipta] INHALATION 62.5 Mcg RT-DAILY [facility] Olanzapine 5 mg 04/10/21 21:00 04/10/21 20:55 Olanzapine 5 Mg Tab PO 5 mg HS [facility] Administration Intake and Output 04/10/21 04/11/21 04/11/21 22:59 06:59 14:59 Intake Total 459 551 Output Total 1110 580 0 Balance -651 -29 0 Intake: IV 319 551 [place] flush 9 21 Dextrose 5%-0.9% NaCl 1, 150 000 ml @ 50 mls/hr IV . Q20H [facility] Rx#:[id number] Lactated Ringers 1,000 ml 60 530 @ 20 mls/hr IV .Q24H [facility] Rx#:[id number] Intake, IV Titration 140 Amount Dextrose 5%-0.9% NaCl 1, 100 000 ml @ 50 mls/hr IV . Q20H [facility] Rx#:[id number] Sodium Chloride 0.9% 1, 40 000 ml @ 0 mls/hr IV .[facility] Rx#:[id number] Output: Urine 1110 580 0 Other: Voiding Method Indwelling Catheter Indwelling Catheter Weight 99.5 kg 04/11/21 04:25 04/11/21 04:25
[2021-04-11] MEDS ORDERED: NON FORMULARY DRUG (Umeclidinium Bromide [Incruse Ellipta] 62.5 MCG Blst.W.Dev) INHALATION SCH (09:00)
[2021-04-11] MEDS ORDERED: CLOPIDOGREL 75 MG TAB PO SCH (09:00)
[2021-04-11] MEDS ORDERED: lisinopriL 5 MG TAB PO SCH (09:00)
[2021-04-11] MEDS ORDERED: LATANOPROST 0.005% OPHTH DROPS 2.5 ML BTL BOTH EYES SCH (09:00)
[2021-04-11] MEDS ORDERED: FENOFIBRATE 160 MG TAB PO SCH (09:00)
[2021-04-11] MEDS ORDERED: ASPIRIN 81 MG PO SCH (09:00)
[2021-04-11] MEDS ORDERED: ATORVASTATIN 80 MG TAB PO SCH (09:00)
[2021-04-11 09:20] VITALS: TEMP 98.4
[2021-04-11] MEDS: METOPROLOL TARTRATE 25 MG TAB PO SCH (09:21)
[2021-04-11] MEDS: DIVALPROEX 500 MG TABLET.DR PO SCH (09:21)
[2021-04-11] MEDS: clonazePAM 1 MG TAB PO SCH (09:22)
[2021-04-11] MEDS: MOXIFLOXACIN HCL 0.5% DROPS 3 ML BTL BOTH EYES SCH ×2 (09:23→14:57)
[2021-04-11 11:29] LABS: Glucose,Whole Blood 136 mg/dL (75-99)
--- NOTE | 2021-04-11 12:14 | P.CNPUL ---
History of Present Illness Consult date: 04/11/21 Requesting physician: Lori De La Cruz Reason for consult: other (Critical care management) Chief complaint: Bilateral leg pain History of present illness: This is a 55-year-old female patient with a known history of hyperlipidemia, DVT, diabetes mellitus, chronic tobacco dependence at 3 packs per day for 36 years, chronic obstructive pulmonary disease. She also has been having issues with intermittent claudication and pain of the bilateral lower extremities. She was noted to have atherosclerosis of the [place] arteries. She was brought in to the hospital yesterday for elective surgery with Dr. De La Cruz. She had undergone endovascular aortic repair, aortic and bilateral iliac artery occlusion crossing with balloon angioplasty of bilateral iliac arteries, percutaneous right common iliac artery stent, percutaneous left common and external iliac stents. Postoperative day #1. Presently she is sitting up in a chair at the bedside. Awake and alert in no acute distress. Maintaining O2 saturations in the low 90s on 2 L/m per nasal cannula. Denies any significant lower extremity pain. Hemodynamically stable. White count 10.9. Hemoglobin 12.6. Sodium 138. Potassium 4.7. Creatinine 1.02. AST 33. ALT 30. Review of Systems REVIEW OF SYSTEMS: CONSTITUTIONAL: Denies any recent significant weight loss or weight gain. EYES: Denies change in vision. EARS, NOSE, MOUTH, THROAT: Denies headaches, denies sore throat. CARDIOVASCULAR: Denies chest pain, palpitations or syncopal episodes. RESPIRATORY: Denies shortness of breath, cough, congestion or hemoptysis. GASTROINTESTINAL: Denies change in appetite, denies abdominal pain GENITOURINARY: Denies hematuria, denies infections. MUSKULOSKELETAL: Positive pain, intermittent claudication of the lower ex tremities bilaterally INTEGUMENTARY: Denies rash, denies eczema. NEUROLOGICAL: Denies recent memory loss, no recent seizure activity. PSYCHIATRIC: Denies anxiety, denies depression. HEMATOLOGIC/LYMPHATIC: Denies anemia, denies enlarged lymph nodes. Past Medical History Past Medical History: Blood Disorder, Coronary Artery Disease (CAD), COPD, Diabetes Mellitus, Deep Vein Thrombosis (DVT), Eye Disorder, GERD/Reflux, Hypertension, Myocardial Infarction ([place]), Sleep Apnea/CPAP/BIPAP, Vascular Disorder Additional Past Medical History / Comment(s): stent left leg 2017, no cpap, DVT to left leg burst 2017. Blood clotting disorder, unsure of name. Glaucoma. No cpap. Pain in legs D/T PVD Last Myocardial Infarction Date:: 2010 History of Any Multi-Drug Resistant Organisms: None Reported Past Surgical History: Heart Catheterization With Stent Additional Past Surgical History / Comment(s): stent in left groin/leg also from dvt. D&C, hysteroscopy 2019. Past Anesthesia/Blood Transfusion Reactions: No Reported Reaction Date of Last Stent Placement:: 2010 Smoking Status: Current every day smoker - Past Family History Mother Family Medical History: COPD, Coronary Artery Disease (CAD) Father History Unknown: Yes Medications and Allergies Home Medications Medication Instructions Recorded Confirmed Type Mirtazapine [Remeron] 45 mg PO HS 04/26/17 04/10/21 History clonazePAM [KlonoPIN] 1 mg PO BID 02/20/18 04/10/21 History Atorvastatin [Lipitor] 80 mg PO DAILY 08/08/18 04/10/21 History OLANZapine [ZyPREXA] 5 mg PO HS 08/08/18 04/10/21 History Metoprolol Tartrate [Lopressor] 25 mg PO BID 12/18/18 04/10/21 History Montelukast [Singulair] 10 mg PO HS 12/18/18 04/10/21 History lisinopriL [Zestril] 5 mg PO DAILY 01/12/19 04/10/21 History Albuterol Sulfate [Proair Hfa] 1 puff INHALATION RT-Q6H PRN 06/14/19 04/10/21 History Umeclidinium [place] [Incruse 1 puff INHALATION RT-DAILY 06/14/19 04/10/21 History Ellipta] metFORMIN HCL [Glucophage] 500 mg PO BID 06/14/19 04/10/21 History Aspirin [Adult Low Dose Aspirin EC] 81 mg PO DAILY 04/08/21 04/08/21 History Citalopram Hydrobromide 20 mg PO HS 04/08/21 04/10/21 History [Citalopram HBr] Divalproex Sodium [Depakote] 500 mg PO BID 04/08/21 04/10/21 History Fenofibrate Nanocrystallized 145 mg PO DAILY 04/08/21 04/10/21 History [Tricor] Glimepiride [Amaryl] 2 mg PO BID 04/08/21 04/10/21 History Albuterol Sulfate [Ventolin HFA] 1 - 2 puff INHALATION Q6H PRN 04/10/21 04/10/21 History Cephalexin [Keflex] 250 mg PO Q6HR 04/10/21 04/10/21 History Fluticasone Propion/Salmeterol 1 inhalation PO BID 04/10/21 04/10/21 History [[place] 500-50 Inhub] Latanoprost [Xalatan 0.005%] 1 drop BOTH EYES DAILY 04/10/21 04/10/21 History Moxifloxacin HCl [Moxifloxacin] 1 drop BOTH EYES QID 04/10/21 04/10/21 History Umeclidinium [place] [Incruse 62.5 mcg INHALATION DAILY 04/10/21 04/10/21 History Ellipta] Allergies Allergy/AdvReac Type Severity Reaction Status Date / Time No Known Allergies Allergy Verified 04/08/21 15:51 Physical Exam Vitals: Vital Signs Temp Pulse Pulse Resp BP BP BP 04/11/21 11:29 78 04/11/21 11:18 75 04/11/21 11:00 75 21 132/70 04/11/21 10:00 76 16 132/76 04/11/21 09:00 90 14 131/66 04/11/21 08:30 16 04/11/21 08:00 98.4 F 88 18 131/60 04/11/21 07:38 82 04/11/21 07:30 80 04/11/21 07:21 82 04/11/21 07:00 82 16 139/71 04/11/21 06:00 83 19 133/67 04/11/21 05:16 81 18 133/67 04/11/21 04:00 85 19 138/70 04/11/21 03:00 87 19 135/69 04/11/21 02:00 90 17 148/71 04/11/21 01:00 89 18 133/69 04/11/21 00:00 94 17 126/77 04/10/21 23:00 91 15 130/71 04/10/21 22:00 92 14 154/78 04/10/21 21:00 87 16 139/76 04/10/21 20:00 97.5 F L 93 16 04/10/21 19:00 98 14 0813/21 18:45 92 14 04/10/21 18:30 84 15 04/10/21 18:15 87 16 04/10/21 18:00 82 12 04/10/21 17:45 97 12 04/10/21 17:30 89 17 04/10/21 17:15 91 14 04/10/21 17:00 88 17 04/10/21 16:45 89 12 04/10/21 16:30 98 16 04/10/21 16:15 89 19 128/65 04/10/21 16:00 94.9 F L 80 16 139/71 04/10/21 15:25 91 16 135/58 04/10/21 15:05 92 18 138/52 04/10/21 14:50 92 18 130/64 04/10/21 14:35 90 20 04/10/21 14:20 97 F L 93 16 144/49 BP BP Pulse Ox 04/11/21 11:29 04/11/21 11:18 04/11/21 11:00 97 04/11/21 10:00 97 04/11/21 09:00 95 04/11/21 08:30 04/11/21 08:00 90 L 04/11/21 07:38 04/11/21 07:30 04/11/21 07:21 04/11/21 07:00 95 04/11/21 06:00 95 04/11/21 05:16 97 04/11/21 04:00 97 04/11/21 03:00 95 04/11/21 02:00 95 04/11/21 01:00 95 04/11/21 00:00 94 L 04/10/21 23:00 96 04/10/21 22:00 96 04/10/21 21:00 95 04/10/21 20:00 95 04/10/21 19:00 95 04/10/21 18:45 96 04/10/21 18:30 95 04/10/21 18:15 96 04/10/21 18:00 95 04/10/21 17:45 95 04/10/21 17:30 94 L 04/10/21 17:15 94 L 04/10/21 17:00 94 L 04/10/21 16:45 94 L 08/13/21 16:30 91 L 04/10/21 16:15 91 L 04/10/21 16:00 90 L 04/10/21 15:25 125/63 96 04/10/21 15:05 95 04/10/21 14:50 122/60 97 04/10/21 14:35 134/46 96 04/10/21 14:20 96 Intake and Output 04/10/21 04/11/21 04/11/21 22:59 06:59 14:59 Intake Total 459 551 Output Total 1110 580 100 Balance -651 -29 -100 Intake: IV 319 551 [place] flush 9 21 Dextrose 5%-0.9% NaCl 1, 150 000 ml @ 50 mls/hr IV . Q20H [facility] Rx#:[id number] Lactated Ringers 1,000 ml 60 530 @ 20 mls/hr IV .Q24H [facility] Rx#:[id number] Intake, IV Titration 140 Amount Dextrose 5%-0.9% NaCl 1, 100 000 ml @ 50 mls/hr IV . Q20H [facility] Rx#:[id number] Sodium Chloride 0.9% 1, 40 000 ml @ 0 mls/hr IV .[facility] Rx#:[id number] Output: Urine 1110 580 100 Other: Voiding Method Indwelling Catheter Indwelling Catheter Indwelling Catheter # Voids 0 Weight 99.5 kg ABP, PAP, CO, CI - Last 8 Hours Arterial Blood Pressure 147/63 Arterial Blood Pressure 139/62 GENERAL EXAM: Alert, pleasant 55-year-old female patient, on 2 L nasal cannula, comfortable in no apparent distress. HEAD: Normocephalic. EYES: Normal reaction of pupils, equal size. NOSE: Clear with pink turbinates. THROAT: No erythema or exudates. NECK: No masses, no JVD. CHEST: No chest wall deformity. LUNGS: Equal air entry with no crackles, wheeze, rhonchi or dullness. CVS: S1 and S2 normal with no audible murmur, regular rhythm. ABDOMEN: No hepatosplenomegaly, normal bowel sounds, no guarding or rigidity. SPINE: No scoliosis or deformity SKIN: No rashes CENTRAL NERVOUS SYSTEM: No focal deficits, tone is normal in all 4 extremities. EXTREMITIES: No significant ecchymosis or edema in the bilateral groins. There is no peripheral edema. No clubbing, no cyanosis. Peripheral pulses are intact. Results - Laboratory Findings CBC and BMP: 04/11/21 04:25 04/11/21 04:25 Abnormal lab findings: Abnormal Labs 04/10/21 04/10/21 04/10/21 09:25 11:51 12:48 WBC Neutrophils # Potassium Chloride BUN Creatinine Glucose POC Glucose (mg/dL) 114 H 196 H 128 H Total Protein Albumin 04/10/21 04/10/21 04/10/21 13:38 15:06 15:48 WBC Neutrophils # Potassium 5.2 H Chloride 111 H BUN 22 H Creatinine 1.18 H Glucose 109 H POC Glucose (mg/dL) 127 H 131 H Total Protein Albumin 04/10/21 04/10/21 04/11/21 18:51 20:48 04:04 WBC Neutrophils # Potassium Chloride BUN Creatinine Glucose POC Glucose (mg/dL) 157 H 106 H 157 H Total Protein Albumin 04/11/21 04/11/21 04/11/21 04:25 04:25 06:46 WBC 10.9 H Neutrophils # 8.6 H Potassium Chloride BUN 19 H Creatinine Glucose 162 H POC Glucose (mg/dL) 152 H Total Protein 5.6 L Albumin 3.3 L 04/11/21 11:27 WBC Neutrophils # Potassium Chloride BUN Creatinine Glucose POC Glucose (mg/dL) 136 H Total Protein Albumin Assessment and Plan Assessment: 1 Bilateral lower extremity pain, intermittent claudication, aortoiliac occlusi on. Status post endovascular aortic repair, aortic and bilateral balloon angioplasty of bilateral iliac arteries, percutaneous right common iliac artery stent placement, percutaneous left common and external iliac artery stenting. Postoperative day #1. 2 Chronic and ongoing tobacco dependence at 3 packs per day for 36 years 3 Chronic obstructive pulmonary disease currently inactive and stable 4 Hyperlipidemia 5 Coronary artery disease with previous stent placement 6 Peripheral vascular disease with previous history of left iliac artery stenting 7 Hypertension 8 Diabetes mellitus, type II Plan: The patient was seen and evaluated by Dr. Brannon Currently stable from the pulmonary and critical care standpoint Educated regarding the importance of complete smoking cessation NicoDerm patch in place Continue bronchodilators Titrate down the FiO2 as tolerated Home once cleared by vascular surgery I, the cosigning physician, performed a history & physical examination of the patient. Lungs sounds are clear, diminished. Maintaining good O2 saturations in the 90s on 2 L/m per nasal cannula. I discussed the assessment and plan of care with my nurse practitioner, Kathleen Goins. I attest to the above consultation as dictated by her. Time with Patient: Greater than 30
--- NOTE | 2021-04-11 12:36 | P.PN ---
Subjective Progress Note Date: 04/11/21 Patient is evaluated in follow-up care status post stent graft repair of aortoiliac occlusive disease. The patient indicates she feels well and offers no complaints. Patient abdomen soft and benign. Legs are free of edema. Palpable femoral pulses are noted. Toes are freely movable and nontender. Plan: Patient is surgically stable for discharge. She is asked follow-up with Dr. De La Cruz in the office in the next 10-14 days. She is allowed to shower over her wounds Objective - Vital Signs Vital signs: Vital Signs Temp 98.4 F 04/11/21 08:00 Pulse 78 04/11/21 11:29 Resp 21 04/11/21 11:00 BP 132/70 04/11/21 11:00 Pulse Ox 97 04/11/21 11:00 Intake & Output 04/10/21 04/11/21 04/11/21 18:59 06:59 18:59 Intake Total 340 770 Output Total 725 965 100 Balance -385 -195 -100 Weight 92.3 kg 99.5 kg Intake: IV 200 770 [place] flush 30 Dextrose 5%-0.9% NaCl 1, 150 000 ml @ 50 mls/hr IV . Q20H [facility] [place] Rx#:[id number] Lactated Ringers 1,000 ml 590 @ 20 mls/hr IV .Q24H [facility] Rx#:[id number] Intake, IV Titration 140 Amount Dextrose 5%-0.9% NaCl 1, 100 000 ml @ 50 mls/hr IV . Q20H [facility] Rx#:[id number] Sodium Chloride 0.9% 1, 40 000 ml @ 0 mls/hr IV .[facility] Rx#:[id number] Output: Urine 725 965 100 Other: Voiding Method Indwelling Catheter Indwelling Catheter # Voids 0 ABP, PAP, CO, CI - Last Documented Arterial Blood Pressure 147/63 - Labs CBC & Chem 7: 04/11/21 04:25 04/11/21 04:25 Labs: Abnormal Lab Results - Last 24 Hours (Table) 04/10/21 04/10/21 04/10/21 Range/Units 12:48 13:38 15:06 WBC (3.8-10.6) k/uL Neutrophils # (1.3-7.7) k/uL Potassium 5.2 H (3.5-5.1) mmol/L Chloride 111 H (98-107) mmol/L BUN 22 H (7-17) mg/dL Creatinine 1.18 H (0.52-1.04) mg/dL Glucose 109 H (74-99) mg/dL POC Glucose (mg/dL) 128 H 127 H (75-99) mg/dL Total Protein (6.3-8.2) g/dL Albumin (3.5-5.0) g/dL 04/10/21 04/10/21 04/10/21 Range/Units 15:48 18:51 20:48 WBC (3.8-10.6) k/uL Neutrophils # (1.3-7.7) k/uL Potassium (3.5-5.1) mmol/L Chloride (98-107) mmol/L BUN (7-17) mg/dL Creatinine (0.52-1.04) mg/dL Glucose (74-99) mg/dL POC Glucose (mg/dL) 131 H 157 H 106 H (75-99) mg/dL Total Protein (6.3-8.2) g/dL Albumin (3.5-5.0) g/dL 04/11/21 04/11/21 04/11/21 Range/Units 04:04 04:25 04:25 WBC 10.9 H (3.8-10.6) k/uL Neutrophils # 8.6 H (1.3-7.7) k/uL Potassium (3.5-5.1) mmol/L Chloride (98-107) mmol/L BUN 19 H (7-17) mg/dL Creatinine (0.52-1.04) mg/dL Glucose 162 H (74-99) mg/dL POC Glucose (mg/dL) 157 H (75-99) mg/dL Total Protein 5.6 L (6.3-8.2) g/dL Albumin 3.3 L (3.5-5.0) g/dL 04/11/21 04/11/21 Range/Units 06:46 11:27 WBC (3.8-10.6) k/uL Neutrophils # (1.3-7.7) k/uL Potassium (3.5-5.1) mmol/L Chloride (98-107) mmol/L BUN (7-17) mg/dL Creatinine (0.52-1.04) mg/dL Glucose (74-99) mg/dL POC Glucose (mg/dL) 152 H 136 H (75-99) mg/dL Total Protein (6.3-8.2) g/dL Albumin (3.5-5.0) g/dL
[2021-04-11] MEDS ORDERED: ALBUTEROL HFA INHALER INHALATION PRN (12:37)
--- NOTE | 2021-04-11 13:39 | P.PN ---
Progress Note - Text Progress Note Date: 04/11/21 - Chief Complaint Aorta repair - History of Present Illness Consultation: This is a 55-year-old patient who follows with Dr. Harvey. Chronic stable medical conditions include coronary artery disease with stent, COPD, diabetes, GERD, hypertension, obstructive sleep apnea does not use CPAP, peripheral arterial disease with a stent to left leg in 2018, blood clotting disorder, anxiety depression PTSD. Patient active smoker 1 pack a day. Patient been having claudication with walking a few steps both the legs. Going on for close to [address] imaging at showed aortic occlusion at the distal aspect about diet involving bilateral common iliac arteries. Patient underwent endovascular aortic repair with AF [address] Laurie De La Cruz. Patient also underwent angioplasty. underwent stent of the right common iliac artery and left common and external iliac artery along with aortogram.. Postprocedure in the ICU. Sitting up. Some short of breath and wheezing. Patient had been smoking up to surgery. April 11: Sitting up in a chair. Did eat some. Sister is visiting. Wheezing better. Slight abdominal discomfort. Feeling better. Review of systems: Was done for constitutional, cardiovascular, GI, pulmonary. relevant finding as above Active Medications Albuterol Sulfate (Albuterol Nebulized 2.5 Mg/3 Ml) 2.5 mg INHALATION RT-Q6H PRN PRN Reason: Shortness Of Breath Albuterol Sulfate (Albuterol Hfa Inhaler) 1 - 2 puff INHALATION Q6H PRN PRN Reason: Shortness Of Breath Albuterol/Ipratropium (Ipratropium-Albuterol 3 Ml Neb) 3 ml INHALATION RT-Q4H [facility] Last Admin: 04/11/21 11:18 Dose: 3 ml Documented by: Aspirin (Aspirin 81 Mg) 81 mg PO DAILY [facility] Last Admin: 04/11/21 09:21 Dose: 81 mg Documented by: Atorvastatin Calcium (Atorvastatin 80 Mg Tab) 80 mg PO DAILY [facility] Last Admin: 04/11/21 09:21 Dose: 80 mg Documented by: Budesonide (Budesonide 1 Mg/2 Ml Nebu) 1 mg INHALATION RT-BID [facility] Last Admin: 04/11/21 07:19 Dose: 1 mg Documented by: Cephalexin (Cephalexin 250 Mg Cap) 250 mg PO Q6HR [facility] Stop: 04/18/21 12:01 Last Admin: 04/11/21 11:50 Dose: 250 mg Documented by: Citalopram Hydrobromide (Citalopram Hydrobromide 20 Mg Tab) 20 mg PO HS [facility] Last Admin: 04/10/21 20:55 Dose: 20 mg Documented by: Clonazepam (Clonazepam 1 Mg Tab) 1 mg PO BID [facility] Last Admin: 04/11/21 09:22 Dose: 1 mg Documented by: Clopidogrel Bisulfate (Clopidogrel 75 Mg Tab) 75 mg PO DAILY [facility] Last Admin: 04/11/21 09:21 Dose: 75 mg Documented by: Divalproex Sodium (Divalproex 500 Mg Tablet.Dr) 500 mg PO BID [facility] Last Admin: 04/11/21 09:21 Dose: 500 mg Documented by: Fenofibrate (Fenofibrate 160 Mg Tab) 160 mg PO DAILY [facility] Last Admin: 04/11/21 09:22 Dose: 160 mg Documented by: Formoterol Fumarate (Formoterol Fumarate 20 Mcg/2 Ml Nebu) 20 mcg INHALATION RT-BID [facility] Last Admin: 04/11/21 07:19 Dose: 20 mcg Documented by: Glimepiride (Glimepiride 2 Mg Tab) 2 mg PO BID [facility] Lactated Ringer's (Lactated Ringers) 1,000 mls @ 20 mls/hr IV .Q24H [facility] Stop: 05/09/21 12:01 Last Admin: 04/11/21 06:56 Dose: Not Given Documented by: Dextrose/Sodium Chloride (Dextrose 5%-Ns Iv Soln) 1,000 mls @ 50 mls/hr IV .Q20H [facility] Last Admin: 04/11/21 06:48 Dose: Not Given Documented by: Insulin Aspart (Insulin Aspart (Novolog) 100 Unit/Ml Vial) 0 unit SQ ACHS [facility]; Protocol Last Admin: 04/11/21 11:50 Dose: 1 unit Documented by: Latanoprost (Latanoprost 0.005% Ophth Drops 2.5 Ml Btl) 1 drops BOTH EYES DAILY [facility] Last Admin: 04/11/21 09:23 Dose: 1 drops Documented by: Lidocaine HCl (Lidocaine 1% (10mg/Ml) For Iv Start) 0.1 ml INTRADERMA PER PROTOCOL PRN PRN Reason: IV Start Stop: 05/09/21 11:53 Lisinopril (Lisinopril 5 Mg Tab) 5 mg PO DAILY [facility] Last Admin: 04/11/21 09:21 Dose: 5 mg Documented by: Metformin HCl (Metformin 500 Mg Tab) 500 mg PO BID-W/MEALS [facility] Metoprolol Tartrate (Metoprolol Tartrate 25 Mg Tab) 25 mg PO BID [facility] Last Admin: 04/11/21 09:21 Dose: 25 mg Documented by: Mirtazapine (Mirtazapine 45 Mg Tablet) 45 mg PO [facility] Last Admin: 04/10/21 20:55 Dose: 45 mg Documented by: Montelukast Sodium (Montelukast 10 Mg Tab) 10 mg PO [facility] Last Admin: 04/10/21 20:55 Dose: 10 mg Documented by: Moxifloxacin HCl (Moxifloxacin Hcl 0.5% Drops 3 Ml Btl) 1 drops BOTH EYES QID [facility] Last Admin: 04/11/21 09:23 Dose: 1 drops Documented by: Nicotine (Nicotine 21mg/24hr Patch) 1 patch TRANSDERM DAILY [facility] Last Admin: 04/11/21 09:24 Dose: Not Given Documented by: Umeclidinium [place] [Incruse Ellipta] 62.5 Mcg 1 puff INHALATION RT-DAILY [facility] Last Admin: 04/11/21 09:24 Dose: Not Given Documented by: Olanzapine (Olanzapine 5 Mg Tab) 5 mg PO [facility] Last Admin: 04/10/21 20:55 Dose: 5 mg Documented by: Past medical history to include: Coronary artery with stent, COPD, diabetes, DVT, GERD, hypertension, obstructive sleep apnea does not use CPAP, peripheral arterial disease with previous stent, glaucoma, anxiety depression, PTSD Social history: Smoking a pack a day for close to 35 years was up to 3 packs a day in the past. No alcohol. Lives alone. Family history: Coronary artery disease Physical examination: VITAL SIGNS: Afebrile, 22, 82, 132/70, 97% GENERAL: Up in a chair, breathing improved EYES: Pupils equal. Conjunctiva normal. HEENT: External appearance of nose and ears normal, oral cavity grossly normal. NECK: JVD not raised; masses not palpable. HEART: First and second heart sounds are normal; no edema. LUNGS: Respiratory rate increased; decreased breath sound, ABDOMEN: Soft, nontender, liver spleen not palpable, no masses palpable. PSYCH: Alert and oriented x3; mood and affect anxiousl. EXTREMITY: Right dorsalis pedis and posterior tibial palpable. Left posterior tibial palpable INVESTIGATIONS, reviewed in the clinical context: April 11: WBC 10.9 hemoglobin 12.6 platelets 167 potassium 4.7 creatinine 1.02 WBC 8.2 hemoglobin 13.1 platelets 184 potassium 5.2 BUN 22 creatinine 1.18 Assessment and plan: --Endovascular aortic repair with AF 2 device along with stent to the right common iliac artery and left common and external iliac artery -Severe peripheral artery disease Aspirin, and Lipitor -Acute COPD exacerbation in a current smoker: Better DuoNeb every 4, inhaled steroids, inhaled beta agonist -Diabetes mellitus type 2, oral hypoglycemic Resume metformin follow Accu-Cheks. Diabetic diet. -Hyperlipidemia Lipitor 80 mg daily -Chronic insomnia for medical conditions Remeron 45 mg daily at bedtime -Anxiety, depression, PTSD Celexa 20 mg daily at bedtime, Klonopin 1 mg twice a day, Depakote 5 mg twice a day, Zyprexa 5 mg daily at bedtime, Remeron 45 mg daily at bedtime -Obesity BMI 33.9 Weight loss measures and follow-up with PCP Smoke cessation counseling: This was done with the patient. Nicotine patch is being given. More than 3 minutes was spent for this Doing better. Continue current medication treatment plan. Discussed with the patient and the sister. Thank you Dr. De La Cruz
[2021-04-11 15:15] VITALS: BP 149/76; PULSE 82; RESP 23
[2021-04-11] MEDS ORDERED: GLIMEPIRIDE 2 MG TAB PO SCH (21:00)
[2021-04-12] MEDS ORDERED: metFORMIN 500 MG TAB PO SCH (17:30)
--- NOTE | 2021-04-14 08:27 | IR ---
EXAMINATION TYPE: IR sea captain aorta DATE OF EXAM: 04/10/2021 COMPARISON: NONE HISTORY: Fluoroscopy time. Fluoroscopy was provided to the referring clinician.
== END 2021-04-11 15:55 | disposition home or self-care (01) | DRG 253 ==
LOC: 2ORMAIN 08:58 → EDSTATUS 10:45 → 2SICU 16:11
PROVIDERS: ADMIT Surgery; ATTEND Surgery
PROC: 047C3DZ Dilation of Right Common Iliac Artery with Intraluminal Device, Percutaneous Approach (ICD-10-PCS; 2021-04-10)
PROC: B41D1ZZ Fluoroscopy of Aorta and Bilateral Lower Extremity Arteries using Low Osmolar Contrast (ICD-10-PCS; 2021-04-10)
PROC: 047C3DZ Dilation of Right Common Iliac Artery with Intraluminal Device, Percutaneous Approach (ICD-10-PCS; principal; 2021-04-10 10:45)
PROC: 047J3DZ Dilation of Left External Iliac Artery with Intraluminal Device, Percutaneous Approach (ICD-10-PCS; 2021-04-10 10:45)
DX: I74.5 Embolism and thrombosis of iliac artery (principal); J44.1 Chronic obstructive pulmonary disease with (acute) exacerbation; E11.51 Type 2 diabetes mellitus with diabetic peripheral angiopathy without gangrene; E66.9 Obesity, unspecified; E78.5 Hyperlipidemia, unspecified; F17.200 Nicotine dependence, unspecified, uncomplicated; F32.9 Major depressive disorder, single episode, unspecified; F43.10 Post-traumatic stress disorder, unspecified; F51.04 Psychophysiologic insomnia; G47.33 Obstructive sleep apnea (adult) (pediatric); I10 Essential (primary) hypertension; I25.10 Atherosclerotic heart disease of native coronary artery without angina pectoris; I25.2 Old myocardial infarction; K21.9 Gastro-esophageal reflux disease without esophagitis; Z68.33 Body mass index [BMI] 33.0-33.9, adult; Z79.82 Long term (current) use of aspirin; Z79.84 Long term (current) use of oral hypoglycemic drugs; Z79.899 Other long term (current) drug therapy; Z82.49 Family history of ischemic heart disease and other diseases of the circulatory system; Z82.5 Family history of asthma and other chronic lower respiratory diseases; Z95.5 Presence of coronary angioplasty implant and graft
CPT/HCPCS: 80048; 80053; 84132; 85025; 86850; 86900; 86901; 94640

== ENCOUNTER → 2021-06-15 | Outpatient (CLI) | payer MEDICARE, OTHER ==
[2021-06-15 16:21] LABS: Basophils # (A) 0.08 X 10*3/uL (0.00-0.10); Basophils % (A) 0.6 %; Eosinophils # (A) 0.02 X 10*3/uL (0.04-0.35); Eosinophils % (A) 0.1 %; HCT 43.2 % (37.2-46.3); HGB 13.5 g/dL (12.0-15.0); Lymphocytes # (A) 3.45 X 10*3/uL (0.90-5.00); Lymphocytes % (A) 24.9 %; MCH 29.5 pg (27.0-32.0); MCHC 31.3 g/dL (32.0-37.0); MCV 94.3 fL (80.0-97.0); Mean Platelet Volume 10.6 fL (9.5-12.2); Monocytes # (A) 0.37 X 10*3/uL (0.20-1.00); Monocytes % (A) 2.7 %; Neutrophils # (A) 9.71 X 10*3/uL (1.80-7.70); Neutrophils % (A) 70.1 %; Platelet Count 289 X 10*3/uL (140-440); RBC 4.58 X 10*6/uL (4.10-5.20); RDW 16.2 % (11.5-14.5); WBC 13.85 X 10*3/uL (4.50-10.00)
[2021-06-15 18:04] LABS: ALT 34 U/L (8-44); AST 28 U/L (13-35); African American GFR (CKD) 47.1 (60.0-200.0); Albumin 4.2 g/dL (3.8-4.9); Albumin/Globulin Ratio 1.96 (1.60-3.17); Alkaline Phosphatase 61 U/L (41-126); BUN/Creat Ratio 21.51 Ratio (12.00-20.00); Bilirubin, Conjugated <0.20 mg/dL (0.20-0.40); Blood Urea Nitrogen 31.4 mg/dL (9.0-27.0); Carbon Dioxide 19.9 mmol/L (21.6-31.8); Chloride 104 mmol/L (96-109); Globulin 2.2 g/dL (1.6-3.3); Glucose 120 mg/dL (70-110); LDL Cholesterol,Calculated 67.6 mg/dL (0.0-131.0); Non-African American GFR(CKD) 40.7 (60.0-200.0); Potassium 5.4 mmol/L (3.5-5.5); Sodium 139 mmol/L (135-145); Total Protein 6.4 g/dL (6.2-8.2)
[2021-06-16 00:57] LABS: Valproic Acid (Depakene) 46.4 ug/mL (50.0-100.0)
== END | disposition home or self-care (01) ==
LOC: LABWHC1 07:48
PROVIDERS: ATTEND Psychiatry & Neurology Psychiatry
DX: Z79.899 Other long term (current) drug therapy (principal)
CPT/HCPCS: 36415; 80053; 80061; 80164; 82248; 82306; 82652; 83036; 83721; 84146; 84439; 84443; 85025

== ENCOUNTER → 2021-10-07 | Outpatient (CLI) | payer MEDICARE, OTHER ==
[2021-10-07 23:14] LABS: Basophils # (A) 0.06 X 10*3/uL (0.00-0.10); Basophils % (A) 0.8 %; Eosinophils # (A) 0.12 X 10*3/uL (0.04-0.35); Eosinophils % (A) 1.6 %; HCT 36.8 % (37.2-46.3); HGB 11.5 g/dL (12.0-15.0); Immature Grans, Automated 2.3 %; Lymphocytes # (A) 2.95 X 10*3/uL (0.90-5.00); Lymphocytes % (A) 39.4 %; MCHC 31.3 g/dL (32.0-37.0); MCV 92.9 fL (80.0-97.0); Mean Platelet Volume 11.2 fL (9.5-12.2); Monocytes # (A) 0.39 X 10*3/uL (0.20-1.00); Monocytes % (A) 5.2 %; NRBC Per 100 WBC 0 /100 WBCS (0.0-0.0); Neutrophils % (A) 50.7 %; Platelet Count 241 X 10*3/uL (140-440); RBC 3.96 X 10*6/uL (4.10-5.20); RDW 15.8 % (11.5-14.5); WBC 7.49 X 10*3/uL (4.50-10.00)
[2021-10-07 23:25] LABS: ALT 28 U/L (8-44); AST 30 U/L (13-35); African American GFR (CKD) 49.2 (60.0-200.0); Albumin 4.1 g/dL (3.8-4.9); Albumin/Globulin Ratio 1.58 (1.60-3.17); Alkaline Phosphatase 49 U/L (41-126); BUN/Creat Ratio 18.43 Ratio (12.00-20.00); Blood Urea Nitrogen 25.8 mg/dL (9.0-27.0); Calcium 10.4 mg/dL (8.7-10.3); Carbon Dioxide 22.5 mmol/L (20.0-27.5); Chloride 104 mmol/L (96-109); Chol/HDL Ratio 7.97 Ratio; Globulin 2.6 g/dL (1.6-3.3); Glucose 56 mg/dL (70-110); Non-African American GFR(CKD) 42.5 (60.0-200.0); Potassium 4.6 mmol/L (3.5-5.5); Sodium 140 mmol/L (135-145); Total Protein 6.7 g/dL (6.2-8.2)
--- NOTE | 2021-10-08 08:39 | XR ---
EXAMINATION TYPE: XR chest 2V DATE OF EXAM: 10/07/2021 COMPARISON: Chest x-ray 09/03/2021, 09/11/2021 HISTORY: J 18.9, shortness of breath TECHNIQUE: Frontal and lateral views of the chest are obtained. FINDINGS: There is no focal air space opacity, pleural effusion, or pneumothorax seen. The cardiac silhouette size is within normal limits. Right hemidiaphragm remains elevated. The osseous structure s are intact. IMPRESSION: No acute cardiopulmonary process.
== END | disposition home or self-care (01) ==
LOC: LABWHC1 15:46
PROVIDERS: ATTEND Pediatrics
DX: J18.9 Pneumonia, unspecified organism (principal); I10 Essential (primary) hypertension; E11.9 Type 2 diabetes mellitus without complications; E78.5 Hyperlipidemia, unspecified
CPT/HCPCS: 36415; 71046; 80053; 80061; 83036; 84443; 85025

== ENCOUNTER → 2021-10-29 | Outpatient (CLI) | payer MEDICARE, OTHER ==
--- NOTE | 2021-10-30 13:46 | MM ---
Reason for exam: screening (asymptomatic). Last mammogram was performed 3 years and 1 month ago. History: Patient is postmenopausal. Took hormonal contraceptives for 2 years. Physical Findings: A clinical breast exam by your physician is recommended on an annual basis and results should be correlated with mammographic findings. MG 3D Screening Mammo W/Cad Bilateral CC and MLO view(s) were taken. Prior study comparison: September 18, 2018, left breast MG 3d work up w/cad LT. August 17, 2018, bilateral MG screening mammo w CAD. The breast tissue is heterogeneously dense. This may lower the sensitivity of mammography. There is no discrete abnormality. No significant changes when compared with prior studies. ASSESSMENT: Negative, BI-RAD 1 RECOMMENDATION: Routine screening mammogram of both breasts in 1 year.
== END | disposition home or self-care (01) ==
LOC: RADMAMWWP 15:41
PROVIDERS: ATTEND Pediatrics
DX: Z12.31 Encounter for screening mammogram for malignant neoplasm of breast (principal)
CPT/HCPCS: 77063; 77067

== ENCOUNTER → 2022-03-09 | Outpatient (CLI) | payer MEDICARE, OTHER ==
[2022-03-09 18:50] LABS: Basophils # (A) 0.05 X 10*3/uL (0.00-0.10); Basophils % (A) 0.7 %; Eosinophils # (A) 0.13 X 10*3/uL (0.04-0.35); Eosinophils % (A) 1.8 %; HCT 43.1 % (37.2-46.3); HGB 13.2 g/dL (12.0-15.0); Immature Grans, Automated 1.6 %; Lymphocytes # (A) 2.68 X 10*3/uL (0.90-5.00); MCH 27.8 pg (27.0-32.0); MCHC 30.6 g/dL (32.0-37.0); MCV 90.9 fL (80.0-97.0); Monocytes # (A) 0.31 X 10*3/uL (0.20-1.00); Monocytes % (A) 4.4 %; NRBC Per 100 WBC 0 /100 WBCS (0.0-0.0); Neutrophils # (A) 3.78 X 10*3/uL (1.80-7.70); Neutrophils % (A) 53.5 %; Platelet Count 252 X 10*3/uL (140-440); RBC 4.74 X 10*6/uL (4.10-5.20); RDW 16.6 % (11.5-14.5); WBC 7.06 X 10*3/uL (4.50-10.00)
[2022-03-09 22:57] LABS: Valproic Acid (Depakene) 38.9 ug/mL (50.0-100.0)
[2022-03-10 05:43] LABS: ALT 52 U/L (8-44); AST 43 U/L (13-35); African American GFR (CKD) 49.2 (60.0-200.0); Albumin 4.4 g/dL (3.8-4.9); Alkaline Phosphatase 74 U/L (41-126); BUN/Creat Ratio 18.07 Ratio (12.00-20.00); Bilirubin, Conjugated <0.20 mg/dL (0.20-0.40); Blood Urea Nitrogen 25.3 mg/dL (9.0-27.0); Calcium 10.7 mg/dL (8.7-10.3); Chloride 111 mmol/L (96-109); Chol/HDL Ratio 8.62 Ratio; Globulin 2.2 g/dL (1.6-3.3); Glucose 130 mg/dL (70-110); LDL Cholesterol,Calculated 119.4 mg/dL (0.0-131.0); Non-African American GFR(CKD) 42.5 (60.0-200.0); Potassium 5.4 mmol/L (3.5-5.5); Sodium 153 mmol/L (135-145); Total Bilirubin <0.15 mg/dL (0.30-1.20); Total Protein 6.6 g/dL (6.2-8.2)
== END | disposition home or self-care (01) ==
LOC: LABWHC1 12:35
PROVIDERS: ATTEND Psychiatry & Neurology Psychiatry
DX: Z51.81 Encounter for therapeutic drug level monitoring (principal); Z79.899 Other long term (current) drug therapy
CPT/HCPCS: 36415; 80053; 80061; 80164; 82248; 82306; 83036; 84146; 84439; 84443; 85025

== ENCOUNTER → 2022-08-03 | Outpatient (CLI) | payer MEDICARE, OTHER ==
[2022-08-03 11:01] LABS: Valproic Acid (Depakene) 45.3 ug/mL (50.0-100.0)
[2022-08-03 11:09] LABS: African American GFR (CKD) 59.3 (60.0-200.0); BUN/Creat Ratio 21.08 Ratio (12.00-20.00); Blood Urea Nitrogen 25.3 mg/dL (9.0-27.0); Calcium 10.4 mg/dL (8.7-10.3); Chloride 100 mmol/L (96-109); Chol/HDL Ratio 7.87 Ratio; Glucose 108 mg/dL (70-110); LDL Cholesterol,Calculated 63.2 mg/dL (0.0-131.0); Non-African American GFR(CKD) 51.2 (60.0-200.0); Potassium 4.6 mmol/L (3.5-5.5); Sodium 138 mmol/L (135-145)
--- NOTE | 2022-08-03 11:48 | US ---
EXAMINATION TYPE: US kidneys/renal and bladder DATE OF EXAM: 08/03/2022 COMPARISON: NONE CLINICAL HISTORY: N28.9 RENAL INSUFFICIENCY. renal insufficiency EXAM MEASUREMENTS: Right Kidney: 11.2 x 5.9 x 5.0 cm Left Kidney: 12.5 x 6.0 x 5.5 cm Technical limitations due to large amount of overlying bowel content Right Kidney: lower pole obscured by overlying bowel content . No hydronephrosis or shadowing calcul i. Cortical medullary differentiation is maintained. Left Kidney: no evidence of hydronephrosis . No shadowing calculi or solid mass. Cortical medullary differentiation is maintained. Bladder: not fully distended Bilateral Jets seen: no IMPRESSION: No hydronephrosis or shadowing renal calculi.
== END | disposition home or self-care (01) ==
LOC: RADUSWWP 06:57
PROVIDERS: ATTEND Internal Medicine
DX: N28.9 Disorder of kidney and ureter, unspecified (principal); F33.9 Major depressive disorder, recurrent, unspecified
CPT/HCPCS: 76770; 80048; 80061; 80164

== ENCOUNTER → 2022-08-25 | Outpatient (CLI) | payer MEDICARE, OTHER ==
--- NOTE | 2022-08-25 15:00 | XR ---
EXAMINATION TYPE: XR chest 2V DATE OF EXAM: 08/25/2022 2:51 PM COMPARISON: Chest radiographs from 10/07/2021 TECHNIQUE: XR chest 2V Frontal and lateral views of the chest. CLINICAL INDICATION:Female, 56 years old with history of J44.1; FINDINGS: Lungs/Pleura: There is no evidence of pleural effusion, focal consolidation, or pneumothorax. Pulmonary vascularity: Unremarkable. Heart/mediastinum: Cardiomediastinal silhouette is unremarkable. Musculoskeletal: No acute osseous pathology. IMPRESSION: No acute cardiopulmonary disease/process.
== END | disposition home or self-care (01) ==
LOC: RADXRMAIN 14:31
PROVIDERS: ATTEND Internal Medicine
DX: J44.1 Chronic obstructive pulmonary disease with (acute) exacerbation (principal)
CPT/HCPCS: 71046

== ENCOUNTER 2022-09-04 17:55 | Observation (INO) | payer MEDICARE, OTHER ==
[2022-09-04] MEDS ORDERED: NITROGLYCERIN SL TABS 0.4 MG TAB SUBLINGUAL STA (18:05)
[2022-09-04] MEDS ORDERED: ASPIRIN 81 MG PO STA (18:05)
[2022-09-04] MEDS ORDERED: NITROGLYCERIN OINT 1 INCH/GM PACKET TOPICAL STA (18:05)
--- NOTE | 2022-09-04 18:07 | ED ---
General Adult HPI - General Stated complaint: Chest Pain Time Seen by Provider: 09/04/22 17:55 Source: patient, EMS, RN notes reviewed Mode of arrival: EMS Limitations: no limitations - History of Present Illness Initial comments: Patient is a pleasant 56-year-old female presenting to the emergency department with concerns for chest discomfort. Onset of symptoms was the past one to 2 hours. Discomfort was starting to become severe. Discomfort is somewhat sharp with some radiation towards left arm. Patient does have history of similar symptoms previously associated with previous stenting of the cardiac arteries. Patient believes she is on a blood thinner. Patient received aspirin in atrial fibrillation by EMS with improvement of symptoms. Discomfort was 10/10 now is 5/10. - Related Data Home Medications Medication Instructions Recorded Confirmed Mirtazapine [Remeron] 45 mg PO HS 04/26/17 08/29/21 clonazePAM [KlonoPIN] 2 mg PO HS 02/20/18 08/29/21 Atorvastatin [Lipitor] 80 mg PO DAILY 08/08/18 08/29/21 OLANZapine [ZyPREXA] 5 mg PO HS 08/08/18 08/29/21 Metoprolol Tartrate [Lopressor] 25 mg PO BID@0700,1600 12/18/18 08/29/21 Montelukast [Singulair] 10 mg PO HS 12/18/18 08/29/21 Umeclidinium [place] [Incruse 1 puff INHALATION RT-DAILY 06/14/19 08/29/21 Ellipta] metFORMIN HCL [Glucophage] 500 mg PO BID@0700,1600 06/14/19 08/29/21 Aspirin [Adult Low Dose Aspirin EC] 81 mg PO DAILY 04/08/21 08/29/21 Citalopram Hydrobromide 20 mg PO DAILY@1600 04/08/21 08/29/21 [Citalopram HBr] Fenofibrate Nanocrystallized 145 mg PO DAILY 04/08/21 08/29/21 [Tricor] Glimepiride [Amaryl] 2 mg PO DAILY 04/08/21 08/29/21 Albuterol Sulfate [Ventolin HFA] 1 - 2 puff INHALATION RT-QID PRN 04/10/21 08/29/21 Latanoprost [Xalatan 0.005%] 1 drop BOTH EYES HS 04/10/21 08/29/21 Divalproex ER [Depakote ER] 500 mg PO BID 08/29/21 08/29/21 Fluticasone Propion/Salmeterol 1 puff INHALATION RT-BID 08/29/21 08/29/21 [Advair 500-50 Diskus] Loratadine 10 mg PO DAILY 08/29/21 08/29/21 lisinopriL [Prinivil] 10 mg PO DAILY 08/29/21 08/29/21 Previous Rx's Medication Instructions Recorded Clopidogrel [Plavix] 75 mg PO DAILY #30 tab 04/11/21 Amoxic-Pot Clav 875-125Mg 1 each PO Q12HR #10 tab 09/04/21 [Augmentin 875-125] Nicotine 21Mg/24Hr Patch [Habitrol] 1 patch TRANSDERM DAILY #14 patch 09/04/21 Rivaroxaban [Xarelto] 2.5 mg PO BID #60 tab 09/04/21 predniSONE 10 mg PO DAILY #30 tab 09/04/21 Allergies Allergy/AdvReac Type Severity Reaction Status Date / Time No Known Allergies Allergy Verified 08/29/21 21:28 Review of Systems ROS Statement: Those systems with pertinent positive or pertinent negative responses have been documented in the HPI. ROS Other: All systems not noted in ROS Statement are negative. Constitutional: Denies: fever Eyes: Denies: eye pain ENT: Denies: ear pain Respiratory: Denies: cough Cardiovascular: Reports: as per HPI, chest pain Endocrine: Denies: fatigue Gastrointestinal: Denies: abdominal pain Genitourinary: Denies: dysuria Musculoskeletal: Denies: back pain Skin: Denies: rash Neurological: Denies: weakness Past Medical History Past Medical History: Asthma, Blood Disorder, Coronary Artery Disease (CAD), COPD, Diabetes Mellitus, Deep Vein Thrombosis (DVT), Eye Disorder, GERD/Reflux, Hyperlipidemia, Hypertension, Myocardial Infarction ([place]), Seizure Disorder, Sleep Apnea/CPAP/BIPAP, Vascular Disorder Additional Past Medical History / Comment(s): NIDDM type II, neuropathy bilateral feet, blood clotting disorder/pt does not know type, DVT L leg/Lgroin, PVD, BI/no device used, seizure 2012, possible TIA, insomnia, bilateral eye glaucoma, bronchitis, vitamin D deficiency. Last Myocardial Infarction Date:: 2010 History of Any Multi-Drug Resistant Organisms: None Reported Past Surgical History: Heart Catheterization With Stent Additional Past Surgical History / Comment(s): Bilateral aortic stent/PTBA, L lower leg stent per pt, fasciotomy L lower extremity/compartmental syndrome, D&C/hysteroscopy, R foot fracture with hardware since removed. Past Anesthesia/Blood Transfusion Reactions: No Reported Reaction Date of Last Stent Placement:: 2010 Smoking Status: Current every day smoker - Past Family History Mother Family Medical History: COPD Father History Unknown: Yes General Exam Limitations: no limitations General appearance: alert, in no apparent distress Head exam: Present: normocephalic Eye exam: Present: normal appearance Neck exam: Present: normal inspection Respiratory exam: Present: normal lung sounds bilaterally. Absent: chest wall tenderness Cardiovascular Exam: Present: regular rate, normal rhythm Expanded Peripheral pulses: 2+: Radial (R), Radial (L), Posterior Tibialis (R), Posterior Tibialis (L) GI/Abdominal exam: Present: soft. Absent: tenderness Extremities exam: Present: normal inspection. Absent: pedal edema, calf tenderness Neurological exam: Present: alert Psychiatric exam: Present: normal affect, normal mood Skin exam: Present: normal color Course Vital Signs 09/04/22 09/04/22 09/04/22 18:00 18:30 18:50 Temperature 98.9 F Pulse Rate 78 71 73 Respiratory 16 17 16 Rate Blood Pressure 141/88 128/58 131/59 O2 Sat by Pulse 97 97 95 Oximetry 09/04/22 19:44 Temperature Pulse Rate 69 Respiratory 17 Rate Blood Pressure 135/75 O2 Sat by Pulse 96 Oximetry EKG Findings - EKG Results: EKG: interpreted by ERMD (Septal Q waves.), sinus rhythm (Frequent premature supraventricular complexes.), normal axis, normal ST/T Medical Decision Making - Medical Decision Making Was pt. sent in by a medical professional or institution (, PA, LOCAL OPERATOR, urgent care, hospital, or alf...) When possible be specific @ -[No] Did you speak to anyone other than the patient for history (EMS, parent, family, police, friend...)? What history was obtained from this source @ -I did speak with EMS who help provide history regarding medications patient took in route Did you review nursing and triage notes (agree or disagree)? Why? @ -[I reviewed and agree with nursing and triage notes] Were old charts reviewed (outside hosp., previous admission, EMS record, old EKG, old radiological studies, urgent care reports/EKG's, alf records)? Report findings @ -[No old charts were reviewed] Differential Diagnosis (chest pain, altered mental status, abdominal pain women, abdominal pain men, vaginal bleeding, weakness, fever, dyspnea, syncope, headache, dizziness, GI bleed, back pain, seizure, CVA, palpatations, mental health)? @ -Differential Chest Pain: Stable Angina, Unstable Angina, STEMI, NSTEMI Aortic Dissection, Pneumothorax, Musculoskeletal, Esophageal Spasm GERD, Cholecystitis, Pancreatitis, Zoster, t his is not meant to be an all-inclusive list. EKG interpreted by me (3pts min.). @ -[As above] X-rays interpreted by me (1pt min.). @ -Chest x-ray. By myself shows no acute process CT interpreted by me (1pt min.). @ -[None done] U/S interpreted by me (1pt. min.). @ -[None done] What testing was considered but not performed or refused? (CT, X-rays, U/S, labs)? Why? @ -Considered CT chest however d-dimer resulted negative What meds were considered but not given or refused? Why? @ -[None] Did you discuss the management of the patient with other professionals (professionals i.e. , PA, LOCAL OPERATOR, lab, RT, psych nurse, social media community manager, shoe coverer, teacher, booking police officer, caseworker intake)? Give summary @ -Case was discussed with Dr. Cuevas, who will admit covering Dr. Briggs Was smoking cessation discussed for >3mins.? @ -[No] Was critical care preformed (if so, how long)? @ -[No] Were there social determinants of health that impacted care today? How? (Homelessness, low income, unemployed, alcoholism, drug addiction, jimenes sportation, low edu. Level, literacy, decrease access to med. care, assisted, rehab)? @ -[No] Was there de-escalation of care discussed even if they declined (Discuss DNR or withdrawal of care, Hospice)? DNR status @ -[No] What co-morbidities impacted this encounter? (DM, HTN, Smoking, COPD, CAD, Cancer, CVA, ARF, Chemo, Hep., AIDS, mental health diagnosis, sleep apnea, morbid obesity)? @ -Patient does have history of cardiac disease with stent placement Was patient admitted / discharged? Hospital course, mention meds given and route, prescriptions, significant lab abnormalities, going to OR and other pertinent info. @ -Patient reevaluated and further improved, near symptom-free. Patient updated on results and plan. Admission orders will be written. Undiagnosed new problem with uncertain prognosis? @ -[No] Drug Therapy requiring intensive monitoring for toxicity (Heparin, Nitro, Insulin, Cardizem)? @ -[No] Were any procedures done? @ -[No] Diagnosis/symptom? @ -[Chest pain] Acute, or Chronic, or Acute on Chronic? @ -Acute Uncomplicated (without systemic symptoms) or Complicated (systemic symptoms)? @ -Uncomplicated Side effects of treatment? @ -[No] Exacerbation, Progression, or Severe Exacerbation? @ -[No] Poses a threat to life or bodily function? How? (Chest pain, [place], [place], pneumonia, PE, COPD, DKA, ARF, appy, cholecystitis, CVA, Diverticulitis, Homicidal, Suicidal, threat to staff... and all critical care pts) @ -Potential threat if acute cardiac disease. - Lab Data Result diagrams: 09/04/22 18:11 09/04/22 18:11 Lab Results 09/04/22 09/04/22 09/04/22 Range/Units 18:11 18:11 18:11 WBC 8.7 (3.8-10.6) k/uL RBC 4.54 (3.80-5.40) m/uL Hgb 13.0 (11.4-16.0) gm/dL Hct 39.9 (34.0-46.0) % MCV 87.9 (80.0-100.0) fL MCH 28.7 (25.0-35.0) pg MCHC 32.7 (31.0-37.0) g/dL RDW 15.1 (11.5-15.5) % Plt Count 299 (150-450) k/uL MPV 7.8 Neutrophils % 56 % Lymphocytes % 36 % Monocytes % 4 % Eosinophils % 2 % Basophils % 1 % Neutrophils # 4.9 (1.3-7.7) k/uL Lymphocytes # 3.2 (1.0-4.8) k/uL Monocytes # 0.3 (0-1.0) k/uL Eosinophils # 0.2 (0-0.7) k/uL Basophils # 0.1 (0-0.2) k/uL PT 10.4 (9.0-12.0) sec INR 1.0 (<1.2) APTT 21.2 L (22.0-30.0) sec D-Dimer 0.32 (<0.60) mg/L FEU Sodium 138 (137-145) mmol/L Potassium 4.2 (3.5-5.1) mmol/L Chloride 104 (98-107) mmol/L Carbon Dioxide 28 (22-30) mmol/L Anion Gap 6 mmol/L BUN 22 H (7-17) mg/dL Creatinine 1.12 H (0.52-1.04) mg/dL Est GFR (CKD-EPI)AfAm 64 (>60 ml/min/1.73 sqM) Est GFR (CKD-EPI)NonAf 56 (>60 ml/min/1.73 sqM) Glucose 195 H (74-99) mg/dL Calcium 9.5 (8.4-10.2) mg/dL Magnesium 1.6 (1.6-2.3) mg/dL Total Bilirubin 0.3 (0.2-1.3) mg/dL AST 30 (14-36) U/L ALT 35 H (4-34) U/L Alkaline Phosphatase 47 (38-126) U/L Troponin I (0.000-0.034) ng/mL Total Protein 5.2 L (6.3-8.2) g/dL Albumin 3.2 L (3.5-5.0) g/dL 09/04/22 Range/Units 18:11 WBC (3.8-10.6) k/uL RBC (3.80-5.40) m/uL Hgb (11.4-16.0) gm/dL Hct (34.0-46.0) % MCV (80.0-100.0) fL MCH (25.0-35.0) pg MCHC (31.0-37.0) g/dL RDW (11.5-15.5) % Plt Count (150-450) k/uL MPV Neutrophils % % Lymphocytes % % Monocytes % % Eosinophils % % Basophils % % Neutrophils # (1.3-7.7) k/uL Lymphocytes # (1.0-4.8) k/uL Monocytes # (0-1.0) k/uL Eosinophils # (0-0.7) k/uL Basophils # (0-0.2) k/uL PT (9.0-12.0) sec INR (<1.2) APTT (22.0-30.0) sec D-Dimer (<0.60) mg/L FEU Sodium (137-145) mmol/L Potassium (3.5-5.1) mmol/L Chloride (98-107) mmol/L Carbon Dioxide (22-30) mmol/L Anion Gap mmol/L BUN (7-17) mg/dL Creatinine (0.52-1.04) mg/dL Est GFR (CKD-EPI)AfAm (>60 ml/min/1.73 sqM) Est GFR (CKD-EPI)NonAf (>60 ml/min/1.73 sqM) Glucose (74-99) mg/dL Calcium (8.4-10.2) mg/dL Magnesium (1.6-2.3) mg/dL Total Bilirubin (0.2-1.3) mg/dL AST (14-36) U/L ALT (4-34) U/L Alkaline Phosphatase (38-126) U/L Troponin I <0.012 (0.000-0.034) ng/mL Total Protein (6.3-8.2) g/dL Albumin (3.5-5.0) g/dL Disposition Clinical Impression: Chest pain Disposition: ADMITTED IP TO THIS HOSP Is patient prescribed a controlled substance at d/c from ED?: No Referrals: Shine Yañez MD [Primary Care Provider] - 1-2 days Time of Disposition: 20:05
[2022-09-04 18:27] LABS: Basophils # (A) 0.1 k/uL (0-0.2); Basophils % (A) 1 %; Eosinophils # (A) 0.2 k/uL (0-0.7); Eosinophils % (A) 2 %; HCT 39.9 % (34.0-46.0); Lymphocytes # (A) 3.2 k/uL (1.0-4.8); Lymphocytes % (A) 36 %; MCH 28.7 pg (25.0-35.0); MCHC 32.7 g/dL (31.0-37.0); MCV 87.9 fL (80.0-100.0); Mean Platelet Volume 7.8; Monocytes # (A) 0.3 k/uL (0-1.0); Monocytes % (A) 4 %; Neutrophils # (A) 4.9 k/uL (1.3-7.7); Neutrophils % (A) 56 %; Platelet Count 299 k/uL (150-450); RBC 4.54 m/uL (3.80-5.40); RDW 15.1 % (11.5-15.5); WBC 8.7 k/uL (3.8-10.6)
[2022-09-04 18:38] LABS: Albumin 3.2 g/dL (3.5-5.0); Calcium 9.5 mg/dL (8.4-10.2); Magnesium 1.6 mg/dL (1.6-2.3); Potassium 4.2 mmol/L (3.5-5.1); Total Bilirubin 0.3 mg/dL (0.2-1.3); Total Protein 5.2 g/dL (6.3-8.2)
[2022-09-04 18:54] LABS: Partial Thromboplastin Time 21.2 sec (22.0-30.0); Prothrombin Time 10.4 sec (9.0-12.0)
--- NOTE | 2022-09-04 19:14 | XR ---
EXAMINATION TYPE: XR chest 2V DATE OF EXAM: 09/04/2022 COMPARISON: 08/25/2022 HISTORY: Chest pain TECHNIQUE: FINDINGS: Heart is normal. Lungs are clear. Diaphragm is normal. Bony thorax is intact. There are ria st leads IMPRESSION: Normal chest. No change.
[2022-09-04] MEDS ORDERED: NITROGLYCERIN SL TABS 0.4 MG TAB SUBLINGUAL PRN (20:08)
[2022-09-04] MEDS: NITROGLYCERIN OINT 1 INCH/GM PACKET TOPICAL SCH (23:25)
[2022-09-04] MEDS ORDERED: ALBUTEROL NEBULIZED 2.5 MG/3 ML INHALATION PRN (23:28)
[2022-09-04] MEDS ORDERED: CITALOPRAM HYDROBROMIDE 10 MG TAB PO SCH (23:30)
[2022-09-04] MEDS ORDERED: lisinopriL 20 MG TAB PO SCH (23:50)
[2022-09-05] MEDS ORDERED: OLANZapine 5 MG TAB PO SCH
[2022-09-05] MEDS ORDERED: LATANOPROST 0.005% OPHTH DROPS 2.5 ML BTL BOTH EYES SCH
[2022-09-05] MEDS ORDERED: MONTELUKAST 10 MG TAB PO SCH
[2022-09-05] MEDS ORDERED: MIRTAZAPINE 45 MG TABLET PO SCH
[2022-09-05] MEDS: SYMBICORT 160-4.5 MCG INHALER INHALATION SCH ×2 (00:06→08:33)
[2022-09-05] MEDS: clonazePAM 1 MG TAB PO SCH ×2 (00:13→09:42)
[2022-09-05] MEDS: metFORMIN 500 MG TAB PO SCH ×2 (00:13→12:33)
[2022-09-05] MEDS: DIVALPROEX ER 250 MG TAB.ER.24H PO SCH ×2 (00:21→09:42)
[2022-09-05] MEDS ORDERED: IPRATROPIUM-ALBUTEROL 3 ML NEB INHALATION PRN (01:09)
[2022-09-05] MEDS ORDERED: BENZONATATE 100 MG CAP PO PRN (01:09)
--- NOTE | 2022-09-05 03:19 | P.HPIM ---
History of Present Illness H&P Date: 09/04/22 Chief Complaint: chest pain 56 year old female with CAD, DM , hypertension patient coming in for sudden onset chest pain, she was resting at home , sitting in her recliner, when suddenly had an episode of left sided sharp stabbing pain , 10/10 in severity , radiating to the left arm associated with shortness of breath, dizziness, palpitations, and profuse sweating, she denies nausea or vomiting, she denies any recent illness or URI symptoms. this pain episode lasted 15 minutes and she took nothing for it. THen she started experiencing recurrent episodes of chest pain for which she decided to come in for evaluation. at time of my eval , she was chest pain free. she denies any recent trauma or injury , or any unusual physical activity , denies GI bleeding, abd pain changes in urinary or bowel habits. she does have history of COPD on home oxygen , with chronic cough , unchanged from baseline, no fever or chills. blood work in the ED , over all unremarkable , troponins negative , EKG showed no acute ST changes patient is a smoker , but denies any illicit drugs or alcohol Review of Systems Pertinent positives as noted in HPI. All other systems were reviewed and are negative Past Medical History Past Medical History: Asthma, Blood Disorder, Coronary Artery Disease (CAD), COPD, Diabetes Mellitus, Deep Vein Thrombosis (DVT), Eye Disorder, GERD/Reflux, Hyperlipidemia, Hypertension, Myocardial Infarction ([place]), Seizure Disorder, Sleep Apnea/CPAP/BIPAP, Vascular Disorder Additional Past Medical History / Comment(s): NIDDM type II, neuropathy bilateral feet, blood clotting disorder/pt does not know type, DVT L leg/Lgroin, PVD, BI/no device used, seizure 2011, possible TIA, insomnia, bilateral eye glaucoma, bronchitis Last Myocardial Infarction Date:: 2010 History of Any Multi-Drug Resistant Organisms: None Reported Past Surgical History: Heart Catheterization With Stent Additional Past Surgical History / Comment(s): Bilateral aortic stent/PTBA, L l ower leg stent per pt, fasciotomy L lower extremity/compartmental syndrome, D&C/hysteroscopy, R foot fracture with hardware since removed. Past Anesthesia/Blood Transfusion Reactions: No Reported Reaction Date of Last Stent Placement:: 2010 Past Psychological History: Anxiety, Depression, PTSD Additional Psychological History / Comment(s): Pt resides alone. She is independent. Smoking Status: Current every day smoker Past Alcohol Use History: Occasional Additional Past Alcohol Use History / Comment(s): Pt started smoking in 1983 and was up to 3 ppd but states lately she has cut down to 1/2 ppd. Past Drug Use History: None Reported - Past Family History Mother Family Medical History: COPD Father History Unknown: Yes Medications and Allergies Home Medications Medication Instructions Recorded Confirmed Type Mirtazapine [Remeron] 45 mg PO HS 04/26/17 09/04/22 History clonazePAM [KlonoPIN] 1 mg PO BID 02/20/18 09/04/22 History Atorvastatin [Lipitor] 80 mg PO DAILY 08/08/18 09/04/22 History OLANZapine [ZyPREXA] 5 mg PO HS 08/08/18 09/04/22 History Montelukast [Singulair] 10 mg PO HS 12/18/18 09/04/22 History Umeclidinium [place] [Incruse 1 puff INHALATION RT-DAILY 06/14/19 09/04/22 History Ellipta] metFORMIN HCL [Glucophage] 500 mg PO BID@1200,2100 06/14/19 09/04/22 History Aspirin [Adult Low Dose Aspirin EC] 81 mg PO DAILY 04/08/21 09/04/22 History Citalopram Hydrobromide 30 mg PO HS 04/08/21 09/04/22 History [Citalopram HBr] Fenofibrate Nanocrystallized 145 mg PO DAILY 04/08/21 09/04/22 History [Tricor] Glimepiride [Amaryl] 2 mg PO DAILY 04/08/21 09/04/22 History Albuterol Sulfate [Ventolin HFA] 1 puff INHALATION RT-Q4H PRN 04/10/21 09/04/22 History Latanoprost [Xalatan 0.005%] 1 drop BOTH EYES HS 04/10/21 09/04/22 History Clopidogrel [Plavix] 75 mg PO DAILY #30 tab 04/11/21 09/04/22 Rx Fluticasone Propion/Salmeterol 1 puff INHALATION RT-BID 08/29/21 09/04/22 History [Advair 500-50 Diskus] Loratadine 10 mg PO DAILY 08/29/21 09/04/22 History Albuterol Nebulized [Ventolin 2.5 mg INHALATION RT-QID PRN 09/04/22 09/04/22 History Nebulized] Divalproex ER [Depakote ER] 250 mg PO BID 09/04/22 09/04/22 History Metoprolol Succinate (ER) [Toprol 25 mg PO DAILY 09/04/22 09/04/22 History Xl] Metoprolol Succinate (ER) [Toprol 50 mg PO DAILY 09/04/22 09/04/22 History Xl] lisinopriL [Zestril] 20 mg PO HS 09/04/22 09/04/22 History Allergies Allergy/AdvReac Type Severity Reaction Status Date / Time No Known Allergies Allergy Verified 09/04/22 20:12 Physical Exam Vitals: Vital Signs Temp Pulse Pulse Resp BP BP Pulse Ox 09/04/22 21:25 98.2 F 75 18 177/81 94 L 09/04/22 20:34 98.7 F 70 17 144/71 95 09/04/22 19:44 69 17 135/75 96 09/04/22 18:50 73 16 131/59 95 09/04/22 18:30 71 17 128/58 97 09/04/22 18:00 98.9 F 78 16 141/88 97 Intake and Output 09/04/22 09/04/22 09/05/22 14:59 22:59 06:59 Other: # Voids 1 Weight 94.347 kg Constitutional: No acute distress, conversant, pleasant Eyes: Anicteric sclerae, moist conjunctiva, Pupils equal round reactive to light ENMT: NC/AT Oropharynx clear, no erythema, or exudates Neck: Supple, no masses, or JVD No carotid bruits No thyromegaly Lungs: expiratory wheezing scattered. Clear to percussion Normal respiratory effort, no accessory muscle use Cardiovascular: Heart regular in rate and rhythm, No murmurs, gallops, or rubs No peripheral edema Abdominal: Soft Nontender, no guarding, rebound or rigidity Abdomen moving with respiration Normoactive bowel sounds No hepatomegaly, No splenomegaly No palpable mass No abdominal wall hernia noted Skin: Normal temperature, tone, texture, turgor Extremities: No digital cyanosis No clubbing Pedal pulses intact and symmetrical Radial pulses intact and symmetrical No calf tenderness Psychiatric: Alert and oriented to person, place and time Appropriate affect fair judgement Neuro Muscles Strength 5/5 in all 4 extremities Sensation to light touch grossly present throughout Cranial nerves II-XII grossly intact Lymphatics: no palpable cervical or supraclavicular lymph nodes Results CBC & Chem 7: 09/04/22 18:11 09/04/22 18:11 Labs: Abnormal Lab Results - Last 24 Hours (Table) 09/04/22 09/04/22 Range/Units 18:11 18:11 APTT 21.2 L (22.0-30.0) sec BUN 22 H (7-17) mg/dL Creatinine 1.12 H (0.52-1.04) mg/dL Glucose 195 H (74-99) mg/dL ALT 35 H (4-34) U/L Total Protein 5.2 L (6.3-8.2) g/dL Albumin 3.2 L (3.5-5.0) g/dL Thrombosis Risk Factor Assmnt - Choose All That Apply Any of the Below Risk Factors Present?: Yes Each Factor Represents 1 point: Abnormal pulmonary function (COPD), Age 41-60 years, Obesity (BMI >25) Other Risk Factors: Yes Each Risk Factor Represents 3 Points: Family history of DVT/PE, History of DVT/PE Other congenital or acquired thrombophilia - If yes, enter type in comment: No Thrombosis Risk Factor Assessment Total Risk Factor Score: 9 Thrombosis Risk Factor Assessment Level: High Risk Assessment and Plan Assessment: atypical chest pain rule out ACS EKG no acute changes CXR no acute pathology trops negative X2 manager monitoring monitor vital signs ASA, statin , plavix cardiology consult A1c, lipid panel , TSH pain control tobacco smoking nicotine replacement therapy offered patient counseled to quit smoking chronic conditions DM , resume home meds metformin and glypiride , monitor blood sugar ACHS , check A1C% hypertension , resume home meds, monitor vital signs hyperlipidemia , resume statin COPD on home oxygen , resume supplemental oxygen , duonebs PRN , resume home inhalers . full code DVT PPX heparin sc tid 56 year old female with h/o CAD s/p stents , active smoker, with DM , hypertension . presented due to sudden onset left sided chest pain, initial workup showed normal troponins X2 , WBC normal , D dimer negative , creatinine within her baseline range , slightly elevated ALT will continue statin for now and monitor. case discussed with the ED physician , patient will be admitted for ACS rule out patient has multiple risk factors , I requested cardiology consult. admitted as observation with anticipated length of stay < 2 midnights
[2022-09-05 04:26] VITALS: RESP 17
[2022-09-05] MEDS: NITROGLYCERIN OINT 1 INCH/GM PACKET TOPICAL SCH ×2 (04:42→12:31)
[2022-09-05 07:26] VITALS: BP 177/84; TEMP 98.4
[2022-09-05] MEDS ORDERED: HEPARIN SODIUM,PORCINE/PF 5,000 UNIT/0.5 ML SYRINGE SQ SCH (08:00)
[2022-09-05] MEDS: IPRATROPIUM 0.5 MG/2.5 ML NEBU INHALATION SCH ×2 (08:32→11:43)
[2022-09-05 08:39] VITALS: PULSE 72
[2022-09-05] MEDS ORDERED: CLOPIDOGREL 75 MG TAB PO SCH (09:00)
[2022-09-05] MEDS ORDERED: METOPROLOL SUCCINATE (ER) 50 MG TAB.ER.24H PO SCH ×2 (09:00→21:00)
[2022-09-05] MEDS ORDERED: GLIMEPIRIDE 2 MG TAB PO SCH (09:00)
[2022-09-05] MEDS ORDERED: ASPIRIN 325 MG TAB PO SCH (09:00)
[2022-09-05] MEDS ORDERED: METOPROLOL SUCCINATE (ER) 25 MG TAB.ER.24H PO SCH (09:00)
[2022-09-05] MEDS ORDERED: ASPIRIN 81 MG PO SCH (09:00)
[2022-09-05] MEDS ORDERED: ATORVASTATIN 80 MG TAB PO SCH (09:00)
[2022-09-05] MEDS ORDERED: LORATADINE 10 MG TAB PO SCH (09:00)
[2022-09-05 10:24] LABS: ALT 35 U/L (8-44); AST 22 U/L (13-35); African American GFR (CKD) 55.4 (60.0-200.0); Albumin 3.6 g/dL (3.8-4.9); Albumin/Globulin Ratio 2.18 (1.60-3.17); Alkaline Phosphatase 46 U/L (41-126); BUN/Creat Ratio 14.49 Ratio (12.00-20.00); Blood Urea Nitrogen 18.4 mg/dL (9.0-27.0); Calcium 9.7 mg/dL (8.7-10.3); Carbon Dioxide 29.9 mmol/L (20.0-27.5); Chloride 103 mmol/L (96-109); Globulin 1.6 g/dL (1.6-3.3); Glucose 98 mg/dL (70-110); LDL Cholesterol,Calculated 85.2 mg/dL (0.0-131.0); Non-African American GFR(CKD) 47.8 (60.0-200.0); Sodium 141 mmol/L (135-145); Total Bilirubin <0.15 mg/dL (0.30-1.20); Total Protein 5.2 g/dL (6.2-8.2)
[2022-09-05 10:39] LABS: Basophils # (A) 0.07 X 10*3/uL (0.00-0.10); Basophils % (A) 0.9 %; Eosinophils # (A) 0.14 X 10*3/uL (0.04-0.35); Eosinophils % (A) 1.7 %; HCT 42.2 % (37.2-46.3); HGB 12.9 g/dL (12.0-15.0); Immature Grans, Automated 2.7 %; Lymphocytes # (A) 3.49 X 10*3/uL (0.90-5.00); Lymphocytes % (A) 42.9 %; MCH 27.6 pg (27.0-32.0); MCHC 30.6 g/dL (32.0-37.0); MCV 90.4 fL (80.0-97.0); Mean Platelet Volume 9.9 fL (9.5-12.2); Monocytes # (A) 0.45 X 10*3/uL (0.20-1.00); Monocytes % (A) 5.5 %; NRBC Per 100 WBC 0 /100 WBCS (0.0-0.0); Neutrophils # (A) 3.76 X 10*3/uL (1.80-7.70); Neutrophils % (A) 46.3 %; Platelet Count 280 X 10*3/uL (140-440); RBC 4.67 X 10*6/uL (4.10-5.20); RDW 16.4 % (11.5-14.5); WBC 8.13 X 10*3/uL (4.50-10.00)
--- NOTE | 2022-09-05 11:32 | P.PN ---
Subjective Progress Note Date: 09/05/22 Principal diagnosis: CP Hospital Course: 56-year-old female with history of CAD, diabetes, hypertension presenting with chest pain. Vital signs have been within normal limits except for occasional hypertension. Laboratory workup unremarkable. Troponin negative. EKG showed sinus rhythm. Chest x-ray showed no acute process. Cardiology consulted. Chest pain has now resolved. Subjective: Patient seen and examined at bedside. No acute events overnight. She denies any chest pain, shortness of breath, abdominal pain, nausea, vomiting, diarrhea, constipation, or urinary complaints. Pertinent positives and negatives as discussed above, a complete review of systems was performed and all other systems are negative. Vitals Signs Reviewed. General: nontoxic, no distress, appears at stated age Derm: warm, dry Head: atraumatic, normocephalic, symmetric Eyes: EOMI, no lid lag, anicteric sclera Mouth: no lip lesion, mucus membranes moist Cardiovascular: S1S2 reg, no murmur Lungs: CTA bilateral, no rhonchi, no rales , no accessory muscle use Abdominal: soft, nontender to palpation, no guarding, no appreciable organomegaly Ext: no gross muscle atrophy, no edema, no contractures Neuro: CN II-XI grossly intact, no focal neuro deficits Psych: Alert, oriented, appropriate affect Assessment and Plan: Chest pain, rule out ACS -EKG shows no acute changes -Chest x-ray shows no acute process -Troponin negative -Telemetry -Aspirin, statin, Plavix -Cardiology consult -TSH within normal limits, total cholesterol, LDL within normal limits. -A1c pending Nicotine dependence -Counseled regarding smoking cessation Chronic medical conditions: Sid-pavhexz-elxoyertz diabetes Hypertension Dyslipidemia COPD -Continue home medications DVT ppx: Subcutaneous heparin Code status: Full code Anticipated discharge place: Home Anticipated discharge time: 1-2 days Objective - Vital Signs Vital signs: Vital Signs Temp 98.4 F 09/05/22 07:00 Pulse 72 09/05/22 08:47 Resp 17 09/05/22 07:00 BP 177/84 09/05/22 07:00 Pulse Ox 93 L 09/05/22 08:33 FiO2 Intake & Output 09/04/22 09/05/22 09/05/22 18:59 06:59 18:59 Weight 94.347 kg 94.347 kg Other: # Voids 1 - Labs CBC & Chem 7: 09/05/22 06:29 09/05/22 06:29 Labs: Abnormal Lab Results - Last 24 Hours (Table) 09/04/22 09/04/22 09/05/22 Range/Units 18:11 18:11 06:29 MCHC (32.0-37.0) g/dL RDW (11.5-14.5) % Immature Gran # (0.00-0.04) X 10*3/uL APTT 21.2 L (22.0-30.0) sec Carbon Dioxide 29.9 H (20.0-27.5) mmol/L Anion Gap 7.90 L (10.00-18.00) mmol/L BUN 22 H (7-17) mg/dL Creatinine 1.12 H (0.52-1.04) mg/dL Est GFR (CKD-EPI)AfAm 55.4 L (60.0-200.0) Est GFR (CKD-EPI)NonAf 47.8 L (60.0-200.0) Glucose 195 H (74-99) mg/dL Total Bilirubin <0.15 L (0.30-1.20) mg/dL ALT 35 H (4-34) U/L Total Protein 5.2 L 5.2 L (6.3-8.2) g/dL Albumin 3.2 L 3.6 L (3.5-5.0) g/dL Triglycerides 169.00 H (0.00-149.00) mg/dL HDL Cholesterol 29.00 L (40.00-60.00) mg/dL 09/05/22 Range/Units 06:29 MCHC 30.6 L (32.0-37.0) g/dL RDW 16.4 H (11.5-14.5) % Immature Gran # 0.22 H (0.00-0.04) X 10*3/uL APTT (22.0-30.0) sec Carbon Dioxide (20.0-27.5) mmol/L Anion Gap (10.00-18.00) mmol/L BUN (7-17) mg/dL Creatinine (0.52-1.04) mg/dL Est GFR (CKD-EPI)AfAm (60.0-200.0) Est GFR (CKD-EPI)NonAf (60.0-200.0) Glucose (74-99) mg/dL Total Bilirubin (0.30-1.20) mg/dL ALT (4-34) U/L Total Protein (6.3-8.2) g/dL Albumin (3.5-5.0) g/dL Triglycerides (0.00-149.00) mg/dL HDL Cholesterol (40.00-60.00) mg/dL
[2022-09-05] MEDS ORDERED: EZETIMIBE 10 MG TAB PO SCH (11:45)
--- NOTE | 2022-09-05 13:26 | P.DS ---
Providers Date of admission: 09/04/22 20:08 Expected date of discharge: 09/05/22 Attending physician: Aye Peraza MD Consults: 09/04/22 20:08 Consult Physician Urgent Consulting Provider: Mp Hernandez Consult Reason/Comments: cp Do you want consulting provider notified?: Yes Primary care physician: Shine Yañez MD Hospital Course: Discharge Diagnosis: Chest pain Nicotine dependence History of coronary artery disease Pww-ojealuf-uxlbxukde diabetes Hypertension Hospital Course: 56-year-old female with history of CAD, diabetes, hypertension presenting with chest pain. Vital signs have been within normal limits except for occasional hypertension. Laboratory workup unremarkable. Troponin negative. EKG showed sinus rhythm. Chest x-ray showed no acute process. Cardiology consulted. Chest pain has now resolved. Patient discharged from cardiology standpoint. She needs to follow-up with cardiology in 1 week with diarrhea off a.m. and p.m. recordings of her blood pressure. Metoprolol increased, ezetimibe added. Patient seen and examined at bedside. Vital signs reviewed and stable. General: nontoxic, no distress, appears at stated age Derm: warm, dry Head: atraumatic, normocephalic, symmetric Eyes: EOMI, no lid lag, anicteric sclera Mouth: no lip lesion, mucus membranes moist Cardiovascular: S1S2 reg, no murmur Lungs: CTA bilateral, no rhonchi, no rales , no accessory muscle use Abdominal: soft, nontender to palpation, no guarding, no appreciable organomegaly Ext: no gross muscle atrophy, no edema, no contractures Neuro: CN II-XI grossly intact, no focal neuro deficits Psych: Alert, oriented, appropriate affect A total of 33 minutes of time were spent preparing this complex discharge summary. Patient was discharged on 09/05/22 at 13:25. Patient Condition at Discharge: Stable Plan - Discharge Summary Discharge Rx Participant: No New Discharge Prescriptions: New Ezetimibe [Zetia] 10 mg PO DAILY #30 tab Metoprolol Succinate (ER) [Toprol XL] 50 mg PO BID #60 tab Continue Mirtazapine [Remeron] 45 mg PO HS clonazePAM [KlonoPIN] 1 mg PO BID Atorvastatin [Lipitor] 80 mg PO DAILY OLANZapine [ZyPREXA] 5 mg PO HS Montelukast [Singulair] 10 mg PO HS Umeclidinium [place] [Incruse Ellipta] 1 puff INHALATION RT-DAILY metFORMIN HCL [Glucophage] 500 mg PO BID@1200,2100 Aspirin [Adult Low Dose Aspirin EC] 81 mg PO DAILY Latanoprost [Xalatan 0.005%] 1 drop BOTH EYES HS Clopidogrel [Plavix] 75 mg PO DAILY #30 tab Fluticasone Propion/Salmeterol [Advair 500-50 Diskus] 1 puff INHALATION RT- BID Divalproex ER [Depakote ER] 250 mg PO BID lisinopriL [Zestril] 20 mg PO HS Citalopram Hydrobromide [Citalopram HBr] 30 mg PO HS Fenofibrate Nanocrystallized [Tricor] 145 mg PO DAILY Glimepiride [Amaryl] 2 mg PO DAILY Albuterol Sulfate [Ventolin HFA] 1 puff INHALATION RT-Q4H PRN PRN Reason: Shortness Of Breath Loratadine 10 mg PO DAILY Albuterol Nebulized [Ventolin Nebulized] 2.5 mg INHALATION RT-QID PRN PRN Reason: Shortness Of Breath Discontinued Metoprolol Succinate (ER) [Toprol Xl] 25 mg PO DAILY Metoprolol Succinate (ER) [Toprol Xl] 50 mg PO DAILY Discharge Medication List Mirtazapine [Remeron] 45 mg PO HS 04/26/17 [History] clonazePAM [KlonoPIN] 1 mg PO BID 02/20/18 [History] Atorvastatin [Lipitor] 80 mg PO DAILY 08/08/18 [History] OLANZapine [ZyPREXA] 5 mg PO HS 08/08/18 [History] Montelukast [Singulair] 10 mg PO HS 12/18/18 [History] Umeclidinium [place] [Incruse Ellipta] 1 puff INHALATION RT-DAILY 06/14/19 [History] metFORMIN HCL [Glucophage] 500 mg PO BID@1200,2100 06/14/19 [History] Aspirin [Adult Low Dose Aspirin EC] 81 mg PO DAILY 04/08/21 [History] Citalopram Hydrobromide [Citalopram HBr] 30 mg PO HS 04/08/21 [History] Fenofibrate Nanocrystallized [Tricor] 145 mg PO DAILY 04/08/21 [History] Glimepiride [Amaryl] 2 mg PO DAILY 04/08/21 [History] Albuterol Sulfate [Ventolin HFA] 1 puff INHALATION RT-Q4H PRN 04/10/21 [History] Latanoprost [Xalatan 0.005%] 1 drop BOTH EYES HS 04/10/21 [History] Clopidogrel [Plavix] 75 mg PO DAILY #30 tab 04/11/21 [Rx] Fluticasone Propion/Salmeterol [Advair 500-50 Diskus] 1 puff INHALATION RT-BID 08/29/21 [History] Loratadine 10 mg PO DAILY 08/29/21 [History] Albuterol Nebulized [Ventolin Nebulized] 2.5 mg INHALATION RT-QID PRN 09/04/22 [History] Divalproex ER [Depakote ER] 250 mg PO BID 09/04/22 [History] lisinopriL [Zestril] 20 mg PO HS 09/04/22 [History] Ezetimibe [Zetia] 10 mg PO DAILY #30 tab 09/05/22 [Rx] Metoprolol Succinate (ER) [Toprol XL] 50 mg PO BID #60 tab 09/05/22 [Rx] Follow up Appointment(s)/Referral(s): Shine Yañez MD [Primary Care Provider] - 1-2 days Gregg Villagomez DO [STAFF PHYSICIAN] - 1 Week Activity/Diet/Wound Care/Special Instructions: Please see your PCP and 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 Discharge Disposition: HOME SELF-CARE
--- NOTE | 2022-09-05 13:55 | P.CRDCN ---
History of Present Illness Consult date: 09/05/22 Consult reason: chest pain History of present illness: The patient is a 56-year-old female who follows in the office with Dr. Barger. She presented to the hospital with palpitations and associated chest tightness. She states she also had some left arm numbness. She states she was not performing any exertional activity at that time. She also denies being ill recently. All of her symptoms resolved when she got nitroglycerin by EMS. She was told that she had atrial fibrillation and Route, however EKG on arrival showed sinus rhythm with frequent PACs. Patient was interviewed and examined lying comfortably in bed. She states she's had no recurrence in her symptoms overnight. DIAGNOSTICS: EKG shows sinus rhythm without ST or T-wave abnormalities Chest x-ray shows no acute cardiopulmonary process Lab data: Troponins negative 3, WBC 8.13, hemoglobin 12.9, hematocrit 42.2, platelet 280, d-dimer 0.32, sodium 141, potassium 5.0, BUN 18, creatinine 1.3, hemoglobin A1c 6.3, magnesium 1.6, AST 22, ALT 35, triglycerides 169, LDL 85, H DL 29, TSH 3.05 Vital signs: 177/84, pulse 72, afebrile, respiratory rate 17, SpO2 93% on room air REVIEW OF SYSTEMS: No fever or chills. No cough or expectoration. No diaphoresis. Patient denies headache, dizziness, blurred vision, double vision. Patient denies any stomach discomfort. No nausea, vomiting. No hematochezia. No hematemesis. Denies any black stools or blood in his stools. Denies dysuria or hematuria. No muscle weakness or numbness. No chest pain or chest pressure. No dyspnea PHYSICAL EXAMINATION: This is a 56-year-old female in no apparent distress at the time of my examination. HEENT: Head is atraumatic, normocephalic. Pupils are equal, round. Sclerae anicteric. There is no jugular venous distention. No carotid bruit is heard. CHEST EXAMINATION: Lungs are diminished to auscultation. Bilateral rhonchi. No chest wall tenderness is noted on palpation or with deep breathing. HEART EXAMINATION: Heart regular rate and rhythm. S1, S2 heard. No murmurs, gallops or rub. ABDOMEN: Soft, nontender. Bowel sounds are heard. No organomegaly noted. EXTREMITIES: 2+ peripheral pulses with no evidence of peripheral edema and no calf tenderness noted. NEUROLOGIC EXAMINATION: Patient is awake, alert and oriented x3. FINAL ASSESSMENT AND PLAN: Palpitations with associated chest discomfort Frequent PVCs Hypertension, uncontrolled Current smoker PLAN: No evidence of acute coronary syndrome Increase lisinopril to 30 mg daily Increase metoprolol to 50 mg twice daily Add Zetia Outpatient stress testing Patient may be discharged I am dictating on behalf of Dr Jh Barger's history/physical and assessment/plan. Past Medical History Past Medical History: Asthma, Blood Disorder, Coronary Artery Disease (CAD), COPD, Diabetes Mellitus, Deep Vein Thrombosis (DVT), Eye Disorder, GERD/Reflux, Hyperlipidemia, Hypertension, Myocardial Infarction ([place]), Seizure Disorder, Sleep Apnea/CPAP/BIPAP, Vascular Disorder Additional Past Medical History / Comment(s): NIDDM type II, neuropathy bilateral feet, blood clotting disorder/pt does not know type, DVT L leg/Lgroin, PVD, BI/no device used, seizure 2011, possible TIA, insomnia, bilateral eye glaucoma, bronchitis Last Myocardial Infarction Date:: 2010 History of Any Multi-Drug Resistant Organisms: None Reported Past Surgical History: Heart Catheterization With Stent Additional Past Surgical History / Comment(s): Bilateral aortic stent/PTBA, L lower leg stent per pt, fasciotomy L lower extremity/compartmental syndrome, D&C/hysteroscopy, R foot fracture with hardware since removed. Past Anesthesia/Blood Transfusion Reactions: No Reported Reaction Date of Last Stent Placement:: 2010 Past Psychological History: Anxiety, Depression, PTSD Additional Psychological History / Comment(s): Pt resides alone. She is independent. Smoking Status: Current every day smoker Past Alcohol Use History: Occasional Additional Past Alcohol Use History / Comment(s): Pt started smoking in 1983 and was up to 3 ppd but states lately she has cut down to 1/2 ppd. Past Drug Use History: None Reported - Past Family History Mother Family Medical History: COPD Father History Unknown: Yes Medications and Allergies Home Medications Medication Instructions Recorded Confirmed Type Mirtazapine [Remeron] 45 mg PO HS 04/26/17 09/04/22 History clonazePAM [KlonoPIN] 1 mg PO BID 02/20/18 09/04/22 History Atorvastatin [Lipitor] 80 mg PO DAILY 08/08/18 09/04/22 History OLANZapine [ZyPREXA] 5 mg PO HS 08/08/18 09/04/22 History Montelukast [Singulair] 10 mg PO HS 12/18/18 09/04/22 History Umeclidinium [place] [Incruse 1 puff INHALATION RT-DAILY 06/14/19 09/04/22 History Ellipta] metFORMIN HCL [Glucophage] 500 mg PO BID@1200,2100 06/14/19 09/04/22 History Aspirin [Adult Low Dose Aspirin EC] 81 mg PO DAILY 04/08/21 09/04/22 History Citalopram Hydrobromide 30 mg PO HS 04/08/21 09/04/22 History [Citalopram HBr] Fenofibrate Nanocrystallized 145 mg PO DAILY 04/08/21 09/04/22 History [Tricor] Glimepiride [Amaryl] 2 mg PO DAILY 04/08/21 09/04/22 History Albuterol Sulfate [Ventolin HFA] 1 puff INHALATION RT-Q4H PRN 04/10/21 09/04/22 History Latanoprost [Xalatan 0.005%] 1 drop BOTH EYES HS 04/10/21 09/04/22 History Clopidogrel [Plavix] 75 mg PO DAILY #30 tab 04/11/21 09/04/22 Rx Fluticasone Propion/Salmeterol 1 puff INHALATION RT-BID 08/29/21 09/04/22 History [Advair 500-50 Diskus] Loratadine 10 mg PO DAILY 08/29/21 09/04/22 History Albuterol Nebulized [Ventolin 2.5 mg INHALATION RT-QID PRN 09/04/22 09/04/22 History Nebulized] Divalproex ER [Depakote ER] 250 mg PO BID 09/04/22 09/04/22 History lisinopriL [Zestril] 20 mg PO HS 09/04/22 09/04/22 History Ezetimibe [Zetia] 10 mg PO DAILY #30 tab 09/05/22 Rx Metoprolol Succinate (ER) [Toprol 50 mg PO BID #60 tab 09/05/22 Rx XL] Allergies Allergy/AdvReac Type Severity Reaction Status Date / Time No Known Allergies Allergy Verified 09/04/22 20:12 Physical Exam Vitals: Vital Signs Temp Pulse Pulse Resp BP BP Pulse Ox 09/05/22 08:47 72 09/05/22 08:33 72 93 L 09/05/22 07:00 98.4 F 65 17 177/84 93 L 09/05/22 04:16 81 158/88 09/05/22 03:57 97.3 F L 66 17 180/95 93 L 09/04/22 21:25 98.2 F 75 18 177/81 94 L 09/04/22 20:34 98.7 F 70 17 144/71 95 09/04/22 19:44 69 17 135/75 96 09/04/22 18:50 73 16 131/59 95 09/04/22 18:30 71 17 128/58 97 09/04/22 18:00 98.9 F 78 16 141/88 97 Intake and Output 09/04/22 09/05/22 09/05/22 22:59 06:59 14:59 Other: # Voids 1 1 Weight 94.347 kg Results 09/05/22 06:29 09/05/22 06:29 Cardiac Enzymes 09/04/22 09/04/22 09/04/22 Range/Units 18:11 18:11 20:48 AST 30 (14-36) U/L Troponin I <0.012 <0.012 (0.000-0.034) ng/mL 09/05/22 09/05/22 Range/Units 00:49 06:29 AST 22 (14-36) U/L Troponin I <0.012 (0.000-0.034) ng/mL Coagulation 09/04/22 Range/Units 18:11 PT 10.4 (9.0-12.0) sec APTT 21.2 L (22.0-30.0) sec Lipids 09/05/22 Range/Units 06:29 Triglycerides 169.00 H (0.00-149.00) mg/dL Cholesterol 148.00 (0.00-200.00) mg/dL HDL Cholesterol 29.00 L (40.00-60.00) mg/dL Cholesterol/HDL Ratio 5.10 Ratio CBC 09/04/22 09/05/22 Range/Units 18:11 06:29 WBC 8.7 8.13 (3.8-10.6) k/uL RBC 4.54 4.67 (3.80-5.40) m/uL Hgb 13.0 12.9 (11.4-16.0) gm/dL Hct 39.9 42.2 (34.0-46.0) % Plt Count 299 280 (150-450) k/uL Comprehensive Metabolic Panel 09/04/22 09/05/22 Range/Units 18:11 06:29 Sodium 138 141 (137-145) mmol/L Potassium 4.2 5.0 (3.5-5.1) mmol/L Chloride 104 103 (98-107) mmol/L Carbon Dioxide 28 29.9 H (22-30) mmol/L BUN 22 H 18.4 (7-17) mg/dL Creatinine 1.12 H 1.3 (0.52-1.04) mg/dL Glucose 195 H 98 (74-99) mg/dL Calcium 9.5 9.7 (8.4-10.2) mg/dL AST 30 22 (14-36) U/L ALT 35 H 35 (4-34) U/L Alkaline Phosphatase 47 46 (38-126) U/L Total Protein 5.2 L 5.2 L (6.3-8.2) g/dL Albumin 3.2 L 3.6 L (3.5-5.0) g/dL Current Medications Generic Name Dose Route Start Last Admin Trade Name Freq PRN Reason Stop Dose Admin Albuterol Sulfate 2.5 mg 09/04/22 23:28 Albuterol Nebulized 2.5 Mg/3 Ml INHALATION RT-Q4H PRN Shortness Of Breath Albuterol/Ipratropium 3 ml 09/05/22 01:09 Ipratropium-Albuterol 3 Ml Neb INHALATION RT-Q2H PRN Shortness Of Breath Or Wheezing Aspirin 81 mg 09/05/22 09:00 09/05/22 09:42 Aspirin 81 Mg PO 81 mg DAILY EZIO Administration Atorvastatin Calcium 80 mg 09/05/22 09:00 09/05/22 09:42 Atorvastatin 80 Mg Tab PO 80 mg DAILY EZIO Administration Benzonatate 100 mg 09/05/22 01:09 09/05/22 04:19 Benzonatate 100 Mg Cap PO 100 mg TID PRN Administration Cough Budesonide/Formoterol Fumarate 2 puff 09/04/22 23:28 09/05/22 08:33 Symbicort 160-4.5 Mcg Inhaler INHALATION 2 puff RT-BID EZIO Administration Citalopram Hydrobromide 30 mg 09/04/22 23:30 09/05/22 00:21 Citalopram Hydrobromide 10 Mg Tab PO 30 mg HS EZIO Administration Clonazepam 1 mg 09/04/22 23:45 09/05/22 09:42 Clonazepam 1 Mg Tab PO 1 mg BID EZIO Administration Clopidogrel Bisulfate 75 mg 09/05/22 09:00 09/05/22 09:42 Clopidogrel 75 Mg Tab PO 75 mg DAILY EZIO Administration Divalproex Sodium 250 mg 09/04/22 23:30 09/05/22 09:42 Divalproex Er 250 Mg Tab.Er.24h PO 250 mg BID EZIO Administration Glimepiride 2 mg 09/05/22 09:00 09/05/22 09:42 Glimepiride 2 Mg Tab PO 2 mg DAILY EZIO Administration Heparin Sodium (Porcine) 5,000 unit 09/05/22 08:00 09/05/22 09:42 Heparin Sodium,Porcine/Pf 5,000 Unit/0.5 Ml Syringe SQ 5,000 unit Q8HR EZIO Administration Ipratropium [place] 0.5 mg 09/05/22 08:00 09/05/22 08:32 Ipratropium 0.5 Mg/2.5 Ml Nebu INHALATION 0.5 mg RT-QID EZIO Administration Latanoprost 1 drops 09/05/22 00:00 09/05/22 00:20 Latanoprost 0.005% Ophth Drops 2.5 Ml Btl BOTH EYES 1 drops HS EZIO Administration Lisinopril 20 mg 09/04/22 23:50 09/05/22 00:13 Lisinopril 20 Mg Tab PO 20 mg HS EZIO Administration Loratadine 10 mg 09/05/22 09:00 09/05/22 09:42 Loratadine 10 Mg Tab PO 10 mg DAILY EZIO Administration Metformin HCl 500 mg 09/04/22 23:50 09/05/22 00:13 Metformin 500 Mg Tab PO 500 mg BID@1200,2100 EZIO Administration Metoprolol Succinate 25 mg 09/05/22 09:00 09/05/22 09:42 Metoprolol Succinate (Er) 25 Mg Tab.Er.24h PO 25 mg DAILY EZIO Administration Metoprolol Succinate 50 mg 09/05/22 09:00 09/05/22 09:42 Metoprolol Succinate (Er) 50 Mg Tab.Er.24h PO 50 mg DAILY EZIO Administration Mirtazapine 45 mg 09/05/22 00:00 09/05/22 00:21 Mirtazapine 45 Mg Tablet PO 45 mg HS EZIO Administration Montelukast Sodium 10 mg 09/05/22 00:00 09/05/22 00:13 Montelukast 10 Mg Tab PO 10 mg HS EZIO Administration Nitroglycerin 0.4 mg 09/04/22 20:08 Nitroglycerin Sl Tabs 0.4 Mg Tab SUBLINGUAL Q5M PRN Chest Pain Nitroglycerin 1 inch 09/05/22 00:00 09/05/22 04:42 Nitroglycerin Oint 1 Inch/Gm Packet TOPICAL Not Given Q6HR EZIO Non-Formulary Medication 145 mg 09/06/22 09:00 Fenofibrate Nanocrystallized [Tricor] PO DAILY EZIO Olanzapine 5 mg 09/05/22 00:00 09/05/22 00:21 Olanzapine 5 Mg Tab PO 5 mg HS EZIO Administration Sodium Chloride 10 ml 09/04/22 21:00 09/05/22 09:43 Sodium Chloride 0.9% Flush 10 Ml Syringe IV 10 ml BID EZIO Administration Intake and Output 09/04/22 09/05/22 09/05/22 22:59 06:59 14:59 Other: # Voids 1 1 Weight 94.347 kg 09/05/22 06:29 09/05/22 06:29
[2022-09-05] MEDS ORDERED: lisinopriL 10 MG TAB PO SCH (21:00)
[2022-09-06] MEDS ORDERED: FENOFIBRATE 160 MG TAB PO SCH (09:00)
== END 2022-09-05 14:06 | disposition home or self-care (01) ==
LOC: EC 17:55 → 6NMEDSUR 20:08
PROVIDERS: ADMIT Internal Medicine; ATTEND Internal Medicine
DX: R07.89 Other chest pain (principal); R00.2 Palpitations; I49.3 Ventricular premature depolarization; I25.10 Atherosclerotic heart disease of native coronary artery without angina pectoris; J44.9 Chronic obstructive pulmonary disease, unspecified; K21.9 Gastro-esophageal reflux disease without esophagitis; E78.5 Hyperlipidemia, unspecified; I25.2 Old myocardial infarction; I10 Essential (primary) hypertension; E11.40 Type 2 diabetes mellitus with diabetic neuropathy, unspecified; E11.51 Type 2 diabetes mellitus with diabetic peripheral angiopathy without gangrene; G47.33 Obstructive sleep apnea (adult) (pediatric); G47.00 Insomnia, unspecified; R05.3 Chronic cough; F32.A Depression, unspecified; F43.10 Post-traumatic stress disorder, unspecified; F41.9 Anxiety disorder, unspecified; F17.200 Nicotine dependence, unspecified, uncomplicated; Z86.718 Personal history of other venous thrombosis and embolism; Z95.5 Presence of coronary angioplasty implant and graft; Z99.81 Dependence on supplemental oxygen; Z79.899 Other long term (current) drug therapy; Z79.84 Long term (current) use of oral hypoglycemic drugs; Z79.82 Long term (current) use of aspirin; Z79.02 Long term (current) use of antithrombotics/antiplatelets; Z79.01 Long term (current) use of anticoagulants; Z79.52 Long term (current) use of systemic steroids; Z82.5 Family history of asthma and other chronic lower respiratory diseases
CPT/HCPCS: 96372; 99285; 36415; 94640 ×2; 94760; 93005; 85379; 80061; 80053 ×2; 84443; 83735; 84484 ×2; 85025 ×2; 85610; 85730; 83036; 71046; G0378 ×2; J1644

== ENCOUNTER → 2022-09-08 | Outpatient (CLI) | payer MEDICARE, OTHER ==
--- NOTE | 2022-09-08 13:15 | CTL ---
EXAMINATION TYPE: CT Low Dose Lung DATE OF EXAM ORDERED: 09/08/2022 HISTORY: . Lung cancer screening CT DLP: 90.[address] CTDI: 2.4 mGy Automated exposure control for dose reduction was used. SCREENING VISIT: COMPARISON: 06/14/2019 TECHNIQUE: Low dose computed tomography scan was performed through the chest at 1 mm thick sections a nd reconstructed images in multiple planes at 1 mm and [address] DIAGNOSTIC QUALITY: Satisfactory FINDINGS: There is subsegmental consolidation at the left lung base. There is a 6.5 mm subpleural nodule axial image 186 left lower lobe. There is a 2 mm nodule axial image 181 superior segment right lower lobe. There is a 2 mm nodule left upper lobe axial image 127 Linear subsegmental changes seen in the lingular segment of the left upper lobe are most difficult sc ar atelectasis extending to the pleura on image 155 there are interlobular septal thickening along th e periphery of the lungs most difficult mild chronic interstitial lung disease. There is atherosclerotic change of the aorta with irregular plaque noted within the descending thorac ic aorta which is similar to the prior study of 2019. Coronary artery stenting suggested with coronar y artery atherosclerotic disease. Heart size normal. No sizable pericardial effusion. Structures of the upper abdomen demonstrate no definite acute process. Hepatic granuloma noted. Hyper trophic and degenerative changes of the spine. No definite evidence of pneumonia, pleural effusion, pleural calcification, or focal pneumonia. Mild emphysematous changes seen. Shotty adenopathy in the mediastinum. IMPRESSION: 1. COPD with a 6.5 mm subpleural nodule left lower lobe too small to characterize. 2. Coronary artery stenting. 3. Irregular eccentric calcification descending thoracic aorta stable from prior study. CT LUNG RAD AND CT CHEST RECOMMENDATION: Lung-Rad 3 Probably Benign: 6 month follow-up LDCT. S Modifier (other clinically significant findings): S
== END | disposition home or self-care (01) ==
LOC: RADCTMAIN 09:07
PROVIDERS: ATTEND Internal Medicine
DX: Z12.2 Encounter for screening for malignant neoplasm of respiratory organs (principal); J44.9 Chronic obstructive pulmonary disease, unspecified; I77.89 Other specified disorders of arteries and arterioles; R91.8 Other nonspecific abnormal finding of lung field; Z95.5 Presence of coronary angioplasty implant and graft; Z87.891 Personal history of nicotine dependence
CPT/HCPCS: 71271

== ENCOUNTER 2022-09-30 19:11 | Emergency (ER) | payer OTHER ==
[2022-09-30 19:18] VITALS: RESP 18; TEMP 98.3
[2022-09-30 19:37] LABS: Basophils % (A) 1 %; Eosinophils # (A) 0.1 k/uL (0-0.7); Eosinophils % (A) 1 %; HCT 40.2 % (34.0-46.0); HGB 13.3 gm/dL (11.4-16.0); Lymphocytes % (A) 24 %; MCH 28.6 pg (25.0-35.0); MCHC 33.2 g/dL (31.0-37.0); MCV 86.1 fL (80.0-100.0); Monocytes # (A) 0.2 k/uL (0-1.0); Monocytes % (A) 3 %; Neutrophils % (A) 70 %; Platelet Count 184 k/uL (150-450); RBC 4.67 m/uL (3.80-5.40); RDW 15.1 % (11.5-15.5); WBC 8.5 k/uL (3.8-10.6)
[2022-09-30 19:49] LABS: Albumin 3.6 g/dL (3.5-5.0); Calcium 9.7 mg/dL (8.4-10.2); Total Bilirubin 0.5 mg/dL (0.2-1.3); Total Protein 5.9 g/dL (6.3-8.2)
[2022-09-30 19:51] LABS: Potassium 4.3 mmol/L (3.5-5.1)
[2022-09-30 19:52] LABS: Magnesium 1.6 mg/dL (1.6-2.3)
--- NOTE | 2022-09-30 20:02 | XR ---
EXAMINATION: XR chest 2V: 09/30/2022 7:47 PM CLINICAL INDICATION: CP TECHNIQUE: Departmental protocol COMPARISON: 09/04/2022 CXR 2 views FINDINGS: The lungs are clear. The pleural spaces are negative. The cardiac silhouette is mildly enlarged, unchanged. The remainder of the mediastinal silhouette is unremarkable. The skeletal structures and soft tissues are negative for acute findings. IMPRESSION: No acute process.
--- NOTE | 2022-09-30 20:20 | ED ---
General Adult HPI - General Chief complaint: Chest Pain Stated complaint: Chest Pain Time Seen by Provider: 09/30/22 19:18 Source: patient, EMS Mode of arrival: EMS Limitations: no limitations - History of Present Illness Initial comments: This is a 57-year-old female with a past medical history including COPD, emphysema, atrial fibrillation and diabetes presents emergency department via EMS for palpitations. The patient stated that she felt as if her heart was racing and that she "ran 2 marathons" so she up to a monitor at home and noted that her heart rate was 140 so she called EMS. Because of the palpitations, she was agreeable to be taken to the emergency department for evaluation. The patient had been given 1 dose of nitroglycerin sublingual as well as aspirin and on arrival had resolution of her palpitations. The patient denied any shortness of breath or difficulty in breathing as well as any chest pain. The patient stated that she had a similar episode to this one month ago when she was diagnosed with atrial fibrillation. The patient was to have a Holter monitor placed neck speak with her pipe organ mechanic however this has not been performed yet. The patient denied any other acute complaints at this time. - Related Data Home Medications Medication Instructions Recorded Confirmed Mirtazapine [Remeron] 45 mg PO HS 04/26/17 09/04/22 clonazePAM [KlonoPIN] 1 mg PO BID 02/20/18 09/04/22 Atorvastatin [Lipitor] 80 mg PO DAILY 08/08/18 09/04/22 OLANZapine [ZyPREXA] 5 mg PO HS 08/08/18 09/04/22 Montelukast [Singulair] 10 mg PO HS 12/18/18 09/04/22 Umeclidinium [place] [Incruse 1 puff INHALATION RT-DAILY 06/14/19 09/04/22 Ellipta] metFORMIN HCL [Glucophage] 500 mg PO BID@1200,2100 06/14/19 09/04/22 Aspirin [Adult Low Dose Aspirin EC] 81 mg PO DAILY 04/08/21 09/04/22 Citalopram Hydrobromide 30 mg PO HS 04/08/21 09/04/22 [Citalopram HBr] Fenofibrate Nanocrystallized 145 mg PO DAILY 04/08/21 09/04/22 [Tricor] Glimepiride [Amaryl] 2 mg PO DAILY 04/08/21 09/04/22 Albuterol Sulfate [Ventolin HFA] 1 puff INHALATION RT-Q4H PRN 04/10/21 09/04/22 Latanoprost [Xalatan 0.005%] 1 drop BOTH EYES HS 04/10/21 09/04/22 Fluticasone Propion/Salmeterol 1 puff INHALATION RT-BID 08/29/21 09/04/22 [Advair 500-50 Diskus] Loratadine 10 mg PO DAILY 08/29/21 09/04/22 Albuterol Nebulized [Ventolin 2.5 mg INHALATION RT-QID PRN 09/04/22 09/04/22 Nebulized] Divalproex ER [Depakote ER] 250 mg PO BID 09/04/22 09/04/22 lisinopriL [Zestril] 20 mg PO HS 09/04/22 09/04/22 Previous Rx's Medication Instructions Recorded Clopidogrel [Plavix] 75 mg PO DAILY #30 tab 04/11/21 Ezetimibe [Zetia] 10 mg PO DAILY #30 tab 09/05/22 Metoprolol Succinate (ER) [Toprol 50 mg PO BID #60 tab 09/05/22 XL] Allergies Allergy/AdvReac Type Severity Reaction Status Date / Time No Known Allergies Allergy Verified 09/04/22 20:12 Review of Systems ROS Statement: Those systems with pertinent positive or pertinent negative responses have been documented in the HPI. ROS Other: All systems not noted in ROS Statement are negative. Past Medical History Past Medical History: Atrial Fibrillation, Asthma, Blood Disorder, Coronary Artery Disease (CAD), COPD, Diabetes Mellitus, Deep Vein Thrombosis (DVT), Eye Disorder, GERD/Reflux, Hyperlipidemia, Hypertension, Myocardial Infarction (SC), Seizure Disorder, Sleep Apnea/CPAP/BIPAP, Vascular Disorder Additional Past Medical History / Comment(s): NIDDM type II, neuropathy bilateral feet, blood clotting disorder/pt does not know type, DVT L leg/Lgroin, PVD, BI/no device used, seizure 2011, possible TIA, insomnia, bilateral eye glaucoma, bronchitis Last Myocardial Infarction Date:: 2010 History of Any Multi-Drug Resistant Organisms: None Reported Past Surgical History: Heart Catheterization With Stent Additional Past Surgical History / Comment(s): Bilateral aortic stent/PTBA, L lower leg stent per pt, fasciotomy L lower extremity/compartmental syndrome, D&C/hysteroscopy, R foot fracture with hardware since removed. Past Anesthesia/Blood Transfusion Reactions: No Reported Reaction Date of Last Stent Placement:: 2010 Past Psychological History: Anxiety, Depression, PTSD Smoking Status: Current every day smoker Past Alcohol Use History: Occasional Past Drug Use History: None Reported - Past Family History Mother Family Medical History: COPD Father History Unknown: Yes General Exam Limitations: no limitations General appearance: alert, in no apparent distress, obese Head exam: Present: atraumatic, normocephalic, normal inspection Eye exam: Present: normal appearance, PERRL Pupils: Present: normal accommodation ENT exam: Present: normal exam, normal oropharynx, mucous membranes moist Neck exam: Present: normal inspection, full ROM Respiratory exam: Present: normal lung sounds bilaterally, chest wall tenderness (Mild tenderness to palpation noted to the left anterior chest wall) Cardiovascular Exam: Present: regular rate, normal rhythm, normal heart sounds GI/Abdominal exam: Present: soft, normal bowel sounds Extremities exam: Present: normal inspection, full ROM Back exam: Present: normal inspection, full ROM Neurological exam: Present: alert, oriented X3, CN II-XII intact Psychiatric exam: Present: normal affect, normal mood Skin exam: Present: warm, dry Course Vital Signs 09/30/22 09/30/22 09/30/22 19:14 19:25 20:20 Temperature 98.3 F Pulse Rate 82 82 75 Respiratory 18 18 18 Rate Blood Pressure 159/76 124/76 O2 Sat by Pulse 96 96 97 Oximetry EKG Findings - EKG Comments: EKG Findings:: An EKG was obtained and was interpreted by myself showing a rate of 84, OK interval of 160, QRS duration 93 and QTC of 402. This EKG showed a normal sinus rhythm with no ST segment elevation or depression noted. Medical Decision Making - Medical Decision Making Was pt. sent in by a medical professional or institution ([facility], LINEN ROOM HOUSEPERSON, urgent care, hospital, or intermediate...) When possible be specific @ -No Did you speak to anyone other than the patient for history (EMS, parent, family, police, friend...)? What history was obtained from this source @ -Yes, EMS Did you review nursing and triage notes (agree or disagree)? Why? @ -I reviewed and agree with nursing and triage notes Were old charts reviewed (outside hosp., previous admission, EMS record, old EKG, old radiological studies, urgent care reports/EKG's, intermediate records)? Report findings @ -No old charts were reviewed Differential Diagnosis (chest pain, altered mental status, abdominal pain women, abdominal pain men, vaginal bleeding, weakness, fever, dyspnea, syncope, headache, dizziness, GI bleed, back pain, seizure, CVA, palpatations, mental health)? @ -Palpitations, ACS EKG interpreted by me (3pts min.). @ -As above X-rays interpreted by me (1pt min.). @ -Chest x-ray was obtained and was interpreted by myself showing no acute process. CT interpreted by me (1pt min.). @ -None done U/S interpreted by me (1pt. min.). @ -None done What testing was considered but not performed or refused? (CT, X-rays, U/S, labs)? Why? @ -None What meds were considered but not given or refused? Why? @ -None Did you discuss the management of the patient with other professionals (prof sarojs i.e. , PA, LINEN ROOM HOUSEPERSON, lab, RT, psych nurse, social media marketer, animal skinner, teacher, executive officer, disability case manager)? Give summary @ -No Was smoking cessation discussed for >3mins.? @ -No Was critical care preformed (if so, how long)? @ -No Were there social determinants of health that impacted care today? How? (Homelessness, low income, unemployed, alcoholism, drug addiction, transportat ion, low edu. Level, literacy, decrease access to med. care, longterm, rehab)? @ -No Was there de-escalation of care discussed even if they declined (Discuss DNR or withdrawal of care, Hospice)? DNR status @ -No What co-morbidities impacted this encounter? (DM, HTN, Smoking, COPD, CAD, Cancer, CVA, ARF, Chemo, Hep., AIDS, mental health diagnosis, sleep apnea, morbid obesity)? @ -Hypertension, diabetes, atrial fibrillation, cardiac stents Was patient admitted / discharged? Hospital course, mention meds given and route, prescriptions, significant lab abnormalities, going to OR and other pertinent info. @ -The patient was seen and evaluated in the emergency department. Physical exam, the patient was resting in bed without any acute distress. Vital signs were stable. Workup was obtained and was within normal limits including labs, chest x-ray and EKG. A sugar decision making conversation was had between the patient myself and the patient did not have any episodes of further tachycardia or palpitations emergency department. The patient was offered observation stay due to the patient's past medical history but stated that she would rather be discharged home. The patient did state that she would follow-up with her pipe organ mechanic and call the office tomorrow morning for more prompt follow-up. The patient was also advised report back to the emergency department if her pain or symptoms became acutely worse. The patient was agreeable to this and all of her questions were answered. The patient was discharged home in stable condition. Undiagnosed new problem with uncertain prognosis? @ -No Drug Therapy requiring intensive monitoring for toxicity (Heparin, Nitro, Insulin, Cardizem)? @ -No Were any procedures done? @ -No Diagnosis/symptom? @ -Palpitations, NOS Acute, or Chronic, or Acute on Chronic? @ -Acute on chronic Uncomplicated (without systemic symptoms) or Complicated (systemic symptoms)? @ -Uncomplicated Side effects of treatment? @ -No Exacerbation, Progression, or Severe Exacerbation? @ -No Poses a threat to life or bodily function? How? (Chest pain, USA, SC, pneumonia, PE, COPD, DKA, ARF, appy, cholecystitis, CVA, Diverticulitis, Homicidal, Suicidal, threat to staff... and all critical care pts) @ -No - Lab Data Result diagrams: 09/30/22 19:24 09/30/22 19:24 Lab Results 09/30/22 09/30/22 09/30/22 Range/Units 19:24 19:24 19:24 WBC 8.5 (3.8-10.6) k/uL RBC 4.67 (3.80-5.40) m/uL Hgb 13.3 (11.4-16.0) gm/dL Hct 40.2 (34.0-46.0) % MCV 86.1 (80.0-100.0) fL MCH 28.6 (25.0-35.0) pg MCHC 33.2 (31.0-37.0) g/dL RDW 15.1 (11.5-15.5) % Plt Count 184 (150-450) k/uL MPV 8.0 Neutrophils % 70 % Lymphocytes % 24 % Monocytes % 3 % Eosinophils % 1 % Basophils % 1 % Neutrophils # 6.0 (1.3-7.7) k/uL Lymphocytes # 2.0 (1.0-4.8) k/uL Monocytes # 0.2 (0-1.0) k/uL Eosinophils # 0.1 (0-0.7) k/uL Basophils # 0.0 (0-0.2) k/uL Sodium 139 (137-145) mmol/L Potassium 4.3 (3.5-5.1) mmol/L Chloride 107 (98-107) mmol/L Carbon Dioxide 27 (22-30) mmol/L Anion Gap 5 mmol/L BUN 28 H (7-17) mg/dL Creatinine 1.31 H (0.52-1.04) mg/dL Est GFR (CKD-EPI)AfAm 53 (>60 ml/min/1.73 sqM) Est GFR (CKD-EPI)NonAf 46 (>60 ml/min/1.73 sqM) Glucose 175 H (74-99) mg/dL Plasma Lactic Acid Kumar (0.7-2.0) mmol/L Calcium 9.7 (8.4-10.2) mg/dL Magnesium 1.6 (1.6-2.3) mg/dL Total Bilirubin 0.5 (0.2-1.3) mg/dL AST 42 H (14-36) U/L ALT 41 H (4-34) U/L Alkaline Phosphatase 36 L (38-126) U/L Troponin I <0.012 (0.000-0.034) ng/mL NT-Pro-B Natriuret Pep pg/mL Total Protein 5.9 L (6.3-8.2) g/dL Albumin 3.6 (3.5-5.0) g/dL 09/30/22 09/30/22 Range/Units 19:24 19:32 WBC (3.8-10.6) k/uL RBC (3.80-5.40) m/uL Hgb (11.4-16.0) gm/dL Hct (34.0-46.0) % MCV (80.0-100.0) fL MCH (25.0-35.0) pg MCHC (31.0-37.0) g/dL RDW (11.5-15.5) % Plt Count (150-450) k/uL MPV Neutrophils % % Lymphocytes % % Monocytes % % Eosinophils % % Basophils % % Neutrophils # (1.3-7.7) k/uL Lymphocytes # (1.0-4.8) k/uL Monocytes # (0-1.0) k/uL Eosinophils # (0-0.7) k/uL Basophils # (0-0.2) k/uL Sodium (137-145) mmol/L Potassium (3.5-5.1) mmol/L Chloride (98-107) mmol/L Carbon Dioxide (22-30) mmol/L Anion Gap mmol/L BUN (7-17) mg/dL Creatinine (0.52-1.04) mg/dL Est GFR (CKD-EPI)AfAm (>60 ml/min/1.73 sqM) Est GFR (CKD-EPI)NonAf (>60 ml/min/1.73 sqM) Glucose (74-99) mg/dL Plasma Lactic Acid Kumar 2.0 (0.7-2.0) mmol/L Calcium (8.4-10.2) mg/dL Magnesium (1.6-2.3) mg/dL Total Bilirubin (0.2-1.3) mg/dL AST (14-36) U/L ALT (4-34) U/L Alkaline Phosphatase (38-126) U/L Troponin I (0.000-0.034) ng/mL NT-Pro-B Natriuret Pep 231 pg/mL Total Protein (6.3-8.2) g/dL Albumin (3.5-5.0) g/dL Disposition Clinical Impression: Palpitations Disposition: HOME SELF-CARE Condition: Stable Instructions (If sedation given, give patient instructions): Heart Palpitations (DC) Is patient prescribed a controlled substance at d/c from ED?: No Referrals: Shine Yañez MD [Primary Care Provider] - 1-2 days Jh Barger MD [STAFF PHYSICIAN] - 1-2 days Time of Disposition: 20:25
[2022-09-30 20:23] VITALS: BP 124/76; PULSE 75
== END 2022-09-30 20:41 | disposition home or self-care (01) ==
LOC: EC 19:11
DX: R00.2 Palpitations (principal); I48.91 Unspecified atrial fibrillation; I25.10 Atherosclerotic heart disease of native coronary artery without angina pectoris; J44.9 Chronic obstructive pulmonary disease, unspecified; E11.9 Type 2 diabetes mellitus without complications; I10 Essential (primary) hypertension; I25.2 Old myocardial infarction; G47.30 Sleep apnea, unspecified; E78.5 Hyperlipidemia, unspecified; F41.9 Anxiety disorder, unspecified; F32.A Depression, unspecified; F17.200 Nicotine dependence, unspecified, uncomplicated; Z79.84 Long term (current) use of oral hypoglycemic drugs; Z79.82 Long term (current) use of aspirin; Z79.899 Other long term (current) drug therapy; Z79.02 Long term (current) use of antithrombotics/antiplatelets
CPT/HCPCS: 36415; 71046; 80053; 83605; 83735; 83880; 84484; 85025; 93005; 99285

== ENCOUNTER → 2022-11-11 | Outpatient (CLI) | payer OTHER ==
--- NOTE | 2022-11-11 08:16 | US ---
EXAMINATION TYPE: US abdomen complete DATE OF EXAM: 11/11/2022 COMPARISON: NONE CLINICAL HISTORY: R74.01 ELEVATED LIVER. abn labs, no symptoms, large body habitus TECHNIQUE: Multiple sonographic images of the abdomen are obtained. FINDINGS: EXAM MEASUREMENTS: Liver Length: 18.6 cm Gallbladder Wall: 0.2 cm CBD: 0.5 cm Spleen: 11.1 cm Right Kidney: 11.0 x 5.5 x 6.0 cm Left Kidney: 11.6 x 5.0 x 6.2 cm Pancreas: wnl Liver: difficult to penetrate, upper limits of normal for size Gallbladder: wnl Evidence for sonographic Ornelas's sign: no CBD: wnl Spleen: wnl Right Kidney: wnl Left Kidney: wnl Upper IVC: wnl Abd Aorta: distal portion gassed out The liver is homogenous an increase in echotexture. The intrahepatic portion of the IVC and proximal abdominal aorta are within normal limits. There is no evidence of cholelithiasis. Common bile duct is unremarkable. The visualized portions of the pancreas are homogenous. The spleen is unremarkabl e. Kidneys are symmetric and free of hydronephrosis. No renal lesions are seen. IMPRESSION: 1. Hepatocellular disease commonly relating to hepatic steatosis. 2. No acute process.
== END | disposition home or self-care (01) ==
LOC: RADUSWWP 07:10
PROVIDERS: ATTEND Internal Medicine
DX: K76.0 Fatty (change of) liver, not elsewhere classified (principal); R74.01 Elevation of levels of liver transaminase levels
CPT/HCPCS: 76700

== ENCOUNTER → 2023-02-23 | Outpatient (CLI) | payer MEDICARE, OTHER ==
[2023-02-23 16:03] LABS: Basophils # (A) 0.05 X 10*3/uL (0.00-0.10); Basophils % (A) 0.4 %; Eosinophils # (A) 0.04 X 10*3/uL (0.04-0.35); Eosinophils % (A) 0.3 %; HCT 45.3 % (37.2-46.3); HGB 14.7 d/dL (12.0-15.0); Lymphocytes # (A) 2.56 X 10*3/uL (0.90-5.00); Lymphocytes % (A) 20.6 %; MCH 28.8 pg (27.0-32.0); MCHC 32.5 d/dL (32.0-37.0); MCV 88.6 FL (80.0-97.0); Mean Platelet Volume 10.5 FL (9.5-12.2); Monocytes # (A) 0.26 X 10*3/uL (0.20-1.00); Monocytes % (A) 2.1 %; NRBC Per 100 WBC 0 X 10*3/uL (0.00-0.01); Neutrophils # (A) 9.38 X 10*3/uL (1.80-7.70); Neutrophils % (A) 75.4 %; Platelet Count 287 X 10*3/uL (140-440); RBC 5.11 X 10*6/uL (4.10-5.20); RDW 15.6 % (11.5-14.5); WBC 12.44 X 10*3/uL (4.50-10.00)
[2023-02-23 16:35] LABS: Albumin 4.3 d/dL (3.8-4.9); Immunoglobulin A 75.9 mg/dL (60.0-350.0); Protein, Total 6.2 d/dL (6.2-8.2)
[2023-02-23 17:00] LABS: Magnesium 1.8 mg/dL (1.5-2.4)
[2023-02-23 17:01] LABS: % Iron Saturation 14.32 (12.00-45.00); Albumin 4.1 d/dL (3.8-4.9); BUN/Creat Ratio 12.92 Ratio (12.00-20.00); Blood Urea Nitrogen 15.5 mg/dL (9.0-27.0); Calcium 10.2 mg/dL (8.7-10.3); Carbon Dioxide 25.3 mmol/L (21.6-31.8); Chloride 102 mmol/L (96-109); Ferritin 61.2 ng/mL (10.0-291.0); Glucose 167 mg/dL (70-110); Iron 60 UG/DL (50-170); Phosphorus 2.4 mg/dL (2.4-5.1); Potassium 5.2 mmol/L (3.5-5.5); Sodium 138 mmol/L (135-145); Total Iron Binding Capacity 419 UG/DL (228-460); Uric Acid 4.6 mg/dL (2.9-7.7)
[2023-02-23 21:01] LABS: Appearance,Urine Clear (Clear); Bilirubin,Urine Negative (Negative); Blood,Urine Negative (Negative); Color,Urine Yellow (Yellow); Ketones,Urine Negative (Negative); Nitrite,Urine Negative (Negative); Specific Gravity,Urine 1.008 (1.001-1.030); Urobilinogen,Urine 0.2 E.U./DL
[2023-02-23 21:07] LABS: Bacteria,Urine None Seen (None Seen)
[2023-02-23 22:23] LABS: Urine Creatinine 45.6 mg/dL (28.0-217.0)
[2023-02-24 07:56] LABS: Angiotensin-1 Converting Enz. 9 U/L (8-52)
[2023-02-24 17:19] LABS: Vitamin D, 1, 25-Dihydroxy 45 pg/mL (20 - 79)
[2023-02-25 06:43] LABS: Gamma Globulin 0.45 d/dL (0.70-1.50)
== END | disposition home or self-care (01) ==
LOC: LABWHC1 08:50
PROVIDERS: ATTEND Internal Medicine Nephrology
DX: E55.9 Vitamin D deficiency, unspecified (principal); N18.31 Chronic kidney disease, stage 3a; M10.9 Gout, unspecified; D63.1 Anemia in chronic kidney disease; R80.9 Proteinuria, unspecified
CPT/HCPCS: 36415; 80048; 81001; 82040; 82043; 82164; 82306; 82570; 82652; 82728; 83540; 83550; 83735; 83970; 84100; 84165; 84550; 85025; 86334; 86335

== ENCOUNTER → 2023-02-25 | Outpatient (CLI) | payer MEDICARE, OTHER ==
--- NOTE | 2023-02-25 15:02 | BD ---
EXAMINATION TYPE: Axial Bone Density DATE OF EXAM: 02/25/2023 CLINICAL HISTORY: 57 years old Female. ICD-10 CODE: Z78.0 ASYMPTOMATIC MENOPAUSAL STATE Comparison: Prior DEXA bone scan 2017 Height: 64 inches Weight: 192 pounds FRAX RISK QUESTIONS: Secondary Osteoporosis: yes 3. Menopause before 45: yes , age 42 Current Tobacco Use: yes RISK FACTORS HISTORY OF: Family History of Osteoporosis: no Active: yes Diet low in dairy products/other sources of calcium: yes Postmenopausal woman: yes Lost more than 2 inches in height since high school: no Frequent falls: no MEDICATIONS: Additional Medications: yes diabetic meds, hbp meds, anxiety meds, see med list in pacs EXAM MEASUREMENTS: Bone mineral densitometry was performed using the [employer] System. Bone mineral density as measured about the Lumbar spine is: ----- L1-L4(G/cm2): 1.408 T Score Values are as follows: ----- L1: 0.5 ----- L2: 1.3 ----- L3: 2.4 ----- L4: 3.1 ----- L1-L4: 1.9 Z Score Values are as follows: ----- L1: 0.6 ----- L2: 1.4 ----- L3: 2.5 ----- L4: 3.1 ----- L1-L4: 2.0 Bone mineral density has: Decreased -0.4% since study of: 08.17.2018 Bone mineral density about the R hip (g/cm2): 1.082 Bone mineral density about the L hip (g/cm2): 1.137 T Score values are as follows: -----R Neck: -0.4 -----L Neck: -1.2 -----R Total: 0.6 -----L Total: 1.0 Z Score values are as follows: -----R Neck: 0.1 -----L Neck: -0.6 -----R Total: 0.7 -----L Total: 1.2 Bone mineral density has: Decreased -3.5% since study of: 08/17/2018 FRAX%s: The graph provided illustrates a 5.7% chance for a major osteoporotic fx and a 0.5% chance fo r the hips probability for fx in 10 years time. IMPRESSION: Osteopenia (T Score between -2.5 and -1) femoral neck level left hip on current study. There is slightly increased risk of fracture and the patient may be considered for treatment. Re-Screen 2-5 years. NOTE: T-SCORE=SD OF THE YOUNG ADULT MEAN.
== END | disposition home or self-care (01) ==
LOC: RADBDWWP 12:17
PROVIDERS: ATTEND Internal Medicine
DX: Z13.820 Encounter for screening for osteoporosis (principal); M85.852 Other specified disorders of bone density and structure, left thigh; Z78.0 Asymptomatic menopausal state
CPT/HCPCS: 77080

== ENCOUNTER → 2023-03-04 | Outpatient (CLI) | payer MEDICARE, OTHER ==
--- NOTE | 2023-03-07 08:32 | MM ---
Reason for Exam: Screening (asymptomatic). Last mammogram was performed 1 year(s) and 4 month(s) ago. Patient History: Menarche at age 18. First Full-Term at age 25. Postmenopausal. Patient has history of breast feeding. Patient used Hormonal Contraceptives for 2 years. Risk Values: Pign 5 year model risk: 1.0%. NCI Lifetime model risk: 6.7%. Prior Study Comparison: 08/17/2018 Bilateral Screening Mammogram, [facility]. 09/18/2018 Left Diagnostic Mammogram, [facility]. 10/29/2021 Bilateral Screening Mammogram, [facility]. Tissue Density: The breast tissue is heterogeneously dense. This may lower the sensitivity of mammography. Findings: Analyzed By CAD. There is no suspicious group of microcalcifications or new suspicious mass in either breast. Overall Assessment: Benign, BI-RAD 2 Management: Screening Mammogram of both breasts in 1 year. . Patient should continue monthly self-breast exams. A clinical breast exam by your physician is recommended on an annual basis. This exam should not preclude additional follow-up of suspicious palpable abnormalities. Note on Ping scores and lifetime risk: 1. A Ping score greater than 3% is considered moderate risk. If this is the case, consider specialist referral to assess eligibility for a risk reducing agent. 2. If overall lifetime risk for the development of breast cancer is 20% or higher, the patient may qualify for future screening with alternating mammogram and breast MRI. Electronically signed and approved by: Brown Byrd M.D. Radiologis
--- NOTE | 2023-03-08 08:33 | CTL ---
EXAMINATION TYPE: CT Low Dose Lung DATE OF EXAM ORDERED: 03/04/2023 HISTORY: 57-year-old female 38 pack-year history, current smoker. Lung cancer screening. Z12.31, R91 .1. Automated exposure control for dose reduction was used. SCREENING VISIT: Six-month follow-up COMPARISON: 09/08/2022, 06/14/2019 TECHNIQUE: Low dose computed tomography scan was performed through the chest with coronal and sagitta l reconstructions. CT DIAGNOSTIC QUALITY: Satisfactory FINDINGS: The heart is normal size without pericardial effusion. LAD coronary artery calcification is noted. Aorta normal caliber with a very direct takeoff of the left vertebral artery directly from the aortic arch. There appears to be prominent intraluminal calcified plaque within the upper descending thoracic aort a, similar to prior exam. This may contribute to a mild or moderate relative luminal narrowing. No thoracic lymphadenopathy by size criteria. Mild emphysematous change throughout the lungs. Scattered mild to moderate diffuse bronchial wall thi ckening. * Calcified granuloma right upper lobe unchanged.. * 4 mm peripheral right lower lobe pulmonary nodule, axial image 205 is unchanged. * 3 mm left midlung pulmonary nodule, axial image 140 is unchanged. * The previous 6 to 7 mm left lower lobe pulmonary nodule appears to have resolved. * However, possible new 5 mm medial left lower lobe pulmonary nodule, axial image 189. * Some strandy scarring left mid and lower lung and some suspected chronic smooth pleural thickening at the posterior left base. Visualized upper abdomen shows a stable 1.4 cm low density nodule left adrenal gland, statistically r epresenting a benign adrenal adenoma. There is also low attenuation of the hepatic parenchyma suggest ing fatty infiltration of the liver. No osseous destructive process. IMPRESSION: 1. LungRADS Category 3 (probably benign, 1-2% chance of malignancy); the previous 6 to 7 mm left lowe r lobe pulmonary nodule appears to have resolved. However, there may be a new 5 mm left lower lobe pu lmonary nodule, axial image 189. 2. COPD with mild emphysema. Scattered pleural parenchymal scarring especially left mid to lower lung . 3. Incidental hepatic steatosis and a 1.4 cm left adrenal adenoma. CT LUNG RAD AND CT CHEST RECOMMENDATION: Lung-Rad 3 Probably Benign: 6 month follow-up LDCT. S Modifier (other clinically significant findings): None
== END | disposition home or self-care (01) ==
LOC: RADCTMAIN 14:47
PROVIDERS: ATTEND Internal Medicine
DX: Z12.2 Encounter for screening for malignant neoplasm of respiratory organs (principal); Z12.31 Encounter for screening mammogram for malignant neoplasm of breast; R91.1 Solitary pulmonary nodule; F17.210 Nicotine dependence, cigarettes, uncomplicated; D35.02 Benign neoplasm of left adrenal gland; K76.0 Fatty (change of) liver, not elsewhere classified; J43.9 Emphysema, unspecified; Z78.0 Asymptomatic menopausal state
CPT/HCPCS: 71271; 77063; 77067

== ENCOUNTER → 2023-03-09 | Outpatient (CLI) | payer MEDICARE, OTHER ==
[2023-03-09 16:51] LABS: Blood Urea Nitrogen 16.8 mg/dL (9.0-27.0); Calcium 10.8 mg/dL (8.7-10.3); Carbon Dioxide 27.8 mmol/L (21.6-31.8); Chloride 106 mmol/L (96-109); Glucose 108 mg/dL (70-110); Potassium 5.3 mmol/L (3.5-5.5); Sodium 143 mmol/L (135-145)
== END | disposition home or self-care (01) ==
LOC: LABWHC1 09:11
PROVIDERS: ATTEND Nurse Practitioner Family
DX: N18.31 Chronic kidney disease, stage 3a (principal)
CPT/HCPCS: 36415; 80048

== ENCOUNTER → 2023-04-04 | Outpatient (CLI) | payer MEDICARE, OTHER ==
--- NOTE | 2023-04-04 16:33 | NM ---
EXAMINATION TYPE: NM parathyroid w/spect DATE OF EXAM: 04/04/2023 COMPARISON: NONE CLINICAL INDICATION: Female, 57 years old with history of E21.3 HYPERPARATHYROIDISM; TECHNIQUE: Following administration of 25.3 mCi Tc99m Sestamibi. Anterior projection images of the neck and ches t were obtained 10 minutes and 3 hours post injection. SPECT images of the neck and chest were obtai mouna and reconstructed in three axes. FINDINGS: Thyroid tracer washout: Delayed images demonstrate near-complete tracer washout from the thyroid. Parathyroid uptake: None. The two-hour delayed images do not demonstrate any focal abnormal persisten t uptake in the region of the parathyroid glands to suggest parathyroid adenoma. Normal uptake: There is physiological tracer uptake in the myocardium, liver, salivary glands, and th yroid gland. IMPRESSION: Normal parathyroid imaging study. No evidence for mediastinal uptake to suggest mediastinal parathyro id adenoma
== END | disposition home or self-care (01) ==
LOC: RADNMMAIN 09:43
PROVIDERS: ATTEND Internal Medicine Nephrology
DX: E21.3 Hyperparathyroidism, unspecified (principal)
CPT/HCPCS: 78071; A9500

== ENCOUNTER 2023-06-01 11:50 | Emergency (ER) | payer MEDICARE, OTHER ==
[2023-06-01 11:57] VITALS: RESP 18; TEMP 97.2
--- NOTE | 2023-06-01 12:52 | CT ---
EXAMINATION TYPE: CT brain cspine wo con CT DLP: 1550.1 mGycm, Automated exposure control for dose reduction was used. DATE OF EXAM: 06/01/2023 12:36 PM COMPARISON: 12/30/2020. CLINICAL INDICATION:Female, 57 years old with history of fall; fall TECHNIQUE: Brain: Multiple axial CT images of the brain were obtained without IV contrast. Cspine: Axial CT images from the skull base to the inferior aspect of T2 we obtained without intraven ous contrast. Coronal and sagittal reformatted images were also reviewed. FINDINGS: Brain: Extra-axial spaces: No abnormal extra-axial fluid collections. Ventricular system: Within normal limits Cerebral parenchyma: No acute intraparenchymal hemorrhage or mass effect. The sheikh-white junction is well differentiated. Cerebellum: Unremarkable. Mass effect: No evidence of midline shift. Intracranial vasculature: Atherosclerotic calcifications of the intracranial vessels. Soft tissues: Normal. Calvarium/osseous structures: No depressed skull fracture. Paranasal sinuses and mastoid air cells: Clear. Visualized orbits: Orbital contents are intact. Cervical spine: Fracture: None. Osseous structures: Multilevel degenerative disc disease changes with endplate spurring and disc oste ophyte complex's. Vertebral alignment: Within normal limits. Spinal canal/Neural Foramina: Disc osteophyte complexes at C7-T1 with at least mild spinal canal sten osis. No evidence for significant neural foraminal stenosis. Neck soft tissues: Prevertebral soft tissues are within normal limits. Other: The airway is patent. The lung apices are clear. IMPRESSION: 1. No acute intracranial process. 2. No evidence of cervical spine fracture. 3. Mild multilevel degenerative disc disease.
--- NOTE | 2023-06-01 12:52 | XR ---
EXAMINATION TYPE: XR ankle complete LT DATE OF EXAM: 06/01/2023 COMPARISON: NONE HISTORY: Pain FINDINGS: Three views of the ankle demonstrate the ankle mortise to be intact and symmetric. The joint spaces are preserved. The osseous structures are intact. Marginal spurring of the anterior tibia at the le una of the ankle joint. IMPRESSION: 1. No definite acute fracture or dislocation, if symptoms persist follow-up study in 7 to 10 days wou ld be suggested.
--- NOTE | 2023-06-01 12:53 | XR ---
EXAMINATION TYPE: XR knee complete RT DATE OF EXAM: 06/01/2023 COMPARISON: NONE HISTORY: Pain TECHNIQUE: Three views are submitted. FINDINGS: Diffuse osteopenia with mild narrowing of the medial part of the knee joint and patellofemoral joint. Small amount of fluid in this bursa. There is spurring along the quadriceps insertion of the left.. Osseous structures are intact. No acute fracture seen. IMPRESSION: 1. No acute fracture or dislocation. 2. Osteoarthritis diffuse osteopenia. 3. Small amount of fluid in the suprapatellar bursa can be associated with internal derangement knee. Correlate with MRI as clinically warranted.
--- NOTE | 2023-06-01 12:56 | XR ---
EXAMINATION TYPE: XR wrist complete RT DATE OF EXAM: 06/01/2023 COMPARISON: NONE HISTORY: Pain TECHNIQUE: Four views submitted. FINDINGS: The osseous structures are intact. Mild first carpal metacarpal joint and first MCP arthropathy. Ther e is no acute fracture or dislocation. IMPRESSION: 1. No definite acute fracture or dislocation if symptoms persist, follow-up study in 7 to 10 days wo uld be suggested
[2023-06-01 13:10] VITALS: BP 149/78; PULSE 62
[2023-06-01] MEDS ORDERED: BACITRACIN OINT 1 EACH PACKET TOPICAL ONE (13:17)
--- NOTE | 2023-06-01 13:20 | ED ---
General Adult HPI - General Chief complaint: Fall Stated complaint: fall Time Seen by Provider: 06/01/23 11:51 Source: patient, EMS, RN notes reviewed, old records reviewed Mode of arrival: EMS Limitations: no limitations - History of Present Illness Initial comments: 57-year-old female presents status post fall with right knee injury, injury to the right wrist and left ankle. Patient also had minor head trauma with some neck discomfort. She was placed in a c-collar during transport. This was a mechanical fall, patient tripped going up a curb. - Related Data Home Medications Medication Instructions Recorded Confirmed Mirtazapine [Remeron] 45 mg PO HS 04/26/17 09/04/22 clonazePAM [KlonoPIN] 1 mg PO BID 02/20/18 09/04/22 Atorvastatin [Lipitor] 80 mg PO DAILY 08/08/18 09/04/22 OLANZapine [ZyPREXA] 5 mg PO HS 08/08/18 09/04/22 Montelukast [Singulair] 10 mg PO HS 12/18/18 09/04/22 Umeclidinium [employer] [Incruse 1 puff INHALATION RT-DAILY 06/14/19 09/04/22 Ellipta] metFORMIN HCL [Glucophage] 500 mg PO BID@1200,2100 06/14/19 09/04/22 Aspirin [Adult Low Dose Aspirin EC] 81 mg PO DAILY 04/08/21 09/04/22 Citalopram Hydrobromide 30 mg PO HS 04/08/21 09/04/22 [Citalopram HBr] Fenofibrate Nanocrystallized 145 mg PO DAILY 04/08/21 09/04/22 [Tricor] Glimepiride [Amaryl] 2 mg PO DAILY 04/08/21 09/04/22 Albuterol Sulfate [Ventolin HFA] 1 puff INHALATION RT-Q4H PRN 04/10/21 09/04/22 Latanoprost [Xalatan 0.005%] 1 drop BOTH EYES HS 04/10/21 09/04/22 Fluticasone Propion/Salmeterol 1 puff INHALATION RT-BID 08/29/21 09/04/22 [Advair 500-50 Diskus] Loratadine 10 mg PO DAILY 08/29/21 09/04/22 Albuterol Nebulized [Ventolin 2.5 mg INHALATION RT-QID PRN 09/04/22 09/04/22 Nebulized] Divalproex ER [Depakote ER] 250 mg PO BID 09/04/22 09/04/22 lisinopriL [Zestril] 20 mg PO HS 09/04/22 09/04/22 Previous Rx's Medication Instructions Recorded Clopidogrel [Plavix] 75 mg PO DAILY #30 tab 04/11/21 Ezetimibe [Zetia] 10 mg PO DAILY #30 tab 09/05/22 Metoprolol Succinate (ER) [Toprol 50 mg PO BID #60 tab 09/05/22 XL] Allergies Allergy/AdvReac Type Severity Reaction Status Date / Time No Known Allergies Allergy Verified 09/04/22 20:12 Review of Systems ROS Statement: Those systems with pertinent positive or pertinent negative responses have been documented in the HPI. ROS Other: All systems not noted in ROS Statement are negative. Past Medical History Past Medical History: Atrial Fibrillation, Asthma, Blood Disorder, Coronary Artery Disease (CAD), COPD, Diabetes Mellitus, Deep Vein Thrombosis (DVT), Eye Disorder, GERD/Reflux, Hyperlipidemia, Hypertension, Myocardial Infarction (RI), Seizure Disorder, Sleep Apnea/CPAP/BIPAP, Vascular Disorder Additional Past Medical History / Comment(s): NIDDM type II, neuropathy bilateral feet, blood clotting disorder/pt does not know type, DVT L leg/Lgroin, PVD, BI/no device used, seizure 2011, possible TIA, insomnia, bilateral eye glaucoma, bronchitis Last Myocardial Infarction Date:: 2010 History of Any Multi-Drug Resistant Organisms: None Reported Past Surgical History: Heart Catheterization With Stent Additional Past Surgical History / Comment(s): Bilateral aortic stent/PTBA, L lower leg stent per pt, fasciotomy L lower extremity/compartmental syndrome, D&C/hysteroscopy, R foot fracture with hardware since removed. Past Anesthesia/Blood Transfusion Reactions: No Reported Reaction Date of Last Stent Placement:: 2010 Past Psychological History: Anxiety, Depression, PTSD Smoking Status: Current every day smoker Past Alcohol Use History: Occasional Past Drug Use History: None Reported - Past Family History Mother Family Medical History: COPD Father History Unknown: Yes General Exam Limitations: no limitations General appearance: alert, in no apparent distress Head exam: Present: atraumatic, normocephalic Eye exam: Present: normal appearance, PERRL Neck exam: Present: other (Negative for midline tenderness, some paraspinal discomfort. C-collar placed by paramedics) Respiratory exam: Present: normal lung sounds bilaterally. Absent: respiratory distress Cardiovascular Exam: Present: regular rate, normal rhythm GI/Abdominal exam: Present: soft. Absent: distended, tenderness, guarding Extremities exam: Present: other (Abrasion to the right knee.) Neurological exam: Present: alert, oriented X3, CN II-XII intact. Absent: motor sensory deficit Psychiatric exam: Present: normal affect, normal mood Skin exam: Present: warm, dry Course Vital Signs 06/01/23 06/01/23 11:51 13:09 Temperature 97.2 F L Pulse Rate 64 62 Respiratory 18 18 Rate Blood Pressure 176/73 149/78 O2 Sat by Pulse 97 97 Oximetry Medical Decision Making - Medical Decision Making Was pt. sent in by a medical professional or institution (, PA, BRIDAL SALES CONSULTANT, urgent care, hospital, or group home...) When possible be specific @ -No Did you speak to anyone other than the patient for history (EMS, parent, family, police, friend...)? What history was obtained from this source @History obtained from paramedics Did you review nursing and triage notes (agree or disagree)? Why? @ -I reviewed and agree with nursing and triage notes Were old charts reviewed (outside hosp., previous admission, EMS record, old EKG, old radiological studies, urgent care reports/EKG's, group home records)? Report findings @ -No old charts were reviewed Differential Diagnosis (chest pain, altered mental status, abdominal pain women, abdominal pain men, vaginal bleeding, weakness, fever, dyspnea, syncope, headache, dizziness, GI bleed, back pain, seizure, CVA, palpatations, mental health, musculoskeletal)? @ -Differential Musculoskeletal Muscular strain, contusion, ligament sprain, fracture, arthritis, septic arthritis, bursitis, cellulitis, muscle spasm, nerve compression, DVT, arterial occlusion, herpes zoster, electrolyte abnormality, tumor.... This is not meant to be in all inclusive list EKG interpreted by me (3pts min.). @ -As above X-rays interpreted by me (1pt min.). @Echo x-rays of the right knee, right wrist, left ankle are reviewed, negative for displaced fracture or dislocation. CT interpreted by me (1pt min.). @ -[CT of the brain negative for intracranial hemorrhage or mass effect, CT cervical spine negative for fracture or subluxation. U/S interpreted by me (1pt. min.). @ -None done What testing was considered but not performed or refused? (CT, X-rays, U/S, labs)? Why? @ -None What meds were considered but not given or refused? Why? @ -None Did you discuss the management of the patient with other professionals (professionals i.e. , PA, BRIDAL SALES CONSULTANT, lab, RT, psych nurse, clinical social work aide, junior database administrator, teacher, chief digital officer, case worker)? Give summary @ -No Was smoking cessation discussed for >3mins.? @ -No Was critical care preformed (if so, how long)? @ -No Were there social determinants of health that impacted care today? How? (Homelessness, low income, unemployed, alcoholism, drug addiction, transportation, low edu. Level, literacy, decrease access to med. care, [facility], rehab)? @ -No Was there de-escalation of care discussed even if they declined (Discuss DNR or withdrawal of care, Hospice)? DNR status @ -No What co-morbidities impacted this encounter? (DM, HTN, Smoking, COPD, CAD, Cancer, CVA, ARF, Chemo, Hep., AIDS, mental health diagnosis, sleep apnea, morbid obesity)? @ -None Was patient admitted / discharged? Hospital course, mention meds given and route, prescriptions, significant lab abnormalities, going to OR and other pertinent info. @ -[57-year-old female with mechanical fall, right wrist, right knee, left ankle injury and minor head and neck trauma. Imaging is negative for displaced fracture or intracranial pathology. Patient's abrasion is cleansed and bandage to the emergency department. She is stable for discharge at this time. Undiagnosed new problem with uncertain prognosis? @ -No Drug Therapy requiring intensive monitoring for toxicity (Heparin, Nitro, Insulin, Cardizem)? @ -No Were any procedures done? @ -No Diagnosis/symptom? @ -Mechanical fall, knee abrasion Acute, or Chronic, or Acute on Chronic? @ -Acute Uncomplicated (without systemic symptoms) or Complicated (systemic symptoms)? @Uncomplicated Side effects of treatment? @ -No Exacerbation, Progression, or Severe Exacerbation? @ -No Poses a threat to life or bodily function? How? (Chest pain, USA, RI, pneumonia, PE, COPD, DKA, ARF, appy, cholecystitis, CVA, Diverticulitis, Homicidal, Suicidal, threat to staff... and all critical care pts) @ -[Low risk at this time Disposition Clinical Impression: Fall, Knee abrasion Disposition: HOME SELF-CARE Condition: Fair Instructions (If sedation given, give patient instructions): Fall Prevention (ED), Knee Pain (ED), Abrasion (ED) Is patient prescribed a controlled substance at d/c from ED?: No Referrals: Shine Yañez MD [Primary Care Provider] - 1-2 days Time of Disposition: 13:20
== END 2023-06-01 13:51 | disposition home or self-care (01) ==
LOC: EC 11:50
DX: S80.211A Abrasion, right knee, initial encounter (principal); I48.91 Unspecified atrial fibrillation; J45.909 Unspecified asthma, uncomplicated; J44.9 Chronic obstructive pulmonary disease, unspecified; I25.10 Atherosclerotic heart disease of native coronary artery without angina pectoris; E11.9 Type 2 diabetes mellitus without complications; I10 Essential (primary) hypertension; I25.2 Old myocardial infarction; G47.30 Sleep apnea, unspecified; E78.5 Hyperlipidemia, unspecified; F41.9 Anxiety disorder, unspecified; F32.A Depression, unspecified; F17.200 Nicotine dependence, unspecified, uncomplicated; Z79.84 Long term (current) use of oral hypoglycemic drugs; Z79.899 Other long term (current) drug therapy; Z79.51 Long term (current) use of inhaled steroids; Z79.82 Long term (current) use of aspirin; W18.30XA Fall on same level, unspecified, initial encounter
CPT/HCPCS: 70450; 72125; 99285

== ENCOUNTER → 2023-06-03 | Outpatient (CLI) | payer MEDICARE, OTHER ==
--- NOTE | 2023-06-03 11:51 | XR ---
EXAMINATION TYPE: XR elbow complete RT DATE OF EXAM: 06/03/2023 COMPARISON: NONE HISTORY: Pain FINDINGS: Three views of the elbow demonstrate pathologic posterior fat pad displacement.. The osseous structu res are intact. There is no acute fracture or dislocation. Small olecranon spur. IMPRESSION: 1. Pathologic posterior joint effusion. Findings could be in the basis of occult fracture. Recommend CT of the elbow.
--- NOTE | 2023-06-03 11:53 | XR ---
EXAM TYPE: LUMBAR SPINE X RAY SERIES COMPARISON: NONE HISTORY: Pain TECHNIQUE: 4 views are submitted. FINDINGS: Alignment is anatomic. The pedicles are intact. The transverse processes are intact. There is a mu ltilevel hypertrophic and degenerative changes spine. Facet arthropathy lower lumbar spine. Vascular stents are noted. Stable chronic Schmorl's node or endplate chronic compression fracture L4 unchanged from 12/22/2020 CT scan. IMPRESSION: 1. Multilevel hypertrophic and degenerative changes of the spine. Stable chronic Schmorl's node or en dplate chronic compression fracture L4 unchanged from 12/22/2020 CT scan.
--- NOTE | 2023-06-03 12:31 | XR ---
EXAMINATION TYPE: XR humerus RT DATE OF EXAM: 06/03/2023 COMPARISON: NONE HISTORY: Pain TECHNIQUE: 2 views submitted. FINDINGS: The osseous structures are intact and the joint spaces are preserved. Calcification along the nolan l head can be associated with calcific tendinosis. There is a pathologic joint effusion the elbow luis nt. IMPRESSION: 1. Pathologic joint fusion at the level of the elbow posterior fat pad displacement. Occult fracture in the differential diagnosis consider CT of the elbow. 2. Calcific tendinosis right shoulder.
--- NOTE | 2023-06-03 12:38 | XR ---
EXAMINATION TYPE: XR ribs RT w pa chest xray DATE OF EXAM: 06/03/2023 COMPARISON: NONE TECHNIQUE: Frontal view chest and 4 views of the right ribs submitted. HISTORY: Pain FINDINGS: Calcific change along the humeral head can be associated with calcific tendinosis. Slight elevation o f the clavicle with hypertrophic changes of the AC joint. Lung is clear. Rib cage intact with no acute displaced rib fracture. IMPRESSION: 1. No acute displaced rib fracture. Slight elevation of the clavicle relative to the acromion. Correl ate with point tenderness or possible AC joint ligament injury. 2. Correlate for calcific tendinosis of the rotator cuff.
== END | disposition home or self-care (01) ==
LOC: RADXRMAIN 11:07
PROVIDERS: ATTEND Internal Medicine
DX: M48.56XA Collapsed vertebra, not elsewhere classified, lumbar region, initial encounter for fracture (principal); E88.89 Other specified metabolic disorders; M25.421 Effusion, right elbow; M47.816 Spondylosis without myelopathy or radiculopathy, lumbar region; M67.813 Other specified disorders of tendon, right shoulder; R07.81 Pleurodynia; Z98.1 Arthrodesis status
CPT/HCPCS: 72100

== ENCOUNTER → 2023-06-20 | Outpatient (CLI) | payer MEDICARE, OTHER ==
[2023-06-20 17:57] LABS: Creatinine,Urine Random 49.7 mg/dL; Protein/Creatinine Ratio,Urine 0.463
[2023-06-21 02:29] LABS: Basophils # (A) 0.07 X 10*3/uL (0.00-0.10); Basophils % (A) 0.8 %; Eosinophils # (A) 0.16 X 10*3/uL (0.04-0.35); Eosinophils % (A) 1.7 %; HCT 46.8 % (37.2-46.3); HGB 15.1 d/dL (12.0-15.0); Lymphocytes # (A) 3.27 X 10*3/uL (0.90-5.00); Lymphocytes % (A) 35.5 %; MCH 29.6 pg (27.0-32.0); MCHC 32.3 d/dL (32.0-37.0); MCV 91.8 FL (80.0-97.0); Mean Platelet Volume 10.8 FL (9.5-12.2); Monocytes # (A) 0.34 X 10*3/uL (0.20-1.00); Monocytes % (A) 3.7 %; NRBC Per 100 WBC 0 X 10*3/uL (0.00-0.01); Neutrophils # (A) 5.32 X 10*3/uL (1.80-7.70); Neutrophils % (A) 57.9 %; Platelet Count 253 X 10*3/uL (140-440); RDW 14.8 % (11.5-14.5)
[2023-06-21 03:33] LABS: Anti-DNA, DS unit <1.0 IU/mL; DNA Double-Stranded Negative (Negative)
[2023-06-21 03:48] LABS: % Iron Saturation 15.95 (12.00-45.00); Albumin 4.1 d/dL (3.8-4.9); BUN/Creat Ratio 13.77 Ratio (12.00-20.00); Blood Urea Nitrogen 17.9 mg/dL (9.0-27.0); Calcium 10.3 mg/dL (8.7-10.3); Carbon Dioxide 23.3 mmol/L (21.6-31.8); Chloride 103 mmol/L (96-109); Chol/HDL Ratio 3.77 Ratio; Ferritin 65.9 ng/mL (10.0-291.0); Glucose 78 mg/dL (70-110); Iron 63 UG/DL (50-170); LDL Cholesterol,Calculated 50.9 mg/dL (0.0-131.0); Magnesium 1.6 mg/dL (1.5-2.4); Phosphorus 3.6 mg/dL (2.4-5.1); Potassium 4.2 mmol/L (3.5-5.5); Sodium 140 mmol/L (135-145); Total Iron Binding Capacity 395 UG/DL (228-460)
[2023-06-21 06:10] LABS: Appearance,Urine Cloudy (Clear); Bilirubin,Urine Negative (Negative); Blood,Urine Negative (Negative); Color,Urine Yellow (Yellow); Ketones,Urine Negative (Negative); Nitrite,Urine Negative (Negative); PH, Urine 5.5; Specific Gravity,Urine 1.008 (1.001-1.030); Urobilinogen,Urine 0.2 E.U./DL
[2023-06-21 06:15] LABS: Bacteria,Urine 1+ (None Seen)
[2023-06-21 06:40] LABS: Urine Creatinine 46.9 mg/dL (28.0-217.0)
[2023-06-21 11:46] LABS: C-ANCA <1:20 Titer (<1:20)
== END | disposition home or self-care (01) ==
LOC: LABWHC1 14:51
PROVIDERS: ATTEND Nurse Practitioner Family
DX: E11.22 Type 2 diabetes mellitus with diabetic chronic kidney disease (principal); N25.81 Secondary hyperparathyroidism of renal origin; N18.31 Chronic kidney disease, stage 3a; D63.1 Anemia in chronic kidney disease; M10.9 Gout, unspecified; N39.0 Urinary tract infection, site not specified; E55.9 Vitamin D deficiency, unspecified; R80.9 Proteinuria, unspecified
CPT/HCPCS: 36415; 80048; 80061; 81001; 81050; 82040; 82043; 82306; 82570; 82728; 83036; 83516; 83540; 83550; 83735; 83970; 84100; 84156; 84550; 85025; 86038; 86160; 86162; 86225; 86255

== ENCOUNTER 2023-07-02 20:47 | Emergency (ER) | payer MEDICARE, OTHER ==
[2023-07-02 21:07] VITALS: RESP 16; TEMP 98.6
--- NOTE | 2023-07-02 21:29 | ED ---
Psych HPI - General Chief Complaint: Psychiatric Symptoms Stated Complaint: Mental Health Time Seen by Provider: 07/02/23 21:10 Source: patient, EMS, RN notes reviewed, old records reviewed Mode of arrival: EMS - History of Present Illness Initial Comments: This is a 57-year-old female DF for evaluation today. Patient's evaluation presents for genetic and anxiety and depression as her roommates causes her significant stress today, she denies suicidal, patient did have superficial cut to the right forearm which she normally does that she has occurred. Patient denies suicidal thoughts MD Complaint: feels depressed Associated Psychiatric Symptoms: depression History of same: Yes Quality: constant, intermittent Worsens With: none Treatments Prior to Arrival: placed on mental health hold - Related Data Home Medications Medication Instructions Recorded Confirmed Mirtazapine [Remeron] 45 mg PO HS 04/26/17 09/04/22 clonazePAM [KlonoPIN] 1 mg PO BID 02/20/18 09/04/22 Atorvastatin [Lipitor] 80 mg PO DAILY 08/08/18 09/04/22 OLANZapine [ZyPREXA] 5 mg PO HS 08/08/18 09/04/22 Montelukast [Singulair] 10 mg PO HS 12/18/18 09/04/22 Umeclidinium [employer] [Incruse 1 puff INHALATION RT-DAILY 06/14/19 09/04/22 Ellipta] metFORMIN HCL [Glucophage] 500 mg PO BID@1200,2100 06/14/19 09/04/22 Aspirin [Adult Low Dose Aspirin EC] 81 mg PO DAILY 04/08/21 09/04/22 Citalopram Hydrobromide 30 mg PO HS 04/08/21 09/04/22 [Citalopram HBr] Fenofibrate Nanocrystallized 145 mg PO DAILY 04/08/21 09/04/22 [Tricor] Glimepiride [Amaryl] 2 mg PO DAILY 04/08/21 09/04/22 Albuterol Sulfate [Ventolin HFA] 1 puff INHALATION RT-Q4H PRN 04/10/21 09/04/22 Latanoprost [Xalatan 0.005%] 1 drop BOTH EYES HS 04/10/21 09/04/22 Fluticasone Propion/Salmeterol 1 puff INHALATION RT-BID 08/29/21 09/04/22 [Advair 500-50 Diskus] Loratadine 10 mg PO DAILY 08/29/21 09/04/22 Albuterol Nebulized [Ventolin 2.5 mg INHALATION RT-QID PRN 09/04/22 09/04/22 Nebulized] Divalproex ER [Depakote ER] 250 mg PO BID 09/04/22 09/04/22 lisinopriL [Zestril] 20 mg PO HS 09/04/22 09/04/22 Previous Rx's Medication Instructions Recorded Clopidogrel [Plavix] 75 mg PO DAILY #30 tab 04/11/21 Ezetimibe [Zetia] 10 mg PO DAILY #30 tab 09/05/22 Metoprolol Succinate (ER) [Toprol 50 mg PO BID #60 tab 09/05/22 XL] Allergies Allergy/AdvReac Type Severity Reaction Status Date / Time No Known Allergies Allergy Verified 09/04/22 20:12 Review of Systems ROS Statement: Those systems with pertinent positive or pertinent negative responses have been documented in the HPI. ROS Other: All systems not noted in ROS Statement are negative. Past Medical History Past Medical History: Atrial Fibrillation, Asthma, Blood Disorder, Coronary Artery Disease (CAD), COPD, Diabetes Mellitus, Deep Vein Thrombosis (DVT), Eye Disorder, GERD/Reflux, Hyperlipidemia, Hypertension, Myocardial Infarction (DC), Seizure Disorder, Sleep Apnea/CPAP/BIPAP, Vascular Disorder Additional Past Medical History / Comment(s): NIDDM type II, neuropathy bilateral feet, blood clotting disorder/pt does not know type, DVT L leg/Lgroin, PVD, BI/no device used, seizure 2011, possible TIA, insomnia, bilateral eye gl aucoma, bronchitis Last Myocardial Infarction Date:: 2010 History of Any Multi-Drug Resistant Organisms: None Reported Past Surgical History: Heart Catheterization With Stent Additional Past Surgical History / Comment(s): Bilateral aortic stent/PTBA, L lower leg stent per pt, fasciotomy L lower extremity/compartmental syndrome, D&C/hysteroscopy, R foot fracture with hardware since removed. Past Anesthesia/Blood Transfusion Reactions: No Reported Reaction Date of Last Stent Placement:: 2010 Past Psychological History: Anxiety, Depression, Panic Disorder, PTSD Smoking Status: Current every day smoker Past Alcohol Use History: Occasional Past Drug Use History: None Reported - Past Family History Mother Family Medical History: COPD Father History Unknown: Yes General Exam General appearance: alert, in no apparent distress Head exam: Present: atraumatic, normocephalic, normal inspection Eye exam: Present: normal appearance, PERRL, EOMI. Absent: scleral icterus, c onjunctival injection, periorbital swelling ENT exam: Present: normal exam, mucous membranes moist Neck exam: Present: normal inspection. Absent: tenderness, meningismus, lymphadenopathy Respiratory exam: Present: normal lung sounds bilaterally. Absent: respiratory distress, wheezes, rales, rhonchi, stridor Cardiovascular Exam: Present: regular rate, normal rhythm, normal heart sounds. Absent: systolic murmur, diastolic murmur, rubs, gallop, clicks GI/Abdominal exam: Present: soft, normal bowel sounds. Absent: distended, tenderness, guarding, rebound, rigid Extremities exam: Present: normal inspection, full ROM, normal capillary refill. Absent: tenderness, pedal edema, joint swelling, calf tenderness Back exam: Present: normal inspection Neurological exam: Present: alert, oriented X3, CN II-XII intact Psychiatric exam: Present: normal affect, normal mood Skin exam: Present: warm, dry, intact, normal color. Absent: rash Course Vital Signs 07/02/23 07/02/23 20:50 23:29 Temperature 98.6 F Pulse Rate 63 66 Respiratory 16 16 Rate Blood Pressure 156/63 163/71 O2 Sat by Pulse 94 L 98 Oximetry - Reevaluation(s) Reevaluation #1: Medical records reviewed Reevaluation #2: Medical clear for psychiatric evaluation Medical Decision Making - Medical Decision Making 57 female to the emergency department for evaluation anxiety depression was seen by psychiatry here in the ER deemed stable for discharge home Disposition Clinical Impression: Acute anxiety, Depression Disposition: HOME SELF-CARE Condition: Fair Instructions (If sedation given, give patient instructions): Depression (ED), Anxiety (ED) Is patient prescribed a controlled substance at d/c from ED?: No Referrals: Shine Yañez MD [Primary Care Provider] - 1-2 days Time of Disposition: 23:05
[2023-07-02 23:35] VITALS: BP 163/71; PULSE 66
== END 2023-07-02 23:30 | disposition home or self-care (01) ==
LOC: EC 20:47 → SUPCPDRO 20:47 → EC 23:30
DX: F41.9 Anxiety disorder, unspecified (principal); F32.A Depression, unspecified; E78.5 Hyperlipidemia, unspecified; F17.200 Nicotine dependence, unspecified, uncomplicated; I10 Essential (primary) hypertension; I25.10 Atherosclerotic heart disease of native coronary artery without angina pectoris; I25.2 Old myocardial infarction; I48.91 Unspecified atrial fibrillation; J44.89 Other specified chronic obstructive pulmonary disease; E11.9 Type 2 diabetes mellitus without complications; K21.9 Gastro-esophageal reflux disease without esophagitis; G47.30 Sleep apnea, unspecified; Z79.84 Long term (current) use of oral hypoglycemic drugs; Z79.51 Long term (current) use of inhaled steroids; Z79.899 Other long term (current) drug therapy
CPT/HCPCS: 82075; 99285

== ENCOUNTER 2023-08-08 13:35 | Emergency (ER) | payer MEDICARE, OTHER ==
[2023-08-08 13:59] VITALS: TEMP 98.6
[2023-08-08] MEDS ORDERED: ACETAMINOPHEN TAB 500 MG TAB PO STA (14:40)
--- NOTE | 2023-08-08 14:42 | ED ---
General Adult HPI - General Chief complaint: Fall Stated complaint: Fall-back/right arm pain-blood thinners Time Seen by Provider: 08/08/23 13:54 Source: patient, family, RN notes reviewed Mode of arrival: ambulatory Limitations: no limitations - History of Present Illness Initial comments: 57-year-old female presents to the emergency department chief complaint of fall. She states that she was on a two-step ladder when she reached in the cabinet above her and fell backwards. She states that she hit her back on the ground and her right humerus on the cabinet. She is reporting pain in these regions. She has been able to ambulate since the fall. Denies numbness, tingling. Denies loss of bowel or bladder function, saddle anesthesia, urinary retention. She states she did not hit her head or lose consciousness. She is on Plavix. - Related Data Home Medications Medication Instructions Recorded Confirmed Mirtazapine [Remeron] 45 mg PO HS 04/26/17 08/08/23 clonazePAM [KlonoPIN] 1 mg PO BID 02/20/18 08/08/23 Atorvastatin [Lipitor] 80 mg PO HS 08/08/18 08/08/23 OLANZapine [ZyPREXA] 5 mg PO HS 08/08/18 08/08/23 Montelukast [Singulair] 10 mg PO HS 12/18/18 08/08/23 metFORMIN HCL [Glucophage] 500 mg PO BID@1200,2100 06/14/19 08/08/23 Aspirin [Adult Low Dose Aspirin EC] 81 mg PO DAILY 04/08/21 08/08/23 Fenofibrate Nanocrystallized 145 mg PO DAILY 04/08/21 08/08/23 [Tricor] Glimepiride [Amaryl] 2 mg PO DAILY 04/08/21 08/08/23 Albuterol Sulfate [Ventolin HFA] 1 puff INHALATION RT-Q4H PRN 04/10/21 08/08/23 Loratadine 10 mg PO DAILY 08/29/21 08/08/23 Ammonium Lactate Cream [Lac-Hydrin 1 applic TOPICAL BID 08/08/23 08/08/23 12% Cream] Cinacalcet [Sensipar] 30 mg PO SUWE 08/08/23 08/08/23 Citalopram Hydrobromide [CeleXA] 40 mg PO HS 08/08/23 08/08/23 Dapagliflozin Propanediol [Farxiga] 5 mg PO DAILY 08/08/23 08/08/23 Doxycycline Hyclate 100 mg PO BID 08/08/23 08/08/23 Fluticasone/Umeclidin/Vilanter 1 puff INHALATION RT-DAILY 08/08/23 08/08/23 [Trelegy Ellipta 100-62.5-25] Nitroglycerin Sl Tabs [Nitrostat] 0.4 mg SL Q5M PRN 08/08/23 08/08/23 OLANZapine [ZyPREXA] 7.5 mg PO HS 08/08/23 08/08/23 lisinopriL 30 mg PO HS 08/08/23 08/08/23 Previous Rx's Medication Instructions Recorded Clopidogrel [Plavix] 75 mg PO DAILY #30 tab 04/11/21 Ezetimibe [Zetia] 10 mg PO DAILY #30 tab 09/05/22 Metoprolol Succinate (ER) [Toprol 50 mg PO BID #60 tab 09/05/22 XL] Allergies Allergy/AdvReac Type Severity Reaction Status Date / Time No Known Allergies Allergy Verified 08/08/23 15:52 Review of Systems ROS Statement: Those systems with pertinent positive or pertinent negative responses have been documented in the HPI. ROS Other: All systems not noted in ROS Statement are negative. Past Medical History Past Medical History: Atrial Fibrillation, Asthma, Blood Disorder, Coronary Artery Disease (CAD), COPD, Diabetes Mellitus, Deep Vein Thrombosis (DVT), Eye Disorder, GERD/Reflux, Hyperlipidemia, Hypertension, Myocardial Infarction ([place]), Seizure Disorder, Sleep Apnea/CPAP/BIPAP, Vascular Disorder Additional Past Medical History / Comment(s): NIDDM type II, neuropathy bilateral feet, blood clotting disorder/pt does not know type, DVT L leg/Lgroin, PVD, BI/no device used, seizure 2011, possible TIA, insomnia, bilateral eye glaucoma, bronchitis Last Myocardial Infarction Date:: 2010 History of Any Multi-Drug Resistant Organisms: None Reported Past Surgical History: Heart Catheterization With Stent Additional Past Surgical History / Comment(s): Bilateral aortic stent/PTBA, L lower leg stent per pt, fasciotomy L lower extremity/compartmental syndrome, D&C/hysteroscopy, R foot fracture with hardware since removed. Past Anesthesia/Blood Transfusion Reactions: No Reported Reaction Date of Last Stent Placement:: 2010 Past Psychological History: Anxiety, Depression, Panic Disorder, PTSD Smoking Status: Current every day smoker Past Alcohol Use History: Occasional Past Drug Use History: None Reported - Past Family History Mother Family Medical History: COPD Father History Unknown: Yes General Exam Limitations: no limitations General appearance: alert, in no apparent distress Head exam: Present: atraumatic, normocephalic, normal inspection Eye exam: Present: normal appearance, PERRL, EOMI. Absent: scleral icterus, conjunctival injection, periorbital swelling ENT exam: Present: normal exam, mucous membranes moist Neck exam: Present: normal inspection. Absent: tenderness, meningismus, lymphadenopathy Respiratory exam: Present: normal lung sounds bilaterally. Absent: respiratory distress, wheezes, rales, rhonchi, stridor Cardiovascular Exam: Present: regular rate, normal rhythm, normal heart sounds. Absent: systolic murmur, diastolic murmur, rubs, gallop, clicks Extremities exam: Present: normal inspection, full ROM, tenderness (right proximal humerus), normal capillary refill, other (radial, DP , PT pulses 2+). Absent: pedal edema, joint swelling, calf tenderness Back exam: Present: tenderness, paraspinal tenderness. Absent: CVA tenderness (R), CVA tenderness (L) Neurological exam: Present: alert, oriented X3, CN II-XII intact Psychiatric exam: Present: normal affect, normal mood Skin exam: Present: warm, dry, intact, normal color. Absent: rash Course Vital Signs 08/08/23 08/08/23 13:37 16:37 Temperature 98.6 F Pulse Rate 64 63 Respiratory 16 18 Rate Blood Pressure 149/75 127/75 O2 Sat by Pulse 98 97 Oximetry Medical Decision Making - Medical Decision Making Was pt. sent in by a medical professional or institution (, PA, SHUTTLE ROUTE VEHICLE OPERATOR, urgent care, hospital, or fci...) When possible be specific @ -No Did you speak to anyone other than the patient for history (EMS, parent, family, police, friend...)? What history was obtained from this source @ -No Did you review nursing and triage notes (agree or disagree)? Why? @ -I reviewed and agree with nursing and triage notes Were old charts reviewed (outside hosp., previous admission, EMS record, old EKG, old radiological studies, urgent care reports/EKG's, fci records)? Report findings @ -No old charts were reviewed Differential Diagnosis (chest pain, altered mental status, abdominal pain women, abdominal pain men, vaginal bleeding, weakness, fever, dyspnea, syncope, headache, dizziness, GI bleed, back pain, seizure, CVA, palpatations, mental health, musculoskeletal)? @ -Differential Musculoskeletal Muscular strain, contusion, ligament sprain, fracture, arthritis, septic arthritis, bursitis, cellulitis, muscle spasm, nerve compression, DVT, arterial occlusion, herpes zoster, electrolyte abnormality, tumor.... This is not meant to be in all inclusive list EKG interpreted by me (3pts min.). @ -none X-rays interpreted by me (1pt min.). @ -X-ray humerus shows no acute fractures X-ray lumbar spine shows moderate degenerative disc disease, no vertebral comp ression or malalignment CT interpreted by me (1pt min.). @ -None done U/S interpreted by me (1pt. min.). @ -None done What testing was considered but not performed or refused? (CT, X-rays, U/S, labs)? Why? @ -None What meds were considered but not given or refused? Why? @ -None Did you discuss the management of the patient with other professionals (professionals i.e. , PA, SHUTTLE ROUTE VEHICLE OPERATOR, lab, RT, psych nurse, social services aide, behavioral health associate, te acher, deck officer, director of casework)? Give summary @ -No Was smoking cessation discussed for >3mins.? @ -No Was critical care preformed (if so, how long)? @ -No Were there social determinants of health that impacted care today? How? (Homelessness, low income, unemployed, alcoholism, drug addiction, transportation, low edu. Level, literacy, decrease access to med. care, fpc, rehab)? @ -No Was there de-escalation of care discussed even if they declined (Discuss DNR or withdrawal of care, Hospice)? DNR status @ -No What co-morbidities impacted this encounter? (DM, HTN, Smoking, COPD, CAD, Cancer, CVA, ARF, Chemo, Hep., AIDS, mental health diagnosis, sleep apnea, morbid obesity)? @ -None Was patient admitted / discharged? Hospital course, mention meds given and rou te, prescriptions, significant lab abnormalities, going to OR and other pertinent info. @ -Discharge. Patient presented to the emergency department chief complaint of fall. She did not hit her head or lose consciousness. She is reporting pain to her right upper arm and her low back. X-rays obtained which show no acute fractures. Patient requesting Tylenol for pain. Patient given a dose of Norflex. She is able to ambulate. Patient will be discharged home. Patient understands and agreeable with plan. Patient stable at discharge. Case discussed with Dr. Corado Undiagnosed new problem with uncertain prognosis? @ -No Drug Therapy requiring intensive monitoring for toxicity (Heparin, Nitro, Insulin, Cardizem)? @ -No Were any procedures done? @ -No Diagnosis/symptom? @ -fall Acute, or Chronic, or Acute on Chronic? @ -acute Uncomplicated (without systemic symptoms) or Complicated (systemic symptoms)? @ -uncomplicated Side effects of treatment? @ -No Exacerbation, Progression, or Severe Exacerbation? @ -No Poses a threat to life or bodily function? How? (Chest pain, [place], NH, pneumonia, PE, COPD, DKA, ARF, appy, cholecystitis, CVA, Diverticulitis, Homicidal, Suicidal, threat to staff... and all critical care pts) @ -No Disposition Clinical Impression: Fall, Mechanical back pain Disposition: HOME SELF-CARE Condition: Stable Instructions (If sedation given, give patient instructions): Fall Prevention (ED) Additional Instructions: Please follow up with your primary care provider. Return to the emergency department for new or worsening symptoms. Is patient prescribed a controlled substance at d/c from ED?: No Referrals: Shine Yañez MD [Primary Care Provider] - 1-2 days
--- NOTE | 2023-08-08 16:03 | XR ---
EXAMINATION TYPE: XR humerus 2 views RT, XR lumbosacral spine 5 views DATE OF EXAM: 08/08/2023 COMPARISON: 06/03/2023 HISTORY: 57-year-old female with pain after fall FINDINGS: Humerus: Prominent lateral mid arm soft tissue swelling. Mild degenerative change AC joint. Calcific focus ho suring 8 mm at the greater tuberosity. Slightly larger from 06/03/2023. No acute fracture seen. [place] humeral joint and elbow joint appear grossly intact. Lumbar spine: Aortobiiliac endovascular stent graft. 5 lumbar type vertebral bodies. There is moderate degenerative disc disease mid to lower lumbar spine. Vertebral body heights are preserved and alignment is mainta ined though there is straightening of the normal lumbar lordosis. Some facet arthropathy throughout. IMPRESSION: 1. Humerus: 8 mm calcific focus at the greater tuberosity slightly larger from 06/03/2023. Correlate f or the possibility of calcific tendinitis of the rotator cuff. There seems to be some lateral mid arm soft tissue swelling. Otherwise, no acute osseous abnormality seen. 2. Lumbar spine: Moderate degenerative disc disease throughout. [id number] facet arthropathy th roughout. Straightening of the normal lumbar lordosis could be positional or due to muscle spasm. No vertebral compression collapse or malalignment.
[2023-08-08] MEDS ORDERED: ORPHENADRINE 30 MG/ML 2 ML VIAL IM STA (16:16)
[2023-08-08 16:38] VITALS: BP 127/75; PULSE 63; RESP 18
== END 2023-08-08 16:38 | disposition home or self-care (01) ==
LOC: EC 13:35
DX: M79.621 Pain in right upper arm (principal); M51.36 Other intervertebral disc degeneration, lumbar region; E11.40 Type 2 diabetes mellitus with diabetic neuropathy, unspecified; I10 Essential (primary) hypertension; I25.10 Atherosclerotic heart disease of native coronary artery without angina pectoris; I25.2 Old myocardial infarction; J44.89 Other specified chronic obstructive pulmonary disease; E78.5 Hyperlipidemia, unspecified; F32.A Depression, unspecified; F41.9 Anxiety disorder, unspecified; G40.909 Epilepsy, unspecified, not intractable, without status epilepticus; Z79.84 Long term (current) use of oral hypoglycemic drugs; Z79.82 Long term (current) use of aspirin; Z79.51 Long term (current) use of inhaled steroids; Z79.899 Other long term (current) drug therapy; F17.200 Nicotine dependence, unspecified, uncomplicated; W11.XXXA Fall on and from ladder, initial encounter
CPT/HCPCS: 72110; 73060; 99284; 96372; J2360

== ENCOUNTER 2023-08-25 23:17 | Emergency (ER) | payer MEDICARE, OTHER ==
[2023-08-25 23:22] LABS: Glucose,Whole Blood 54 mg/dL (70-110)
[2023-08-25 23:40] LABS: Basophils % (A) 0 %; Eosinophils # (A) 0.1 k/uL (0-0.7); Eosinophils % (A) 1 %; HGB 13.2 gm/dL (11.4-16.0); Lymphocytes % (A) 15 %; MCHC 33.9 g/dL (31.0-37.0); MCV 88.6 fL (80.0-100.0); Mean Platelet Volume 8.1; Monocytes # (A) 0.2 k/uL (0-1.0); Monocytes % (A) 4 %; Neutrophils % (A) 79 %; Platelet Count 149 k/uL (150-450); RDW 13.7 % (11.5-15.5); WBC 6.4 k/uL (3.8-10.6)
[2023-08-25 23:50] LABS: ALT 45 U/L (4-34); AST 88 U/L (14-36); African American GFR (CKD) 59 (>60 ml/min/1.73 sqM); Albumin 3.4 g/dL (3.5-5.0); Alkaline Phosphatase 58 U/L (38-126); Anion Gap 13 mmol/L; Blood Urea Nitrogen 21 mg/dL (7-17); Calcium 8.6 mg/dL (8.4-10.2); Carbon Dioxide 23 mmol/L (22-30); Chloride 93 mmol/L (98-107); Non-African American GFR(CKD) 51 (>60 ml/min/1.73 sqM); Potassium 3.3 mmol/L (3.5-5.1); Sodium 129 mmol/L (137-145); Total Bilirubin 0.5 mg/dL (0.2-1.3); Total Protein 5.7 g/dL (6.3-8.2)
[2023-08-25 23:55] LABS: Glucose,Whole Blood 117 mg/dL (70-110)
[2023-08-26 00:04] LABS: Glucose 40 mg/dL (74-99)
[2023-08-26 00:49] LABS: Glucose,Whole Blood 149 mg/dL (70-110)
--- NOTE | 2023-08-26 01:40 | ED ---
General Adult HPI - General Chief complaint: Recheck/Abnormal Lab/Rx Stated complaint: hypoglycemia Time Seen by Provider: 08/26/23 01:40 Source: patient, EMS Mode of arrival: EMS Limitations: no limitations - History of Present Illness Initial comments: 57-year-old female with history of type 2 diabetes presenting with chief complaint of hypoglycemia. She states that she has not been feeling well the past few days. EMS was contacted, glucose was 40 for EMS, they gave oral glucose. No chest pain, difficulty breathing, abdominal pain, nausea, vomiting. - Related Data Home Medications Medication Instructions Recorded Confirmed Mirtazapine [Remeron] 45 mg PO HS 04/26/17 08/08/23 clonazePAM [KlonoPIN] 1 mg PO BID 02/20/18 08/08/23 Atorvastatin [Lipitor] 80 mg PO HS 08/08/18 08/08/23 OLANZapine [ZyPREXA] 5 mg PO HS 08/08/18 08/08/23 Montelukast [Singulair] 10 mg PO HS 12/18/18 08/08/23 metFORMIN HCL [Glucophage] 500 mg PO BID@1200,2100 06/14/19 08/08/23 Aspirin [Adult Low Dose Aspirin EC] 81 mg PO DAILY 04/08/21 08/08/23 Fenofibrate Nanocrystallized 145 mg PO DAILY 04/08/21 08/08/23 [Tricor] Glimepiride [Amaryl] 2 mg PO DAILY 04/08/21 08/08/23 Albuterol Sulfate [Ventolin HFA] 1 puff INHALATION RT-Q4H PRN 04/10/21 08/08/23 Loratadine 10 mg PO DAILY 08/29/21 08/08/23 Ammonium Lactate Cream [Lac-Hydrin 1 applic TOPICAL BID 08/08/23 08/08/23 12% Cream] Cinacalcet [Sensipar] 30 mg PO SUWE 08/08/23 08/08/23 Citalopram Hydrobromide [CeleXA] 40 mg PO HS 08/08/23 08/08/23 Dapagliflozin Propanediol [Farxiga] 5 mg PO DAILY 08/08/23 08/08/23 Doxycycline Hyclate 100 mg PO BID 08/08/23 08/08/23 Fluticasone/Umeclidin/Vilanter 1 puff INHALATION RT-DAILY 08/08/23 08/08/23 [Trelegy Ellipta 100-62.5-25] Nitroglycerin Sl Tabs [Nitrostat] 0.4 mg SL Q5M PRN 08/08/23 08/08/23 OLANZapine [ZyPREXA] 7.5 mg PO HS 08/08/23 08/08/23 lisinopriL 30 mg PO HS 08/08/23 08/08/23 Previous Rx's Medication Instructions Recorded Clopidogrel [Plavix] 75 mg PO DAILY #30 tab 04/11/21 Ezetimibe [Zetia] 10 mg PO DAILY #30 tab 09/05/22 Metoprolol Succinate (ER) [Toprol 50 mg PO BID #60 tab 09/05/22 XL] Allergies Allergy/AdvReac Type Severity Reaction Status Date / Time No Known Allergies Allergy Verified 08/25/23 23:26 Review of Systems ROS Statement: Those systems with pertinent positive or pertinent negative responses have been documented in the HPI. ROS Other: All systems not noted in ROS Statement are negative. Past Medical History Past Medical History: Atrial Fibrillation, Asthma, Blood Disorder, Coronary Artery Disease (CAD), COPD, Diabetes Mellitus, Deep Vein Thrombosis (DVT), Eye Disorder, GERD/Reflux, Hyperlipidemia, Hypertension, Myocardial Infarction ([place]), Seizure Disorder, Sleep Apnea/CPAP/BIPAP, Vascular Disorder Additional Past Medical History / Comment(s): NIDDM type II, neuropathy bilateral feet, blood clotting disorder/pt does not know type, DVT L leg/Lgroin, PVD, BI/no device used, seizure 2012, possible TIA, insomnia, bilateral eye glaucoma, bronchitis Last Myocardial Infarction Date:: 2010 History of Any Multi-Drug Resistant Organisms: None Reported Past Surgical History: Heart Catheterization With Stent Additional Past Surgical History / Comment(s): Bilateral aortic stent/PTBA, L lower leg stent per pt, fasciotomy L lower extremity/compartmental syndrome, D&C/hysteroscopy, R foot fracture with hardware since removed. Past Anesthesia/Blood Transfusion Reactions: No Reported Reaction Date of Last Stent Placement:: 2010 Past Psychological History: Anxiety, Depression, Panic Disorder, PTSD Smoking Status: Current every day smoker Past Alcohol Use History: Occasional Past Drug Use History: None Reported - Past Family History Mother Family Medical History: COPD Father History Unknown: Yes General Exam - General Exam Comments Initial Comments: Visual Physical Exam Vital signs reviewed General: Well-appearing, nontoxic, no acute distress. Head: Normocephalic, atraumatic Eyes: PERRLA, EOMI ENT: Airway patent Chest: Nonlabored breathing Skin: No visual rash, normal skin tone Neuro: Alert and oriented 3 Musculoskeletal: No gross abnormalities Limitations: no limitations General appearance: alert, in no apparent distress Head exam: Present: atraumatic, normocephalic Eye exam: Present: normal appearance Neck exam: Present: normal inspection Respiratory exam: Present: normal lung sounds bilaterally. Absent: respiratory distress, wheezes, rales, rhonchi, stridor Cardiovascular Exam: Present: regular rate, normal rhythm, normal heart sounds. Absent: systolic murmur, diastolic murmur, rubs, gallop, clicks Extremities exam: Present: normal inspection Neurological exam: Present: alert, oriented X3, normal gait Psychiatric exam: Present: normal affect, normal mood Skin exam: Present: warm, dry Course Vital Signs 08/25/23 08/26/23 23:19 02:19 Temperature 98.5 F 98.2 F Pulse Rate 69 85 Respiratory 18 16 Rate Blood Pressure 141/71 123/85 O2 Sat by Pulse 91 L 95 Oximetry Medical Decision Making - Medical Decision Making Was pt. sent in by a medical professional or institution (NANY Moore, OPHTHALMIC MEDICAL TECHNOLOGIST, urgent care, hospital, or [facility]...) When possible be specific @ -No Did you speak to anyone other than the patient for history (EMS, parent, family, police, friend...)? What history was obtained from this source @ -No Did you review nursing and triage notes (agree or disagree)? Why? @ -I reviewed and agree with nursing and triage notes Were old charts reviewed (outside hosp., previous admission, EMS record, old EKG, old radiological studies, urgent care reports/EKG's, [facility] records)? Report findings @ -No old charts were reviewed Differential Diagnosis (chest pain, altered mental status, abdominal pain women, abdominal pain men, vaginal bleeding, weakness, fever, dyspnea, syncope, headache, dizziness, GI bleed, back pain, seizure, CVA, palpatations, mental health, musculoskeletal)? @ -Differential includes illness induced hypoglycemia, insulin overdose, mal nutrition, this is not an all inclusive list EKG interpreted by me (3pts min.). @ -As above X-rays interpreted by me (1pt min.). @ -None done CT interpreted by me (1pt min.). @ -None done U/S interpreted by me (1pt. min.). @ -None done What testing was considered but not performed or refused? (CT, X-rays, U/S, labs)? Why? @ -None What meds were considered but not given or refused? Why? @ -None Did you discuss the management of the patient with other professionals (professionals i.e. , PA, OPHTHALMIC MEDICAL TECHNOLOGIST, lab, RT, psych nurse, vp digital marketing social media and crm, nuclear supervising operator, teacher, chief scientific officer, embedded case manager)? Give summary @ -No Was smoking cessation discussed for >3mins.? @ -No Was critical care preformed (if so, how long)? @ -No Were there social determinants of health that impacted care today? How? (Homelessness, low income, unemployed, alcoholism, drug addiction, transportation, low edu. Level, literacy, decrease access to med. care, nursing home, rehab)? @ -No Was there de-escalation of care discussed even if they declined (Discuss DNR or withdrawal of care, Hospice)? DNR status @ -No What co-morbidities impacted this encounter? (DM, HTN, Smoking, COPD, CAD, Cancer, CVA, ARF, Chemo, Hep., AIDS, mental health diagnosis, sleep apnea, morbid obesity)? @ -None Was patient admitted / discharged? Hospital course, mention meds given and route, prescriptions, significant lab abnormalities, going to OR and other pertinent info. @ -57-year-old female with history of type 2 diabetes presenting with chief complaint of hypoglycemia. Patient was found to have blood glucose of 40 by EMS. She was given oral glucose. She reports that she has felt sick recently. History and physical exam were conducted. Normal gait is observed. Initial workup was started through advanced triage protocol and orders. Glucose has improved with readings of 117 and 149. Hypoglycemia likely due to illness. Patient reports that she will be leaving. she refuses any further testing or any further observation. She is attempting to walk out of the department. She is of sound mind and body and able to make her own decisions. Follow-up with PCP. Report back to ER with any new or worsening symptoms. Discussed return nany gabriel and answered all questions. Patient conveyed verbal understanding and agreed to the plan. I discussed this case in detail with my attending Dr. Mott Undiagnosed new problem with uncertain prognosis? @ -No Drug Therapy requiring intensive monitoring for toxicity (Heparin, Nitro, Insulin, Cardizem)? @ -No Were any procedures done? @ -No Diagnosis/symptom? @ -Hypoglycemia Acute, or Chronic, or Acute on Chronic? @ -Acute Uncomplicated (without systemic symptoms) or Complicated (systemic symptoms)? @ -complicated Side effects of treatment? @ -No Exacerbation, Progression, or Severe Exacerbation? @ -No - Lab Data Result diagrams: 08/25/23 23:32 08/25/23 23:32 Lab Results 08/25/23 08/25/23 08/25/23 Range/Units 23:21 23:32 23:32 WBC 6.4 (3.8-10.6) k/uL RBC 4.40 (3.80-5.40) m/uL Hgb 13.2 (11.4-16.0) gm/dL Hct 39.0 (34.0-46.0) % MCV 88.6 (80.0-100.0) fL MCH 30.0 (25.0-35.0) pg MCHC 33.9 (31.0-37.0) g/dL RDW 13.7 (11.5-15.5) % Plt Count 149 L (150-450) k/uL MPV 8.1 Neutrophils % 79 % Lymphocytes % 15 % Monocytes % 4 % Eosinophils % 1 % Basophils % 0 % Neutrophils # 5.0 (1.3-7.7) k/uL Lymphocytes # 1.0 (1.0-4.8) k/uL Monocytes # 0.2 (0-1.0) k/uL Eosinophils # 0.1 (0-0.7) k/uL Basophils # 0.0 (0-0.2) k/uL Sodium 129 L (137-145) mmol/L Potassium 3.3 L (3.5-5.1) mmol/L Chloride 93 L (98-107) mmol/L Carbon Dioxide 23 (22-30) mmol/L Anion Gap 13 mmol/L BUN 21 H (7-17) mg/dL Creatinine 1.20 H (0.52-1.04) mg/dL Est GFR (CKD-EPI)AfAm 59 (>60 ml/min/1.73 sqM) Est GFR (CKD-EPI)NonAf 51 (>60 ml/min/1.73 sqM) Glucose 40 L* (74-99) mg/dL POC Glucose (mg/dL) 54 L (70-110) mg/dL POC Glu Tunnel Miner ID Melchor Celis Calcium 8.6 (8.4-10.2) mg/dL Total Bilirubin 0.5 (0.2-1.3) mg/dL AST 88 H (14-36) U/L ALT 45 H (4-34) U/L Alkaline Phosphatase 58 (38-126) U/L Total Protein 5.7 L (6.3-8.2) g/dL Albumin 3.4 L (3.5-5.0) g/dL 08/25/23 08/26/23 Range/Units 23:54 00:47 WBC (3.8-10.6) k/uL RBC (3.80-5.40) m/uL Hgb (11.4-16.0) gm/dL Hct (34.0-46.0) % MCV (80.0-100.0) fL MCH (25.0-35.0) pg MCHC (31.0-37.0) g/dL RDW (11.5-15.5) % Plt Count (150-450) k/uL MPV Neutrophils % % Lymphocytes % % Monocytes % % Eosinophils % % Basophils % % Neutrophils # (1.3-7.7) k/uL Lymphocytes # (1.0-4.8) k/uL Monocytes # (0-1.0) k/uL Eosinophils # (0-0.7) k/uL Basophils # (0-0.2) k/uL Sodium (137-145) mmol/L Potassium (3.5-5.1) mmol/L Chloride (98-107) mmol/L Carbon Dioxide (22-30) mmol/L Anion Gap mmol/L BUN (7-17) mg/dL Creatinine (0.52-1.04) mg/dL Est GFR (CKD-EPI)AfAm (>60 ml/min/1.73 sqM) Est GFR (CKD-EPI)NonAf (>60 ml/min/1.73 sqM) Glucose (74-99) mg/dL POC Glucose (mg/dL) 117 H 149 H (70-110) mg/dL POC Glu Tunnel [employer]er Diane Corrigan Holly Calcium (8.4-10.2) mg/dL Total Bilirubin (0.2-1.3) mg/dL AST (14-36) U/L ALT (4-34) U/L Alkaline Phosphatase (38-126) U/L Total Protein (6.3-8.2) g/dL Albumin (3.5-5.0) g/dL Disposition Clinical Impression: Hypoglycemia Disposition: HOME SELF-CARE Condition: Good Instructions (If sedation given, give patient instructions): Hypoglycemia in a Person with Diabetes (ED) Additional Instructions: Follow-up with PCP. Report back to ER with any new or worsening symptoms. Is patient prescribed a controlled substance at d/c from ED?: No Referrals: Shine Yañez MD [Primary Care Provider] - 1-2 days Time of Disposition: 02:20
[2023-08-26 02:42] VITALS: BP 123/85; PULSE 85; RESP 16; TEMP 98.2
== END 2023-08-26 02:25 | disposition home or self-care (01) ==
LOC: EC 23:17
DX: E11.649 Type 2 diabetes mellitus with hypoglycemia without coma (principal); E11.40 Type 2 diabetes mellitus with diabetic neuropathy, unspecified; I10 Essential (primary) hypertension; I25.10 Atherosclerotic heart disease of native coronary artery without angina pectoris; I25.2 Old myocardial infarction; E78.5 Hyperlipidemia, unspecified; J44.89 Other specified chronic obstructive pulmonary disease; F32.A Depression, unspecified; F41.9 Anxiety disorder, unspecified; F17.200 Nicotine dependence, unspecified, uncomplicated; Z79.84 Long term (current) use of oral hypoglycemic drugs; Z79.82 Long term (current) use of aspirin; Z79.51 Long term (current) use of inhaled steroids; Z79.899 Other long term (current) drug therapy
CPT/HCPCS: 36415; 80053; 85025; 99284

== ENCOUNTER → 2023-09-05 | Outpatient (CLI) | payer MEDICARE, OTHER ==
--- NOTE | 2023-09-07 20:13 | MR ---
EXAMINATION TYPE: MR lumbar spine wo con DATE OF EXAM: 09/05/2023 9:13 AM CLINICAL INDICATION:Female, 57 years old with history of M54.50 low back pain; PHH, Low back pain int o rt lower extremity COMPARISON: None TECHNIQUE: Multi planar, multi sequence imaging was performed utilizing: T1-weighted, T2-weighted, a nd turbo inversion recovery imaging of the lumbar spine. IV Contrast: cc . (None if empty) FINDINGS: Alignment: The lumbar vertebral bodies have preserved heights and alignment. Cord: The conus medullaris and the distal spinal cord appear unremarkable with regards to their signa l intensity and morphology. Bones/Discs: Minimal disc degeneration changes worse at L2-L5 with disc space narrowing, osteophytes and Modic endplate changes. Multilevel disc desiccation is present. T12-L1: No evidence of significant spinal canal stenosis or neural foraminal stenosis. L1-L2: No evidence of significant spinal canal stenosis or neural foraminal stenosis. L2-L3: Disc bulge and facet joint arthropathy result in mild spinal canal and mild pulmonary bilatera l neural foraminal stenosis. L3-L4: Disc bulge and facet joint arthropathy result in mild spinal canal and mild/moderate bilateral neural foraminal stenosis. L4-L5: Disc bulge and facet joint arthropathy result in mild to moderate spinal canal and demonstrate s multilevel moderate to severe bilateral neural foraminal stenosis. L5-S1: Disc bulge and facet joint arthropathy result in mild spinal canal and demonstrates multilevel of the right synovial right and moderate severe left neural foraminal stenosis. No significant spinal canal or neural foraminal stenosis in the remainder of the visualized levels. Other findings: None. IMPRESSION: 1. No definitive evidence of disc herniation or significant spinal canal stenosis. 2. Moderate to severe disc degeneration with associated osteoarthritic changes worse at L4-L5 and L5 -S1 with severe right L5-S1 and moderate severe bilateral L4-L5 and left L5-S1 neural foraminal steno sis
== END | disposition home or self-care (01) ==
LOC: RADMRIMAIN 07:55
PROVIDERS: ATTEND Orthopaedic Surgery
DX: M51.36 Other intervertebral disc degeneration, lumbar region (principal); M47.816 Spondylosis without myelopathy or radiculopathy, lumbar region; M99.73 Connective tissue and disc stenosis of intervertebral foramina of lumbar region; M47.817 Spondylosis without myelopathy or radiculopathy, lumbosacral region
CPT/HCPCS: 72148

== ENCOUNTER → 2023-09-05 | Outpatient (CLI) | payer MEDICARE, OTHER ==
--- NOTE | 2023-09-05 10:26 | US ---
EXAMINATION TYPE: US kidneys/renal and bladder DATE OF EXAM: 09/05/2023 COMPARISON: NONE CLINICAL INDICATION: Female, 57 years old with history of N18.31 CHRONIC KIDNEY DISEASE, STAGE 3A; Ab n labs, no renal history or symptoms today EXAM MEASUREMENTS: Right Kidney: 10.9 x 4.4 x 5.6 cm Left Kidney: 11.4 x 4.3 x 6.0 cm Right Kidney: No hydronephrosis or masses seen Left Kidney: No hydronephrosis or masses seen Bladder: wnl There is no evidence for hydronephrosis at this point in time. No nephrolithiasis is seen. No ni s are identified. The urinary bladder is anechoic. Bilateral ureteral jets are seen. IMPRESSION: 1. Unremarkable renal ultrasound
== END | disposition home or self-care (01) ==
LOC: RADUSWWP 09:00
PROVIDERS: ATTEND Internal Medicine Nephrology
DX: N18.31 Chronic kidney disease, stage 3a (principal)
CPT/HCPCS: 76770

== ENCOUNTER → 2023-10-04 | Outpatient (CLI) | payer MEDICARE, OTHER ==
[2023-10-04 09:07] VITALS: BP 132/76; PULSE 76; RESP 15; TEMP 98.4
--- NOTE | 2023-10-04 14:20 | P.PAINPG ---
PQRS Measure Charge Sheet Comment: HISTORY OF PRESENT ILLNESS: A 58 yr old female as a referral from [facility], [place] presents today w severe and chronic LBP x 2 yrs secondary to DDD, spondylosis and facet arthropathy without myelopathy for evaluation. Pt states pain level is provoked at 8 /10 in intensity, constant, localized in the lower lumbar spine, predominantly axial, stabbing in character w occasional shooting pain towards the R hip and back of the LEs. Pain is provoked by walking/ standing for periods > 30 min. Pain is alleviated by PT x 2 wks which she is currently in, heat, medications (Tyl), use of TENS unit, repositioning and rest. Oswestry axial pain score at 26. PMH: OA, aFib, Asthma, CAD, COPD, NIDDM II, DVT, Glaucoma, GERD, Hyperlipidemia, HTN, [place] (2010), Seizure Disorder, BI, PVD, MDD/ Anxiety/ PTSD PSH: Heart Catheterization With PTBA Stent, LLE Stent, LLE Fasciotomy due to Compartmental Syndrome, D&C/ Hysteroscopy, R Foot Fracture w Hardware Removed SH: Daily tobacco use, Occasional ETOH use, No illicit drug use FH: Mo- COPD. Fa- Unknown All: See list Meds: See list REVIEW OF ORGAN SYSTEMS: CONSTITUTIONAL: No fevers or chills. No recent weight loss. NEUROLOGICAL: + numbness and tingling along the distal extremities. No seizure disorders or headaches. MUSCULOSKELETAL: + pain PSYCHIATRIC: Denies current depression or suicidal thoughts. Physical Examinations : Constitutional : Cooperative , not in acute distress . Neurologic : Cranial nerve II to XII intact. No focal neurological deficits. Psychiatric : alert & oriented x 3. Matching mood & appropriate affect. Judgment & insight intact. Musculoskeletal : Cervical Spine Motor strength in the deltoid and biceps: Normal right side. Normal Left side Motor strength biceps and the wrist extensors: Normal right side . Normal left side Motor strength in the triceps muscle: Normal right side. Normal left side Deep tendon reflexes: Normal at the biceps. Normal at Brachioradialis. Normal at triceps Vertebral body tenderness to deep palpation over Cervical facet loading test: positive bilaterally Spurling test: positive bilaterally Neck distraction test: positive bilaterally Robbie sign: positive bilaterally Lumbar spine Motor strength lower extremities ,thigh and legs 5/5 Right side , 5/5 Left side Deep tendon reflexes : Normal Knee Jerk. Normal Ankle Jerk Vertebral body tenderness over L4 Sky Test positive Lumbar facet Loading Test: positive Right / positive Left Range of motion of the lumbar spine Flexion 30 degrees, extension 10 degrees Straight Leg Raise test: Left/ Right positive at <30 degrees Dannielle test: positive right / positive left. Severe tenderness over the Sacroiliac joint on the Right / Left sides Gaenslen test: positive bilaterally Seated flexion test: positive bilaterally. Sacral spine : Severe tenderness over the Sacroiliac joint: right side / left side Range of motion: Flexion of the lumbar spine <60 degrees Range of motion: Extension of the lumbar spine <20 degrees Gaenslen's Test positive Dannielle test: positive right side / left side Thigh Thrust Test Sacral Thrust Test Imaging: MRI noncontrast of the lumbar spine from 09/05/23 reviewed Assessment/ Plan : Lumbar DDD Recommendation of BL TFESI L4-L5 #1. May need a series of injections for optimal pain relief. Risks, benefits of procedure discussed and patient verbalized understanding. Admits to anti- coagulant use or medical history of diabetes. Protocol for discontinuation/ continuation of medications keny procedure discussed. All questions answered. I have spent greater than 30 minutes on patient care today. Dr Bustillos was available by phone for the evaluation of this patient. The time was used to review the medical records including relevant urine studies and Prescription history (MAPs), review of the available imaging, evaluation and examination of the patient, coordination of care with the medical staff and if applicable referring physicians, as well as creation of the medical record PQRS Narrative: Smoking Status Current every day smoker Home Medications: Ambulatory Orders Mirtazapine [Remeron] 45 mg PO HS 04/26/17 clonazePAM [KlonoPIN] 1 mg PO BID 02/20/18 Atorvastatin [Lipitor] 80 mg PO HS 08/08/18 OLANZapine [ZyPREXA] 5 mg PO HS 08/08/18 Montelukast [Singulair] 10 mg PO HS 12/18/18 metFORMIN HCL [Glucophage] 500 mg PO BID@1200,2100 06/14/19 Aspirin [Adult Low Dose Aspirin EC] 81 mg PO DAILY 04/08/21 Fenofibrate Nanocrystallized [Tricor] 145 mg PO DAILY 04/08/21 Glimepiride [Amaryl] 2 mg PO DAILY 04/08/21 Albuterol Sulfate [Ventolin HFA] 1 puff INHALATION RT-Q4H PRN 04/10/21 Clopidogrel [Plavix] 75 mg PO DAILY #30 tab 04/11/21 Loratadine 10 mg PO DAILY 08/29/21 Ezetimibe [Zetia] 10 mg PO DAILY #30 tab 09/05/22 Metoprolol Succinate (ER) [Toprol XL] 50 mg PO BID #60 tab 09/05/22 Ammonium Lactate Cream [Lac-Hydrin 12% Cream] 1 applic TOPICAL BID 08/08/23 Cinacalcet [Sensipar] 30 mg PO SUWE 08/08/23 Citalopram Hydrobromide [CeleXA] 40 mg PO HS 08/08/23 Dapagliflozin Propanediol [Farxiga] 5 mg PO DAILY 08/08/23 Doxycycline Hyclate 100 mg PO BID 08/08/23 Fluticasone/Umeclidin/Vilanter [Trelegy Ellipta 100-62.5-25] 1 puff INHALATION RT-DAILY 08/08/23 Nitroglycerin Sl Tabs [Nitrostat] 0.4 mg SL Q5M PRN 08/08/23 OLANZapine [ZyPREXA] 7.5 mg PO HS 08/08/23 lisinopriL 30 mg PO HS 08/08/23 Controlled Substance Measures - Controlled Substance Measures Is patient prescribed a controlled substance at discharge?: No
== END ==
LOC: PNWHC3 08:12
PROVIDERS: ATTEND Specialist
DX: M48.061 Spinal stenosis, lumbar region without neurogenic claudication (principal); M51.16 Intervertebral disc disorders with radiculopathy, lumbar region; M47.26 Other spondylosis with radiculopathy, lumbar region; M19.90 Unspecified osteoarthritis, unspecified site; I48.91 Unspecified atrial fibrillation; J44.89 Other specified chronic obstructive pulmonary disease; K21.9 Gastro-esophageal reflux disease without esophagitis; E78.5 Hyperlipidemia, unspecified; I10 Essential (primary) hypertension; I25.2 Old myocardial infarction; G47.33 Obstructive sleep apnea (adult) (pediatric); E11.51 Type 2 diabetes mellitus with diabetic peripheral angiopathy without gangrene; F41.9 Anxiety disorder, unspecified; F43.10 Post-traumatic stress disorder, unspecified; F32.9 Major depressive disorder, single episode, unspecified; I25.10 Atherosclerotic heart disease of native coronary artery without angina pectoris; H42 Glaucoma in diseases classified elsewhere; H04.9 Disorder of lacrimal system, unspecified; F17.200 Nicotine dependence, unspecified, uncomplicated; Z86.718 Personal history of other venous thrombosis and embolism; Z86.69 Personal history of other diseases of the nervous system and sense organs; Z79.899 Other long term (current) drug therapy; Z79.82 Long term (current) use of aspirin; Z79.84 Long term (current) use of oral hypoglycemic drugs; Z79.02 Long term (current) use of antithrombotics/antiplatelets; Z79.51 Long term (current) use of inhaled steroids
CPT/HCPCS: 99211

== ENCOUNTER 2023-10-20 07:30 | Day surgery (SDC) | payer MEDICARE, OTHER ==
[2023-10-18 11:41] VITALS: BMI 31.6
[2023-10-20] MEDS ORDERED: LACTATED RINGERS 1,000 ML IV SCH (08:02)
[2023-10-20 08:22] LABS: Glucose,Whole Blood 227 mg/dL (70-110)
[2023-10-20 08:26] VITALS: RESP 16; TEMP 98.3
[2023-10-20] MEDS: INSULIN ASPART (NovoLOG) 100 UNIT/ML VIAL SQ ONE (08:40)
[2023-10-20] MEDS ORDERED: IOPAMIDOL M200 10 ML VIAL ONE (08:53)
[2023-10-20] MEDS ORDERED: methylPREDNISolone ACETATE 40 MG/ML 1 ML VIAL ONE (08:53)
--- NOTE | 2023-10-20 09:03 | P.PCN ---
Date of Procedure: 10/20/23 Procedure(s) Performed: PREOPERATIVE DIAGNOSIS: 1-Lumbar radiculopathy . 2-lumbar degenerative disc disease. POSTOPERATIVE DIAGNOSIS: 1-lumbar radiculopathy. 2-lumbar degenerative disc disease. PROCEDURE 1. Transforaminal epidural steroid injection under fluoroscopic guidance at bilateral L4-5 level. (Fluoroscopy images stored on file in the radiology Department ) 2. Lumbar epidurogram . ANESTHESIA: Local with 1% lidocaine 3 ml. EBL: Minimal PROCEDURE INDICATION: The patient with low back pain and radiculopathy symptoms unresponsive to conservative treatment. PROCEDURE DESCRIPTION / TECHNIQUE: The patient was seen and identified in the preoperative area. Risks, benefits, complications, and alternatives were discussed with the patient. The patient agreed to proceed with the procedure and signed the consent. IV was started, and vital signs were stable. Patient was taken to the OR and time out was completed. The patient was placed in the prone position on procedure table and a pillow was placed under the abdomen to reduce lumbar lordosis. The lumbosacral area was prepped and draped in the usual sterile fashion. Critical pause was taken. Vital signs were closely monitored during the procedure. Using oblique fluoroscopy, the chin of the ``Kamron dog at Right L4-5 level was identified, and the skin and deeper tissues just below was localized with 1% lidocaine. Subsequently, a 22-gauge 3.5-inch spinal needle was advanced under a tunneled view fluoroscopic guidance just underneath the chin of the ``Kamron dog at the right L4-5 Under lateral fluoroscopy, the needle was then advanced to the posterior border of the interforaminal space. After negative aspiration of CSF and blood and with no paresthesias, 1 mL Isovue 300 contrast dye was injected excellent epidurogram and outlining of the nerve root Subsequently, 3 mL of block solution containing 20 mg Depo-Medrol and 2 mL of 0.9% normal saline PF was injected. Needle was removed and the same procedure was repeated at the left L4-5 level . At the end of the procedure, skin was cleansed, and bandages were applied. COMPLICATIONS:none DISPOSITION / PLANS: The patient was placed in a supine position and transferred to the recovery area in a stable condition for observation. There was no evidence of lower extremity motor or sensory deficit after the procedure. Patient was discharged from the recovery room after meeting discharge criteria. Home discharge instructions were given to the patient by the staff. The patient was reexamined prior to discharge.
[2023-10-20 09:12] LABS: Glucose,Whole Blood 233 mg/dL (70-110)
--- NOTE | 2023-10-20 09:20 | FL ---
EXAMINATION TYPE: FL guided pain mgmt statistic DATE OF EXAM: 10/20/2023 HISTORY: Fluoroscopy time Total dose area product (DAP) in uGy*m?, mGy*cm? (or similar): 0.19831 IMPRESSION: 1. Fluoroscopy time.
[2023-10-20 09:32] VITALS: BP 149/71; PULSE 68
== END 2023-10-20 09:36 | disposition home or self-care (01) ==
LOC: ORPAIN 07:30
PROVIDERS: ATTEND Specialist
DX: M51.16 Intervertebral disc disorders with radiculopathy, lumbar region (principal); M47.26 Other spondylosis with radiculopathy, lumbar region; E11.9 Type 2 diabetes mellitus without complications; Z79.02 Long term (current) use of antithrombotics/antiplatelets; Z79.82 Long term (current) use of aspirin; Z79.4 Long term (current) use of insulin; Z79.899 Other long term (current) drug therapy
CPT/HCPCS: 64483; J1030; Q9966

== ENCOUNTER → 2023-11-28 | Outpatient (CLI) | payer MEDICARE, OTHER ==
[2023-11-28 09:06] VITALS: BP 160/91; PULSE 72; RESP 16; TEMP 97.3
--- NOTE | 2023-11-28 14:35 | P.PAINPG ---
PQRS Measure Charge Sheet Comment: HISTORY OF PRESENT ILLNESS: A 58 yr old female presents today w severe and chronic LBP x 2 yrs secondary to DDD, spondylosis and facet arthropathy without myelopathy for evaluation s/p BL TFESI L4-L5 #1. Pt states she experienced 60% pain relief x 2 wks s/p procedure. Pt states pain level is provoked at 9 /10 in intensity, constant, localized in the lower lumbar spine, predominantly axial, stabbing in character w occasional shooting pain towards the back of the LEs. Pain is provoked by walking/ standing for periods > 30 min. Pain is alleviated by PT x 2 wks which she is currently in, heat, medications, use of TENS unit, repositioning and rest. Oswestry axial pain score at 25. Interventional procedures include BL TFESI L4-L5 x1 Medications include Tyl REVIEW OF ORGAN SYSTEMS: CONSTITUTIONAL: No fevers or chills. No recent weight loss. NEUROLOGICAL: + numbness and tingling along the distal extremities. No seizure disorders or headaches. MUSCULOSKELETAL: + pain PSYCHIATRIC: Denies current depression or suicidal thoughts. Physical Examinations : Constitutional : Cooperative , not in acute distress . Neurologic : Cranial nerve II to XII intact. No focal neurological deficits. Psychiatric : alert & oriented x 3. Matching mood & appropriate affect. Judgment & insight intact. Musculoskeletal : Cervical Spine Motor strength in the deltoid and biceps: Normal right side. Normal Left side Motor strength biceps and the wrist extensors: Normal right side . Normal left side Motor strength in the triceps muscle: Normal right side. Normal left side Deep tendon reflexes: Normal at the biceps. Normal at Brachioradialis. Normal at triceps Vertebral body tenderness to deep palpation over Cervical facet loading test: positive bilaterally Spurling test: positive bilaterally Neck distraction test: positive bilaterally Robbie sign: positive bilaterally Lumbar spine Motor strength lower extremities ,thigh and legs 5/5 Right side , 5/5 Left side Deep tendon reflexes : Normal Knee Jerk. Normal Ankle Jerk Vertebral body tenderness over L5 Sky Test positive Lumbar facet Loading Test: positive Rig ht / positive Left Range of motion of the lumbar spine Flexion 30 degrees, extension 10 degrees Straight Leg Raise test: Left/ Right positive at <30 degrees Dannielle test: positive right / positive left. Severe tenderness over the Sacroiliac joint on the Right / Left sides Gaenslen test: positive bilaterally Seated flexion test: positive bilaterally. Sacral spine : Severe tenderness over the Sacroiliac joint: right side / left side Range of motion: Flexion of the lumbar spine <60 degrees Range of motion: Extension of the lumbar spine <20 degrees Gaenslen's Test positive Dannielle test: positive right side / left side Thigh Thrust Test Sacral Thrust Test Imaging: MRI noncontrast of the lumbar spine from 09/05/23 reviewed Assessment/ Plan : Lumbar DDD Recommendation of BL TFESI L5-S1 #2. May need a series of injections for optimal pain relief. Risks, benefits of procedure discussed and patient verbalized understanding. Admits to anti- coagulant use or medical history of diabetes. Protocol for discontinuation/ continuation of medications keny procedure discussed. All questions answered. I have spent greater than 30 minutes on patient care today. Dr Bustillos was available by phone for the evaluation of this patient. The time was used to review the medical records including relevant urine studies and Prescription history (MAPs), review of the available imaging, evaluation and examination of the patient, coordination of care with the medical staff and if applicable referring physicians, as well as creation of the medical record PQRS Narrative: Smoking Status Current every day smoker Hx Alcohol Use (MH) No Home Medications: Ambulatory Orders Mirtazapine [Remeron] 45 mg PO HS 04/26/17 clonazePAM [KlonoPIN] 1 mg PO BID 02/20/18 Atorvastatin [Lipitor] 80 mg PO HS 08/08/18 Montelukast [Singulair] 10 mg PO HS 12/18/18 metFORMIN HCL [Glucophage] 500 mg PO BID@1200,2100 06/14/19 Aspirin [Adult Low Dose Aspirin EC] 81 mg PO DAILY 04/08/21 Fenofibrate Nanocrystallized [Tricor] 145 mg PO DAILY 04/08/21 Albuterol Sulfate [Ventolin HFA] 1 puff INHALATION RT-Q4H PRN 04/10/21 Clopidogrel [Plavix] 75 mg PO DAILY #30 tab 04/11/21 Loratadine 10 mg PO DAILY 08/29/21 Ezetimibe [Zetia] 10 mg PO DAILY #30 tab 09/05/22 Metoprolol Succinate (ER) [Toprol XL] 50 mg PO BID #60 tab 09/05/22 Ammonium Lactate Cream [Lac-Hydrin 12% Cream] 1 applic TOPICAL BID 08/08/23 Cinacalcet [Sensipar] 30 mg PO SUWE 08/08/23 Citalopram Hydrobromide [CeleXA] 40 mg PO HS 08/08/23 Dapagliflozin Propanediol [Farxiga] 5 mg PO DAILY 08/08/23 Fluticasone/Umeclidin/Vilanter [Trelegy Ellipta 100-62.5-25] 1 puff INHALATION RT-DAILY 08/08/23 Nitroglycerin Sl Tabs [Nitrostat] 0.4 mg SL Q5M PRN 08/08/23 OLANZapine [ZyPREXA] 7.5 mg PO HS 08/08/23 lisinopriL 30 mg PO HS 08/08/23 hydrALAZINE HCL 10 mg PO BID 10/18/23 Controlled Substance Measures - Controlled Substance Measures Is patient prescribed a controlled substance at discharge?: No
== END ==
LOC: PNWHC3 08:03
PROVIDERS: ATTEND Specialist
DX: M51.36 Other intervertebral disc degeneration, lumbar region (principal); F17.200 Nicotine dependence, unspecified, uncomplicated
CPT/HCPCS: 99211

== ENCOUNTER 2023-12-13 06:31 | Day surgery (SDC) | payer MEDICARE ==
[2023-12-08 15:43] VITALS: BMI 31.6
[~2023-12-13 06:31] MED LIST changes: -HYDROmorphone 0.5 MG/0.5 ML SYRINGE IVP PRN; +LACTATED RINGERS 1,000 ML IV SCH; -LIDOCAINE 1% (10MG/ML) FOR IV START INTRADERMA PRN; -ONDANSETRON 4 MG/2 ML VIAL IVP ONE; -SODIUM CHLORIDE 0.9% 1,000 ML in EMPTY BAG 1 BAG IV ONE; -ceFAZolin 1,000 MG in SODIUM CHLORIDE 0.9% IRRIGATIO 250 ML IRRIGATION ONE
[2023-12-13 07:02] LABS: Glucose,Whole Blood 197 mg/dL (70-110)
[2023-12-13 07:16] VITALS: RESP 18; TEMP 97.8
[2023-12-13] MEDS ORDERED: IOPAMIDOL M200 10 ML VIAL ONE (07:46)
[2023-12-13] MEDS ORDERED: methylPREDNISolone ACETATE 40 MG/ML 1 ML VIAL ONE (07:46)
--- NOTE | 2023-12-13 07:57 | P.PCN ---
Date of Procedure: 12/13/23 Procedure(s) Performed: PREOPERATIVE DIAGNOSIS: 1-Lumbar radiculopathy . 2-lumbar degenerative disc disease. POSTOPERATIVE DIAGNOSIS: 1-lumbar radiculopathy. 2-lumbar degenerative disc disease. PROCEDURE 1. Transforaminal epidural steroid injection under fluoroscopic guidance at bilateral L5-S1 level. (Fluoroscopy images stored on file in the radiology Department ) 2. Lumbar epidurogram . ANESTHESIA: Local with 1% lidocaine 3 ml. EBL: Minimal PROCEDURE INDICATION: The patient with low back pain and radiculopathy symptoms unresponsive to conservative treatment. PROCEDURE DESCRIPTION / TECHNIQUE: The patient was seen and identified in the preoperative area. Risks, benefits, complications, and alternatives were discussed with the patient. The patient agreed to proceed with the procedure and signed the consent. IV was started, and vital signs were stable. Patient was taken to the OR and time out was completed. The patient was placed in the prone position on procedure table and a pillow was placed under the abdomen to reduce lumbar lordosis. The lumbosacral area was prepped and draped in the usual sterile fashion. Critical pause was taken. Vital signs were closely monitored during the procedure. Using oblique fluoroscopy, the chin of the ``Kamron dog at Right L5-S1 level was identified, and the skin and deeper tissues just below was localized with 1% lidocaine. Subsequently, a 22-gauge 3.5-inch spinal needle was advanced under a tunneled view fluoroscopic guidance just underneath the chin of the ``Kamron dog at the right L5-S1 Under lateral fluoroscopy, the needle was then advanced to the posterior border of the interforaminal space. After negative aspiration of CSF and blood and with no paresthesias, 1 mL Isovue 300 contrast dye was injected excellent epidurogram and outlining of the nerve root Subsequently, 3 mL of block solution containing 20 mg Depo-Medrol and 2 mL of 0.9% normal saline PF was injected. Needle was removed and the same procedure was repeated at the left L5-S1 level . At the end of the procedure, skin was cleansed, and bandages were applied. COMPLICATIONS:none DISPOSITION / PLANS: The patient was placed in a supine position and transferred to the recovery area in a stable condition for observation. There was no evidence of lower extremity motor or sensory deficit after the procedure. Patient was discharged from the recovery room after meeting discharge criteria. Home discharge instructions were given to the patient by the staff. The patient was reexamined prior to discharge. Patient held Plavix and aspirin for 1 week
[2023-12-13 08:42] VITALS: BP 163/77; PULSE 68
--- NOTE | 2023-12-13 08:45 | FL ---
EXAMINATION TYPE: FL guided pain mgmt statistic Intraoperative/procedural fluoroscopic services were provided. Total fluoroscopy time is 19.9 seconds with a total of 2 submitted images to PACS. Please s ee the operative/procedural note for further details. DAP: [id number] mGym2
== END 2023-12-13 08:34 | disposition home or self-care (01) ==
LOC: ORPAIN 06:31
PROVIDERS: ATTEND Specialist
DX: M51.16 Intervertebral disc disorders with radiculopathy, lumbar region (principal); M47.23 Other spondylosis with radiculopathy, cervicothoracic region; M48.061 Spinal stenosis, lumbar region without neurogenic claudication; Z79.82 Long term (current) use of aspirin; Z79.02 Long term (current) use of antithrombotics/antiplatelets
CPT/HCPCS: 64483; Q9966; J1010

== ENCOUNTER 2023-12-27 23:23 | Inpatient (IN) | payer MEDICARE, MEDICAID ==
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
[2023-12-28 01:08] LABS: Amphetamine Screen,Urine Not Detected (NotDetected); Barbiturate Screen,Urine Not Detected (NotDetected); Benzodiazepines Screen,Urine Not Detected (NotDetected); Cocaine Screen,Urine Not Detected (NotDetected); Methadone Screen, Urine Not Detected (NotDetected); Opiate Screen,Urine Not Detected (NotDetected); Oxycodone Screen, Urine Not Detected (NotDetected); Phencyclidine Screen,Urine Not Detected (NotDetected); Tricyclic Antidepressant,Urine Not Detected (NotDetected); Urn Cannabinoid Scrn Not Detected (NotDetected)
[2023-12-28 01:42] LABS: African American GFR (CKD) 63 (>60 ml/min/1.73 sqM); Alcohol <10 mg/dL; Anion Gap 7 mmol/L; Blood Urea Nitrogen 17 mg/dL (7-17); Calcium 9.6 mg/dL (8.4-10.2); Carbon Dioxide 23 mmol/L (22-30); Chloride 105 mmol/L (98-107); Glucose 141 mg/dL (74-99); Non-African American GFR(CKD) 55 (>60 ml/min/1.73 sqM); Potassium 4.1 mmol/L (3.5-5.1); Sodium 135 mmol/L (137-145)
[2023-12-28 01:43] LABS: Basophils # (A) 0.1 k/uL (0-0.2); Basophils % (A) 1 %; Eosinophils # (A) 0.3 k/uL (0-0.7); Eosinophils % (A) 2 %; HCT 46.7 % (34.0-46.0); HGB 15.1 gm/dL (11.4-16.0); Lymphocytes # (A) 3.1 k/uL (1.0-4.8); Lymphocytes % (A) 26 %; MCH 29.4 pg (25.0-35.0); MCHC 32.3 g/dL (31.0-37.0); Mean Platelet Volume 8.2; Monocytes # (A) 0.5 k/uL (0-1.0); Monocytes % (A) 4 %; Neutrophils # (A) 8.1 k/uL (1.3-7.7); Neutrophils % (A) 67 %; Platelet Count 179 k/uL (150-450); RBC 5.13 m/uL (3.80-5.40); RDW 14.7 % (11.5-15.5); WBC 12.2 k/uL (3.8-10.6)
[2023-12-28] MEDS: DIPH,PERTUS(ACELL)TETVAC-LF 0.5 ML VIAL IM ONE (01:47)
[2023-12-28] MEDS: LIDOCAINE 1% INJ 10MG/ML (20 ML MDV) SQ ONE (02:31)
[2023-12-28] MEDS ORDERED: MAGNESIUM HYDROXIDE 2,400 MG/30 ML CUP PO PRN (12:54)
[2023-12-28] MEDS ORDERED: MAG HYDROX/AL HYDROX/SIMETH 355 ML BOTTLE PO PRN (12:54)
[2023-12-28] MEDS ORDERED: hydrOXYzine HCL 50 MG/ML 1 ML VIAL IM PRN (12:54)
[2023-12-28] MEDS ORDERED: IBUPROFEN 600 MG TAB PO PRN (12:54)
[2023-12-28] MEDS ORDERED: ALBUTEROL INHALER 60 PUFF/8 GM INHALER (MHU) INHALATION PRN (12:57)
[2023-12-28] MEDS: CINACALCET 30 MG TAB PO SCH (14:45)
[2023-12-28] MEDS: LORATADINE 10 MG TAB PO SCH (16:07)
[2023-12-28] MEDS: FENOFIBRATE 160 MG TAB PO SCH (16:07)
[2023-12-28] MEDS: METOPROLOL SUCCINATE (ER) 50 MG TAB.ER.24H PO SCH (16:07)
[2023-12-28] MEDS: CLOPIDOGREL 75 MG TAB PO SCH (16:07)
[2023-12-28] MEDS: EZETIMIBE 10 MG TAB PO SCH (16:07)
[2023-12-28] MEDS: DAPAGLIFLOZIN PROPANEDIOL 5 MG TABLET PO SCH (16:08)
[2023-12-28] MEDS: NICOTINE 14MG/24HR PATCH TRANSDERM SCH (16:08)
[2023-12-28] MEDS: IPRATROPIUM 0.5 MG/2.5 ML NEBU INHALATION SCH (16:21)
[2023-12-28] MEDS: TIOTROPIUM 2.5 MCG INHALER (MHU) INHALATION SCH (18:23)
[2023-12-28] MEDS: clonazePAM 1 MG TAB PO SCH (20:30)
[2023-12-28] MEDS: CITALOPRAM HYDROBROMIDE 20 MG TAB PO SCH (20:30)
[2023-12-28] MEDS: MIRTAZAPINE 45 MG TABLET PO SCH (20:30)
[2023-12-28] MEDS: metFORMIN 500 MG TAB PO SCH (20:30)
[2023-12-28] MEDS: lisinopriL 10 MG TAB PO SCH (20:30)
[2023-12-28] MEDS: ATORVASTATIN 80 MG TAB PO SCH (20:31)
[2023-12-28] MEDS: OLANZapine 7.5 MG TAB PO SCH (20:31)
[2023-12-28] MEDS: MONTELUKAST 10 MG TAB PO SCH (20:31)
[2023-12-28] MEDS: hydrALAZINE HCL 10 MG TAB PO SCH (20:31)
[2023-12-28] MEDS: LATANOPROST 0.005% OPHTH DROPS 2.5 ML BTL BOTH EYES SCH (20:34)
[2023-12-28] MEDS ORDERED: METOPROLOL SUCCINATE (ER) 50 MG TAB.ER.24H PO SCH (21:00)
[2023-12-28] MEDS: SYMBICORT 80-4.5 MCG INHALER (MHU) INHALATION SCH (21:01)
[2023-12-28] MEDS: hydrALAZINE HCL 25 MG TAB PO STA (23:41)
--- NOTE | 2023-12-29 01:28 | P.CONS ---
History of Present Illness - Reason for Consult Consult date: 12/29/23 - History of Present Illness The patient is a 58-year-old female with extensive PMH of COPD, CAD status post multiple stents, hypertension, BI (noncompliant with CPAP), type II DM, hypertension, hyperlipidemia, history of DVT who had presented to the emergency room with complaints of depression and suicidal ideation. The patient was admitted to the mental health unit where she was seen and evaluated. The patient reports that she has been struggling with her mental health due to multiple family issues. She denied any physical complaints at the time of interview. She reports smoking 1 pack of cigarettes daily. Denied illicit substance or alcohol use. Review of systems: Pertinent positives and negatives as discussed in HPI, a complete review of systems was performed and all other systems are negative. Physical examination: General: non toxic, no distress, appears older than stated age, obese Derm: no unusual rashes/lesions, no unusual ecchymoses, warm, dry Head: atraumatic, normocephalic, symmetric Eyes: EOMI, no lid lag, anicteric sclera ENT: Nose and ears atraumatic, no thrush, no pharyngeal erythema Neck: trachea midline, supple Mouth: no lip lesion, mucus membranes moist Cardiovascular: S1S2 reg, no murmur, no edema Lungs: CTA bilateral, no rhonchi, no rales , no accessory muscle use Abdominal: soft, nontender to palpation, no guarding Ext: no gross muscle atrophy, no contractures, Neuro: No gross focal neuro deficits noted Psych: Alert, oriented, appropriate affect Assessment: Leukocytosis, likely secondary to acute stressor with no signs of active infection at this time Chronic conditions: Type II DM, CAD, PAD, hypertension, hyperlipidemia, history of DVT Imaging: EKG revealed sinus rhythm at 66 bpm as reviewed by me. Data Review: Laboratory evaluation was remarkable for leukocytosis of 12.2, sodium 135, creatinine 1.12, glucose 141 Plan: Monitor CBC Resume home medications including aspirin, Lipitor, Symbicort, Plavix, Zetia, hydralazine, lisinopril, metformin, and metoprolol Thank you for allowing us to participate in the care of this patient. We will follow peripherally. Do not hesitate to contact us with questions. Someone can be reached from the [facility] hospitalist group at all hours of the day at [phone]. Past Medical History Past Medical History: Atrial Fibrillation, Asthma, Blood Disorder, Coronary Artery Disease (CAD), COPD, Diabetes Mellitus, Deep Vein Thrombosis (DVT), Eye Disorder, GERD/Reflux, Hyperlipidemia, Hypertension, Myocardial Infarction ([place]), Renal Disease, Seizure Disorder, Sleep Apnea/CPAP/BIPAP, Vascular Disorder Additional Past Medical History / Comment(s): NIDDM type II, neuropathy bilateral feet, blood clotting disorder/pt does not know type, DVT L leg/Lgroin, PVD, BI/no device used, seizure 2011, possible TIA, insomnia, bilateral eye glaucoma, bronchitis, USING O2 NEEDED Last Myocardial Infarction Date:: 2010 History of Any Multi-Drug Resistant Organisms: None Reported Past Surgical History: Heart Catheterization With Stent Additional Past Surgical History / Comment(s): Bilateral aortic stent/PTBA, L lower leg stent per pt, fasciotomy L lower extremity/compartmental syndrome, D&C/hysteroscopy, R foot fracture with hardware since removed. PAIN CLINIC PROCEDURES Past Anesthesia/Blood Transfusion Reactions: No Reported Reaction Date of Last Stent Placement:: 2010 Past Psychological History: Anxiety, Depression, Panic Disorder, PTSD Additional Psychological History / Comment(s): Pt resides alone. She is independent. Smoking Status: Current every day smoker Past Alcohol Use History: Occasional Additional Past Alcohol Use History / Comment(s): Pt started smoking in 1983 and was up to 3 ppd but states lately she has cut down to 1/2 ppd. Past Drug Use History: None Reported - Past Family History Mother Family Medical History: COPD Father History Unknown: Yes Medications and Allergies Home Medications Medication Instructions Recorded Confirmed Type Mirtazapine [Remeron] 45 mg PO HS 04/26/17 12/28/23 History clonazePAM [KlonoPIN] 1 mg PO BID 02/20/18 12/28/23 History Atorvastatin [Lipitor] 80 mg PO HS 08/08/18 12/28/23 History Montelukast [Singulair] 10 mg PO HS 12/18/18 12/28/23 History metFORMIN HCL [Glucophage] 500 mg PO BID@1200,2100 06/14/19 12/28/23 History Aspirin [Adult Low Dose Aspirin EC] 81 mg PO DAILY 04/08/21 12/28/23 History Fenofibrate Nanocrystallized 145 mg PO DAILY 04/08/21 12/28/23 History [Tricor] Albuterol Sulfate [Ventolin HFA] 1 puff INHALATION RT-Q4H PRN 04/10/21 12/28/23 History Clopidogrel [Plavix] 75 mg PO DAILY #30 tab 04/11/21 12/28/23 Rx Loratadine 10 mg PO DAILY 08/29/21 12/28/23 History Ezetimibe [Zetia] 10 mg PO DAILY #30 tab 09/05/22 12/28/23 Rx Metoprolol Succinate (ER) [Toprol 50 mg PO BID #60 tab 09/05/22 12/28/23 Rx XL] Ammonium Lactate Cream [Lac-Hydrin 1 applic TOPICAL BID 08/08/23 12/28/23 His tory 12% Cream] Cinacalcet [Sensipar] 30 mg PO SUWE 08/08/23 12/28/23 History Citalopram Hydrobromide [CeleXA] 40 mg PO HS 08/08/23 12/28/23 History Dapagliflozin Propanediol [Farxiga] 5 mg PO DAILY 08/08/23 12/28/23 History Fluticasone/Umeclidin/Vilanter 1 puff INHALATION RT-DAILY 08/08/23 12/28/23 History [Trelegy Ellipta 100-62.5-25] Nitroglycerin Sl Tabs [Nitrostat] 0.4 mg SL Q5M PRN 08/08/23 12/28/23 History OLANZapine [ZyPREXA] 7.5 mg PO HS 08/08/23 12/28/23 History lisinopriL 30 mg PO HS 08/08/23 12/28/23 History hydrALAZINE HCL 10 mg PO BID 10/18/23 12/28/23 History Latanoprost [Latanoprost 0.005%] 1 drop BOTH EYES HS 12/28/23 12/28/23 History Allergies Allergy/AdvReac Type Severity Reaction Status Date / Time No Known Allergies Allergy Verified 12/28/23 10:43 Physical Exam Vitals: Vital Signs Temp Pulse Pulse Pulse Resp BP BP 12/28/23 18:25 71 183/74 12/28/23 16:09 80 162/72 12/28/23 14:00 98.1 F 67 16 12/28/23 13:15 98 F 89 18 136/89 12/28/23 06:15 78 18 142/84 BP Pulse Ox 12/28/23 18:25 12/28/23 16:09 12/28/23 14:00 204/82 12/28/23 13:15 99 12/28/23 06:15 95 Intake and Output 12/28/23 12/28/23 12/29/23 14:59 22:59 06:59 Other: Weight 85.7 kg Results CBC & Chem 7: 12/28/23 01:00 12/28/23 01:00 Labs: Abnormal Lab Results - Last 24 Hours (Table) 12/28/23 12/28/23 Range/Units 01:00 01:00 WBC 12.2 H (3.8-10.6) k/uL Hct 46.7 H (34.0-46.0) % Neutrophils # 8.1 H (1.3-7.7) k/uL Sodium 135 L (137-145) mmol/L Creatinine 1.12 H (0.52-1.04) mg/dL Glucose 141 H (74-99) mg/dL
[2023-12-29] MEDS ORDERED: IPRATROPIUM 0.5 MG/2.5 ML NEBU INHALATION SCH (08:00)
[2023-12-29] MEDS: ASPIRIN 81 MG PO SCH (08:49)
[2023-12-29] MEDS ORDERED: LORATADINE 10 MG TAB PO SCH (09:00)
[2023-12-29] MEDS ORDERED: DAPAGLIFLOZIN PROPANEDIOL 5 MG TABLET PO SCH (09:00)
[2023-12-29] MEDS ORDERED: FENOFIBRATE 160 MG TAB PO SCH (09:00)
[2023-12-29] MEDS ORDERED: EZETIMIBE 10 MG TAB PO SCH (09:00)
[2023-12-29] MEDS ORDERED: CLOPIDOGREL 75 MG TAB PO SCH (09:00)
[2023-12-29] MEDS ORDERED: NICOTINE 14MG/24HR PATCH TRANSDERM SCH (09:00)
[2023-12-29] MEDS ORDERED: ASPIRIN 81 MG PO SCH (09:00)
[2023-12-29 09:05] LABS: ALT 43 U/L (4-34); AST 40 U/L (14-36); Albumin 3.5 g/dL (3.5-5.0); Alkaline Phosphatase 68 U/L (38-126); Bilirubin, Delta 0.3 mg/dL (0.0-0.2); Bilirubin,Unconjugated 0.1 mg/dL (0.0-1.1); Total Bilirubin 0.4 mg/dL (0.2-1.3); Total Protein 5.8 g/dL (6.3-8.2)
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
[2023-12-29 12:55] LABS: Glucose,Whole Blood 141 mg/dL (70-110)
[2023-12-29] MEDS: AMMONIUM LACTATE 12% CREAM 140 GM TUBE TOPICAL SCH (13:57)
[2023-12-29] MEDS: lamoTRIgine 25 MG TAB PO SCH (13:57)
[2023-12-29 15:42] LABS: Chol/HDL Ratio 3.58 Ratio; LDL Cholesterol,Calculated 72.5 mg/dL (0.0-131.0)
[2023-12-29 17:38] LABS: Glucose,Whole Blood 118 mg/dL (70-110)
[2023-12-29 20:12] LABS: Glucose,Whole Blood 148 mg/dL (70-110)
[2023-12-29] MEDS: OLANZapine 5 MG TAB PO SCH (20:54)
[2023-12-29] MEDS: MELATONIN 3 MG TABLET PO SCH (20:54)
[2023-12-29] MEDS: hydrALAZINE HCL 25 MG TAB PO STA (22:45)
[2023-12-30 08:07] LABS: Glucose,Whole Blood 130 mg/dL (70-110)
--- NOTE | 2023-12-30 12:31 | P.PN ---
Progress Note - Text Progress Note Date: 12/30/23 Interval History: Patient was seen wandering the hallways and was directable and agreeable to olivia espinoza with conventional underwriter in the office. Patient states that she wants to go home. She claims she has a lot of appointments to go to next week. She states that her mood is improving a bit, with the change to her medication. Patient is still endorsing some anxiety. Patient states that she slept pretty good last night. She is going to groups. She claims that her appetite is good, and she is eating meals. At this time patient denies any suicidal or homicidal ideations, intent or plan. Patient denies any auditory, visual hallucinations and denies any paranoia or delusions. Patient denies any side effects from the medications and has been compliant with meds. MENTAL STATUS EXAM: General Appearance: Patient appears to be older than stated age, is alert, directable, and attempts to cooperate. Patient appears to have adequate hygiene and grooming. Long hair, tattoos, several bruises on bilateral arms. No teeth. Wearing her own clothes and glasses. Behavior: Patient is seated without any agitated behavior. Speech: Patient's speech is fluent and nonpressured. monotone Mood/Affect: Patient reports their mood is a little better, endorsing some anxiety, affect is congruent and constricted. bland Suicidality/Homicidality: Patient denies having any homicidal ideation intent or plan. Denies any suicidal ideations intent or plan Perceptions: Patient denies any visual hallucinations and denies any auditory hallucinations Though content/process: There is no evidence of any delusional thought content and thought process is linear and goal-directed. Memory and concentration: AOX3, grossly intact for the purposes of this session. Judgment and insight: poor IMPRESSIONS: major depressive disorder, without psychotic features borderline personality traits self mutilation behavior alcohol use disorder, mild nicotine dependance PLAN: -Patient is admitted under voluntary status to [facility] for stabilization of psychiatric symptoms and safety. Patient has signed adult voluntary form and] [medication consent and is placed in patient's chart. -Medications celexa 40 mg qhs for depression/anxiety, klonopin 1mg PO bid for anxiety, remeron 45mg po qhs for sleep/mood, Zyprexa 5mg po qhs for mood stab ilization, Lamictal 25mg po qhs for mood stabilization/depression conventional underwriter informed patient to watch for rash, patient verbalized understanding. -added amlodipine 5 mg daily for BP -Ativan and Haldol PRN for agitation/aggression -NRT - nicotine patch -SW on board for discharge planning. Encourage patient to participate in groups to work on coping skills. Likely discharge tuesday once patient is more stable.
[2023-12-30 12:49] LABS: Glucose,Whole Blood 116 mg/dL (70-110)
[2023-12-30] MEDS: amLODIPine 5 MG TAB PO SCH (12:53)
[2023-12-30 17:35] LABS: Glucose,Whole Blood 128 mg/dL (70-110)
[2023-12-30 20:08] LABS: Glucose,Whole Blood 154 mg/dL (70-110)
[2023-12-31] MEDS: ACETAMINOPHEN TAB 325 MG TAB PO PRN (00:12)
[2023-12-31 07:58] LABS: Glucose,Whole Blood 152 mg/dL (70-110)
--- NOTE | 2023-12-31 10:07 | P.PN ---
Progress Note - Text Progress Note Date: 12/31/23 Interval History: Patient was seen wandering the hallways and was directable and agreeable to sp olga with entry writer. She denies any overnight complaints, denies any rash at this time. States that her mood is improving, denies any problems with anxiety today. States that she is trying to go to groups. States that her appetite is improving, eating meals. Claims that she slept fairly last night. Continues to be fairly focused on discharge on Tuesday. At this time patient denies any suicidal or homicidal ideations, intent or plan. Patient denies any auditory, visual hallucinations and denies any paranoia or delusions. Patient denies any side effects from the medications and has been compliant with meds. MENTAL STATUS EXAM: General Appearance: Patient appears to be older than stated age, is alert, directable, and attempts to cooperate. Patient appears to have adequate hygiene and grooming. Long hair, tattoos, several bruises on bilateral arms. No teeth. Wearing her own clothes and glasses. Behavior: Patient is seated without any agitated behavior. Improving mildly Speech: Patient's speech is fluent and nonpressured. monotone Mood/Affect: Patient reports their mood is a little better, endorsing some anxiety, affect is congruent and constricted. bland Suicidality/Homicidality: Patient denies having any homicidal ideation intent or plan. Denies any suicidal ideations intent or plan Perceptions: Patient denies any visual hallucinations and denies any auditory hallucinations Though content/process: There is no evidence of any delusional thought content and thought process is linear and goal-directed. Memory and concentration: AOX3, grossly intact for the purposes of this session. Judgment and insight: Improving mildly IMPRESSIONS: major depressive disorder, without psychotic features borderline personality traits self mutilation behavior alcohol use disorder, mild nicotine dependance PLAN: -Patient is admitted under voluntary status to [facility] for stabilization of psychiatric symptoms and safety. Patient has signed adult voluntary form and] [medication consent and is placed in patient's chart. -Medications celexa 40 mg qhs for depression/anxiety, klonopin 1mg PO bid for anxiety, remeron 45mg po qhs for sleep/mood, Zyprexa 5mg po qhs for mood stabilization, Lamictal 25mg po qhs for mood stabilization/depression entry writer informed patient to watch for rash, patient verbalized understanding. -amlodipine 5 mg daily for BP -Ativan and Haldol PRN for agitation/aggression -NRT - nicotine patch -SW on board for discharge planning. Encourage patient to participate in groups to work on coping skills. Likely discharge tuesday once patient is more stable.
[2023-12-31 15:05] LABS: Glucose,Whole Blood 266 mg/dL (70-110)
[2023-12-31 17:44] LABS: Glucose,Whole Blood 214 mg/dL (70-110)
[2024-01-01 07:50] LABS: Glucose,Whole Blood 163 mg/dL (70-110)
--- NOTE | 2024-01-01 11:06 | P.PN ---
Progress Note - Text Progress Note Date: 01/01/24 Interval History: Patient was seen laying in bed today and was agreeable to speak to insurance underwriter. She denies any overnight complaints, denies any rash at this time. Remains fairly focused on discharge for tomorrow. States that her mood is improving, denies any problems with anxiety today. States that she is trying to go to groups however is finding the unit to be fairly boring over the weekend. States that her appetite is improving, eating meals. Claims that she slept fairly last night. At this time patient denies any suicidal or homicidal ideations, intent or plan. Patient denies any auditory, visual hallucinations and denies any paranoia or delusions. Patient denies any side effects from the medications and has been compliant with meds. MENTAL STATUS EXAM: General Appearance: Patient appears to be older than stated age, is alert, directable, and attempts to cooperate. Patient appears to have adequate hygiene and grooming. Long hair, tattoos, several bruises on bilateral arms. No teeth. Wearing her own clothes and glasses. Behavior: Patient is seated without any agitated behavior. Improving mildly Speech: Patient's speech is fluent and nonpressured. Mood/Affect: Patient reports their mood is a little better, endorsing some anxiety, affect is congruent and constricted. bland Suicidality/Homicidality: Patient denies having any homicidal ideation intent or plan. Denies any suicidal ideations intent or plan Perceptions: Patient denies any visual hallucinations and denies any auditory hallucinations Though content/process: There is no evidence of any delusional thought content and thought process is linear and goal-directed. More future oriented Memory and concentration: AOX3, grossly intact for the purposes of this session. Judgment and insight: Improving mildly IMPRESSIONS: major depressive disorder, without psychotic features borderline personality traits self mutilation behavior alcohol use disorder, mild nicotine dependance PLAN: -Patient is admitted under voluntary status to [facility] for stabilization of psychiatric symptoms and safety. Patient has signed adult voluntary form and] [medication consent and is placed in patient's chart. -Medications celexa 40 mg qhs for depression/anxiety, klonopin 1mg PO bid for anxiety, remeron 45mg po qhs for sleep/mood, Zyprexa 5mg po qhs for mood stabilization, Lamictal 25mg po qhs for mood stabilization/depression insurance underwriter informed patient to watch for rash, patient verbalized understanding. -increase amlodipine 10 mg daily for BP -Ativan and Haldol PRN for agitation/aggression -NRT - nicotine patch -SW on board for discharge planning. Encourage patient to participate in groups to work on coping skills. Likely discharge tuesday back home.
[2024-01-01] MEDS: amLODIPine 5 MG TAB PO STA (11:42)
[2024-01-01 12:47] LABS: Glucose,Whole Blood 153 mg/dL (70-110)
[2024-01-01 17:35] LABS: Glucose,Whole Blood 164 mg/dL (70-110)
[2024-01-01 20:16] LABS: Glucose,Whole Blood 240 mg/dL (70-110)
[2024-01-02] MEDS: hydrOXYzine HCL 25 MG TAB PO PRN (02:14)
[2024-01-02 02:38] VITALS: TEMP 97.2
[2024-01-02 07:32] VITALS: PULSE 65; RESP 16
[2024-01-02 07:53] LABS: Glucose,Whole Blood 128 mg/dL (70-110)
[2024-01-02] MEDS: amLODIPine 10 MG TAB PO SCH (08:54)
[2024-01-02 09:02] VITALS: BP 154/64
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
== END 2024-01-02 11:59 | disposition home or self-care (01) | DRG 881 ==
LOC: EC 23:23 → 3MHU 12-28 12:51
PROVIDERS: ADMIT Psychiatry & Neurology Psychiatry; ATTEND Psychiatry & Neurology Psychiatry
PROC: 0HQDXZZ Repair Right Lower Arm Skin, External Approach (ICD-10-PCS; principal; 2023-12-27)
PROC: 3E0234Z Introduction of Serum, Toxoid and Vaccine into Muscle, Percutaneous Approach (ICD-10-PCS; 2023-12-28)
DX: F32.9 Major depressive disorder, single episode, unspecified (principal); F60.3 Borderline personality disorder; S61.511A Laceration without foreign body of right wrist, initial encounter; X78.8XXA Intentional self-harm by other sharp object, initial encounter; Z56.0 Unemployment, unspecified; J44.9 Chronic obstructive pulmonary disease, unspecified; I48.91 Unspecified atrial fibrillation; I25.10 Atherosclerotic heart disease of native coronary artery without angina pectoris; D72.829 Elevated white blood cell count, unspecified; I73.9 Peripheral vascular disease, unspecified; E78.5 Hyperlipidemia, unspecified; I10 Essential (primary) hypertension; K21.9 Gastro-esophageal reflux disease without esophagitis; G40.909 Epilepsy, unspecified, not intractable, without status epilepticus; F43.10 Post-traumatic stress disorder, unspecified; F17.210 Nicotine dependence, cigarettes, uncomplicated; E11.40 Type 2 diabetes mellitus with diabetic neuropathy, unspecified; F10.10 Alcohol abuse, uncomplicated; F41.9 Anxiety disorder, unspecified; R45.88 Nonsuicidal self-harm; E11.51 Type 2 diabetes mellitus with diabetic peripheral angiopathy without gangrene; G47.33 Obstructive sleep apnea (adult) (pediatric); Z41.8 Encounter for other procedures for purposes other than remedying health state; Z91.199 Patient's noncompliance with other medical treatment and regimen due to unspecified reason; Z11.52 Encounter for screening for COVID-19; Z95.5 Presence of coronary angioplasty implant and graft; Z91.51 Personal history of suicidal behavior; I25.2 Old myocardial infarction; Z86.718 Personal history of other venous thrombosis and embolism; Z79.899 Other long term (current) drug therapy; Z79.84 Long term (current) use of oral hypoglycemic drugs; Z79.82 Long term (current) use of aspirin; Z79.02 Long term (current) use of antithrombotics/antiplatelets; Z71.41 Alcohol abuse counseling and surveillance of alcoholic
CPT/HCPCS: 12002; 36415; 80048; 80061; 80076; 80306; 80320; 82075; 83036; 84443; 85025; 87636; 90471; 90715; 93005; 99285

== ENCOUNTER → 2024-01-05 | Outpatient (CLI) | payer MEDICARE ==
[2024-01-05 10:40] VITALS: BP 132/78; PULSE 71; RESP 16; TEMP 97.8
--- NOTE | 2024-01-05 14:27 | P.PAINPG ---
PQRS Measure Charge Sheet Comment: HISTORY OF PRESENT ILLNESS: A 58 yr old female presents today w severe and chronic LBP x 2 yrs secondary to DDD, spondylosis and facet arthropathy without myelopathy for evaluation s/p BL TFESI L5-S1 #2. Pt states she experienced 75 % pain relief x 2-3 wks s/p procedure. Pt states pain level is provoked at 7 /10 in intensity, constant, localized in the lower lumbar spine, predominantly axial, stabbing in character w occasional shooting pain towards the back of the LEs. Pain is provoked by walking/ standing for periods > 30 min. Pain is alleviated by PT x 7 wks which she is currently in, heat, medications, use of TENS unit at home, repositioning and rest. Oswestry axial pain score at 24. Interventional procedures include BL TFESI L4-L5 x1, BL TFESI L5-S1 x1 Medications include Tyl REVIEW OF ORGAN SYSTEMS: CONSTITUTIONAL: No fevers or chills. No recent weight loss. NEUROLOGICAL: + numbness and tingling along the distal extremities. No seizure disorders or headaches. MUSCULOSKELETAL: + pain PSYCHIATRIC: Denies current depression or suicidal thoughts. Physical Examinations : Constitutional : Cooperative , not in acute distress . Neurologic : Cranial nerve II to XII intact. No focal neurological deficits. Psychiatric : alert & oriented x 3. Matching mood & appropriate affect. Judgment & insight intact. Musculoskeletal : Cervical Spine Motor strength in the deltoid and biceps: Normal right side. Normal Left side Motor strength biceps and the wrist extensors: Normal right side . Normal left side Motor strength in the triceps muscle: Normal right side. Normal left side Deep tendon reflexes: Normal at the biceps. Normal at Brachioradialis. Normal at triceps Vertebral body tenderness to deep palpation over Cervical facet loading test: positive bilaterally Spurling test: positive bilaterally Neck distraction test: positive bilaterally Robbie sign: positive bilaterally Lumbar spine Motor strength lower extremities ,thigh and legs 5/5 Right side , 5/5 Left side Deep tendon reflexes : Normal Knee Jerk. Normal Ankle Jerk Vertebral body tenderness over L5 Sky Test positive Lumbar facet Loading Test: positive Right / positive Left Range of motion of the lumbar spine Flexion 30 degrees, extension 10 degrees Straight Leg Raise test: Left/ Right positive at <30 degrees Dannielle test: positive right / positive left. Severe tenderness over the Sacroiliac joint on the Right / Left sides Gaenslen test: positive bilaterally Seated flexion test: positive bilaterally. Sacral spine : Severe tenderness over the Sacroiliac joint: right side / left side Range of motion: Flexion of the lumbar spine <60 degrees Range of motion: Extension of the lumbar spine <20 degrees Gaenslen's Test positive Dannielle test: positive right side / left side Thigh Thrust Test Sacral Thrust Test Imaging: MRI noncontrast of the lumbar spine from 09/05/23 reviewed Assessment/ Plan : Lumbar DDD Recommendation of BL TFESI L5-S1 #2. May need a series of injections for optimal pain relief. Risks, benefits of procedure discussed and patient verbalized understanding. Admits to anti- coagulant use or medical history of diabetes. Protocol for discontinuation/ continuation of medications keny procedure discussed. All questions answered. I have spent greater than 30 minutes on patient care today. Dr Bustillos was available by phone for the evaluation of this patient. The time was used to review the medical records including relevant urine studies and Prescription history (MAPs), review of the available imaging, evaluation and examination of the patient, coordination of care with the medical staff and if applicable referring physicians, as well as creation of the medical record PQRS Narrative: Smoking Status Current every day smoker Hx Alcohol Use (MH) No Home Medications: Ambulatory Orders clonazePAM [KlonoPIN] 1 mg PO BID 02/20/18 Atorvastatin [Lipitor] 80 mg PO HS 08/08/18 Montelukast [Singulair] 10 mg PO HS 12/18/18 metFORMIN HCL [Glucophage] 500 mg PO BID@1200,2100 06/14/19 Aspirin [Adult Low Dose Aspirin EC] 81 mg PO DAILY 04/08/21 Fenofibrate Nanocrystallized [Tricor] 145 mg PO DAILY 04/08/21 Albuterol Sulfate [Ventolin HFA] 1 puff INHALATION RT-Q4H PRN 04/10/21 Clopidogrel [Plavix] 75 mg PO DAILY #30 tab 04/11/21 Loratadine 10 mg PO DAILY 08/29/21 Ezetimibe [Zetia] 10 mg PO DAILY #30 tab 09/05/22 Metoprolol Succinate (ER) [Toprol XL] 50 mg PO BID #60 tab 09/05/22 Ammonium Lactate Cream [Lac-Hydrin 12% Cream] 1 applic TOPICAL BID 08/08/23 Cinacalcet [Sensipar] 30 mg PO SUWE 08/08/23 Dapagliflozin Propanediol [Farxiga] 5 mg PO DAILY 08/08/23 Fluticasone/Umeclidin/Vilanter [Trelegy Ellipta 100-62.5-25] 1 puff INHALATION RT-DAILY 08/08/23 Nitroglycerin Sl Tabs [Nitrostat] 0.4 mg SL Q5M PRN 08/08/23 lisinopriL 30 mg PO HS 08/08/23 hydrALAZINE HCL 10 mg PO BID 10/18/23 Latanoprost [Latanoprost 0.005%] 1 drop BOTH EYES HS 12/28/23 Citalopram Hydrobromide [CeleXA] 40 mg PO HS 30 Days #30 tab 01/02/24 Ibuprofen [Motrin] 600 mg PO Q6HR PRN tab 01/02/24 Melatonin 10 mg PO HS 30 Days #30 tab 01/02/24 Mirtazapine [Remeron] 45 mg PO HS 30 Days #30 tab 01/02/24 OLANZapine [ZyPREXA] 5 mg PO HS 30 Days #30 tab 01/02/24 amLODIPine [Norvasc] 10 mg PO DAILY 30 Days #30 tab 01/02/24 hydrOXYzine HCL [Atarax] 25 mg PO DAILY PRN 30 Days #60 tab 01/02/24 lamoTRIgine [LaMICtal] 25 mg PO DAILY 30 Days #30 tab 01/02/24 Controlled Substance Measures - Controlled Substance Measures Is patient prescribed a controlled substance at discharge?: No
== END ==
LOC: PNWHC3 07:41
PROVIDERS: ATTEND Specialist
DX: M51.36 Other intervertebral disc degeneration, lumbar region (principal); M47.816 Spondylosis without myelopathy or radiculopathy, lumbar region; G89.29 Other chronic pain; F17.200 Nicotine dependence, unspecified, uncomplicated
CPT/HCPCS: 99211

== ENCOUNTER 2024-01-17 07:14 | Day surgery (SDC) | payer MEDICARE ==
[2024-01-17] MEDS ORDERED: LACTATED RINGERS 1,000 ML IV SCH (07:37)
[2024-01-17 08:00] LABS: Glucose,Whole Blood 267 mg/dL (70-110)
[2024-01-17] MEDS: INSULIN ASPART (NovoLOG) 100 UNIT/ML VIAL SQ ONE ×2 (08:11→09:02)
[2024-01-17] MEDS ORDERED: IOPAMIDOL M200 10 ML VIAL ONE (08:27)
[2024-01-17] MEDS ORDERED: methylPREDNISolone ACETATE 40 MG/ML 1 ML VIAL ONE (08:27)
--- NOTE | 2024-01-17 08:37 | P.PCN ---
Date of Procedure: 01/17/24 Procedure(s) Performed: PREOPERATIVE DIAGNOSIS: 1-Lumbar radiculopathy . 2-lumbar degenerative disc disease. POSTOPERATIVE DIAGNOSIS: 1-lumbar radiculopathy. 2-lumbar degenerative disc disease. PROCEDURE 1. Transforaminal epidural steroid injection under fluoroscopic guidance at bilateral L5-S1 level. (Fluoroscopy images stored on file in the radiology Department ) 2. Lumbar epidurogram . ANESTHESIA: Local with 1% lidocaine 3 ml only . EBL: Minimal PROCEDURE INDICATION: The patient with low back pain and radiculopathy symptoms unresponsive to conservative treatment. PROCEDURE DESCRIPTION / TECHNIQUE: The patient was seen and identified in the preoperative area. Risks, benefits, complications, and alternatives were discussed with the patient. The patient agreed to proceed with the procedure and signed the consent. IV was started, and vital signs were stable. Patient was taken to the OR and time out was completed. The patient was placed in the prone position on procedure table and a pillow was placed under the abdomen to reduce lumbar lordosis. The lumbosacral area was prepped and draped in the usual sterile fashion. Critical pause was taken. Vital signs were closely monitored during the procedure. Using oblique fluoroscopy, the chin of the `Daytony dog at Right L5-S1 level was identified, and the skin and deeper tissues just below was localized with 1% lidocaine. Subsequently, a 22-gauge 3.5-inch spinal needle was advanced under a tunneled view fluoroscopic guidance just underneath the chin of the `Day[place]y dog at the right L5-S1 Under lateral fluoroscopy, the needle was then advanced to the posterior border of the interforaminal space. After negative aspiration of CSF and blood and with no paresthesias, 1 mL Isovue 300 contrast dye was injected excellent epidurogram and outlining of the nerve root Subsequently, 2.5 mL of block solution containing 20 mg Depo-Medrol and 2 mL of 0.9% normal saline PF was injected. Needle was removed and the same procedure was repeated at the left L5-S1 level . At the end of the procedure, skin was cleansed, and bandages were applied. COMPLICATIONS:none DISPOSITION / PLANS: The patient was placed in a supine position and transferred to the recovery area in a stable condition for observation. There was no evidenc e of lower extremity motor or sensory deficit after the procedure. Patient was discharged from the recovery room after meeting discharge criteria. Home discharge instructions were given to the patient by the staff. The patient was reexamined prior to discharge. Patient held Plavix and aspirin for 1 week
[2024-01-17 08:46] VITALS: RESP 16; TEMP 97.4
[2024-01-17 08:52] LABS: Glucose,Whole Blood 300 mg/dL (70-110)
--- NOTE | 2024-01-17 08:54 | FL ---
EXAMINATION TYPE: FL guided pain mgmt statistic Intraoperative/procedural fluoroscopic services were provided. Total fluoroscopy time is 19.9 seconds with a total of 3 submitted images to PACS. Please s ee the operative/procedural note for further details. DAP: [id number] mGym2
[2024-01-17] MEDS ORDERED: ACETAMINOPHEN TAB 500 MG TAB ONE (08:58)
[2024-01-17] MEDS: ACETAMINOPHEN TAB 500 MG TAB PO ONE (08:59)
[2024-01-17 09:43] VITALS: BP 124/68; PULSE 60
== END 2024-01-17 09:12 | disposition home or self-care (01) ==
LOC: ORPAIN 07:14
PROVIDERS: ATTEND Specialist
DX: M51.16 Intervertebral disc disorders with radiculopathy, lumbar region (principal); M47.26 Other spondylosis with radiculopathy, lumbar region; I48.91 Unspecified atrial fibrillation; Z79.01 Long term (current) use of anticoagulants; Z79.899 Other long term (current) drug therapy; Z79.82 Long term (current) use of aspirin
CPT/HCPCS: 64483; Q9966; J1010

== ENCOUNTER → 2024-03-12 | Outpatient (CLI) | payer MEDICARE, OTHER ==
--- NOTE | 2024-03-12 11:15 | CTL ---
EXAMINATION TYPE: CT Low Dose Lung DATE OF EXAM ORDERED: 03/12/2024 HISTORY: Personal history of nicotine dependence, current smoker, 39 pack-year history. Lung cancer s creening CT DLP: [address] CTDI: 2.33 mGy Automated exposure control for dose reduction was used. SCREENING VISIT: Follow-up COMPARISON: CT Low Dose Lung 03/04/2023, 09/08/2022 TECHNIQUE: Low dose computed tomography scan was performed through the chest at 1 mm thick sections a nd reconstructed images in multiple planes at 1 mm and [address] DIAGNOSTIC QUALITY: Satisfactory FINDINGS: Nodules: Diffuse scattered nodular peripheral densities throughout the lungs with exams including a left upper lobe 6 mm opacity (series 4, image 58). Stable left upper lobe 3 mm pulmonary nodule (series 4, imag e 121). Resolution of previously seen 5 mm left lower lobe pulmonary nodule. Stable right lower lobe 4 mm pulmonary nodule (series 4, image 190). LUNGS: COPD: Severity: Mild Fibrosis: Severity: None Lymph nodes: None Other findings: Left basilar linear scarring and/or atelectasis. RIGHT PLEURAL SPACE: Effusion: None Calcification: None Thickening: None Pneumothorax: None LEFT PLEURAL SPACE: Effusion: None Calcification: None Thickening: None Pneumothorax: None HEART: Heart Size: Normal Coronary Calcification: LAD coronary calcification again noted. Pericardial Effusion: None OTHER FINDINGS: Upper abdomen: Stable low-density 1.5 cm left gland nodule consistent with a lipid rich adenoma. Live r is diffusely hypoattenuating consistent with steatosis. Bony thorax: None Supraclavicular region: None Other: Atherosclerotic calcification of the aorta which significant intraluminal calcified plaque wit hin the upper descending thoracic aorta similar to prior exam. This again may contribute to mild to m oderate luminal narrowing. IMPRESSION: Multiple new scattered peripheral nodular densities throughout the lungs. Represent infec tious/inflammatory nodules. Remaining previously seen pulmonary nodules are stable. CT LUNG RAD AND CT CHEST RECOMMENDATION: Lung-Rad 3 Probably Benign: 6 month follow-up LDCT. S Modifier (other clinically significant findings): None
== END | disposition home or self-care (01) ==
LOC: RADCTMAIN 10:07
PROVIDERS: ATTEND Internal Medicine
DX: Z12.2 Encounter for screening for malignant neoplasm of respiratory organs (principal); R91.1 Solitary pulmonary nodule; R91.8 Other nonspecific abnormal finding of lung field; F17.210 Nicotine dependence, cigarettes, uncomplicated
CPT/HCPCS: 71271

== ENCOUNTER → 2024-04-04 | Outpatient (CLI) | payer MEDICARE, OTHER | END | disposition home or self-care (01) | LOC: LABPAT 12:50 | PROVIDERS: ATTEND Orthopaedic Surgery | DX: Z01.812 Encounter for preprocedural laboratory examination (principal); M47.26 Other spondylosis with radiculopathy, lumbar region; M48.061 Spinal stenosis, lumbar region without neurogenic claudication; Z22.322 Carrier or suspected carrier of Methicillin resistant Staphylococcus aureus | CPT/HCPCS: 86850; 86900; 86901 ==

== ENCOUNTER → 2024-06-15 | Outpatient (CLI) | payer MEDICARE, OTHER ==
--- NOTE | 2024-06-19 09:24 | MM ---
Reason for Exam: Screening (asymptomatic). Last mammogram was performed 1 year(s) and 3 month(s) ago. Patient History: Menarche at age 18. First Full-Term at age 25. Postmenopausal. Patient has history of breast feeding. Patient used Hormonal Contraceptives for 2 years. Risk Values: Ping 5 year model risk: 1.0%. NCI Lifetime model risk: 6.6%. Prior Study Comparison: 09/18/2018 Left Diagnostic Mammogram, [facility]. 10/29/2021 Bilateral Screening Mammogram, [facility]. 03/04/2023 Bilateral MG 3D screening mammo w/cad, [facility]. Tissue Density: The breasts are heterogeneously dense, which may obscure small masses. Findings: Analyzed By CAD. There is no suspicious group of microcalcifications or new suspicious mass in either breast. Overall Assessment: Negative, BI-RAD 1 Management: Screening Mammogram of both breasts in 1 year. . Patient should continue monthly self-breast exams. A clinical breast exam by your physician is recommended on an annual basis. This exam should not preclude additional follow-up of suspicious palpable abnormalities. Note on Ping scores and lifetime risk: 1. A Ping score greater than 3% is considered moderate risk. If this is the case, consider specialist referral to assess eligibility for a risk reducing agent. 2. If overall lifetime risk for the development of breast cancer is 20% or higher, the patient may qualify for future screening with alternating mammogram and breast MRI. [facility], , 06/19/2024 9:20 AM. Electronically signed and approved by: Brown Byrd M.D. Radiologis
== END | disposition home or self-care (01) ==
LOC: RADMAMWWP 06:57
PROVIDERS: ATTEND Internal Medicine
CPT/HCPCS: 77063; 77067

== ENCOUNTER → 2024-06-15 | Outpatient (CLI) | payer MEDICARE, OTHER ==
[2024-06-15 11:36] LABS: Appearance,Urine Clear (Clear); Bilirubin,Urine Negative (Negative); Blood,Urine Negative (Negative); Color,Urine Yellow (Yellow); Ketones,Urine Negative (Negative); Nitrite,Urine Negative (Negative); PH, Urine 5.5
[2024-06-15 15:22] LABS: Basophils # (A) 0.06 X 10*3/uL (0.00-0.10); Basophils % (A) 0.8 %; Eosinophils # (A) 0.18 X 10*3/uL (0.04-0.35); Eosinophils % (A) 2.3 %; HGB 13.6 g/dL (12.0-15.0); Lymphocytes # (A) 2.05 X 10*3/uL (0.90-5.00); Lymphocytes % (A) 26.5 %; MCHC 32.4 g/dL (32.0-37.0); MCV 92.7 FL (80.0-97.0); Mean Platelet Volume 10.6 FL (9.5-12.2); Monocytes # (A) 0.39 X 10*3/uL (0.20-1.00); NRBC Per 100 WBC 0 X 10*3/uL (0.00-0.01); Neutrophils # (A) 5.02 X 10*3/uL (1.80-7.70); Neutrophils % (A) 64.8 %; Platelet Count 202 X 10*3/uL (140-440); RBC 4.53 X 10*6/uL (4.10-5.20); RDW 14.6 % (11.5-14.5); WBC 7.75 X 10*3/uL (4.50-10.00)
[2024-06-15 15:43] LABS: % Iron Saturation 19.29 (12.00-45.00); BUN/Creat Ratio 15.06 Ratio (12.00-20.00); Blood Urea Nitrogen 25.6 mg/dL (9.0-27.0); Calcium 9.6 mg/dL (8.7-10.3); Chloride 106 mmol/L (96-109); Ferritin 90.8 ng/mL (10.0-291.0); Glucose 169 mg/dL (70-110); Iron 81 UG/DL (50-170); Magnesium 2.2 mg/dL (1.5-2.4); Phosphorus 3.4 mg/dL (2.4-5.1); Potassium 5.2 mmol/L (3.5-5.5); Sodium 139 mmol/L (135-145); Total Iron Binding Capacity 420 UG/DL (228-460); Uric Acid 4.9 mg/dL (2.9-7.7)
== END | disposition home or self-care (01) ==
LOC: LABWHC1 07:48
PROVIDERS: ATTEND Nurse Practitioner Family
CPT/HCPCS: 36415; 80048; 81003; 82306; 82728; 83540; 83550; 83735; 83970; 84100; 84550; 85025

== ENCOUNTER → 2024-07-11 | Outpatient (CLI) | payer MEDICARE, OTHER ==
--- NOTE | 2024-07-11 10:17 | US ---
EXAMINATION TYPE: US kidneys/renal and bladder DATE OF EXAM: 07/11/2024 COMPARISON: NONE CLINICAL INDICATION: Female, 58 years old with history of N18.30 CHRONIC KIDNEY DISEASE, STAGE 3; CKD 3 TECHNIQUE: Grayscale imaging of the bilateral kidneys and urinary bladder: FINDINGS: EXAM MEASUREMENTS: Right Kidney: 10.7 x 5.3 x 4.4 cm Left Kidney: 10.8 x 4.8 x 4.9 cm Right Kidney: No hydronephrosis or masses seen Left Kidney: No hydronephrosis or masses seen Bladder: Anechoic not fully distended. Bilateral Jets seen: no There is no evidence for hydronephrosis at this point in time. No nephrolithiasis is seen. No ni s are identified. The urinary bladder is anechoic. IMPRESSION: No evidence for obstructive uropathy. [facility], , 07/11/2024 10:15 AM
== END | disposition home or self-care (01) ==
LOC: RADUSWWP 09:12
PROVIDERS: ATTEND Internal Medicine Nephrology
DX: N18.31 Chronic kidney disease, stage 3a (principal)
CPT/HCPCS: 76770

== ENCOUNTER → 2024-11-23 | Outpatient (CLI) | payer MEDICARE, OTHER ==
[2024-11-23 15:01] LABS: Basophils # (A) 0.08 X 10*3/uL (0.00-0.10); Basophils % (A) 0.9 %; Eosinophils # (A) 0.29 X 10*3/uL (0.04-0.35); Eosinophils % (A) 3.2 %; HCT 42.2 % (37.2-46.3); HGB 13.4 g/dL (12.0-15.0); Lymphocytes # (A) 2.29 X 10*3/uL (0.90-5.00); Lymphocytes % (A) 25.3 %; MCH 28.9 pg (27.0-32.0); MCHC 31.8 g/dL (32.0-37.0); MCV 91.1 FL (80.0-97.0); Mean Platelet Volume 11.1 FL (9.5-12.2); Monocytes # (A) 0.44 X 10*3/uL (0.20-1.00); Monocytes % (A) 4.9 %; NRBC Per 100 WBC 0 X 10*3/uL (0.00-0.01); Neutrophils # (A) 5.87 X 10*3/uL (1.80-7.70); Neutrophils % (A) 64.9 %; Platelet Count 216 X 10*3/uL (140-440); RBC 4.63 X 10*6/uL (4.10-5.20); WBC 9.04 X 10*3/uL (4.50-10.00)
[2024-11-23 15:51] LABS: Albumin 4.1 g/dL (3.8-4.9); BUN/Creat Ratio 18.53 Ratio (12.00-20.00); Blood Urea Nitrogen 31.5 mg/dL (9.0-27.0); Carbon Dioxide 24.9 mmol/L (21.6-31.8); Chloride 104 mmol/L (96-109); Ferritin 82.6 ng/mL (10.0-291.0); Glucose 182 mg/dL (70-110); Iron 56 UG/DL (50-170); Magnesium 1.9 mg/dL (1.5-2.4); Phosphorus 3.3 mg/dL (2.4-5.1); Potassium 5.6 mmol/L (3.5-5.5); Sodium 139 mmol/L (135-145); Total Iron Binding Capacity 403 UG/DL (228-460); Uric Acid 5.2 mg/dL (2.9-7.7)
[2024-11-23 16:28] LABS: Appearance,Urine Clear (Clear); Bilirubin,Urine Negative (Negative); Blood,Urine Negative (Negative); Color,Urine Yellow (Yellow); Ketones,Urine Negative (Negative); Nitrite,Urine Negative (Negative); Specific Gravity,Urine 1.011 (1.001-1.030); Urobilinogen,Urine 0.2 E.U./DL
[2024-11-23 16:36] LABS: Bacteria,Urine None Seen (None Seen)
[2024-11-23 22:48] LABS: Urine Creatinine 60.2 mg/dL (28.0-217.0)
== END | disposition home or self-care (01) ==
LOC: LABWHC1 09:39
PROVIDERS: ATTEND Internal Medicine Nephrology
DX: N18.31 Chronic kidney disease, stage 3a (principal)
CPT/HCPCS: 36415; 80048; 81001; 82040; 82043; 82306; 82570; 82728; 83540; 83550; 83735; 83970; 84100; 84550; 85025

== ENCOUNTER → 2024-11-30 | Outpatient (CLI) | payer MEDICARE, OTHER | END | disposition home or self-care (01) | LOC: LABWHC1 10:05 | PROVIDERS: ATTEND Nurse Practitioner Family | DX: N18.31 Chronic kidney disease, stage 3a (principal) | CPT/HCPCS: 36415; 84132 ==

== ENCOUNTER 2025-01-02 19:26 | Emergency (ER) | payer MEDICARE, OTHER ==
[2025-01-02 19:42] VITALS: BP 119/64; PULSE 75; RESP 18; TEMP 97.9
--- NOTE | 2025-01-02 19:46 | ED ---
SOB HPI - General Chief Complaint: Shortness of Breath Stated Complaint: Back Pain Time Seen by Provider: 01/02/25 19:45 Source: patient Mode of arrival: ambulatory Limitations: no limitations - History of Present Illness Initial Comments: 59-year-old female presenting with chief complaint of back pain. Patient reports that there is pain all throughout her mid to lower back. She reports that she has been coughing for the last day. She also feels short of breath. She is a current cigarette smoker. No fever. No nausea vomiting or abdominal pain. No lower extremity swelling. - Related Data Home Medications Medication Instructions Recorded Confirmed clonazePAM [KlonoPIN] 1 mg PO BID 02/20/18 01/17/24 Atorvastatin [Lipitor] 80 mg PO HS 08/08/18 01/17/24 Montelukast [Singulair] 10 mg PO HS 12/18/18 01/17/24 metFORMIN HCL [Glucophage] 500 mg PO BID@1200,2100 06/14/19 01/17/24 Aspirin [Adult Low Dose Aspirin EC] 81 mg PO DAILY 04/08/21 01/17/24 Albuterol Sulfate [Ventolin HFA] 1 puff INHALATION RT-Q4H PRN 04/10/21 01/17/24 Loratadine 10 mg PO DAILY 08/29/21 01/17/24 Ammonium Lactate Cream [Lac-Hydrin 1 applic TOPICAL BID 08/08/23 01/17/24 12% Cream] Cinacalcet [Sensipar] 30 mg PO SUWE 08/08/23 01/17/24 Dapagliflozin Propanediol [Farxiga] 5 mg PO DAILY 08/08/23 01/17/24 Fluticasone/Umeclidin/Vilanter 1 puff INHALATION RT-DAILY 08/08/23 01/17/24 [Trelebertram Ellipta 100-62.5-25] lisinopriL 30 mg PO HS 08/08/23 01/17/24 Latanoprost [Latanoprost 0.005%] 1 drop BOTH EYES HS 12/28/23 01/17/24 Acetaminophen Tab [Tylenol] 325 mg PO Q4-6H PRN 01/13/24 01/17/24 carvediloL 12.5 mg PO BID 01/13/24 01/17/24 Previous Rx's Medication Instructions Recorded Clopidogrel [Plavix] 75 mg PO DAILY #30 tab 04/11/21 Ezetimibe [Zetia] 10 mg PO DAILY #30 tab 09/05/22 Citalopram Hydrobromide [CeleXA] 40 mg PO HS 30 Days #30 tab 01/02/24 Mirtazapine [Remeron] 45 mg PO HS 30 Days #30 tab 01/02/24 OLANZapine [ZyPREXA] 5 mg PO HS 30 Days #30 tab 01/02/24 amLODIPine [Norvasc] 10 mg PO DAILY 30 Days #30 tab 01/02/24 lamoTRIgine [LaMICtal] 25 mg PO DAILY 30 Days #30 tab 01/02/24 Allergies Allergy/AdvReac Type Severity Reaction Status Date / Time No Known Allergies Allergy Verified 01/02/25 19:42 Review of Systems ROS Statement: Those systems with pertinent positive or pertinent negative responses have been documented in the HPI. ROS Other: All systems not noted in ROS Statement are negative. Past Medical History Past Medical History: Atrial Fibrillation, Asthma, Blood Disorder, Coronary Artery Disease (CAD), COPD, CVA/TIA, Diabetes Mellitus, Deep Vein Thrombosis (DVT), Eye Disorder, GERD/Reflux, Hyperlipidemia, Myocardial Infarction (PA), Renal Disease, Seizure Disorder, Sleep Apnea/CPAP/BIPAP, Vascular Disorder Additional Past Medical History / Comment(s): NIDDM type II, blood clotting disorder/pt does not know type, DVT L leg/Lgroin, PVD, BI/no device used, seizure 2012, possible TIA, insomnia, bilateral eye glaucoma, bronchitis, USING O2 at 2L/NC NEEDED Last Myocardial Infarction Date:: 2010 History of Any Multi-Drug Resistant Organisms: None Reported Past Surgical History: Heart Catheterization With Stent, Orthopedic Surgery Additional Past Surgical History / Comment(s): Bilateral aortic stent/PTBA, bilateral lower leg stent per pt, fasciotomy L lower extremity/compartmental syndrome, R foot fracture with hardware since removed. PAIN CLINIC PROCEDURES Past Anesthesia/Blood Transfusion Reactions: No Reported Reaction Date of Last Stent Placement:: 2010 Past Psychological History: Anxiety, Depression, Panic Disorder, PTSD Smoking Status: Current every day smoker Past Alcohol Use History: None Reported Past Drug Use History: None Reported - Past Family History Mother Family Medical History: COPD Father History Unknown: Yes General Exam - General Exam Comments Initial Comments: Visual Physical Exam Vital signs reviewed General: Well-appearing, nontoxic, no acute distress. Head: Normocephalic, atraumatic Eyes: PERRLA, EOMI ENT: Airway patent Chest: Nonlabored breathing Skin: No visual rash, normal skin tone Neuro: Alert and oriented 3 Musculoskeletal: No gross abnormalities Limitations: no limitations Course Vital Signs 01/02/25 19:38 Temperature 97.9 F Pulse Rate 75 Respiratory 18 Rate Blood Pressure 119/64 O2 Sat by Pulse 96 Oximetry Medical Decision Making - Medical Decision Making I performed the quick note portion of this visit, electronically signed Vesna Campo PA-C Patient later eloped from the waiting room prior to completion of her evaluation Disposition Clinical Impression: Back pain Disposition: LEFT AGAINST MEDICAL ADVICE Condition: Undetermined Referrals: Shine Yañez DO [Primary Care Provider] - 1-2 days
--- NOTE | 2025-01-02 20:43 | XR ---
EXAMINATION TYPE: XR chest 2V DATE OF EXAM: 01/02/2025 8:01 PM COMPARISON: Chest radiographs from 06/03/2023 CLINICAL INDICATION: Female, 59 years old with history of cough, SOB; PHH TECHNIQUE: XR chest 2V Frontal and lateral views of the chest. FINDINGS: Lungs/Pleura: There is no evidence of pleural effusion, focal consolidation, or pneumothorax. Pulmonary vascularity: Unremarkable. Heart/mediastinum: Cardiomediastinal silhouette is unremarkable. Musculoskeletal: No acute osseous pathology. IMPRESSION: No acute cardiopulmonary disease/process. [facility], , 01/02/2025 8:41 PM
== END 2025-01-02 20:59 | disposition left against medical advice (07) ==
LOC: EC 19:26
DX: M54.9 Dorsalgia, unspecified (principal); Z53.29 Procedure and treatment not carried out because of patient's decision for other reasons; F17.210 Nicotine dependence, cigarettes, uncomplicated
CPT/HCPCS: 71046; 99284

== ENCOUNTER → 2025-01-15 | Outpatient (CLI) | payer MEDICARE ==
--- NOTE | 2025-01-15 10:35 | XR ---
EXAMINATION TYPE: XR KUB DATE OF EXAM: 01/15/2025 9:27 AM COMPARISON: None CLINICAL INDICATION: Female, 59 years old with history of R10.11 RUQ Abd pain; PHH, pain TECHNIQUE: One radiographic view of the abdomen was obtained. FINDINGS: Aortobiiliac endovascular stent graft are present. Vascular calcifications and phleboliths in the pelvis. Lung bases are clear. No dilated small bowel. Only mild scattered stool. IMPRESSION: Nonobstructive bowel gas pattern. Only mild scattered stool. Previous aortobiiliac endovascular stent graft. [facility], Workstation: [email or web address]![email or web address], 01/15/2025 10:33 AM
== END | disposition home or self-care (01) ==
LOC: RADXRMAIN 09:14
PROVIDERS: ATTEND Internal Medicine
DX: R14.0 Abdominal distension (gaseous) (principal); R10.11 Right upper quadrant pain; R19.5 Other fecal abnormalities; Z95.828 Presence of other vascular implants and grafts
CPT/HCPCS: 74018